=== PATIENT | female | born 1945 | race Hispanic/Latino ===

== ENCOUNTER → 2018-02-18 | Outpatient (CLI) | payer MEDICARE ==
[~2018-02-18] MED LIST: ATORVASTATIN CA10 MG PO; GLIMEPIRIDE4 MG PO; LEVAQUIN250 MG PO; METFORMIN HCL1000 MG PO; PHENAZOPYRIDIN200 MG PO; URELLE TABLET1 EACH PO; ZESTRIL20 MG PO
[2018-02-18 16:55] LABS: INR 1.01; PROTHROMBIN TIME 12.5 seconds (11.9-14.5)
[2018-02-18 16:56] LABS: PARTIAL THROMBOPLASTIN TIME 26.1 seconds (23.8-35.5)
[2018-02-18 16:59] LABS: CREATININE, SERUM 0.95 mg/dL (0.57-1.11)
--- NOTE | 2018-02-18 18:32 | Diagnostic Imaging Report ---
PROCEDURE: CHEST XRAY LINE PLACEMENT COMPARISON: None. INDICATIONS: POST PICC LINE PLACEMENT FINDINGS: LUNGS: No consolidations or edema. No interstitial thickening. PLEURA: No effusions or pneumothorax. HEART \T\ MEDIASTINUM: Right PICC line terminates in the SVC. The heart is within normal size-limits. BONES \T\ SOFT TISSUES: No acute findings. CONCLUSION: Right PICC line terminates in the SVC. No pneumothorax. No active cardiopulmonary process. Dictated by: Ana M Correa M.D. on 02/18/2018 at 18:39 Electronically approved by: Ana M Correa M.D. on 02/18/2018 at 18:39
== END ==
LOC: DX 16:04
PROVIDERS: ATTEND Internal Medicine Infectious Disease
DX: N39.0 Urinary tract infection, site not specified (principal)
CPT/HCPCS: 36415; 36569; 71045; 82565; 84520; 85610; 85730

== ENCOUNTER 2018-02-21 14:42 | Emergency (ER) | payer MEDICARE ==
[~2018-02-21] VITALS: Ht 152.4 cm; Wt 82.1 kg
[2018-02-21] MEDS ORDERED: DOXYCYCLINE HY100 MG PO (15:35)
== END 2018-02-21 16:46 | disposition home or self-care (01) ==
LOC: ER 14:42
DX: M79.631 Pain in right forearm (principal); L03.113 Cellulitis of right upper limb; I10 Essential (primary) hypertension; E11.9 Type 2 diabetes mellitus without complications; E78.5 Hyperlipidemia, unspecified; L40.9 Psoriasis, unspecified
CPT/HCPCS: 99283

== ENCOUNTER 2018-09-11 19:35 | Emergency (ER) | payer MEDICARE ==
[~2018-09-11] VITALS: Ht 152.4 cm; Wt 85.3 kg
[~2018-09-11 19:35] MED LIST changes: +DOXYCYCLINE HY100 MG PO
--- OUTSIDE RECORDS SUMMARY | 2018-09-11 19:40 | XMS REPORT | Continuity of Care Document ---
Author Author [facility] Interface Address Unknown Phone Unavailable Problems Problem Status Onset Date Classification Date Reported Comments Source CHEST PAIN Active 07/03/2018 [facility] UNK Active 06/05/2018 [facility] HYPOTENSION, EPISTAXIS Active 05/26/2018 [facility] NOSE BLEED Active 05/26/2018 [facility] UNSTABLE ANGINA, ATHEROSCLEROTIC HEART D Active 05/13/2018 [facility] RIGHT SIDED CHEST PAIN/JOSE ELEVATION Active 05/13/2018 [facility] ABNORMAL EKG Active 05/13/2018 [facility] BLADDER PAIN Active 02/14/2017 [facility] BLADDER LESION Active 10/11/2016 [facility] URINARY RETENSION Active 02/26/2016 [facility] 2ND STAGE INSTERTIM Active 02/26/2016 [facility] N39.0; URINARY TRACT INFECTION, SITE NOT Active 11/24/2015 [facility] R10.10 - "UPPER ABDOMINAL PAIN, UNSPECIF Active 11/20/2015 [facility] N13.30-UNSPECIFIED HYDRONEPHROSIS Active 09/20/2015 [facility] PYELONEPHRITIS Active 05/16/2015 [facility] LABIA WOUND Active 04/18/2015 [facility] VOMITING Active 04/12/2015 [facility] RECURRENT CYSTITIS, VOMITING, ABSCESS Active 04/12/2015 [facility] N13.30 UNSPECIFIED HYDRONEPHROSIS Active 03/31/2015 [facility] SEPSIS, MULTI DRUG RESISTANT UTI, FAILUR Active 03/17/2015 [facility] ABD PAIN Active 03/17/2015 [facility] 783.21/281.0/285.9/536.3 Active 01/27/2015 [facility] LT PYELONRPHRITIS, SEPSIS, COMPLICATED U Active 01/11/2015 [facility] VOMITING/ FEVER Active 01/11/2015 [facility] PYELONEPHRITIS, HYPOGLYCEMIA Active 12/08/2014 [facility] Discharge Diagnosis: Acute lower UTI 12/07/2014 12/10/2014 [facility] Discharge Diagnosis: Acute urinary retention 12/07/2014 12/10/2014 [facility] Chronic cystitis<sup>1</sup> Active 10/07/2014 Problem 11/29/2017 Data migrated from [employer] on 01/04/15. NEO Amanda,[facility] Encounter for screening mammogram for malignant neoplasm of breast 11/29/2017 [facility] Acute PN - pyelonephritis Resolved Problem 11/29/2017 NEO Amanda,[facility] Diabetes Active Problem 11/29/2017 NEO Amanda,[facility] Frequency Resolved Problem 11/29/2017 NEO Amanda,[facility] HTN (<span [id number]</span>) Active Problem 11/29/2017 [facility] Amanda,[facility] Hypercholesteremia Active Problem 11/29/2017 [facility] Amanda,[facility] Hypertension Active Problem 11/29/2017 NEO Amanda,[facility] Psoriasis<sup>2</sup> Active Problem 11/29/2017 on both legs NEO Amanda,[facility] Retained ureteral stent Active Problem 11/29/2017 NEO Amanda,[facility] Sleep apnea<sup>3</sup> Active Problem 11/29/2017 [facility] Psoriasis<sup>1</sup> Active Problem 12/13/2014 1on both legs [facility] Sleep apnea Active Problem 03/01/2016 [facility], [facility] Urinary tract infection Active Problem 02/21/2018 NEO Amanda,[facility] PYELONEPHRITIS NOS Active [facility] SEPTICEMIA NOS Active [facility] HYDRONEPHROSIS WITH RENAL AND URETERAL C Active [facility] ABNORMAL LOSS OF WEIGHT Active [facility] PERNICIOUS ANEMIA Active [facility] ANEMIA NOS Active [facility] GASTROPARESIS Active [facility] CYSTITIS, UNSPECIFIED WITHOUT HEMATURIA Active [facility] TUBULO-INTERSTITIAL NEPHRITIS, 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 [facility] UNSPECIFIED HYDRONEPHROSIS Active [facility] RETENTION OF URINE, UNSPECIFIED Active [facility] URINARY TRACT INFECTION, SITE NOT SPECIF Active [facility] OTHER SPECIFIED DISORDERS OF BLADDER Active [facility] UNSTABLE ANGINA Active [facility] HYPOTENSION, UNSPECIFIED Active [facility] EPISTAXIS Active [facility] CHEST PAIN, UNSPECIFIED Active [facility] Medications Medication Details Route Status Patient Instructions Ordering Provider Order Date Source Doxycycline Hyclate 100 Mg Capsule Twice A Day Active Aleksandar 02/21/2018 [facility] Insulin regular 5 unit, Route: IV, ONCE, Dosing Weight 74.545, kg, Start date: 10/30/16 13:05:00 CDT, Stop date: 10/30/16 13:05:00 CDT Inactive 10/30/2016 [facility] Insulin regular 2 unit, 0.02 mL, Route: SUB-Q, Drug form: SOLN, Sliding Scale, Dosing Weight 74.545, kg, PRN Blood Glucose Results, Start date: 10/30/16 12:42:00 CDT, Duration: 30 day, Stop date: 11/29/16 12:41:00 CDTN otes: (Same as: Humulin R) Roll in palms of hands gently; Do not shake vigorously. "single patient use only" (Restricted to patients requiring a dose > 60 units) WASTE: F/P - Black; E - Personal Style Finder Trash Bin Stable for 28 days at room temperature Expires in days from Date No Longer Active 10/30/2016 [facility] Flumazenil 0.2 mg, 2 mL, Route: IVP, Drug form: INJ, PRN, Dosing Weight 74.545, kg, PRN Benzodiazepine Reversal, Initial dose, Start date: 10/30/16 12:42:00 CDT, Duration: 30 day, Stop date: 11/29/16 12:41:00 C DTNotes: (Same as: Romazicon) No Longer Active 10/30/2016 [facility] Ondansetron 4 mg, 2 mL, Route: IVP, Drug form: INJ, ONCE, Dosing Weight 74.545, kg, PRN Nausea & Vomiting, Start date: 10/30/16 12:42:00 CDTNotes: (Same as: Zofran) MEDICATION WASTE Product Size: 4 mg Product Wasted: ___ mg No Longer Active 10/30/2016 [facility] Naloxone 0.4 mg, 1 mL, Route: IVP, Drug form: INJ, Q2MIN, Dosing Weight 74.545, kg, PRN Narcotic Reversal, Start date: 10/30/16 12:42:00 CDT, Duration: 8 doses or times, Stop date: Limited # of timesNotes: Same as Narcan No Longer Active 10/30/2016 [facility] Hydromorphone 0.5 mg, 0.25 mL, Route: IVP, Drug form: INJ, Q5Min, Dosing Weight 74.545, kg, PRN Pain Score 7-10, Start date: 10/30/16 12:42:00 CDT, Duration: 4 doses or times, Stop date: Limited # of timesNotes: S johnny as: Dilaudid No Longer Active 10/30/2016 [facility] Fentanyl 25 microgram, 0.5 mL, Route: IVP, Drug form: INJ, Q5Min, Dosing Weight 74.545, kg, PRN Pain Score 4-6, Priority: Routine, Start date: 10/30/16 12:42:00 CDT, Duration: 4 doses or times, Stop date: Limited # of timesNotes: (Same as: Sublimaze) Preservative free. No Longer Active 10/30/2016 [facility] Oxycodone 5 mg, 1 tab, Route: PO, Drug form: TAB, Q4H, Dosing Weight 74.545, kg, PRN Pain Score 4-6, Start date: 10/30/16 12:42:00 CDT, Duration: 1 day, Stop date: 10/31/16 12:41:00 CDTNotes: (Same as: Roxicodone) No Longer Active 10/30/2016 [facility] Insulin regular 5 unit, Route: IV, ONCE, Dosing Weight 74.545, kg, Start date: 10/30/16 12:36:00 CDT, Stop date: 10/30/16 12:36:00 CDT Inactive 10/30/2016 [facility] ondansetron (ANES) Route: IV, Drug form: INJ, ONCE, Stop date: 10/30/16 12:11:00 CDT Inactive 10/30/2016 [facility] Ciprofloxacin 500 MG Oral Tablet [Cipro] 500 mg=1 tab, PO, Q12H, X 7 day, # 14 tab, 0 Refill(s) Active 10/30/2016 [facility] fluconazole 100 mg oral tablet 100 mg=1 tab, PO, Daily, X 7 day, # 7 tab, 0 Refill(s) Active 10/30/2016 [facility] Hyoscyamine Sulfate 0.125 MG Sublingual Tablet [Levsin] 0.125 mg=1 tab, SL, Q4H, PRN Bladder Spasm, # 10 tab, 0 Refill(s) Active 10/30/2016 [facility] phenylephrine (ANES) Route: IV, Drug form: INJ, ONCE, Stop date: 10/30/16 11:56:00 CDT Inactive 10/30/2016 [facility] fentaNYL (ANES) Route: IV, Drug form: INJ, ONCE, Stop date: 10/30/16 11:56:00 CDT Inactive 10/30/2016 [facility] Cipro (ANES) Route: IV, Drug form: INJ, ONCE, Stop date: 10/30/16 11:51:00 CDT Inactive 10/30/2016 [facility] midazolam (ANES) Route: IV, Drug form: SOLN, ONCE, Stop date: 10/30/16 11:41:00 CDT Inactive 10/30/2016 [facility] lidocaine (ANES) Route: IV, Drug form: INJ, ONCE, Stop date: 10/30/16 11:41:00 CDT Inactive 10/30/2016 [facility] acetaminophen (ANES) (ANES) Route: IV, Drug form: INJ, Start date: 10/30/16 11:24:00 CDT, Stop date: 10/30/16 12:24:00 CDT Inactive 10/30/2016 [facility] LR 1000 mL INJ (ANES) Route: IV, Total Volume: 1,000, Start date: 10/30/16 10:47:00 CDT, Stop date: 10/30/16 11:47:00 CDT Inactive 10/30/2016 [facility] Cipro 400 mg, 200 mL, Route: IVPB, Drug form: INJ, PRE OP, Start date: 10/30/16 9:00:00 CDT, Duration: 1 day, Stop date: 10/31/16 8:59:00 CDTNotes: Do not refrigerate No Longer Active 10/30/2016 [facility] Cipro 400 mg, 200 mL, Route: IVPB, Drug form: INJ, PRE OP, Start date: 10/30/16 1:00:00 CDT, Duration: 1 day, Stop date: 10/31/16 0:59:00 CDTNotes: Do not refrigerate Inactive 10/30/2016 [facility] Cephalexin 500 MG Oral Capsule [Keflex] 500 mg=1 cap, PO, BID, X 7 day, # 14 cap, 0 Refill(s) Active 04/09/2016 [facility] Acetaminophen 300 MG / Codeine Phosphate 30 MG Oral Tablet [Tylenol with Codeine #3] 1 - 2 tab, PO, Q4H, PRN Pain, X 2 day, # 20 tab, 0 Refill(s) No Longer Active 04/09/2016 [facility] Flumazenil 0.2 mg, 2 mL, Route: IVP, Drug form: INJ, PRN, Dosing Weight 71.818, kg, PRN Benzodiazepine Reversal, Initial dose, Start date: 04/09/16 7:24:00 CDT, Duration: 30 day, Stop date: 05/09/16 6:23:00 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: (Same as: Romazicon) No Longer Active 04/09/2016 [facility] Oxycodone 5 mg, 1 tab, Route: PO, Drug form: TAB, Q4H, Dosing Weight 71.818, kg, PRN Pain Score 4-6, Start date: 04/09/16 7:24:00 CDT, Duration: 30 day, Stop date: 05/09/16 7:23:00 CSTNotes: (Same as: Roxicodone) No Longer Active 04/09/2016 [facility] Naloxone 0.4 mg, 1 mL, Route: IVP, Drug form: INJ, Q2MIN, Dosing Weight 71.818, kg, PRN Narcotic Reversal, Start date: 04/09/16 7:24:00 CDT, Duration: 8 doses or times, Stop date: Limited # of timesNotes: Same as Narcan No Longer Active 04/09/2016 [facility] Labetalol 10 mg, 2 mL, Route: IVP, Drug form: INJ, Q5Min, Dosing Weight 71.818, kg, PRN Elevated BP, Start date: 04/09/16 7:24:00 CDT, Duration: 5 doses or times, Stop date: Limited # of times No Longer Active 04/09/2016 [facility] Hydralazine 10 mg, 0.5 mL, Route: IVP, Drug form: INJ, Q20Min, Dosing Weight 71.818, kg, PRN Elevated BP, Start date: 04/09/16 7:24:00 CDT, Duration: 2 doses or times, Stop date: Limited # of timesNotes: (Same as: Apresoline) Push over 5 minutes No Longer Active 04/09/2016 [facility] Ondansetron 4 mg, 2 mL, Route: IVP, Drug form: INJ, ONCE, Dosing Weight 71.818, kg, PRN Nausea & Vomiting, Start date: 04/09/16 7:24:00 CDTNotes: (Same as: Dima) MEDICATION WASTE Product Size: 4 mg Product Wasted: _0_ mg No Longer Active 04/09/2016 [facility] Lactated Ringers 1,000 mL 1,000 mL, Rate: 40 ml/hr, Infuse over: 25 hr, Route: IV, Dosing Weight 71.818 kg, Total Volume: 1,000, Start date: 04/09/16 6:00:00 CDT, Duration: 30 day, Stop date: 05/09/16 5:59:00 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 No Longer Active 04/09/2016 [facility] Cipro 400 mg, 200 mL, Route: IVPB, Drug form: INJ, PRE OP, Start date: 04/09/16 1:00:00 CDT, Duration: 1 day, Stop date: 04/10/16 0:59:00 CDTNotes: Do not refrigerate Inactive 04/09/2016 [facility] Cephalexin 500 MG Oral Capsule [Keflex] 500 mg=1 cap, PO, TID, X 7 day, # 21 cap, 0 Refill(s) Active 04/02/2016 [facility] Acetaminophen 300 MG / Codeine Phosphate 30 MG Oral Tablet [Tylenol with Codeine #3] 1 - 2 tab, PO, Q6H, PRN Pain, X 5 day, # 30 tab, 0 Refill(s) Active 04/02/2016 [facility] ceFAZolin 1 gm, Route: IVPB, Drug form: PDR/INJ, PRE OP, Start date: 04/02/16 5:00:00 CDT, Duration: 1 day, Stop date: 04/03/16 4:59:00 CDTNotes: (Same As: Laura Triana) MEDICATION WASTE Product Size: 1000 mg Product Wasted: __0_ mg Inactive 04/02/2016 [facility] Sulfamethoxazole 800 MG / Trimethoprim 160 MG Oral Tablet [Bactrim] 1 tab, PO, BID, 0 Refill(s) No Longer Active 03/29/2016 [facility] amoxicillin 500 mg oral capsule 500 mg=1 cap, PO, TID, 0 Refill(s) No Longer Active 03/29/2016 [facility] ferrous sulfate PO, BID, 0 Refill(s) Active 03/29/2016 [facility] cefdinir 300 MG Oral Capsule 300 mg=1 cap, PO, Q12H, X 7 day, # 14 cap, 0 Refill(s), called to pharmacy Active 05/21/2015 [facility] ampicillin 500 mg oral capsule 2, PO, Q6H, # 28 cap, 0 Refill(s), called to pharmacy Active 05/21/2015 [facility] docusate sodium 100 mg oral capsule 100 mg, 1 cap, Route: PO, Drug form: CAP, QSun, Dosing Weight 76.364, kg, Start date: 05/21/15 12:00:00, Duration: 30 day, Stop date: 06/18/15 12:00:00Notes: (Same as: Colace) (Do Not Crush) Inactive 05/21/2015 [facility] Vitamin D2 50,000 IntlUnit, 1 cap, Route: PO, Drug form: CAP, QSat, Dosing Weight 76.364, kg, Start date: 05/20/15 9:00:00, Duration: 30 day, Stop date: 06/17/15 9:00:00Notes: (Same as: Vitamin D) "Do Not Crush" No Longer Active 05/20/2015 [facility] pt own apremilast (Otezia) pt own apremilast (Otezia), 30 mg, Drug form: MISC, Route: PO, BID, 05/19/15 17:00:00, Duration: 30 day, Stop date: 06/18/15 9:00:00 No Longer Active 05/19/2015 [facility] Otezla Otezla, 30 mg, Route: PO, BID, 05/19/15 17:00:00, Duration: 30 day, Stop date: 06/18/15 9:00:00 Inactive 05/19/2015 [facility] Please bring pt's Own Otezla to pharmacy for label Please bring pt's Own Otezla to pharmacy for label, Reminder, Drug form: MISC, Route: MISC, Daily, 05/19/15 14:00:00, Duration: 30 day, Stop date: 06/18/15 9:00:00 Inactive 05/19/2015 [facility] Vancomycin 250 mg, 5 mL, Route: PO, Drug form: SUSP, [id number], Dosing Weight 75.568, kg, Start date: 05/19/15 12:00:00, Stop date: 06/18/15 6:00:00Notes: TIME CRITICAL MEDICATION "DILUTE EACH DOSE WITH 30ML OF WATER OR APPLE/ORANGE JUICE PRIOR TO ADMINISTRATION" No Longer Active 05/19/2015 [facility] apremilast 30 MG Oral Tablet [Otezla] 30 mg=1 tab, PO, BID, 0 Refill(s) Active 05/19/2015 [facility] pt's own med: Calcipotriene/Betamethasone pt's own med: Calcipotriene/Betamethasone, apply, Drug form: MISC, Route: TOP, BID, 05/18/15 9:00:00, Duration: 30 day, Stop date: 06/16/15 17:00:00 No Longer Active 05/18/2015 [facility] atorvastatin 10 mg, 1 tab, Route: PO, Drug form: TAB, Bedtime, Dosing Weight 76.364, kg, Start date: 05/17/15 21:00:00, Duration: 30 day, Stop date: 06/15/15 21:00:00Notes: (Same As: Lipitor) No Longer Active 05/18/2015 [facility] Metformin hydrochloride 1000 MG Oral Tablet 1,000 mg, 2 tab, Route: PO, Drug form: TAB, Lunch, Dosing Weight 76.364, kg, Start date: 05/17/15 12:00:00, Duration: 30 day, Stop date: 06/15/15 12:00:00Notes: (Same as: Glucophage) Take with meal No Longer Active 05/17/2015 [facility] docusate sodium 100 mg oral capsule 100 mg, 1 cap, Route: PO, Drug form: CAP, QWed, Dosing Weight 76.364, kg, Start date: 05/17/15 12:00:00, Duration: 30 day, Stop date: 06/14/15 12:00:00Notes: (Same as: Colace) (Do Not Crush) No Longer Active 05/17/2015 [facility] Unasyn 3 gm, 1 ea, Route: IVPB, [id number], Dosing Weight 75.568, kg, Start date: 05/17/15 11:00:00, Duration: 30 day, Stop date: 06/16/15 8:00:00Notes: Dosing based on Ampicillin component (Same as: Unasyn) No Longer Active 05/17/2015 [facility] Ceftriaxone 1 gm, Route: IVPB, [id number], Dosing Weight 75.568, kg, Start date: 05/17/15 11:00:00, Duration: 30 day, Stop date: 06/15/15 23:00:00Notes: (Same As: Rocephin). Use with 100 mL NS and infuse over 30 min MEDICATION WASTE Product Size: 1000 mg Product Wasted: ___ mg No Longer Active 05/17/2015 [facility] One-A-Day Women 50 Plus 1 tab, Route: PO, Dosing Weight 76.364, kg, Daily, Start date: 05/17/15 9:00:00, Duration: 30 day, Stop date: 06/15/15 9:00:00 No Longer Active 05/17/2015 [facility] Lisinopril 10 mg, 1 tab, Route: PO, Drug form: TAB, Daily, Dosing Weight 76.364, kg, Start date: 05/17/15 9:00:00, Duration: 30 day, Stop date: 06/15/15 9:00:00Notes: (Same as: Prinivil, Zestril) No Longer Active 05/17/2015 [facility] glimepiride 4 mg, 1 tab, Route: PO, Drug form: TAB, BID, Dosing Weight 76.364, kg, Start date: 05/17/15 9:00:00, Duration: 30 day, Stop date: 06/15/15 17:00:00Notes: (Same as: Amaryl) No Longer Active 05/17/2015 [facility] Betamethasone 0.5 MG/ML / calcipotriene 0.05 MG/ML Topical Lotion 1 appl, Route: TOP, Daily, Drug form: SUSP, Start date: 05/17/15 9:00:00, Duration: 30 day, Stop date: 06/15/15 9:00:00 Inactive 05/17/2015 [facility] multivitamin 1 tab, Route: PO, Drug Form: TAB, Daily, Start date: 05/17/15 9:00:00, Duration: 30 day, Stop date: 06/15/15 9:00:00Notes: (Same as:One Tab Daily, Tab-A-Chelsie + Beta Carotene) Give with food. No Longer Active 05/17/2015 [facility] K-Dur 20 20 mEq, 1 tab, Route: PO, Drug form: ERTAB, Q6H, Start date: 05/17/15 4:00:00, Duration: 4 doses or times, Stop date: 05/17/15 18:00:00Notes: (Same as: K-Dur 20) "Do Not Crush" With food and full glass of water Inactive 05/17/2015 [facility] Please bring Beta-calcipotriene top susp Please bring Beta- calcipotriene top susp, to pharmacy to be verified, Drug form: MISC, Route: MISC, QSHIFT, 05/17/15 0:00:00, Duration: 30 day, Stop date: 06/15/15 16:00:00 Inactive 05/17/2015 [facility] Tylenol 325 mg, 1 tab, Route: PO, Drug form: TAB, Q4H, PRN Pain Score 1-5, Start date: 05/16/15 22:41:00, Duration: 30 day, Stop date: 06/15/15 22:40:00Notes: Do not exceed 4 gm/day. (Same as: Tylenol) No Longer Active 05/17/2015 [facility] tramadol 50 mg oral tablet 50 mg, 1 tab, Route: PO, Drug form: TAB, Q4H, PRN Pain Score 1-5, Start date: 05/16/15 22:41:00, Duration: 30 day, Stop date: 06/15/15 22:40:00Notes: Not to exceed 400mg/day. (Same As: Ultram) No Longer Active 05/17/2015 [facility] Tylenol 650 mg, 2 tab, Route: PO, Drug form: TAB, Q4H, Dosing Weight 76.364, kg, PRN For Temp > 100.4 F, Start date: 05/16/15 21:16:00, Duration: 30 day, Stop date: 06/15/15 21:15:00Notes: Do not exceed 4 gm/day. (Same as: Tylenol) No Longer Active 05/17/2015 [facility] Lactated Ringers IV 1,000 mL 1,000 mL, Rate: 125 ml/hr, Infuse over: 8 hr, Route: IV, Dosing Weight 76.364 kg, Total Volume: 1,000, Start date: 05/16/15 21:15:00, Duration: 30 day, Stop date: 06/15/15 21:14:00 No Longer Active 05/17/2015 [facility] Zofran 4 mg, 2 mL, Route: IV, Drug form: INJ, Q4H, Dosing Weight 76.364, kg, PRN Nausea, Start date: 05/16/15 21:14:00, Duration: 30 day, Stop date: 06/15/15 21:13:00Notes: (Same as: Zofran) MEDICATION WASTE Product Size: 4 mg Product Wasted: ___ mg No Longer Active 05/17/2015 [facility] potassium chloride 20 mEq, 1 tab, Route: PO, Drug form: ERTAB, ONCE, Dosing Weight 76.364, kg, Start date: 05/16/15 21:13:00, Stop date: 05/16/15 21:13:00Notes: (Same as: K-Dur 20) "Do Not Crush" With food and full glass of water Inactive 05/17/2015 [facility] Acetaminophen 325 MG / tramadol hydrochloride 37.5 MG Oral Tablet [Ultracet] 1 tab, Route: PO, Drug Form: TAB, Dosing Weight 76.364, kg, Q4H, PRN Pain Score 1-5, Start date: 05/16/15 21:10:00, Duration: 30 day, Stop date: 06/15/15 21:09:00 Inactive 05/17/2015 [facility] Acetaminophen 300 MG / Codeine Phosphate 30 MG Oral Tablet 1 tab, Route: PO, Drug Form: TAB, Dosing Weight 76.364, kg, Q4H, PRN Pain Score 4-6, Start date: 05/16/15 21:08:00, Duration: 30 day, Stop date: 06/15/15 21:07:00Notes: Do not exceed 4gm/day of acetaminophen. (Same as: Tylenol with Codeine # 3) No Longer Active 05/17/2015 [facility] Lovenox 40 mg, 0.4 mL, Route: SUB-Q, Drug form: INJ, [id number], Dosing Weight 76.364, kg, Start date: 05/16/15 20:00:00, Duration: 30 day, Stop date: 06/14/15 20:00:00Notes: (Same as: Lovenox) No Longer Active 05/17/2015 [facility] Rocephin 1 gm, Route: IVPB, [id number], Dosing Weight 76.364, kg, Start date: 05/16/15 20:00:00, Duration: 30 day, Stop date: 06/14/15 20:00:00Notes: (Same As: Rocephin). Use with 100 mL NS and infuse over 30 min MEDICATION WASTE Product Size: 1000 mg Product Wasted: ___ mg No Longer Active 05/17/2015 [facility] docusate sodium 100 mg oral capsule 100 mg, 1 cap, Route: PO, Drug form: CAP, QWed, Dosing Weight 77.727, kg, Start date: 04/19/15 12:00:00, Duration: 30 day, Stop date: 05/17/15 12:00:00Notes: (Same as: Colace) (Do Not Crush) No Longer Active 04/19/2015 [facility] Ciprofloxacin 250 MG Oral Tablet [Cipro] 250 mg=1 tab, PO, Q12H, X 14 day, # 28 tab, 0 Refill(s) Active 04/17/2015 [facility] Levemir FlexPen 25 unit, 0.25 mL, Route: SUB-Q, Drug form: INJ, Bedtime, Start date: 04/16/15 21:00:00, Duration: 30 day, Stop date: 05/15/15 21:00:00Notes: Same as Levemir Do not hold insulin without contacting prescriber "single patient use only" No Longer Active 04/17/2015 [facility] docusate sodium 100 mg oral capsule 100 mg, 1 cap, Route: PO, Drug form: CAP, QSun, Dosing Weight 77.727, kg, Start date: 04/16/15 9:00:00, Duration: 30 day, Stop date: 05/14/15 9:00:00Notes: (Same as: Colace) (Do Not Crush) No Longer Active 04/16/2015 [facility] Lactulose 20 gm, 30 ml, Route: PO, Drug Form: SYRP, Dosing Weight 77.983, kg, Q8H, PRN Constipation, Start date: 04/15/15 14:54:00, Duration: 30 day, Stop date: 05/15/15 14:53:00Notes: (Same as:Chronulac) No Longer Active 04/15/2015 [facility] ergocalciferol 50,000 IntlUnit, 1 cap, Route: PO, Drug form: CAP, QSat, Dosing Weight 77.727, kg, Start date: 04/15/15 9:00:00, Duration: 30 day, Stop date: 05/13/15 9:00:00Notes: (Same as: Vitamin D) "Do Not Crush" No Longer Active 04/15/2015 [facility] Vancomycin 1 gm, 200 mL, Route: IVPB, Drug form: INJ, [id number], Dosing Weight 77.983, kg, Start date: 04/14/15 17:00:00, Duration: 30 day, Stop date: 05/14/15 5:00:00Notes: TIME CRITICAL MEDICATION No Longer Active 04/14/2015 [facility] Lantus 15 unit, Route: SUB-Q, Bedtime, Dosing Weight 77.727, kg, Start date: 04/13/15 21:00:00, Duration: 30 day, Stop date: 05/12/15 21:00:00 Inactive 04/14/2015 [facility] atorvastatin 10 mg, 1 tab, Route: PO, Drug form: TAB, Bedtime, Dosing Weight 77.727, kg, Start date: 04/13/15 21:00:00, Duration: 30 day, Stop date: 05/12/15 21:00:00Notes: (Same As: Lipitor) No Longer Active 04/14/2015 [facility] Levemir FlexPen 15 unit, 0.15 mL, Route: SUB-Q, Drug form: INJ, Bedtime, Start date: 04/13/15 21:00:00, Duration: 30 day, Stop date: 05/12/15 21:00:00Notes: Same as Levemir Do not hold insulin without contacting prescriber "single patient use only" No Longer Active 04/14/2015 [facility] otezla otezla, 30 mg, Route: PO, BID, 04/13/15 17:00:00, Duration: 30 day, Stop date: 05/13/15 9:00:00 No Longer Active 04/13/2015 [facility] Zosyn 3.375 gm, 100 mL, Route: IVPB, Drug form: PDR/INJ, [id number], Dosing Weight 77.727, kg, CrCl >=20 ml/min infuse over 4 hours, Start date: 04/13/15 12:00:00, Duration: 30 day, Stop date: 05/13/15 1:30:00Notes: (Same as: Zosyn) Infuse over 4 hours. Activate and reconstitute before use. Dosing based on Piperacillin component No Longer Active 04/13/2015 [facility] oxybutynin 5 mg, 1 tab, Route: PO, Drug form: TAB, TID, Dosing Weight 77.727, kg, Start date: 04/13/15 9:00:00, Duration: 30 day, Stop date: 05/12/15 17:00:00Notes: Same as: Ditropan) Inactive 04/13/2015 [facility] Multiple Vitamins with Minerals oral tablet 1 tab, Route: PO, Drug Form: TAB, Dosing Weight 77.727, kg, Daily, Start date: 04/13/15 9:00:00, Duration: 30 day, Stop date: 05/12/15 9:00:00Notes: (Same as:Thera-M, Theragran-M) Give with food. No Longer Active 04/13/2015 [facility] Lisinopril 10 mg, 1 tab, Route: PO, Drug form: TAB, Daily, Dosing Weight 77.727, kg, Start date: 04/13/15 9:00:00, Duration: 30 day, Stop date: 05/12/15 9:00:00Notes: (Same as: Prinivil, Zestril) No Longer Active 04/13/2015 [facility] Vancomycin 1 gm, Route: IVPB, Drug form: INJ, [id number], Dosing Weight 77.727, kg, Start date: 04/13/15 8:00:00, Duration: 30 day, Stop date: 05/12/15 20:00:00 Inactive 04/13/2015 [facility] Glucagon 1 mg, Route: IM, Drug form: PDR/INJ, PRN, Dosing Weight 77.727, kg, PRN Blood Glucose Results, Start date: 04/13/15 7:20:00, Duration: 30 day, Stop date: 05/13/15 6:19:00 No Longer Active 04/13/2015 [facility] Dextrose 50% Syringe 12.5 gm, 25 mL, Route: IVP, Drug Form: INJ, Dosing Weight 77.727, kg, PRN, PRN Blood Glucose Results, Start date: 04/13/15 7:20:00, Duration: 30 day, Stop date: 05/13/15 6:19:00 No Longer Active 04/13/2015 [facility] Insulin, Aspart, Human 5 unit, 0.05 mL, Route: SUB-Q, Drug form: SOLN, TID-Before Meals, Dosing Weight 77.727, kg, PRN Blood Glucose Results, Start date: 04/13/15 7:20:00, Duration: 30 day, Stop date: 05/13/15 7:19:00Notes: Roll in palms of hands gently; Do not shake vigorously. (Same as: NovoLOG) "single patient use only" Stable for 28 days at room temperature. Expires in days from Date No Longer Active 04/13/2015 [facility] Sodium Chloride 0.154 MEQ/ML Injectable Solution 1,000 mL, Rate: 125 ml/hr, Infuse over: 8 hr, Route: IV, Dosing Weight 77.727 kg, Total Volume: 1,000, Start date: 04/13/15 7:20:00, Duration: 30 day, Stop date: 05/13/15 7:19:00 No Longer Active 04/13/2015 [facility] Saline Flush 0.9% 10 ml, Route: IVP, Drug Form: INJ, Dosing Weight 77.727, kg, PRN, PRN Line Flush, Start date: 04/13/15 7:20:00, Duration: 30 day, Stop date: 05/13/15 6:19:00Notes: (Same as: BD Posiflush) No Longer Active 04/13/2015 [facility] Ondansetron 4 mg, 2 mL, Route: IVP, Drug form: INJ, Q6H, Dosing Weight 77.727, kg, PRN Nausea & Vomiting, Start date: 04/13/15 7:20:00, Duration: 30 day, Stop date: 05/13/15 7:19:00Notes: (Same as: Zoyolette) MEDICATION WASTE Product Size: 4 mg Product Wasted: ___ mg No Longer Active 04/13/2015 [facility] Morphine 2 mg, 1 mL, Route: IVP, Drug form: INJ, Q4H, Dosing Weight 77.727, kg, PRN Pain Score 7-10, Start date: 04/13/15 7:20:00, Duration: 30 day, Stop date: 05/13/15 7:19:00Notes: (Same as:MORPhine Sulfate) No Longer Active 04/13/2015 [facility] Acetaminophen 325 MG / Hydrocodone Bitartrate 5 MG Oral Tablet 1 tab, Route: PO, Drug Form: TAB, Dosing Weight 77.727, kg, Q4H, PRN Pain Score 4-6, Start date: 04/13/15 7:20:00, Duration: 30 day, Stop date: 05/13/15 7:19:00Notes: (Same as: Baldwin 325/5) Do not exceed 4gm/day of acetaminophen. No Longer Active 04/13/2015 [facility] Acetaminophen 650 mg, 2 tab, Route: PO, Drug form: TAB, Q4H, Dosing Weight 77.727, kg, PRN Pain 1-3/Temp > 100.4 F, Start date: 04/13/15 7:20:00, Duration: 30 day, Stop date: 05/13/15 7:19:00Notes: Do not exceed 4 gm/day. (Same as: Tylenol) No Longer Active 04/13/2015 [facility] Morphine 2 mg, 1 mL, Route: IVP, Drug form: INJ, ONCE, Dosing Weight 77.727, kg, Priority: STAT, Start date: 04/13/15 2:23:00, Stop date: 04/13/15 2:23:00Notes: (Same as:MORPhine Sulfate) Inactive 04/13/2015 [facility] NS 1,000 mL 1,000 mL, Rate: 125 ml/hr, Infuse over: 8 hr, Route: IV, Dosing Weight 77.727 kg, Total Volume: 1,000, Start date: 04/13/15 2:22:00, Duration: 30 day, Stop date: 05/13/15 2:21:00 Inactive 04/13/2015 [facility] Zosyn 3.375 gm, 100 mL, Route: IVPB, Drug form: PDR/INJ, ONCE, Dosing Weight 77.727, kg, Priority: STAT, Start date: 04/13/15 2:22:00, Stop date: 04/13/15 2:22:00Notes: (Same as: Zosyn) Infuse over 4 hours. Activate and reconstitute before use. Dosing based on Piperacillin component Inactive 04/13/2015 [facility] Vancomycin 1 gm, 200 mL, Route: IVPB, Drug form: INJ, ONCE, Dosing Weight 77.727, kg, Priority: STAT, Start date: 04/13/15 2:22:00, Stop date: 04/13/15 2:22:00Notes: TIME CRITICAL MEDICATION Inactive 04/13/2015 [facility] Zofran 4 mg, 2 mL, Route: IVP, Drug form: INJ, ONCE, Dosing Weight 77.727, kg, Priority: STAT, Start date: 04/13/15 2:21:00, Stop date: 04/13/15 2:21:00Notes: (Same as: Dima) MEDICATION WASTE Product Size: 4 mg Product Wasted: ___ mg Inactive 04/13/2015 [facility] Sodium Chloride 0.154 MEQ/ML Injectable Solution 1,000 mL, 1,000 ml/hr, Infuse Over: 1 hr, Route: IV, 1,000, Drug form: INJ, ONCE, Priority: STAT, Dosing Weight 77.727 kg, Start date: 04/13/15 2:21:00, Duration: 1 doses or times, Stop date: 04/13/15 2:21:00 Inactive 04/13/2015 [facility] Acetaminophen 325 MG / tramadol hydrochloride 37.5 MG Oral Tablet [Ultracet] 1 tab, PO, Q4H, PRN for pain, # 60 tab, 0 Refill(s) Active 04/13/2015 [facility] Sulfamethoxazole 800 MG / Trimethoprim 160 MG Oral Tablet [Bactrim] 1 tab, PO, BID, # 14 tab, 0 Refill(s) No Longer Active 04/13/2015 [facility] docusate sodium 100 mg oral capsule 100 mg, 1 cap, Route: PO, Drug form: CAP, QWed, Dosing Weight 80.938, kg, Start date: 03/22/15 12:00:00, Duration: 30 day, Stop date: 04/19/15 12:00:00Notes: (Same as: Colace) (Do Not Crush) No Longer Active 03/22/2015 [facility] Cephalexin 500 MG Oral Capsule [Keflex] 500 mg=1 cap, PO, QID, X 14 day, # 56 cap, 0 Refill(s) Active 03/21/2015 [facility] oxybutynin 5 mg oral tablet 5 mg=1 tab, PO, TID, # 30 tab, 0 Refill(s) Active 03/21/2015 [facility] pt own Betamethasone-Calcipotrience 0.064%-0.005% oint pt own Betamethasone-Calcipotrience 0.064%-0.005% oint, 1 appl, Drug form: MISC, Route: TOP, ONCE, 03/19/15 18:35:00, Stop date: 03/19/15 18:35:00 Inactive 03/19/2015 [facility] Ditropan 5 mg, 1 tab, Route: PO, Drug form: TAB, TID, Dosing Weight 80.938, kg, Start date: 03/19/15 17:00:00, Duration: 30 day, Stop date: 04/18/15 13:00:00Notes: Same as: Ditropan) No Longer Active 03/19/2015 [facility] docusate sodium 100 mg oral capsule 100 mg, 1 cap, Route: PO, Drug form: CAP, QSun, Dosing Weight 80.938, kg, Start date: 03/19/15 12:00:00, Duration: 30 day, Stop date: 04/16/15 12:00:00Notes: (Same as: Colace) (Do Not Crush) No Longer Active 03/19/2015 [facility] Betamethasone-Calcipotrience topical 0.064%-0.005% suspensio Betamethasone-Calcipotrience topical 0.064%-0.005% suspensio, 1app, Drug form: MISC, Route: TOP, Daily, 03/19/15 9:00:00, Stop date: 04/17/15 9:00:00 No Longer Active 03/19/2015 [facility] multivitamin 1 tab, Route: PO, Drug Form: TAB, Daily, Start date: 03/19/15 9:00:00, Duration: 30 day, Stop date: 04/17/15 9:00:00Notes: (Same as:One Tab Daily, Tab-A-Chelsie + Beta Carotene) Give with food. No Longer Active 03/19/2015 [facility] One-A-Day Women 50 Plus 1 tab, Route: PO, Dosing Weight 80.938, kg, Daily, Start date: 03/19/15 9:00:00, Duration: 30 day, Stop date: 04/17/15 9:00:00 No Longer Active 03/19/2015 [facility] Lisinopril 10 mg, 1 tab, Route: PO, Drug form: TAB, Daily, Dosing Weight 80.938, kg, Start date: 03/19/15 9:00:00, Duration: 30 day, Stop date: 04/17/15 9:00:00Notes: (Same as: Prinivil, Zestril) No Longer Active 03/19/2015 [facility] Betamethasone 0.5 MG/ML / calcipotriene 0.05 MG/ML Topical Lotion 1 appl, Route: TOP, Daily, Drug form: SUSP, Start date: 03/19/15 9:00:00, Duration: 30 day, Stop date: 04/17/15 9:00:00 Inactive 03/19/2015 [facility] Flonase 0.05 mg/inh nasal spray 1 spray, Route: Each Affected Nostril, Drug Form: SPRY, Dosing Weight 80.938, kg, Daily, NOW, Start date: 03/18/15 22:43:00, Duration: 30 day, Stop date: 04/17/15 9:00:00Notes: (Same as: Flonase) No Longer Active 03/19/2015 [facility] Lantus 15 unit, Route: SUB-Q, Bedtime, Dosing Weight 80.938, kg, Start date: 03/18/15 21:00:00, Duration: 30 day, Stop date: 04/16/15 21:00:00 Inactive 03/19/2015 [facility] atorvastatin 10 mg, 1 tab, Route: PO, Drug form: TAB, Bedtime, Dosing Weight 80.938, kg, Start date: 03/18/15 21:00:00, Duration: 30 day, Stop date: 04/16/15 21:00:00Notes: (Same As: Lipitor) No Longer Active 03/19/2015 [facility] Levemir FlexPen 15 unit, 0.15 mL, Route: SUB-Q, Drug form: INJ, Bedtime, Start date: 03/18/15 21:00:00, Duration: 30 day, Stop date: 04/16/15 21:00:00Notes: Same as Levemir Do not hold insulin without contacting prescriber "single patient use only" No Longer Active 03/19/2015 [facility] glimepiride 4 mg, 1 tab, Route: PO, Drug form: TAB, BID, Dosing Weight 80.938, kg, Start date: 03/18/15 17:00:00, Duration: 30 day, Stop date: 04/17/15 9:00:00Notes: (Same as: Amaryl) No Longer Active 03/18/2015 [facility] Glucagon 1 mg, Route: IM, Drug form: PDR/INJ, PRN, Dosing Weight 80.938, kg, PRN Blood Glucose Results, Start date: 03/18/15 16:38:00, Duration: 30 day, Stop date: 04/17/15 16:37:00 No Longer Active 03/18/2015 [facility] Dextrose 50% Syringe 12.5 gm, 25 mL, Route: IVP, Drug Form: INJ, Dosing Weight 80.938, kg, PRN, PRN Blood Glucose Results, Start date: 03/18/15 16:38:00, Duration: 30 day, Stop date: 04/17/15 16:37:00 No Longer Active 03/18/2015 [facility] Insulin, Aspart, Human 6 unit, 0.06 mL, Route: SUB-Q, Drug form: SOLN, TID-Before Meals, Dosing Weight 80.938, kg, PRN Blood Glucose Results, Start date: 03/18/15 16:38:00, Duration: 30 day, Stop date: 04/17/15 16:37:00Notes: Roll in palms of hands gently; Do not shake vigorously. (Same as: NovoLOG) "single patient use only" Stable for 28 days at room temperature. Expires in days from Date No Longer Active 03/18/2015 [facility] Enoxaparin 40 mg, 0.4 mL, Route: SUB-Q, Drug form: INJ, [id number], Dosing Weight 80.938, kg, Start date: 03/18/15 12:00:00, Duration: 30 day, Stop date: 04/16/15 12:00:00Notes: (Same as: Lovenox) No Longer Active 03/18/2015 [facility] Metformin hydrochloride 1000 MG Oral Tablet 1,000 mg, 2 tab, Route: PO, Drug form: TAB, Lunch, Dosing Weight 80.938, kg, Start date: 03/18/15 12:00:00, Duration: 30 day, Stop date: 04/16/15 12:00:00Notes: (Same as: Glucophage) Take with meal No Longer Active 03/18/2015 [facility] Hyoscyamine 0.125 mg, 1 tab, Route: PO, Drug form: TAB, Q4H, Dosing Weight 80.938, kg, PRN as needed for spasm, Start date: 03/18/15 11:21:00, Duration: 30 day, Stop date: 04/17/15 11:20:00 No Longer Active 03/18/2015 [facility] Acetaminophen 300 MG / Codeine Phosphate 30 MG Oral Tablet 1 tab, Route: PO, Drug Form: TAB, Dosing Weight 80.938, kg, Q4H, PRN Pain Score 4-6, Start date: 03/18/15 11:20:00, Duration: 30 day, Stop date: 04/17/15 11:19:00Notes: Do not exceed 4gm/day of acetaminophen. (Same as: Tylenol with Codeine # 3) No Longer Active 03/18/2015 [facility] cefepime 1 gm, Route: IVPB, [id number], Dosing Weight 80.938, kg, (CrCl 30 - 49 ml/min), Start date: 03/18/15 11:00:00, Duration: 30 day, Stop date: 04/16/15 23:00:00Notes: (Same As: Maxipime) MEDICATION WASTE Product Size: 1000 mg Product Wasted: 0___ mg No Longer Active 03/18/2015 [facility] Nitroglycerin 0.4 MG Sublingual Tablet 0.4 mg, 1 tab, Route: SL, Drug form: TAB, Q5Min, Dosing Weight 80.938, kg, PRN Chest Pain, Start date: 03/18/15 0:34:00, Duration: 30 day, Stop date: 04/17/15 0:33:00Notes: (Same as:Nitroquick, Nitrostat) "Do Not Crush" Sublingual tablet No Longer Active 03/18/2015 [facility] Atropine 0.5 mg, 5 mL, Route: IVP, Drug form: INJ, ONCE, Dosing Weight 80.938, kg, PRN Bradycardia, Start date: 03/18/15 0:34:00, symptomatic bradycardia HR No Longer Active 03/18/2015 [facility] Ondansetron 4 mg, 2 mL, Route: IVP, Drug form: INJ, Q6H, Dosing Weight 80.909, kg, PRN Nausea & Vomiting, Start date: 03/17/15 23:57:00, Duration: 30 day, Stop date: 04/16/15 23:56:00Notes: (Same as: Zoyolette) MEDICATION WASTE Product Size: 4 mg Product Wasted: ___ mg No Longer Active 03/18/2015 [facility] Morphine 4 mg, 2 mL, Route: IVP, Drug form: INJ, Q4H, Dosing Weight 80.909, kg, PRN Pain Score 7-10, Start date: 03/17/15 23:57:00, Duration: 30 day, Stop date: 04/16/15 23:56:00Notes: (Same as:MORPhine Sulfate) No Longer Active 03/18/2015 [facility] Acetaminophen 650 mg, 2 tab, Route: PO, Drug form: TAB, Q4H, Dosing Weight 80.909, kg, PRN Pain 1-3/Temp > 100.4 F, Start date: 03/17/15 23:57:00, Duration: 30 day, Stop date: 04/16/15 23:56:00Notes: Do not exceed 4 gm/day. (Same as: Tylenol) No Longer Active 03/18/2015 [facility] Sodium Chloride 0.154 MEQ/ML Injectable Solution 1,000 mL, 1,000 ml/hr, Infuse Over: 1 Hour, Route: IV, ONCE, Priority: STAT, Dosing Weight 80.909 kg, Start date: 03/17/15 21:47:00, Duration: 1 doses or times, Stop date: 03/17/15 21:47:00 Inactive 03/18/2015 [facility] lisinopril 20 mg oral tablet 10 mg=0.5 tab, PO, Daily Active 03/18/2015 [facility] atorvastatin 10 mg oral tablet 10 mg=1 tab, PO, Bedtime Active 03/18/2015 [facility] Vitamin D2 50,000 intl units oral capsule 50,000 IntlUnit=1 cap, PO, QSat Active 03/18/2015 [facility] nitrofurantoin macrocrystals-monohydrate 100 mg oral capsule (Macrobid) 100 mg=1 cap, PO, Daily No Longer Active 03/18/2015 [facility] Acetaminophen 300 MG / Codeine Phosphate 30 MG Oral Tablet 1 tab, PO, Q4H, PRN Pain Score 4-6 Active 03/18/2015 [facility] docusate sodium 100 mg oral capsule 100 mg=1 cap, PO, QSun, in the afternoonSpecial Instructions: in the afternoon Active 03/18/2015 [facility] hyoscyamine 0.125 mg oral tablet 0.125 mg=1 tab, PO, Q4H, PRN Bladder Spasm Active 03/18/2015 [facility] Insulin regular 5 unit, Route: IVP, ONCE, Dosing Weight 80.909, kg, Priority: STAT, Start date: 03/17/15 19:54:00, Stop date: 03/17/15 19:54:00 Inactive 03/18/2015 [facility] Sodium Chloride 0.154 MEQ/ML Injectable Solution 1,000 mL, 1000 ml/hr, Infuse Over: 1 hr, Route: IV, 1,000, Drug form: INJ, ONCE, Priority: STAT, Dosing Weight 80.909 kg, Start date: 03/17/15 19:16:00, Duration: 1 doses or times, Stop date: 03/17/15 19:16:00 Inactive 03/18/2015 [facility] Zofran 4 mg, 2 mL, Route: IVP, Drug form: INJ, ONCE, Dosing Weight 80.909, kg, Priority: STAT, Start date: 03/17/15 19:15:00, Stop date: 03/17/15 19:15:00Notes: (Same as: Zofran) MEDICATION WASTE Product Size: 4 mg Product Wasted: ___ mg Inactive 03/18/2015 [facility] Morphine 4 mg, 2 mL, Route: IVP, Drug form: INJ, ONCE, Dosing Weight 80.909, kg, Priority: STAT, Start date: 03/17/15 19:15:00, Stop date: 03/17/15 19:15:00Notes: (Same as:MORPhine Sulfate) Inactive 03/18/2015 [facility] meropenem 1,000 mg, Route: IV, ONCE, Dosing Weight 80.909, kg, Start date: 03/17/15 19:10:00, Stop date: 03/17/15 19:10:00Notes: (Same as: Merrem) . MEDICATION WASTE Product Size: 1000 mg Product Wasted: ___ mg Inactive 03/18/2015 [facility] Sodium Chloride 0.154 MEQ/ML Injectable Solution 500 mL, 500 ml/hr, Infuse Over: 1 hr, Route: IV, 500, Drug form: INJ, ONCE, Priority: STAT, Dosing Weight 80.909 kg, Start date: 03/17/15 18:39:00, Duration: 1 doses or times, Stop date: 03/17/15 18:39:00 Inactive 03/17/2015 [facility] Sodium Chloride 0.154 MEQ/ML Injectable Solution 1,000 mL, Rate: 25 ml/hr, Infuse over: 40 hr, Route: IV, Dosing Weight 85 kg, Total Volume: 1,000, Start date: 02/08/15 12:37:00, Duration: 30 day, Stop date: 03/10/15 12:36:00 Inactive 02/08/2015 [facility] Macrobid 100 mg, PO, BID, # 14 cap, 0 Refill(s) Active 02/06/2015 [facility] Fluconazole 200 MG Oral Tablet [Diflucan] 200 mg=1 tab, PO, Daily, X 3 week, # 21 tab, 0 Refill(s), given to patient Active 01/17/2015 [facility] isoniazid 900 mg, 3 tab, Route: PO, Drug form: TAB, QSun, Dosing Weight 88.182, kg, Start date: 01/15/15 17:00:00, Duration: 30 day, Stop date: 02/12/15 17:00:00Notes: (Same as:INH 1 hr prior to meal. No Longer Active 01/15/2015 [facility] pyridoxine 50 mg, 1 tab, Route: PO, Drug form: TAB, QSun, Dosing Weight 88.182, kg, Start date: 01/15/15 17:00:00, Duration: 30 day, Stop date: 02/12/15 17:00:00Notes: (Same as: Vitamin B6) No Longer Active 01/15/2015 [facility] Vancomycin 1 gm, 200 mL, Route: IVPB, Drug form: INJ, [id number], Dosing Weight 87.273, kg, Start date: 01/15/15 10:00:00, Duration: 30 day, Stop date: 02/13/15 22:00:00Notes: TIME CRITICAL MEDICATION No Longer Active 01/15/2015 [facility] Miralax 17 gm, 1 pkt, Route: PO, Drug form: PWDR, Daily, Dosing Weight 87.273, kg, PRN Constipation, Start date: 01/14/15 14:54:00, Duration: 30 day, Stop date: 02/13/15 14:53:00Notes: Dissolve in 8 oz of water or juice. (Same as: Miralax) No Longer Active 01/14/2015 [facility] Bisacodyl 10 mg, 1 supp, Route: OK, Drug form: SUPP, Daily, Dosing Weight 87.273, kg, PRN Constipation, Start date: 01/13/15 18:25:00, Duration: 30 day, Stop date: 02/12/15 18:24:00Notes: (Same As: Dulcolax, Bisco- Lax) No Longer Active 01/13/2015 [facility] NS 1,000 mL 1,000 mL, Rate: 100 ml/hr, Infuse over: 10 hr, Route: IV, Dosing Weight 87.273 kg, Total Volume: 1,000, Start date: 01/13/15 14:24:00, Duration: 10 hr, Stop date: 01/14/15 0:23:00 No Longer Active 01/13/2015 [facility] Lipitor 10 mg, 1 tab, Route: PO, Drug form: TAB, Bedtime, Dosing Weight 88.182, kg, Start date: 01/12/15 21:00:00, Duration: 30 day, Stop date: 02/10/15 21:00:00Notes: (Same As: Lipitor) No Longer Active 01/13/2015 [facility] Lantus Route: SUB-Q, Bedtime, Dosing Weight 88.182, kg, Start date: 01/12/15 21:00:00, Duration: 30 day, Stop date: 02/10/15 21:00:00 Inactive 01/13/2015 [facility] Levemir FlexPen 15 unit, 0.15 mL, Route: SUB-Q, Drug form: INJ, Bedtime, Start date: 01/12/15 21:00:00, Duration: 30 day, Stop date: 02/10/15 21:00:00Notes: Same as Levemir Do not hold insulin without contacting prescriber "single patient use only" No Longer Active 01/13/2015 [facility] Diflucan 400 mg, 200 mL, Route: IVPB, Drug form: INJ, [id number], Dosing Weight 87.273, kg, Start date: 01/12/15 14:00:00, Duration: 30 day, Stop date: 02/10/15 14:00:00Notes: (Same as: Diflucan) No Longer Active 01/12/2015 [facility] Lisinopril 10 mg, 1 tab, Route: PO, Drug form: TAB, Daily, Dosing Weight 88.182, kg, Start date: 01/12/15 9:00:00, Duration: 30 day, Stop date: 02/10/15 9:00:00Notes: (Same as: Prinivil, Zestril) No Longer Active 01/12/2015 [facility] meropenem 500 mg, Route: IVPB, [id number], Dosing Weight 88.182, kg, CrCL >=50ml/min, Extended infusion, infuse over 3 hours, Start date: 01/12/15 5:00:00, Duration: 30 day, Stop date: 02/11/15 1:00:00Notes: Same as Merrem MEDICATION WASTE Product Size: 500 mg Product Wasted: ___ mg No Longer Active 01/12/2015 [facility] Insulin, Aspart, Human 3 unit, 0.03 mL, Route: SUB-Q, Drug form: SOLN, TID-Before Meals, Dosing Weight 88.182, kg, PRN Blood Glucose Results, Start date: 01/12/15 0:27:00, Duration: 30 day, Stop date: 02/11/15 0:26:00Notes: Roll in palms of hands gently; Do not shake vigorously. (Same as: NovoLOG) "single patient use only" Stable for 28 days at room temperature. Expires in days from Date No Longer Active 01/12/2015 [facility] Dextrose 50% Syringe 12.5 gm, 25 mL, Route: IVP, Drug Form: INJ, Dosing Weight 88.182, kg, PRN, PRN Blood Glucose Results, Start date: 01/12/15 0:27:00, Duration: 30 day, Stop date: 02/11/15 0:26:00 No Longer Active 01/12/2015 [facility] Glucagon 1 mg, Route: IM, Drug form: PDR/INJ, PRN, Dosing Weight 88.182, kg, PRN Blood Glucose Results, Start date: 01/12/15 0:27:00, Duration: 30 day, Stop date: 02/11/15 0:26:00 No Longer Active 01/12/2015 [facility] Ondansetron 4 mg, 2 mL, Route: IVP, Drug form: INJ, Q8H, Dosing Weight 88.182, kg, PRN Nausea & Vomiting, Start date: 01/12/15 0:27:00, Duration: 30 day, Stop date: 02/11/15 0:26:00Notes: (Same as: Dima) MEDICATION WASTE Product Size: 4 mg Product Wasted: ___ mg No Longer Active 01/12/2015 [facility] Acetaminophen 325 MG / Hydrocodone Bitartrate 10 MG Oral Tablet 1 tab, Route: PO, Drug Form: TAB, Dosing Weight 88.182, kg, Q4H, PRN Pain Score 4-6, Start date: 01/12/15 0:27:00, Duration: 30 day, Stop date: 02/11/15 0:26:00Notes: Do not exceed 4gm/day of acetaminophen. (Same as: Baldwin 325/10) No Longer Active 01/12/2015 [facility] Sodium Chloride 0.154 MEQ/ML Injectable Solution 1,000 mL, Rate: 100 ml/hr, Infuse over: 10 hr, Route: IV, Dosing Weight 88.182 kg, Total Volume: 1,000, Start date: 01/12/15 0:27:00, Duration: 30 day, Stop date: 02/11/15 0:26:00 Inactive 01/12/2015 [facility] Saline Flush 0.9% 10 ml, Route: IVP, Drug Form: INJ, Dosing Weight 88.182, kg, PRN, PRN Line Flush, Start date: 01/12/15 0:27:00, Duration: 30 day, Stop date: 02/11/15 0:26:00Notes: (Same as: BD Posiflush) No Longer Active 01/12/2015 [facility] meropenem 1,000 mg, Route: IV, Q8H, Dosing Weight 88.182, kg, Start date: 01/12/15 0:00:00, Duration: 30 day, Stop date: 02/10/15 16:00:00 No Longer Active 01/12/2015 [facility] potassium chloride 20 mEq, 1 tab, Route: PO, Drug form: ERTAB, ONCE, Dosing Weight 88.182, kg, Start date: 01/11/15 22:52:00, Stop date: 01/11/15 22:52:00Notes: (Same as: K-Dur 20) "Do Not Crush" With food and full glass of water Inactive 01/12/2015 [facility] Morphine 2 mg, Route: IVP, Drug form: INJ, ONCE, Dosing Weight 88.182, kg, Priority: STAT, Start date: 01/11/15 22:18:00, Stop date: 01/11/15 22:18:00 Inactive 01/12/2015 [facility] Zofran 4 mg, Route: IVP, Drug form: INJ, ONCE, Dosing Weight 88.182, kg, Priority: STAT, Start date: 01/11/15 22:17:00, Stop date: 01/11/15 22:17:00 Inactive 01/12/2015 [facility] NS 1,000 mL 1,000 mL, Rate: 100 ml/hr, Infuse over: 10 hr, Route: IV, Dosing Weight 88.182 kg, Total Volume: 1,000, Start date: 01/11/15 22:16:00, Stop date: 02/10/15 22:15:00 No Longer Active 01/12/2015 [facility] meropenem 1,000 mg, Route: IV, ONCE, Dosing Weight 88.182, kg, Start date: 01/11/15 20:47:00, Stop date: 01/11/15 20:47:00Notes: (Same as: Merrem) . MEDICATION WASTE Product Size: 1000 mg Product Wasted: ___ mg Inactive 01/12/2015 [facility] Tylenol 975 mg, Route: PO, Drug form: TAB, ONCE, Dosing Weight 88.182, kg, Priority: STAT, Start date: 01/11/15 20:41:00, Stop date: 01/11/15 20:41:00 Inactive 01/12/2015 [facility] Zosyn 4.5 gm, Route: IVPB, Drug form: INJ, ONCE, Dosing Weight 88.182, kg, Priority: STAT, Start date: 01/11/15 20:41:00, Stop date: 01/11/15 20:41:00 Inactive 01/12/2015 [facility] Sodium Chloride 0.154 MEQ/ML Injectable Solution 1,000 mL, 1,000 ml/hr, Infuse Over: 1 hr, Route: IV, ONCE, Priority: STAT, Dosing Weight 88.182 kg, Start date: 01/11/15 20:41:00, Duration: 1 doses or times, Stop date: 01/11/15 20:41:00 Inactive 01/12/2015 [facility] Oxycodone Hydrochloride 1 MG/ML Oral Solution 10 mg, Route: NG, Drug form: LIQ, Q4H, Dosing Weight 87.727, kg, PRN Pain Score 7-10, Start date: 01/10/15 14:02:00, Duration: 30 day, Stop date: 02/09/15 14:01:00 Inactive 01/10/2015 [facility] Oxycodone 10 mg, Route: PO, Drug form: TAB, Q4H, Dosing Weight 87.727, kg, PRN Pain Score 7-10, Start date: 01/10/15 14:02:00, Duration: 30 day, Stop date: 02/09/15 14:01:00 Inactive 01/10/2015 [facility] Ondansetron 4 mg, Route: IVP, ONCE, Dosing Weight 87.727, kg, PRN Nausea & Vomiting, Start date: 01/10/15 14:02:00 Inactive 01/10/2015 [facility] Morphine 2 mg, Route: IVP, Q5Min, Dosing Weight 87.727, kg, PRN Pain Score 4-6, Start date: 01/10/15 14:02:00, Duration: 5 doses or times, Stop date: Limited # of times Inactive 01/10/2015 [facility] Ketorolac 30 mg, 1 mL, Route: IVP, Drug form: INJ, ONCE, Dosing Weight 87.727, kg, Start date: 01/10/15 14:02:00, Duration: 1 doses or times, Stop date: 01/10/15 14:02:00Notes: (Same as:Toradol) IV bolus must be given >15 seconds. Give IM administration slowly and deeply into the muscle. Not for use > 4 days MEDICATION WASTE Product Size: 30 mg Product Wasted: ___ mg Inactive 01/10/2015 [facility] Hydromorphone 0.5 mg, Route: IVP, Q5Min, Dosing Weight 87.727, kg, PRN Pain Score 7-10, Start date: 01/10/15 14:02:00, Duration: 4 doses or times, Stop date: Limited # of times Inactive 01/10/2015 [facility] Fentanyl 50 microgram, Route: IVP, Q5Min, Dosing Weight 87.727, kg, PRN Pain Score 7-10, Start date: 01/10/15 14:02:00, Duration: 2 doses or times, Stop date: Limited # of times Inactive 01/10/2015 [facility] Naloxone 0.04 mg, Route: IVP, Q2MIN, Dosing Weight 87.727, kg, PRN Narcotic Reversal, Start date: 01/10/15 14:02:00, Duration: 8 doses or times, Stop date: Limited # of times Inactive 01/10/2015 [facility] Flumazenil 0.2 mg, Route: IVP, PRN, Dosing Weight 87.727, kg, PRN Benzodiazepine Reversal, Initial dose, Start date: 01/10/15 14:02:00, Duration: 30 day, Stop date: 02/09/15 14:01:00 Inactive 01/10/2015 [facility] Meperidine 12.5 mg, Route: IVP, Q30Min, Dosing Weight 87.727, kg, PRN Other -See Comment, For shivering, Start date: 01/10/15 14:02:00, Duration: 2 doses or times, Stop date: Limited # of times Inactive 01/10/2015 [facility] Promethazine 6.25 mg, Route: IVPB, ONCE, Dosing Weight 87.727, kg, PRN Nausea & Vomiting, Start date: 01/10/15 14:02:00 Inactive 01/10/2015 [facility] Diphenhydramine 12.5 mg, Route: IVP, Drug form: INJ, Q6H, Dosing Weight 87.727, kg, PRN Itching, Start date: 01/10/15 14:02:00, Duration: 30 day, Stop date: 02/09/15 14:01:00 Inactive 01/10/2015 [facility] Acetaminophen 1,000 mg, Route: IVPB, Drug form: INJ, ONCE, Dosing Weight 87.727, kg, PRN Pain Score 1-3, Start date: 01/10/15 14:02:00, Duration: 1 doses or times, Stop date: Limited # of times Inactive 01/10/2015 [facility] Calcium Chloride 0.0014 MEQ/ML / Potassium Chloride 0.004 MEQ/ML / Sodium Chloride 0.103 MEQ/ML / Sodium Lactate 0.028 MEQ/ML Injectable Solution 1,000 mL, Rate: 125 ml/hr, Infuse over: 8 hr, Route: IV, Dosing Weight 87.727 kg, Total Volume: 1,000, Start date: 01/10/15 14:02:00, Duration: 30 day, Stop date: 02/09/15 14:01:00 Inactive 01/10/2015 [facility] Acetaminophen 300 MG / Codeine Phosphate 30 MG Oral Tablet [Tylenol with Codeine #3] 1 - 2 tab, PO, Q4H, PRN Pain, X 3 day, # 20 tab, 0 Refill(s) On Hold 01/10/2015 [facility] Ciprofloxacin 2 MG/ML Injectable Solution [Cipro] 400 mg, 200 mL, Route: IVPB, Drug form: INJ, ONCE, Dosing Weight 87.727, kg, Start date: 01/10/15 12:10:00, Stop date: 01/10/15 12:10:00Notes: Do not refrigerate Inactive 01/10/2015 [facility] Calcium Chloride 0.0014 MEQ/ML / Potassium Chloride 0.004 MEQ/ML / Sodium Chloride 0.103 MEQ/ML / Sodium Lactate 0.028 MEQ/ML Injectable Solution 1,000 mL, Rate: 25 ml/hr, Infuse over: 40 hr, Route: IV, Dosing Weight 87.727 kg, Total Volume: 1,000, Start date: 01/10/15 10:59:00, Duration: 30 day, Stop date: 02/09/15 10:58:00 Inactive 01/10/2015 [facility] STOOL SOFTENER STOOL SOFTENER, 2x weekly, PO, Refill(s) 0 On Hold 12/28/2014 [facility] TNF Rifapentine 750mg once week pt's own med TNF Rifapentine 750mg once week pt's own med, 750 mg, Drug form: MISC, Route: PO, QSun, 12/11/14 17:00:00, Duration: 30 day, Stop date: 01/08/15 9:00:00 No Longer Active 12/11/2014 [facility] pyridoxine 50mg pt's own med pyridoxine 50mg pt's own med, 50 mg, Drug form: MISC, Route: PO, QSun, 12/11/14 17:00:00, Duration: 30 day, Stop date: 01/08/15 9:00:00 No Longer Active 12/11/2014 [facility] Isoniazid 300mg pt's own med 900mg(3 tablets) Isoniazid 300mg pt's own med 900mg(3 tablets), 900 mg, Drug form: MISC, Route: PO, QSun, 12/11/14 17:00:00, Duration: 30 day, Stop date: 01/08/15 9:00:00 No Longer Active 12/11/2014 [facility] pyridoxine 50 mg, 1 tab, Route: PO, Drug form: TAB, QSun, Dosing Weight 87.273, kg, Start date: 12/11/14 17:00:00, Duration: 30 day, Stop date: 01/08/15 17:00:00Notes: (Same as: Vitamin B6) No Longer Active 12/11/2014 [facility] isoniazid 900 mg, 3 tab, Route: PO, Drug form: TAB, QSun, Dosing Weight 87.273, kg, Start date: 12/11/14 17:00:00, Duration: 30 day, Stop date: 01/08/15 17:00:00Notes: (Same as:INH 1 hr prior to meal. No Longer Active 12/11/2014 [facility] Pneumovax 23 0.5 mL, Route: IM, Drug Form: INJ, Daily, Start date: 12/11/14 9:00:00, Duration: 1 doses or times, Stop date: 12/11/14 9:00:00Notes: (Same as: Pneumovax 23) Refrigerate No Longer Active 12/11/2014 [facility] Levofloxacin 750 MG Oral Tablet [Levaquin] 750 mg=1 tab, PO, Q24H, X 10 day, # 10 tab, 0 Refill(s) Active 12/10/2014 [facility] pneumococcal capsular polysaccharide type 1 vaccine / pneumococcal capsular polysaccharide type 10A vaccine / pneumococcal capsular polysaccharide type 11A vaccine / pneumococcal capsular polysaccharide type 12F vaccine / pneumococcal capsular polysacchar 0.5 mL, Route: IM, Drug Form: INJ, Daily, Start date: 12/09/14 9:00:00, Duration: 1 doses or times, Stop date: 12/09/14 9:00:00Notes: (Same as: Pneumovax 23) Refrigerate Inactive 12/09/2014 [facility] Ciprofloxacin 2 MG/ML Injectable Solution 400 mg, Route: IVPB, ONCE, Dosing Weight 87.273, kg, Start date: 12/09/14 8:28:00, Stop date: 12/09/14 8:28:00 Inactive 12/09/2014 [facility] Calcium Chloride 0.0014 MEQ/ML / Potassium Chloride 0.004 MEQ/ML / Sodium Chloride 0.103 MEQ/ML / Sodium Lactate 0.028 MEQ/ML Injectable Solution 1,000 mL, Rate: 25 ml/hr, Infuse over: 40 hr, Route: IV, Dosing Weight 87.273 kg, Total Volume: 1,000, Start date: 12/09/14 7:44:00, Duration: 30 day, Stop date: 01/08/15 7:43:00 Inactive 12/09/2014 [facility] Lantus Route: SUB-Q, Bedtime, Dosing Weight 87.273, kg, Start date: 12/08/14 21:00:00, Duration: 30 day, Stop date: 01/06/15 21:00:00 Inactive 12/09/2014 [facility] Lipitor 10 mg, 1 tab, Route: PO, Drug form: TAB, Bedtime, Dosing Weight 87.273, kg, Start date: 12/08/14 21:00:00, Duration: 30 day, Stop date: 01/06/15 21:00:00Notes: (Same As: Lipitor) No Longer Active 12/09/2014 [facility] Levemir FlexPen 15 unit, 0.15 mL, Route: SUB-Q, Drug form: INJ, Bedtime, Start date: 12/08/14 21:00:00, Duration: 30 day, Stop date: 01/06/15 21:00:00Notes: Same as Levemir Do not hold insulin without contacting prescriber "single patient use only" No Longer Active 12/09/2014 [facility] Rifapentine Rifapentine, 750 mg, Route: PO, qWeek, 12/08/14 14:00:00, Duration: 30 day, Stop date: 01/05/15 9:00:00 No Longer Active 12/08/2014 [facility] Ceftriaxone 1 gm, Route: IVPB, [id number], Dosing Weight 87.273, kg, Start date: 12/08/14 9:00:00, Duration: 30 day, Stop date: 01/06/15 9:00:00Notes: Mix in NS 100ml ADV bag and infuse over 30 Minutes (Same As: Gin perez) No Longer Active 12/08/2014 [facility] Saline Flush 0.9% 10 ml, Route: IVP, Drug Form: INJ, Dosing Weight 87.273, kg, PRN, PRN Line Flush, Start date: 12/08/14 8:52:00, Duration: 30 day, Stop date: 01/07/15 8:51:00Notes: (Same as: BD Posiflush) No Longer Active 12/08/2014 [facility] Sodium Chloride 0.154 MEQ/ML Injectable Solution 1,000 mL, Rate: 125 ml/hr, Infuse over: 8 hr, Route: IV, Dosing Weight 87.273 kg, Total Volume: 1,000, Start date: 12/08/14 8:52:00, Duration: 30 day, Stop date: 01/07/15 8:51:00 No Longer Active 12/08/2014 [facility] Insulin, Aspart, Human 2 unit, 0.02 mL, Route: SUB-Q, Drug form: SOLN, TID-Before Meals, Dosing Weight 87.273, kg, PRN Blood Glucose Results, Start date: 12/08/14 8:52:00, Duration: 30 day, Stop date: 01/07/15 8:51:00Notes: Roll in palms of hands gently; Do not shake vigorously. (Same as: NovoLOG) "single patient use only" Stable for 28 days at room temperature. Expires in days from Date No Longer Active 12/08/2014 [facility] Dextrose 50% Syringe 25 gm, 50 mL, Route: IVP, Drug Form: INJ, Dosing Weight 87.273, kg, PRN, PRN Blood Glucose Results, Start date: 12/08/14 8:52:00, Duration: 30 day, Stop date: 01/07/15 8:51:00 No Longer Active 12/08/2014 [facility] Glucagon 1 mg, Route: IM, Drug form: PDR/INJ, PRN, Dosing Weight 87.273, kg, PRN Blood Glucose Results, Start date: 12/08/14 8:52:00, Duration: 30 day, Stop date: 01/07/15 8:51:00 No Longer Active 12/08/2014 [facility] Ciprofloxacin 500 MG Oral Tablet [Cipro] 500 mg=1 tab, PO, Q12H, X 7 day, # 14 tab, 0 Refill(s) Inactive 12/08/2014 [facility] Sodium Chloride 0.154 MEQ/ML Injectable Solution 1,000 mL, 1,000 ml/hr, Infuse Over: 1 Hour, Route: IV, ONCE, Priority: STAT, Dosing Weight 87.273 kg, Start date: 12/08/14 8:10:00, Duration: 1 doses or times, Stop date: 12/08/14 8:10:00 Inactive 12/08/2014 [facility] Dextrose 50% Syringe 12.5 gm, Route: IVP, Dosing Weight 87.273, kg, ONCE, STAT, Start date: 12/08/14 7:54:00, Stop date: 12/08/14 7:54:00 Inactive 12/08/2014 [facility] Ceftriaxone 1 gm, Route: IVPB, Drug form: PDR/INJ, ONCE, Dosing Weight 87.273, kg, Priority: STAT, Start date: 12/08/14 7:52:00, Stop date: 12/08/14 7:52:00 Inactive 12/08/2014 [facility] Zofran 4 mg, Route: IVP, Drug form: INJ, ONCE, Dosing Weight 87.273, kg, Priority: STAT, Start date: 12/08/14 6:31:00, Stop date: 12/08/14 6:31:00 Inactive 12/08/2014 [facility] Sodium Chloride 0.154 MEQ/ML Injectable Solution 1,000 mL, 1,000 ml/hr, Infuse Over: 1 Hour, Route: IV, ONCE, Priority: STAT, Dosing Weight 87.273 kg, Start date: 12/08/14 6:31:00, Duration: 1 doses or times, Stop date: 12/08/14 6:31:00 Inactive 12/08/2014 [facility] Atorvastatin Calcium 10 Mg Tablet Daily Active [facility] Glimepiride 4 Mg Tablet Twice A Day Active [facility] Levofloxacin (Levaquin) 250 Mg Tablet Daily Active [facility] Lisinopril (Zestril*) 20 Mg Tablet Daily Active [facility] Metformin Hcl 1,000 Mg Tablet Twice A Day Active [facility] [place] Alk/Blue/Phen Sa (Urelle Tablet) 1 Each Tab Every 6 Hours [facility] Phenazopyridine Hcl 200 Mg Tablet Three Times A Day as needed for Pain Active [facility] Allergies, Adverse Reactions, Alerts Substance Category Reaction Severity Reaction type Status Date Reported Comments Source Immunizations Immunization Date Given Site Status Last Updated Comments Source pneumococcal 23-valent vaccine 12/10/2014 Left Deltoid completed Negra NEO Amanda,[facility] Results Order Name Results Value Reference Range Date Interpretation Comments Source Chest 1view DX Chest 1view DX Exam: Chest 1view DX Clinical Indication: Arrhythmias - eval for acute intrathoracic process. Comparison: Chest radiograph 07/03/2018 FINDINGS: Single frontal radiograph of the chest is performed. Low lung volumes with vascular crowding and accentuation of cardiomediastinal silhouette. Lungs otherwise appear clear without focal consolidation. No pleural effusion or pneumothorax. No acute osseous abnormality identified. Status post median sternotomy. IMPRESSION: Low lung volumes without other acute radiographic abnormality in the chest. SL: [id number] 07/04/2018 - - Read by: Brendan Stearns MD Dictated Date/time: 07/04/18 07:27 Electronically Signed by: Brendan Stearns MD 07/04/18 07:27 FINAL REPORT [facility] Chest 2 views DX Chest 2 views DX Clinical Indication: Cough and fever. Chest pain. Comparison: Chest x-ray 06/05/2018 Technique: Frontal and lateral views of the chest was obtained. Findings: Lines and Tubes: None. Lungs and Pleura: No airspace opacification or consolidation. No pleural effusion or pneumothorax. Heart and Mediastinum: The cardiomediastinal silhouette is unchanged. Calcified plaque of the aortic arch. There are median sternotomy wires and mediastinal clips, consistent with prior coronary artery bypass graft. Bones: No acute osseous abnormality. Surgical clips in the epigastric area. IMPRESSION: No pneumonia or pulmonary edema. SL: [id number] 07/03/2018 - - Read by: Vickey Hernandez MD Dictated Date/time: 07/03/18 19:08 Electronically Signed by: Vickey Hernandez MD 07/03/18 19:09 FINAL REPORT [facility] Chest 2 views DX Chest 2 views DX PA and lateral chest: Median sternotomy wires are noted. The aortic arch is calcified. The cardiomediastinal silhouette, pulmonary vasculature and yumiko are otherwise within normal limits. There is mild pleural thickening at the left base. The lungs and pleural spaces are otherwise clear. There are no acute osseous abnormalities. Kyphosis and degenerative changes in the thoracic spine are noted. IMPRESSION: No acute radiographic abnormalities in the chest. [id number] 06/05/2018 - - Read by: Lj Vanegas MD Dictated Date/time: 06/05/18 11:13 Electronically Signed by: Lj Vanegas MD 06/05/18 11:14 FINAL REPORT [facility] Chest 1view DX Chest 1view DX Chest 1view DX 72 years old Female Clinical Indication: - dizzy; Comparison: 05/23/2018 at 08:04 FINDINGS: Tubes, lines, hardware: None. LUNGS: The volume of the lungs is diminished by shallow inspiration. There is no evidence of consolidation. No pleural effusion is noted. The patient has some minor atelectasis in the left base similar to previous exam. MEDIASTINUM: The cardiac silhouette is stable. The patient has had previous coronary bypass surgery. CHEST WALL: Unremarkable. SKELETON: The visualized osseous structures are unremarkable. IMPRESSION: 1. Previous coronary artery bypass graft. 2. Persistent minor atelectasis in the left base. 3. Shallow inspiration. 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 COMPARISON: April 2018 x-rays back to May 19. FINDINGS: Views: 1 LUNGS: There is normal lung volume. Left lower lobe atelectasis. There are no pleural effusions. There is no pneumothorax. The pulmonary vasculature is normal. MEDIASTINUM: Poststernotomy. The cardiac silhouette is enlarged. The trachea is midline. BONES: There are no clinically significant osseous abnormalities noted. IMPRESSION: 1. No radiographic evidence of acute pulmonary disease. Enlarged cardiac silhouette, left lower lobe atelectasis. SL: [id number] 05/23/2018 - - Read by: Ryan Alves MD Dictated Date/time: 05/23/18 15:01 Electronically Signed by: Ryan Alves MD 05/23/18 15:03 FINAL REPORT [facility] DX Chest 1view DX Clinical Indication: - post CABG; Comparison: Portable chest radiograph from 05/21/2018. FINDINGS: A portable AP single view radiograph provided for review. The exam demonstrates limited decreased lung volumes which mildly artificially accentuate the pulmonary vasculature. There has been mild interval improvement in the degree of aeration in the left lung base, with a few reticular opacities still noted in the left retrocardiac region. Mild blunting of the left costophrenic angle is again, also appearing somewhat improved in the interval. There is no radiographic evidence of pneumothorax. The heart size is unchanged. Median sternotomy wires are visualized. Surgical clips are appreciated projecting over the left hilar region. Atherosclerotic calcification of the aortic arch is appreciated. The trachea is midline. Additional surgical clips are visualized projecting over the right upper quadrant of the abdomen. There are no acute osseous abnormalities noted. Mild degenerative changes are noted in portions of the visualized spine. IMPRESSION: 1. Mild interval improvement in degree of aeration in the left lung base. 2. A few reticular opacities still noted in the left retrocardiac region, suggestive of atelectatic stranding. 3. Mild interval improvement in the size of left-sided pleural effusion. 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 Decreased linear airspace opacities at the left lung base compatible atelectasis. Blunting of the left costophrenic angle. No pneumothorax. Similar enlargement of cardiac silhouette. Atherosclerotic calcifications of the aortic arch. Midline trachea. Unchanged mediastinal clips and sternotomy wires. Degenerative changes of the spine. Right upper quadrant surgical clips. IMPRESSION: Interval removal of right IJ sheath and mediastinal drains. Improved left basilar atelectasis and a small left pleural effusion. SL: [id number] 05/21/2018 - - Read by: Jarett Pérez Dictated Date/time: 05/21/18 09:55 Electronically Signed by: Jarett Pérez 05/21/18 09:58 FINAL REPORT [facility] 1view DX Chest 1view DX Clinical Indication: - s/p cabg; Comparison: Portable chest radiograph from 05/19/2018. FINDINGS: A portable AP single view radiograph provided for review. The exam demonstrates limited decreased lung volumes which artificially accentuate the cardiac silhouette and prominence of the pulmonary vasculature. There has been interval improvement in aeration of the lateral lung bases with some patchy bilateral infrahilar airspace opacities still present. Blunting of the left costophrenic angle is noted once again. There is redemonstration of mild subsegmental atelectasis in the left upper lobe. There is no radiographic evidence of pneumothorax. The mediastinal and pleural drains, as well as the right internal jugular vein sheath remain stable in their respective positions. The heart size and pulmonary vasculature are unchanged. Median sternotomy wires are again visualized. The trachea is midline. Multiple unspecific surgical clips are seen projecting over the abdomen. There are no acute osseous abnormalities noted. IMPRESSION: 1. Low lung volumes, likely due to suboptimal inspiratory effort, artificially accentuate the cardiac silhouette and prominence of the pulmonary vasculature. 2. Mild interval improvement in aeration of the bilateral lung bases, with some patchy bilateral infrahilar airspace opacities still present, suggestive of foci of subsegmental atelectasis. Persistence of subsegmental atelectatic stranding in the left upper lobe. 3. Persistence of a small left-sided pleural effusion 4. Stable cardiomegaly. 5. Supporting lines and tubes stable in their respective positions. : [id number] 05/20/2018 - - Read by: Froilan Neal DO Dictated Date/time: 05/20/18 07:09 Electronically Signed by: Froilan Neal DO 05/20/18 07:15 FINAL REPORT [facility] 1view DX Chest 1view DX Portable chest: The endotracheal tube, nasogastric tube and Man-Jose Manuel catheter have been removed since the previous day. The mediastinal and pleural drains and right jugular sheath remain in place. There is no visible pneumothorax or significant effusion. Mild subsegmental atelectasis in the left upper lobe and left lung base is stable exam. There is mild right basilar subsegmental atelectasis. The lungs are otherwise clear. [id number] 05/19/2018 - - Read by: Lj Vanegas MD Dictated Date/time: 05/19/18 07:02 Electronically Signed by: Lj Vanegas MD 05/19/18 07:03 FINAL REPORT [facility] 1view DX Chest 1view DX Study: Chest 1view DX 05/18/2018 12:19 PM 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 Patient Name: DESHAUN SCOTT MR: [id number] : 1945; Age: 72 years y/o Female Ordering Physician: Ean Slater MD Clinical Indication: Respiratory distress - s/p cabg, will call once pt in room Comparison: May 15, 2018 x-ray chest FINDINGS LUNGS: Left retrocardiac opacity, representing any combination of pleural effusion, atelectasis, or pneumonia. HEART AND MEDIASTINUM: Normal size heart. Postoperative changes from interval CABG. LINES: The endotracheal tube extends to the marlon, and should be pulled back 4 cm. Man-Jose Manuel catheter tip overlies the main pulmonary artery. Nasogastric tube courses into the stomach. OSSEOUS STRUCTURES: No fracture, dislocation, or suspicious focal osseous lesion. OTHER: None. IMPRESSION: 1. Endotracheal tube extends the marlon, should be pulled back 4 cm. 2. Left retrocardiac opacity, representing any combination of pleural effusion, atelectasis, or pneumonia. Findings discussed with nurse Leo at 2:57 PM 05/18/2018 by telephone. SL: [id number] 05/18/2018 - - Read by: Mohan Cerda MD Dictated Date/time: 05/18/18 14:48 Electronically Signed by: Mohan Cerda MD 05/18/18 14:57 FINAL REPORT [facility] Chest 2 views DX Chest 2 views DX Clinical Indication: Respiratory distress - pre op CABG Comparison: May 13, 2018 FINDINGS: The PA and lateral chest radiographs shows normal lung volumes without interstitial or airspace opacities, pleural effusions or pneumothorax. The heart size and pulmonary vasculature are normal. The trachea is midline. There are no clinically significant osseous abnormalities noted. IMPRESSION: No chest radiographic evidence of acute cardiopulmonary disease. SL: [id number] 05/15/2018 - - Read by: Kyle Willis MD Dictated Date/time: 05/15/18 15:30 Electronically Signed by: Kyle Willis MD 05/15/18 15:31 FINAL REPORT [facility] Carotid artery Doppler bilat US Carotid artery Doppler bilat US Carotid artery Doppler bilat US CLINICAL HISTORY: - pre op CABG COMPARISON: none TECHNIQUE: Muro scale, color Doppler and spectral Doppler of the cervical carotid arteries was performed. Static images are submitted. Any reported ICA stenoses indirectly reference the distal internal carotid diameter as the denominator for stenosis measurement utilizing Consensus Panel Criteria. Atherosclerotic calcification of the carotid bifurcations. RIGHT: ICA PSV 170 cm/sec. CCA PSV 95.1 cm/sec. ICA/CCA Ratio 1.79. LEFT: ICA PSV 120 cm/sec. CCA PSV 125 cm/sec. ICA/CCA Ratio 0.96. Antegrade flow is visualized in both vertebral arteries. IMPRESSION: 1. About 50-69% stenosis of the proximal right internal carotid artery. 2. No sonographic evidence for a hemodynamically significant stenosis of the proximal left internal carotid artery. Consensus panel Doppler US criteria for diagnosis of ICA stenosis: Stenosis (%) ICA PSV (cm/sec) ICA EDV(cm/sec) ICA/CCA ratio <50 % <125 <40 <2.0 50-69 % 125-230 40-100 2.0-4.0 >70% but less than >230 >100 >4.0 near occlusion SL: [id number] 05/13/2018 - - Read by: Von Omer MD Dictated Date/time: 05/13/18 16:50 Electronically Signed by: Von Omer MD 05/13/18 16:51 FINAL REPORT [facility] Chest 1view DX Chest 1view DX Clinical Indication: Chest pain - STEMI Comparison: 05/16/2015 FINDINGS: The frontal chest radiograph shows normal lung volumes. Scarring is again noted within the left lower lobe. There are no opacities, pleural effusions or pneumothorax. The cardiomediastinal contours are normal for the age of the patient with aortic tortuosity. There are degenerative changes in the spine and shoulders. IMPRESSION: No chest radiographic evidence of acute cardiopulmonary abnormality. SL: [id number] 05/13/2018 - - Read by: Yana Keenan MD Dictated Date/time: 05/13/18 13:24 Electronically Signed by: Yana Keenan MD 05/13/18 13:25 FINAL REPORT [facility] Activated partial thromboplastin time (aPTT) in platelet poor plasma bycoagulation assay Activated partial thromboplastin time (aPTT) in platelet poor plasma bycoagulation assay 26.1 23.8 - 35.5 02/18/2018 [facility] Estimated glomerular filtration rate (GFR) determination Estimated glomerular filtration rate (GFR) determination 58 60 02/18/2018 [facility] INR in Platelet poor plasma by Coagulation assay INR in Platelet poor plasma by Coagulation assay 1.01 02/18/2018 [facility] Prothrombin time (PT) in platelet poor plasma by coagulation assay Prothrombin time (PT) in platelet poor plasma by coagulation assay 12.5 11.9 - 14.5 02/18/2018 [facility] Serum or plasma creatinine measurement (mass/volume) Serum or plasma creatinine measurement (mass/volume) 0.95 0.57 - 1.11 02/18/2018 [facility] Serum or plasma urea nitrogen measurement (mass/volume) Serum or plasma urea nitrogen measurement (mass/volume) 26 7 - 26 02/18/2018 [facility] Serum or plasma urea nitrogen/creatinine mass ratio Serum or plasma urea nitrogen/creatinine mass ratio 27 6 - 25 02/18/2018 [facility] Breast Mammo Scrn CHELE incl CAD MA Breast Mammo Scrn CHELE incl CAD MA BILATERAL DIGITAL SCREENING MAMMOGRAM WITH CAD: 11/26/2017 CLINICAL: Routine/Screening. Current study was evaluated with a Computer Aided Detection (CAD) system. COMPARISON:Comparison is made to exams dated: 11/15/2016 mammogram, 10/09/2015 mammogram, 07/20/2014 mammogram, 11/25/2013 mammogram, 10/28/2013 mammogram - [facility], and 10/28/2012 mammogram - [facility]. TECHNIQUE: Mammographic views were obtained using digital acquisition. Current study was also evaluated with a Computer Aided Detection (CAD) system. FINDINGS: There are scattered fibroglandular densities in both breasts. Stable benign appearing asymmetries are seen in both breasts. There are benign appearing vascular calcifications in both breasts. There also are benign appearing scattered calcifications in both breasts. Additionally, there is a biopsy clip in the right breast. Additionally, there also are post operative findings in the left breast. No significant masses, calcifications, or other findings are seen in either breast. There has been no significant interval change. IMPRESSION: BENIGN RECOMMENDATION:There is no mammographic evidence of malignancy. A 1 year screening mammogram is recommended.(11/27/2018) This exam was interpreted at [id number] for GLORIA Amanda, SL 15. SUMMARY: Clinical follow-up of the patient's breast pain is recommended. Professional services are provided by the [facility]. Guille Neri M.D. rsl/penrad:11/27/2017 11:05:54 Sheet Hanger(s): RT Jacinta(R)(M), [facility] letter sent: BI-RADS 1/2 Mammogram BI-RADS: 2 Benign 11/26/2017 - - Read by: Guille Neri MD Dictated Date/time: 11/27/17 11:05 Electronically Signed by: Guille Neri MD 11/27/17 11:05 FINAL REPORT GLORIA Amanda Breast Mammo Scrn CHELE incl CAD MA Breast Mammo Scrn CHE[place] incl CAD MA - BREAST MAMMO SCRN [place] INCL CAD MA BILATERAL DIGITAL SCREENING MAMMOGRAM WITH CAD: 11/15/2016 CLINICAL: Routine/Routine. Current study was evaluated with a Computer Aided Detection (CAD) system. Comparison is made to exams dated: 10/09/2015 mammogram, 07/20/2014 mammogram, 11/25/2013 mammogram, 10/28/2013 mammogram - [facility], 10/28/2012 mammogram - [facility] and 09/30/2011 mammogram - [facility]. There are scattered fibroglandular densities in both breasts. There are benign vascular calcifications in both breasts. There also are benign scattered calcifications in both breasts. Additionally there is a biopsy clip in the right breast. There also are post operative findings in the left breast. No significant masses, calcifications, or other findings are seen in either breast. There has been no significant interval change. IMPRESSION: BENIGN There is no mammographic evidence of malignancy. A 1 year screening mammogram is recommended. SUMMARY: The patient reported a history of breast pain on her intake questionnaire. There is no mammographic correlate to the reported symptom of pain in right breast. Therefore, management of this symptom should be based on findings at clinical examination. Targeted sonography should be considered if the pain is clinically suspicious. Professional services are provided by the [facility] [place] [facility]. Dr. La Calhoun D.O. ht/penrad:11/15/2016 16:33:44 Sheet Hanger: Cecilia GARDNER(Gin)(Amrit), [facility] [place] This exam was dictated and interpreted by [id number] at [facility]. letter sent: Normal exam Mammogram BI-RADS: 2 Benign 11/15/2016 - - Read by: La aClhoun DO Dictated Date/time: 11/15/16 16:33 Electronically Signed by: La Calhoun DO 11/15/16 16:33 FINAL REPORT [facility] [place] ELECTROLYTES AGAP 15.2 meq/L 10.0 - 20.0 10/30/2016 [facility] ELECTROLYTES eGFR 57 mL/min/1.73m2 10/30/2016 Result Comment: The eGFR is calculated using the CKD-EPI formula. In most young, healthy individuals the eGFR will be >90 mL/min/1.73m2. The eGFR declines with age. An eGFR of 60-89 may be normal in some populations, particularly the elderly, for whom the CKD-EPI formula has not been extensively validated. Use of the eGFR is not recommended in the following populations: Individuals with unstable creatinine concentrations, including patients and those with serious co-morbid conditions. Patients with extremes in muscle mass or diet. The data above are obtained from the National Kidney Disease Education Program (NKDEP) which additionally recommends that when the eGFR is used in patients with extremes of body mass index for purposes of drug dosing, the eGFR should be multiplied by the estimated BMI. [facility] ELECTROLYTES Creatinine Lvl 1.01 mg/dL 0.50 - 1.40 10/30/2016 [facility] ELECTROLYTES Chloride Lvl 98 meq/L 95 - 109 10/30/2016 [facility] ELECTROLYTES CO2 23 meq/L 24 - 32 10/30/2016 [facility] ELECTROLYTES BUN 19 mg/dL 7 - 22 10/30/2016 [facility] ELECTROLYTES Glucose Lvl 227 mg/dL 70 - 99 10/30/2016 [facility] ELECTROLYTES Calcium Lvl 10.2 mg/dL 8.5 - 10.5 10/30/2016 [facility] ELECTROLYTES Sodium Lvl 132 meq/L 135 - 145 10/30/2016 [facility] ELECTROLYTES Potassium Lvl 4.2 meq/L 3.5 - 5.1 10/30/2016 [facility] HEMATOLOGY Basophils # 0.1 K/CMM 0.0 - 0.2 10/30/2016 [facility] HEMATOLOGY Lymphocytes # 2.2 K/CMM 1.0 - 5.5 10/30/2016 [facility] HEMATOLOGY Monocytes # 0.8 K/CMM 0.0 - 0.8 10/30/2016 [facility] HEMATOLOGY Eosinophils # 0.2 K/CMM 0.0 - 0.5 10/30/2016 [facility] HEMATOLOGY Segs-Bands # 5.4 K/CMM 1.5 - 8.1 10/30/2016 [facility] HEMATOLOGY Basophils 0.8 % 0.0 - 1.0 10/30/2016 [facility] HEMATOLOGY Segs 62.0 % 45.0 - 75.0 10/30/2016 [facility] HEMATOLOGY Monocytes 8.9 % 2.0 - 12.0 10/30/2016 [facility] HEMATOLOGY Eosinophils 2.8 % 0.0 - 4.0 10/30/2016 [facility] HEMATOLOGY Lymphocytes 25.5 % 20.0 - 40.0 10/30/2016 [facility] HEMATOLOGY WBC 8.6 K/CMM 3.7 - 10.4 10/30/2016 [facility] HEMATOLOGY RBC 4.14 M/CMM 4.20 - 5.40 10/30/2016 [facility] HEMATOLOGY MCHC 33.1 g/dL 32.0 - 36.0 10/30/2016 [facility] HEMATOLOGY Platelet 260 K/CMM 133 - 450 10/30/2016 [facility] HEMATOLOGY RDW 14.7 % 11.5 - 14.5 10/30/2016 [facility] HEMATOLOGY MPV 9.5 fL 7.4 - 10.4 10/30/2016 [facility] HEMATOLOGY Hgb 11.3 g/dL 12.0 - 16.0 10/30/2016 [facility] HEMATOLOGY Hct 34.3 % 36.0 - 48.0 10/30/2016 [facility] HEMATOLOGY MCH 27.4 pg 27.0 - 31.0 10/30/2016 [facility] HEMATOLOGY MCV 82.8 fL 80.0 - 98.0 10/30/2016 [facility] CHEM PANEL eGFR 66 mL/min/1.73m2 04/09/2016 Result Comment: The eGFR is calculated using the CKD-EPI formula. In most young, healthy individuals the eGFR will be >90 mL/min/1.73m2. The eGFR declines with age. An eGFR of 60-89 may be normal in some populations, particularly the elderly, for whom the CKD-EPI formula has not been extensively validated. Use of the eGFR is not recommended in the following populations: Individuals with unstable creatinine concentrations, including patients and those with serious co-morbid conditions. Patients with extremes in muscle mass or diet. The data above are obtained from the National Kidney Disease Education Program (NKDEP) which additionally recommends that when the eGFR is used in patients with extremes of body mass index for purposes of drug dosing, the eGFR should be multiplied by the estimated BMI. [facility] CHEM PANEL Chloride Lvl 101 meq/L 95 - 109 04/09/2016 [facility] CHEM PANEL CO2 20 meq/L 24 - 32 04/09/2016 [facility] CHEM PANEL Calcium Lvl 10.0 mg/dL 8.5 - 10.5 04/09/2016 [facility] CHEM PANEL Potassium Lvl 4.0 meq/L 3.5 - 5.1 04/09/2016 [facility] CHEM PANEL BUN 24 mg/dL 7 - 22 04/09/2016 [facility] CHEM PANEL Creatinine Lvl 0.90 mg/dL 0.50 - 1.40 04/09/2016 [facility] CHEM PANEL Sodium Lvl 131 meq/L 135 - 145 04/09/2016 [facility] CHEM PANEL Glucose Lvl 149 mg/dL 70 - 99 04/09/2016 [facility] CHEM PANEL AGAP 14.0 meq/L 10.0 - 20.0 04/09/2016 [facility] HEMATOLOGY Platelet 287 K/CMM 133 - 450 04/09/2016 [facility] HEMATOLOGY RDW 13.6 % 11.5 - 14.5 04/09/2016 [facility] HEMATOLOGY MPV 8.7 fL 7.4 - 10.4 04/09/2016 [facility] HEMATOLOGY MCHC 33.4 g/dL 32.0 - 36.0 04/09/2016 [facility] HEMATOLOGY MCH 28.2 pg 27.0 - 31.0 04/09/2016 [facility] HEMATOLOGY MCV 84.4 fL 80.0 - 98.0 04/09/2016 [facility] HEMATOLOGY Hct 31.1 % 36.0 - 48.0 04/09/2016 [facility] HEMATOLOGY WBC 11.2 K/CMM 3.7 - 10.4 04/09/2016 [facility] HEMATOLOGY RBC 3.68 M/CMM 4.20 - 5.40 04/09/2016 [facility] HEMATOLOGY Hgb 10.4 g/dL 12.0 - 16.0 04/09/2016 [facility] HEMATOLOGY Basophils # 0.2 K/CMM 0.0 - 0.2 04/09/2016 [facility] HEMATOLOGY Eosinophils # 0.4 K/CMM 0.0 - 0.5 04/09/2016 [facility] HEMATOLOGY Monocytes 9.2 % 2.0 - 12.0 04/09/2016 [facility] HEMATOLOGY Eosinophils 3.6 % 0.0 - 4.0 04/09/2016 [facility] HEMATOLOGY Basophils 1.6 % 0.0 - 1.0 04/09/2016 [facility] HEMATOLOGY Segs-Bands # 7.8 K/CMM 1.5 - 8.1 04/09/2016 [facility] HEMATOLOGY Lymphocytes # 1.8 K/CMM 1.0 - 5.5 04/09/2016 [facility] HEMATOLOGY Monocytes # 1.0 K/CMM 0.0 - 0.8 04/09/2016 [facility] HEMATOLOGY Segs 69.1 % 45.0 - 75.0 04/09/2016 [facility] HEMATOLOGY Lymphocytes 16.5 % 20.0 - 40.0 04/09/2016 [facility] Retroperitoneal Complete US Retroperitoneal Complete US Clinical Indication: uti; Comparison: 09/26/2015. Right kidney 12 x 5 x 5.6 cm. Left kidney 11.5 x 5.5 x 4.8 cm. Moderate right and severe left hydronephrosis. The specific etiology for this is not apparent. No perinephric fluid. Urinary bladder empty about a [place] catheter. IMPRESSION: Bilateral hydronephrosis. The appearance is similar to 09/26/2015 study. SL: [id number] 12/19/2015 - - Read by: Tenzin Layne MD Dictated Date/time: 12/19/15 15:12 Electronically Signed by: Tenzin Layne MD 12/19/15 15:14 FINAL REPORT [facility] Digital Mammo Screening [place] Digital Mammo Screening [place] - DIGITAL MAMMO SCREENING [place] BILATERAL DIGITAL SCREENING MAMMOGRAM WITH CAD: 10/09/2015 CLINICAL: Routine. Current study was evaluated with a Computer Aided Detection (CAD) system. Comparison is made to exams dated: 07/20/2014 mammogram, 11/25/2013 mammogram, 10/28/2013 mammogram - [facility], 10/28/2012 mammogram - [facility], 09/30/2011 mammogram and 09/26/2010 mammogram - [facility]. There are scattered fibroglandular densities in both breasts. There are benign vascular calcifications in both breasts. There also are benign scattered calcifications in both breasts. Additionally there is a biopsy clip in the right breast. No significant masses, calcifications, or other findings are seen in either breast. There has been no significant interval change. IMPRESSION: BENIGN There is no mammographic evidence of malignancy. A 1 year screening mammogram is recommended. Sandro Jorgensen M.D., cm/penrad:10/09/2015 11:54:45 Sheet Hanger: Joan GARDNER(Gin)(Amrit), [facility] This exam was dictated and interpreted by [id number] for GLORIA Amanda. letter sent: Normal exam Mammogram BI-RADS: 2 Benign 10/09/2015 - - Read by: Woo Greenberg MD Dictated Date/time: 10/09/15 11:54 Electronically Signed by: Woo Greenberg MD 10/09/15 11:54 FINAL REPORT [facility] Amanda Retroperitoneal Complete US Retroperitoneal Complete US Clinical Indication: hydronephrosis; Comparison 05/16/2015 Right kidney 11.6 x 5.4 x 5.1 cm with mild hydronephrosis. Left kidney 11.9 x 6.3 x 5.6 with moderate hydronephrosis. The urinary bladder is distended. Large post void residual bladder urine volume. IMPRESSION: Persistent bilateral hydronephrosis, most prominent within the left kidney. Distended urinary bladder with large post void residual. SL: [id number] 09/26/2015 - - Read by: Tenzin Layne MD Dictated Date/time: 09/26/15 16:41 Electronically Signed by: Tenzin Layne MD 09/26/15 16:45 FINAL REPORT [facility] MOLECULAR DIAGNOSTIC C difficile DNA Negative (05/19/15 9:18 PM) Negative 05/20/2015 [facility] URINE AND STOOL Fecal Leukocyte None Seen (05/19/15 9:18 PM) 05/20/2015 [facility] Abdomen wo IV contrast CT Abdomen wo IV contrast CT CT SCAN OF THE ABDOMEN WITHOUT CONTRAST. HX: Diarrhea COMPARISON: 04/13/2015 TECHNIQUE: Helical CT images were obtained from the domes the diaphragms to the lumbosacral junction following the administration of oral contrast. Dose: [id number]=371 mGy ABDOMEN: The lung bases are clear. The liver, spleen, pancreas and adrenal glands are unremarkable. The patient has had previous cholecystectomy. Views the kidney show bilateral moderately severe hydronephrosis which is similar in appearance to the previous examination. The proximal right abdominal ureter is tortuous. Both abdominal ureters show distention to the level of the pelvis. The patient has had previous lower midline abdominal surgery. The bowel is normal in course and caliber. The pancreas is mildly atrophic. Scattered air-fluid levels in the colon are consistent with history of diarrhea. ABDOMEN CONCLUSION: 1. Stable bilateral hydronephrosis. 2. Previous cholecystectomy. 3. Atherosclerotic vascular disease. 4. Diarrhea. SL: 13 05/19/2015 - - Read by: Ye Baum MD Dictated Date/time: 05/20/15 08:23 Electronically Signed by: Ye Baum MD 05/20/15 08:29 FINAL REPORT [facility] CHEM PANEL eGFR 82 mL/min/1.73m2 05/17/2015 Result Comment: The eGFR is calculated using the CKD-EPI formula. In most young, healthy individuals the eGFR will be >90 mL/min/1.73m2. The eGFR declines with age. An eGFR of 60-89 may be normal in some populations, particularly the elderly, for whom the CKD-EPI formula has not been extensively validated. Use of the eGFR is not recommended in the following populations: Individuals with unstable creatinine concentrations, including patients and those with serious co-morbid conditions. Patients with extremes in muscle mass or diet. The data above are obtained from the National Kidney Disease Education Program (NKDEP) which additionally recommends that when the eGFR is used in patients with extremes of body mass index for purposes of drug dosing, the eGFR should be multiplied by the estimated BMI. [facility] CHEM PANEL Creatinine Lvl 0.76 mg/dL 0.50 - 1.40 05/17/2015 [facility] CHEM PANEL Chloride Lvl 105 meq/L 95 - 109 05/17/2015 [facility] CHEM PANEL Calcium Lvl 8.9 mg/dL 8.5 - 10.5 05/17/2015 [facility] CHEM PANEL Potassium Lvl 3.1 meq/L 3.5 - 5.1 05/17/2015 [facility] CHEM PANEL CO2 24 meq/L 24 - 32 05/17/2015 [facility] CHEM PANEL Sodium Lvl 140 meq/L 135 - 145 05/17/2015 [facility] CHEM PANEL Albumin Lvl 2.7 g/dL 3.5 - 5.0 05/17/2015 [facility] CHEM PANEL ALT 16 unit/L 0 - 65 05/17/2015 [facility] CHEM PANEL AST 13 unit/L 0 - 37 05/17/2015 [facility] CHEM PANEL Alk Phos 81 unit/L 39 - 136 05/17/2015 [facility] CHEM PANEL Total Protein 6.8 g/dL 6.4 - 8.4 05/17/2015 [facility] CHEM PANEL Globulin 4.1 g/dL 2.0 - 4.0 05/17/2015 [facility] CHEM PANEL B/C Ratio 18 6 - 25 05/17/2015 [facility] CHEM PANEL Bili Total 0.6 mg/dL 0.2 - 1.3 05/17/2015 [facility] CHEM PANEL AGAP 14.1 meq/L 10.0 - 20.0 05/17/2015 [facility] CHEM PANEL A/G Ratio 0.7 0.7 - 1.6 05/17/2015 [facility] CHEM PANEL Glucose Lvl 180 mg/dL 70 - 99 05/17/2015 [facility] CHEM PANEL BUN 14 mg/dL 7 - 22 05/17/2015 [facility] SPECIAL CHEMISTRY Hgb A1C 8.8 % <=5.6 % 05/17/2015 [facility] CHEM PANEL AST 14 unit/L 0 - 37 05/17/2015 [facility] CHEM PANEL Alk Phos 86 unit/L 39 - 136 05/17/2015 [facility] CHEM PANEL Bili Total 0.5 mg/dL 0.2 - 1.3 05/17/2015 [facility] CHEM PANEL eGFR 74 mL/min/1.73m2 05/17/2015 Result Comment: The eGFR is calculated using the CKD-EPI formula. In most young, healthy individuals the eGFR will be >90 mL/min/1.73m2. The eGFR declines with age. An eGFR of 60-89 may be normal in some populations, particularly the elderly, for whom the CKD-EPI formula has not been extensively validated. Use of the eGFR is not recommended in the following populations: Individuals with unstable creatinine concentrations, including patients and those with serious co-morbid conditions. Patients with extremes in muscle mass or diet. The data above are obtained from the National Kidney Disease Education Program (NKDEP) which additionally recommends that when the eGFR is used in patients with extremes of body mass index for purposes of drug dosing, the eGFR should be multiplied by the estimated BMI. [facility] CHEM PANEL Albumin Lvl 3.2 g/dL 3.5 - 5.0 05/17/2015 [facility] CHEM PANEL B/C Ratio 16 6 - 25 05/17/2015 [facility] CHEM PANEL Total Protein 8.4 g/dL 6.4 - 8.4 05/17/2015 [facility] CHEM PANEL Globulin 5.2 g/dL 2.0 - 4.0 05/17/2015 [facility] CHEM PANEL ALT 20 unit/L 0 - 65 05/17/2015 [facility] CHEM PANEL A/G Ratio 0.6 0.7 - 1.6 05/17/2015 [facility] CHEM PANEL Creatinine Lvl 0.82 mg/dL 0.50 - 1.40 05/17/2015 [facility] CHEM PANEL Sodium Lvl 138 meq/L 135 - 145 05/17/2015 [facility] CHEM PANEL Glucose Lvl 211 mg/dL 70 - 99 05/17/2015 [facility] CHEM PANEL Calcium Lvl 9.6 mg/dL 8.5 - 10.5 05/17/2015 [facility] CHEM PANEL BUN 13 mg/dL 7 - 22 05/17/2015 [facility] CHEM PANEL Potassium Lvl 2.9 meq/L 3.5 - 5.1 05/17/2015 Result Comment: Critical Result(s) called to Shauna Berkowitz at 05/16/2015 20:47_ by_AN. Read back OK. [facility] CHEM PANEL Chloride Lvl 103 meq/L 95 - 109 05/17/2015 [facility] CHEM PANEL CO2 26 meq/L 24 - 32 05/17/2015 [facility] CHEM PANEL AGAP 11.9 meq/L 10.0 - 20.0 05/17/2015 [facility] HEMATOLOGY MPV 9.6 fL 7.4 - 10.4 05/17/2015 [facility] HEMATOLOGY Platelet 321 K/CMM 133 - 450 05/17/2015 [facility] HEMATOLOGY RDW 17.2 % 11.5 - 14.5 05/17/2015 [facility] MCHC 31.4 g/dL 32.0 - 36.0 05/17/2015 [facility] MCH 26.1 pg 27.0 - 31.0 05/17/2015 [facility] MCV 83.3 fL 80.0 - 98.0 05/17/2015 [facility] [facility] Hct 31.7 % 36.0 - 48.0 05/17/2015 [facility] Hgb 9.9 g/dL 12.0 - 16.0 05/17/2015 [facility] RBC 3.81 M/CMM 4.20 - 5.40 05/17/2015 [facility] HEMATOLOGY WBC 32.4 K/CMM 3.7 - 10.4 05/17/2015 [facility] Monocytes # 0.3 K/CMM 0.0 - 0.8 05/17/2015 [facility] HEMATOLOGY Segs 82.0 % 45.0 - 75.0 05/17/2015 [facility] HEMATOLOGY Segs-Bands # 29.2 K/CMM 1.5 - 8.1 05/17/2015 [facility] HEMATOLOGY Lymphocytes # 2.9 K/CMM 1.0 - 5.5 05/17/2015 [facility] Atypical Lymphs 0.0 % <=0.0 % 05/17/2015 [facility] HEMATOLOGY RBC Morph Normal (05/16/15 7:57 PM) 05/17/2015 [facility] Plt Morph Clumped (05/16/15 7:57 PM) 05/17/2015 [facility] HEMATOLOGY Bands 8.0 % 0.0 - 11.0 05/17/2015 [facility] Lymphocytes 9.0 % 20.0 - 40.0 05/17/2015 [facility] Monocytes 1.0 % 2.0 - 12.0 05/17/2015 [facility] Abdomen complete US Abdomen complete US NAME: DESHAUN SCOTT : 1945 SEX: F Ordering Physician: Osbaldo Hatch Abdomen complete US : May 16, 2015 09:57:00 PM. CLINICAL INDICATION: Fever. Nausea. Vomiting. Comparison Examination: CT abdomen and pelvis dated 04/13/2015. FINDINGS: TECHNIQUE: Grayscale and limited color sonographic evaluation of the abdomen was performed with standard technique. FINDINGS: LIVER: The visualized liver shows normal contour, size, and morphology with normal parenchymal echo texture. BILE DUCTS: No intrahepatic biliary ductal dilatation. There is mild dilatation of common bile duct measuring 8.2 mm in greatest width. The distal common bile duct is not well seen. GALLBLADDER: No gallbladder is identified consistent with the patient's history of prior cholecystectomy. PANCREAS: The pancreas is not well visualized due to overlying bowel gas. SPLEEN: The spleen is unremarkable and measures 10.7 x 3.7 x 3.3 cm. KIDNEY: The right kidney measures 11.7 x 6.4 x 5.4 cm. The left kidney measures 13.4 x 6.6 x 5.1 cm. Moderate left pelvocaliectasis. Mild to moderate right pelvocaliectasis. No nephrolithiasis or renal mass lesion identifed bilaterally. AORTA AND INFERIOR VENA CAVA: The distal abdominal aorta is not well visualized due to overlying bowel gas. Visualized portions appear unremarkable. ASCITES: There is no abdominal ascites. IMPRESSION: 1. Pancreas and distal abdominal aorta not well visualized due to overlying bowel gas. 2. Status post cholecystectomy. 3. Mild dilatation of common bile duct. 4. Moderate left pelvocaliectasis. 5. Mild to moderate right pelvocaliectasis. SL: 14 05/16/2015 - - Read by: Howard Kaplan MD Dictated Date/time: 05/16/15 22:37 Electronically Signed by: Howard Kaplan MD 05/16/15 22:41 FINAL REPORT [facility] Chest 2 views DX Chest 2 views DX CHEST, PA AND LATERAL. INDICATION: Fever, chills, urinary tract infection COMPARISON: None. Cardiac size is normal. Aortic atherosclerosis is noted. The lungs are moderately inflated and appear clear. No vascular congestion or pleural effusion is seen. Moderate thoracic spondylosis is noted. IMPRESSION: No acute abnormality. SL: 12 05/16/2015 - - Read by: Paul Curiel MD Dictated Date/time: 05/16/15 20:44 Electronically Signed by: Paul Curiel MD 05/16/15 20:50 FINAL REPORT [facility] Renal Lasix Scan NM Renal Lasix Scan NM Renal scan with Lasix: COMPARISON: CT abdomen pelvis 04/13/2015 Technique: 10 mCi of technetium 99m Mag 3 were administered intravenously and images performed pre- and post IV Lasix injection. FINDINGS: The initial flow images demonstrate symmetric tracer activity. The perfusion and excretion images are also unremarkable. Time to peak activity left kidney 17.25 minutes (normal range 2 to 5 minutes) Time to peak activity right kidney 5.75 minutes. (normal range 2 to 5 minutes) Percent activity left kidney 46%. Percent activity right kidney 54%. T half life pre Lasix left kidney 13.2 minutes. T half life pre Lasix right kidney 12 minutes. T half life post Lasix left kidney 14.8 minutes. T half life post Lasix right kidney 13.8 minutes. ERPF left kidney 76 ml/min ERPF right kidney 89 ml/min IMPRESSION: Mild to moderate obstruction is present in both kidneys. No improvement in excretion is noted post Lasix obstruction. Diminished renal function in the left kidney, more so than right kidney. SL:13 04/17/2015 - - Read by: Cristian Zayas MD Dictated Date/time: 04/17/15 16:24 Electronically Signed by: Cristian Zayas MD 04/17/15 16:32 FINAL REPORT [facility] URINE AND STOOL UA Turbidity Marked *ABN* (04/16/15 8:59 AM) Clear 04/16/2015 [facility] URINE AND STOOL UA Spec Grav 1.009 <=1.030 04/16/2015 [facility] URINE AND STOOL UA Glucose 50 mg/dL Negative mg/dL 04/16/2015 [facility] URINE AND STOOL UA Mucus Few /LPF None Seen /LPF 04/16/2015 [facility] URINE AND STOOL UA Bacteria Occasional /HPF None Seen /HPF 04/16/2015 [facility] URINE AND STOOL UA RBC null 0 - 2 04/16/2015 [facility] URINE AND STOOL UA Urobilinogen <=1.0 mg/dL 0.1 - 1.0 04/16/2015 [facility] URINE AND STOOL UA Color Ltyellow 04/16/2015 [facility] URINE AND STOOL UA Ketones Negative mg/dL Negative mg/dL 04/16/2015 [facility] URINE AND STOOL UA Bili Negative *NA* (04/16/15 8:59 AM) Negative 04/16/2015 [facility] URINE AND STOOL UA Protein Negative mg/dL Negative mg/dL 04/16/2015 [facility] URINE AND STOOL UA pH 6.0 5.0 - 8.0 04/16/2015 [facility] URINE AND STOOL UA WBC null 0 - 5 04/16/2015 [facility] URINE AND STOOL UA Leuk Est Large *ABN* (04/16/15 8:59 AM) Negative 04/16/2015 [facility] URINE AND STOOL UA Sq Epi Occasional /LPF Few /LPF 04/16/2015 [facility] URINE AND STOOL UA Nitrite Negative (04/16/15 8:59 AM) Negative 04/16/2015 [facility] URINE AND STOOL UA Blood Large *ABN* (04/16/15 8:59 AM) Negative 04/16/2015 [facility] TOXICOLOGY Vanco Tr TND 0 04/16/2015 [facility] TOXICOLOGY Vanco Tr 15.7 ug/ml 04/16/2015 [facility] ELECTROLYTES AGAP 10.1 meq/L 10.0 - 20.0 04/14/2015 [facility] ELECTROLYTES eGFR 58 mL/min/1.73m2 04/14/2015 Result Comment: The eGFR is calculated using the CKD-EPI formula. In most young, healthy individuals the eGFR will be >90 mL/min/1.73m2. The eGFR declines with age. An eGFR of 60-89 may be normal in some populations, particularly the elderly, for whom the CKD-EPI formula has not been extensively validated. Use of the eGFR is not recommended in the following populations: Individuals with unstable creatinine concentrations, including patients and those with serious co-morbid conditions. Patients with extremes in muscle mass or diet. The data above are obtained from the National Kidney Disease Education Program (NKDEP) which additionally recommends that when the eGFR is used in patients with extremes of body mass index for purposes of drug dosing, the eGFR should be multiplied by the estimated BMI. [facility] ELECTROLYTES Calcium Lvl 9.3 mg/dL 8.5 - 10.5 04/14/2015 [facility] ELECTROLYTES CO2 26 meq/L 24 - 32 04/14/2015 [facility] ELECTROLYTES Creatinine Lvl 1.0 mg/dL 0.5 - 1.4 04/14/2015 [facility] ELECTROLYTES Sodium Lvl 138 meq/L 135 - 145 04/14/2015 [facility] ELECTROLYTES Glucose Lvl 150 mg/dL 70 - 99 04/14/2015 [facility] ELECTROLYTES BUN 11 mg/dL 7 - 22 04/14/2015 [facility] ELECTROLYTES Potassium Lvl 4.1 meq/L 3.5 - 5.1 04/14/2015 [facility] ELECTROLYTES Chloride Lvl 106 meq/L 95 - 109 04/14/2015 [facility] HEMATOLOGY Hgb 8.8 g/dL 12.0 - 16.0 04/14/2015 [facility] HEMATOLOGY MPV 8.7 fL 7.4 - 10.4 04/14/2015 [facility] HEMATOLOGY Platelet 334 K/CMM 133 - 450 04/14/2015 [facility] HEMATOLOGY RDW 15.9 % 11.5 - 14.5 04/14/2015 [facility] HEMATOLOGY MCV 81.5 fL 80.0 - 98.0 04/14/2015 [facility] HEMATOLOGY Hct 28.0 % 36.0 - 48.0 04/14/2015 [facility] HEMATOLOGY MCHC 31.6 g/dL 32.0 - 36.0 04/14/2015 [facility] HEMATOLOGY MCH 25.7 pg 27.0 - 31.0 04/14/2015 [facility] HEMATOLOGY RBC 3.44 M/CMM 4.20 - 5.40 04/14/2015 [facility] HEMATOLOGY WBC 8.7 K/CMM 3.7 - 10.4 04/14/2015 [facility] HEMATOLOGY Segs-Bands # 5.5 K/CMM 1.5 - 8.1 04/14/2015 [facility] HEMATOLOGY Lymphocytes # 1.9 K/CMM 1.0 - 5.5 04/14/2015 [facility] HEMATOLOGY Monocytes 9.2 % 2.0 - 12.0 04/14/2015 [facility] HEMATOLOGY Eosinophils 4.5 % 0.0 - 4.0 04/14/2015 [facility] HEMATOLOGY Lymphocytes 21.4 % 20.0 - 40.0 04/14/2015 [facility] HEMATOLOGY Monocytes # 0.8 K/CMM 0.0 - 0.8 04/14/2015 [facility] HEMATOLOGY Basophils 1.2 % 0.0 - 1.0 04/14/2015 [facility] HEMATOLOGY Eosinophils # 0.4 K/CMM 0.0 - 0.5 04/14/2015 [facility] HEMATOLOGY Basophils # 0.1 K/CMM 0.0 - 0.2 04/14/2015 [facility] HEMATOLOGY Segs 63.7 % 45.0 - 75.0 04/14/2015 [facility] URINE AND STOOL UA Urobilinogen <=1.0 mg/dL 0.1 - 1.0 04/13/2015 [facility] URINE AND STOOL UA Nitrite Negative (04/13/15 5:33 AM) Negative 04/13/2015 [facility] URINE AND STOOL UA WBC null 0 - 5 04/13/2015 [facility] URINE AND STOOL UA Leuk Est Large *ABN* (04/13/15 5:33 AM) Negative 04/13/2015 [facility] URINE AND STOOL UA Sq Epi Few /LPF Few /LPF 04/13/2015 [facility] URINE AND STOOL UA Bacteria Occasional /HPF None Seen /HPF 04/13/2015 [facility] URINE AND STOOL UA RBC 51 /HPF 0 - 2 04/13/2015 [facility] URINE AND STOOL UA [place] Yeast Few /HPF None Seen /HPF 04/13/2015 [facility] URINE AND STOOL UA Amorph Renee Occasional /HPF None Seen /HPF 04/13/2015 [facility] URINE AND STOOL UA Ketones Negative mg/dL Negative mg/dL 04/13/2015 [facility] URINE AND STOOL UA Protein 100 mg/dL Negative mg/dL 04/13/2015 [facility] URINE AND STOOL UA Glucose 150 mg/dL Negative mg/dL 04/13/2015 [facility] URINE AND STOOL UA Bili Negative *NA* (04/13/15 5:33 AM) Negative 04/13/2015 [facility] URINE AND STOOL UA Blood Moderate *ABN* (04/13/15 5:33 AM) Negative 04/13/2015 [facility] URINE AND STOOL UA Turbidity Marked *ABN* (04/13/15 5:33 AM) Clear 04/13/2015 [facility] URINE AND STOOL UA Color Yellow *NA* (04/13/15 5:33 AM) Yellow 04/13/2015 [facility] URINE AND STOOL UA Spec Grav 1.012 <=1.030 04/13/2015 [facility] URINE AND STOOL UA pH 6.0 5.0 - 8.0 04/13/2015 [facility] CHEM PANEL Lactic Acid Lvl 1.5 mMol/L 0.5 - 2.2 04/13/2015 [facility] CHEM PANEL eGFR 39 mL/min/1.73m2 04/13/2015 Result Comment: The eGFR is calculated using the CKD-EPI formula. In most young, healthy individuals the eGFR will be >90 mL/min/1.73m2. The eGFR declines with age. An eGFR of 60-89 may be normal in some populations, particularly the elderly, for whom the CKD-EPI formula has not been extensively validated. Use of the eGFR is not recommended in the following populations: Individuals with unstable creatinine concentrations, including patients and those with serious co-morbid conditions. Patients with extremes in muscle mass or diet. The data above are obtained from the National Kidney Disease Education Program (NKDEP) which additionally recommends that when the eGFR is used in patients with extremes of body mass index for purposes of drug dosing, the eGFR should be multiplied by the estimated BMI. [facility] CHEM PANEL Glucose Lvl 261 mg/dL 70 - 99 04/13/2015 [facility] CHEM PANEL ALT 17 unit/L 0 - 65 04/13/2015 [facility] CHEM PANEL AST 8 unit/L 0 - 37 04/13/2015 [facility] CHEM PANEL Bili Total 0.3 mg/dL 0.2 - 1.3 04/13/2015 [facility] CHEM PANEL BUN 24 mg/dL 7 - 22 04/13/2015 [facility] CHEM PANEL Alk Phos 98 unit/L 39 - 136 04/13/2015 [facility] CHEM PANEL Albumin Lvl 3.0 g/dL 3.5 - 5.0 04/13/2015 [facility] CHEM PANEL Total Protein 9.1 g/dL 6.4 - 8.4 04/13/2015 [facility] CHEM PANEL CO2 19 meq/L 24 - 32 04/13/2015 [facility] CHEM PANEL Creatinine Lvl 1.4 mg/dL 0.5 - 1.4 04/13/2015 [facility] CHEM PANEL Chloride Lvl 96 meq/L 95 - 109 04/13/2015 [facility] CHEM PANEL Calcium Lvl 9.8 mg/dL 8.5 - 10.5 04/13/2015 [facility] CHEM PANEL Sodium Lvl 127 meq/L 135 - 145 04/13/2015 [facility] CHEM PANEL Potassium Lvl 4.3 meq/L 3.5 - 5.1 04/13/2015 [facility] CHEM PANEL A/G Ratio 0.5 0.7 - 1.6 04/13/2015 [facility] CHEM PANEL AGAP 16.3 meq/L 10.0 - 20.0 04/13/2015 [facility] CHEM PANEL B/C Ratio 17 6 - 25 04/13/2015 [facility] CHEM PANEL Globulin 6.1 g/dL 2.0 - 4.0 04/13/2015 [facility] HEMATOLOGY Hgb 10.4 g/dL 12.0 - 16.0 04/13/2015 [facility] HEMATOLOGY RBC 3.90 M/CMM 4.20 - 5.40 04/13/2015 [facility] HEMATOLOGY WBC 18.4 K/CMM 3.7 - 10.4 04/13/2015 [facility] HEMATOLOGY MCV 81.5 fL 80.0 - 98.0 04/13/2015 [facility] HEMATOLOGY MCH 26.6 pg 27.0 - 31.0 04/13/2015 [facility] HEMATOLOGY Hct 31.8 % 36.0 - 48.0 04/13/2015 [facility] MCHC 32.7 g/dL 32.0 - 36.0 04/13/2015 [facility] HEMATOLOGY Platelet 367 K/CMM 133 - 450 04/13/2015 [facility] HEMATOLOGY RDW 16.1 % 11.5 - 14.5 04/13/2015 [facility] HEMATOLOGY MPV 9.0 fL 7.4 - 10.4 04/13/2015 [facility] HEMATOLOGY Basophils # 0.1 K/CMM 0.0 - 0.2 04/13/2015 [facility] HEMATOLOGY Eosinophils # 0.1 K/CMM 0.0 - 0.5 04/13/2015 [facility] HEMATOLOGY Monocytes # 1.1 K/CMM 0.0 - 0.8 04/13/2015 [facility] HEMATOLOGY Segs-Bands # 16.3 K/CMM 1.5 - 8.1 04/13/2015 [facility] HEMATOLOGY Lymphocytes # 0.9 K/CMM 1.0 - 5.5 04/13/2015 [facility] HEMATOLOGY Segs 88.7 % 45.0 - 75.0 04/13/2015 [facility] HEMATOLOGY Lymphocytes 4.7 % 20.0 - 40.0 04/13/2015 [facility] HEMATOLOGY Eosinophils 0.3 % 0.0 - 4.0 04/13/2015 [facility] HEMATOLOGY Basophils 0.5 % 0.0 - 1.0 04/13/2015 [facility] HEMATOLOGY Monocytes 5.8 % 2.0 - 12.0 04/13/2015 [facility] Abdomen/Pelvis wo IV contrast CT Abdomen/Pelvis wo IV contrast CT HISTORY: Fever. Diffuse abdominal pain. Recent left inguinal abscess drainage. CT abdomen and pelvis without contrast. Comparison 03/17/2015. Visualized lung bases are clear. No pleural effusion. Liver, spleen, pancreas, adrenal glands normal. Previous left ureteral stent has been removed. Bilateral hydronephrosis and hydroureter appearing somewhat worse since previous. There is periureteral stranding throughout the course of the left ureter. The urinary bladder is moderately distended with perivesicular inflammation as was noted previously. There is no bowel obstruction or pathologic distention otherwise. Appendix not specifically visualized. No evidence for diverticulitis. No ascites or pathologic pelvic fluid otherwise. IMPRESSION: Interval removal of left ureteral stent since 03/17/2015. Bilateral severe hydronephrosis which appears worse since previous. Urinary bladder distention in perivesicular inflammation suggesting cystitis, as noted previously. No obstructing calculus or specific urinary lesion is otherwise identified by this study. SL:12 04/13/2015 - - Read by: Tenzin Layne MD Dictated Date/time: 04/13/15 04:02 Electronically Signed by: Tenzin Layne MD 04/13/15 04:08 FINAL REPORT [facility] CHEM PANEL Glucose Lvl 160 mg/dL 70 - 99 03/19/2015 [facility] CHEM PANEL CO2 22 meq/L 24 - 32 03/19/2015 [facility] CHEM PANEL eGFR 58 mL/min/1.73m2 03/19/2015 Result Comment: The eGFR is calculated using the CKD-EPI formula. In most young, healthy individuals the eGFR will be >90 mL/min/1.73m2. The eGFR declines with age. An eGFR of 60-89 may be normal in some populations, particularly the elderly, for whom the CKD-EPI formula has not been extensively validated. Use of the eGFR is not recommended in the following populations: Individuals with unstable creatinine concentrations, including patients and those with serious co-morbid conditions. Patients with extremes in muscle mass or diet. The data above are obtained from the National Kidney Disease Education Program (NKDEP) which additionally recommends that when the eGFR is used in patients with extremes of body mass index for purposes of drug dosing, the eGFR should be multiplied by the estimated BMI. [facility] CHEM PANEL Creatinine Lvl 1.0 mg/dL 0.5 - 1.4 03/19/2015 [facility] CHEM PANEL Calcium Lvl 9.1 mg/dL 8.5 - 10.5 03/19/2015 [facility] CHEM PANEL Sodium Lvl 140 meq/L 135 - 145 03/19/2015 [facility] CHEM PANEL Potassium Lvl 3.4 meq/L 3.5 - 5.1 03/19/2015 [facility] CHEM PANEL Chloride Lvl 109 meq/L 95 - 109 03/19/2015 [facility] CHEM PANEL BUN 9 mg/dL 7 - 22 03/19/2015 [facility] CHEM PANEL AGAP 12.4 meq/L 10.0 - 20.0 03/19/2015 [facility] HEMATOLOGY Platelet 302 K/CMM 133 - 450 03/19/2015 [facility] HEMATOLOGY MPV 9.8 fL 7.4 - 10.4 03/19/2015 [facility] HEMATOLOGY MCHC 31.8 g/dL 32.0 - 36.0 03/19/2015 [facility] HEMATOLOGY MCH 26.0 pg 27.0 - 31.0 03/19/2015 [facility] HEMATOLOGY RDW 14.7 % 11.5 - 14.5 03/19/2015 [facility] HEMATOLOGY WBC 10.7 K/CMM 3.7 - 10.4 03/19/2015 [facility] HEMATOLOGY Hgb 9.9 g/dL 12.0 - 16.0 03/19/2015 [facility] HEMATOLOGY RBC 3.82 M/CMM 4.20 - 5.40 03/19/2015 [facility] HEMATOLOGY MCV 81.7 fL 80.0 - 98.0 03/19/2015 [facility] HEMATOLOGY Hct 31.2 % 36.0 - 48.0 03/19/2015 [facility] HEMATOLOGY Basophils 0.8 % 0.0 - 1.0 03/19/2015 [facility] HEMATOLOGY Eosinophils 3.3 % 0.0 - 4.0 03/19/2015 [facility] HEMATOLOGY Segs-Bands # 8.3 K/CMM 1.5 - 8.1 03/19/2015 [facility] HEMATOLOGY Lymphocytes # 1.2 K/CMM 1.0 - 5.5 03/19/2015 [facility] HEMATOLOGY Monocytes # 0.7 K/CMM 0.0 - 0.8 03/19/2015 [facility] HEMATOLOGY Eosinophils # 0.4 K/CMM 0.0 - 0.5 03/19/2015 [facility] HEMATOLOGY Basophils # 0.1 K/CMM 0.0 - 0.2 03/19/2015 [facility] HEMATOLOGY RBC Morph Normal (03/19/15 10:00 AM) 03/19/2015 [facility] HEMATOLOGY Plt Morph Normal (03/19/15 10:00 AM) 03/19/2015 [facility] HEMATOLOGY Segs 77.9 % 45.0 - 75.0 03/19/2015 [facility] Lymphocytes 11.5 % 20.0 - 40.0 03/19/2015 [facility] HEMATOLOGY Monocytes 6.5 % 2.0 - 12.0 03/19/2015 [facility] CHEM PANEL eGFR 52 mL/min/1.73m2 03/18/2015 Result Comment: The eGFR is calculated using the CKD-EPI formula. In most young, healthy individuals the eGFR will be >90 mL/min/1.73m2. The eGFR declines with age. An eGFR of 60-89 may be normal in some populations, particularly the elderly, for whom the CKD-EPI formula has not been extensively validated. Use of the eGFR is not recommended in the following populations: Individuals with unstable creatinine concentrations, including patients and those with serious co-morbid conditions. Patients with extremes in muscle mass or diet. The data above are obtained from the National Kidney Disease Education Program (NKDEP) which additionally recommends that when the eGFR is used in patients with extremes of body mass index for purposes of drug dosing, the eGFR should be multiplied by the estimated BMI. [facility] CHEM PANEL Creatinine Lvl 1.1 mg/dL 0.5 - 1.4 03/18/2015 [facility] Platelet 380 K/CMM 133 - 450 03/18/2015 [facility] PTT 31.6 s 22.9 - 35.8 03/18/2015 [facility] CHEM PANEL Lactic Acid Lvl 3.4 mMol/L 0.5 - 2.2 03/18/2015 [facility] CHEM PANEL eGFR 43 mL/min/1.73m2 03/18/2015 Result Comment: The eGFR is calculated using the CKD-EPI formula. In most young, healthy individuals the eGFR will be >90 mL/min/1.73m2. The eGFR declines with age. An eGFR of 60-89 may be normal in some populations, particularly the elderly, for whom the CKD-EPI formula has not been extensively validated. Use of the eGFR is not recommended in the following populations: Individuals with unstable creatinine concentrations, including patients and those with serious co-morbid conditions. Patients with extremes in muscle mass or diet. The data above are obtained from the National Kidney Disease Education Program (NKDEP) which additionally recommends that when the eGFR is used in patients with extremes of body mass index for purposes of drug dosing, the eGFR should be multiplied by the estimated BMI. [facility] CHEM PANEL Sodium Lvl 131 meq/L 135 - 145 03/18/2015 [facility] CHEM PANEL Creatinine Lvl 1.3 mg/dL 0.5 - 1.4 03/18/2015 [facility] CHEM PANEL BUN 15 mg/dL 7 - 22 03/18/2015 [facility] CHEM PANEL Potassium Lvl 3.5 meq/L 3.5 - 5.1 03/18/2015 [facility] CHEM PANEL Chloride Lvl 100 meq/L 95 - 109 03/18/2015 [facility] CHEM PANEL CO2 21 meq/L 24 - 32 03/18/2015 [facility] CHEM PANEL Calcium Lvl 10.1 mg/dL 8.5 - 10.5 03/18/2015 [facility] CHEM PANEL Glucose Lvl 340 mg/dL 70 - 99 03/18/2015 [facility] CHEM PANEL AGAP 13.5 meq/L 10.0 - 20.0 03/18/2015 [facility] HEMATOLOGY Lymphocytes # 1.8 K/CMM 1.0 - 5.5 03/18/2015 [facility] HEMATOLOGY Segs-Bands # 8.0 K/CMM 1.5 - 8.1 03/18/2015 [facility] HEMATOLOGY Basophils # 0.1 K/CMM 0.0 - 0.2 03/18/2015 [facility] HEMATOLOGY Monocytes # 1.2 K/CMM 0.0 - 0.8 03/18/2015 [facility] HEMATOLOGY Eosinophils # 0.3 K/CMM 0.0 - 0.5 03/18/2015 [facility] HEMATOLOGY Lymphocytes 15.6 % 20.0 - 40.0 03/18/2015 [facility] HEMATOLOGY Segs 70.0 % 45.0 - 75.0 03/18/2015 [facility] HEMATOLOGY Basophils 1.0 % 0.0 - 1.0 03/18/2015 [facility] HEMATOLOGY Eosinophils 2.8 % 0.0 - 4.0 03/18/2015 [facility] HEMATOLOGY Monocytes 10.6 % 2.0 - 12.0 03/18/2015 [facility] HEMATOLOGY WBC 11.4 K/CMM 3.7 - 10.4 03/18/2015 [facility] HEMATOLOGY RBC 4.19 M/CMM 4.20 - 5.40 03/18/2015 [facility] HEMATOLOGY Hgb 11.0 g/dL 12.0 - 16.0 03/18/2015 [facility] HEMATOLOGY Hct 34.0 % 36.0 - 48.0 03/18/2015 [facility] HEMATOLOGY MPV 9.1 fL 7.4 - 10.4 03/18/2015 [facility] HEMATOLOGY MCH 26.4 pg 27.0 - 31.0 03/18/2015 [facility] HEMATOLOGY MCV 81.2 fL 80.0 - 98.0 03/18/2015 [facility] HEMATOLOGY RDW 14.8 % 11.5 - 14.5 03/18/2015 [facility] HEMATOLOGY Platelet 386 K/CMM 133 - 450 03/18/2015 [facility] MCHC 32.4 g/dL 32.0 - 36.0 03/18/2015 [facility] URINE AND STOOL UA Color Debbi 03/18/2015 [facility] URINE AND STOOL UA Urobilinogen <=1.0 mg/dL 0.1 - 1.0 03/18/2015 [facility] URINE AND STOOL UA Bacteria Many /HPF None Seen /HPF 03/18/2015 [facility] URINE AND STOOL UA RBC 113 /HPF 0 - 2 03/18/2015 [facility] URINE AND STOOL UA Sq Epi Few /LPF Few /LPF 03/18/2015 [facility] URINE AND STOOL UA WBC null 0 - 5 03/18/2015 [facility] URINE AND STOOL UA Leuk Est Large *ABN* (03/17/15 7:01 PM) Negative 03/18/2015 [facility] URINE AND STOOL UA Blood Moderate *ABN* (03/17/15 7:01 PM) Negative 03/18/2015 [facility] URINE AND STOOL UA Nitrite Negative (03/17/15 7:01 PM) Negative 03/18/2015 [facility] URINE AND STOOL UA Ketones Negative mg/dL Negative mg/dL 03/18/2015 [facility] URINE AND STOOL UA Bili Negative *NA* (03/17/15 7:01 PM) Negative 03/18/2015 [facility] URINE AND STOOL UA Protein 100 mg/dL Negative mg/dL 03/18/2015 [facility] URINE AND STOOL UA Glucose 500 mg/dL Negative mg/dL 03/18/2015 [facility] URINE AND STOOL UA Spec Grav 1.006 <=1.030 03/18/2015 [facility] URINE AND STOOL UA pH 6.0 5.0 - 8.0 03/18/2015 [facility] URINE AND STOOL UA Turbidity Marked *ABN* (03/17/15 7:01 PM) Clear 03/18/2015 [facility] Abdomen/Pelvis wo IV contrast CT Abdomen/Pelvis wo IV contrast CT EXAMINATION: CT of the abdomen and pelvis without contrast HISTORY: uti and sepsis---po contrast only COMPARISON: CT abdomen and pelvis from 12/02/2014 DLP: 733.41 TECHNIQUE: Multiple transaxial images through the abdomen and pelvis were acquired without administration of intravenous contrast. Oral contrast was administered. Multiplanar reformatted images were performed. FINDINGS: The lung bases are clear bilaterally. The patient is status post cholecystectomy. Liver, pancreas, spleen, and adrenal glands are within normal limits imposed by the lack of intravenous contrast. Mild right hydronephrosis and right hydroureter is seen. No obstructing ureteral stone is identified. Moderate left hydronephrosis and left hydroureter is present and unchanged. New left-sided ureteral stent is seen. The bladder is distended and overlying inflammatory fat stranding about the bladder is seen. The patient is status post hysterectomy. The visualized hollow viscera are unremarkable. Appendix is not visualized. No intraperitoneal free air, free fluid, or pathologic adenopathy is seen. Arterial calcifications are present. Degenerative changes of the lumbar spine are present. IMPRESSION: 1. Mild right hydronephrosis and right hydroureter without obstructing ureteral stone. This could represent sequela of recently passed right renal stone. Please correlate clinically. 2. Stable appearance of moderate left hydronephrosis and left hydroureter with new left-sided ureteral stent. 3. Perivesicular inflammatory fat stranding. Please correlate for cystitis. SL: 16 03/17/2015 - - Read by: Ajith Knapp MD Dictated Date/time: 03/17/15 21:59 Electronically Signed by: Ajith Knapp MD 03/17/15 22:02 FINAL REPORT [facility] ELECTROLYTES Chloride Lvl 99 meq/L 95 - 109 01/16/2015 [facility] ELECTROLYTES Sodium Lvl 135 meq/L 135 - 145 01/16/2015 [facility] ELECTROLYTES Potassium Lvl 3.9 meq/L 3.5 - 5.1 01/16/2015 [facility] ELECTROLYTES eGFR 90 mL/min/1.73m2 01/16/2015 Result Comment: The eGFR is calculated using the CKD-EPI formula. In most young, healthy individuals the eGFR will be >90 mL/min/1.73m2. The eGFR declines with age. An eGFR of 60-89 may be normal in some populations, particularly the elderly, for whom the CKD-EPI formula has not been extensively validated. Use of the eGFR is not recommended in the following populations: Individuals with unstable creatinine concentrations, including patients and those with serious co-morbid conditions. Patients with extremes in muscle mass or diet. The data above are obtained from the National Kidney Disease Education Program (NKDEP) which additionally recommends that when the eGFR is used in patients with extremes of body mass index for purposes of drug dosing, the eGFR should be multiplied by the estimated BMI. [facility] ELECTROLYTES Calcium Lvl 8.5 mg/dL 8.5 - 10.5 01/16/2015 [facility] ELECTROLYTES CO2 25 meq/L 24 - 32 01/16/2015 [facility] ELECTROLYTES Glucose Lvl 209 mg/dL 70 - 99 01/16/2015 [facility] ELECTROLYTES BUN 10 mg/dL 7 - 22 01/16/2015 [facility] ELECTROLYTES Creatinine Lvl 0.7 mg/dL 0.5 - 1.4 01/16/2015 [facility] ELECTROLYTES AGAP 14.9 meq/L 10.0 - 20.0 01/16/2015 [facility] HEMATOLOGY Basophils # 0.1 K/CMM 0.0 - 0.2 01/16/2015 [facility] HEMATOLOGY Eosinophils # 0.4 K/CMM 0.0 - 0.5 01/16/2015 [facility] HEMATOLOGY Eosinophils 4.2 % 0.0 - 4.0 01/16/2015 [facility] HEMATOLOGY Basophils 1.1 % 0.0 - 1.0 01/16/2015 [facility] HEMATOLOGY Lymphocytes # 1.5 K/CMM 1.0 - 5.5 01/16/2015 [facility] HEMATOLOGY Segs-Bands # 5.7 K/CMM 1.5 - 8.1 01/16/2015 [facility] HEMATOLOGY Lymphocytes 17.3 % 20.0 - 40.0 01/16/2015 [facility] HEMATOLOGY Monocytes 12.3 % 2.0 - 12.0 01/16/2015 [facility] HEMATOLOGY Monocytes # 1.1 K/CMM 0.0 - 0.8 01/16/2015 [facility] HEMATOLOGY Segs 65.1 % 45.0 - 75.0 01/16/2015 [facility] MPV 8.7 fL 7.4 - 10.4 01/16/2015 [facility] Platelet 286 K/CMM 133 - 450 01/16/2015 [facility] RBC 3.53 M/CMM 4.20 - 5.40 01/16/2015 [facility] WBC 8.8 K/CMM 3.7 - 10.4 01/16/2015 [facility] MCHC 33.6 g/dL 32.0 - 36.0 01/16/2015 [facility] RDW 14.0 % 11.5 - 14.5 01/16/2015 [facility] Hgb 9.9 g/dL 12.0 - 16.0 01/16/2015 [facility] Hct 29.5 % 36.0 - 48.0 01/16/2015 [facility] MCH 28.1 pg 27.0 - 31.0 01/16/2015 [facility] MCV 83.7 fL 80.0 - 98.0 01/16/2015 [facility] ELECTROLYTES Sodium Lvl 138 meq/L 135 - 145 01/14/2015 [facility] ELECTROLYTES Potassium Lvl 3.5 meq/L 3.5 - 5.1 01/14/2015 [facility] ELECTROLYTES Chloride Lvl 104 meq/L 95 - 109 01/14/2015 [facility] ELECTROLYTES eGFR 95 mL/min/1.73m2 01/14/2015 Result Comment: The eGFR is calculated using the CKD-EPI formula. In most young, healthy individuals the eGFR will be >90 mL/min/1.73m2. The eGFR declines with age. An eGFR of 60-89 may be normal in some populations, particularly the elderly, for whom the CKD-EPI formula has not been extensively validated. Use of the eGFR is not recommended in the following populations: Individuals with unstable creatinine concentrations, including patients and those with serious co-morbid conditions. Patients with extremes in muscle mass or diet. The data above are obtained from the National Kidney Disease Education Program (NKDEP) which additionally recommends that when the eGFR is used in patients with extremes of body mass index for purposes of drug dosing, the eGFR should be multiplied by the estimated BMI. [facility] ELECTROLYTES Glucose Lvl 68 mg/dL 70 - 99 01/14/2015 [facility] ELECTROLYTES Calcium Lvl 8.0 mg/dL 8.5 - 10.5 01/14/2015 [facility] ELECTROLYTES BUN 7 mg/dL 7 - 22 01/14/2015 [facility] ELECTROLYTES Creatinine Lvl 0.6 mg/dL 0.5 - 1.4 01/14/2015 [facility] ELECTROLYTES CO2 24 meq/L 24 - 32 01/14/2015 [facility] ELECTROLYTES AGAP 13.5 meq/L 10.0 - 20.0 01/14/2015 [facility] HEMATOLOGY Eosinophils 4.8 % 0.0 - 4.0 01/14/2015 [facility] HEMATOLOGY Monocytes 15.7 % 2.0 - 12.0 01/14/2015 [facility] HEMATOLOGY Lymphocytes 23.3 % 20.0 - 40.0 01/14/2015 [facility] HEMATOLOGY Plt Morph Normal (01/14/15 4:51 AM) 01/14/2015 [facility] HEMATOLOGY RBC Morph Normal (01/14/15 4:51 AM) 01/14/2015 [facility] HEMATOLOGY Segs-Bands # 4.4 K/CMM 1.5 - 8.1 01/14/2015 [facility] HEMATOLOGY Basophils 0.9 % 0.0 - 1.0 01/14/2015 [facility] HEMATOLOGY Basophils # 0.1 K/CMM 0.0 - 0.2 01/14/2015 [facility] HEMATOLOGY Eosinophils # 0.4 K/CMM 0.0 - 0.5 01/14/2015 [facility] HEMATOLOGY Lymphocytes # 1.8 K/CMM 1.0 - 5.5 01/14/2015 [facility] HEMATOLOGY Monocytes # 1.2 K/CMM 0.0 - 0.8 01/14/2015 [facility] HEMATOLOGY Segs 55.3 % 45.0 - 75.0 01/14/2015 [facility] HEMATOLOGY Platelet 246 K/CMM 133 - 450 01/14/2015 [facility] HEMATOLOGY MPV 8.5 fL 7.4 - 10.4 01/14/2015 [facility] MCV 84.5 fL 80.0 - 98.0 01/14/2015 [facility] MCH 27.9 pg 27.0 - 31.0 01/14/2015 [facility] MCHC 33.0 g/dL 32.0 - 36.0 01/14/2015 [facility] RDW 14.0 % 11.5 - 14.5 01/14/2015 [facility] HEMATOLOGY Hct 28.9 % 36.0 - 48.0 01/14/2015 [facility] Hgb 9.5 g/dL 12.0 - 16.0 01/14/2015 [facility] HEMATOLOGY WBC 7.9 K/CMM 3.7 - 10.4 01/14/2015 [facility] HEMATOLOGY RBC 3.42 M/CMM 4.20 - 5.40 01/14/2015 [facility] ELECTROLYTES Chloride Lvl 104 meq/L 95 - 109 01/12/2015 [facility] ELECTROLYTES Potassium Lvl 3.4 meq/L 3.5 - 5.1 01/12/2015 [facility] ELECTROLYTES Sodium Lvl 137 meq/L 135 - 145 01/12/2015 [facility] ELECTROLYTES eGFR 90 mL/min/1.73m2 01/12/2015 Result Comment: The eGFR is calculated using the CKD-EPI formula. In most young, healthy individuals the eGFR will be >90 mL/min/1.73m2. The eGFR declines with age. An eGFR of 60-89 may be normal in some populations, particularly the elderly, for whom the CKD-EPI formula has not been extensively validated. Use of the eGFR is not recommended in the following populations: Individuals with unstable creatinine concentrations, including patients and those with serious co-morbid conditions. Patients with extremes in muscle mass or diet. The data above are obtained from the National Kidney Disease Education Program (NKDEP) which additionally recommends that when the eGFR is used in patients with extremes of body mass index for purposes of drug dosing, the eGFR should be multiplied by the estimated BMI. [facility] ELECTROLYTES AGAP 12.4 meq/L 10.0 - 20.0 01/12/2015 [facility] ELECTROLYTES Calcium Lvl 8.7 mg/dL 8.5 - 10.5 01/12/2015 [facility] ELECTROLYTES BUN 10 mg/dL 7 - 22 01/12/2015 [facility] ELECTROLYTES CO2 24 meq/L 24 - 32 01/12/2015 [facility] ELECTROLYTES Glucose Lvl 45 mg/dL 70 - 99 01/12/2015 Result Comment: Critical Result(s) called to radha gomez at 01/12/2015 07:30 byew. Read back OK. [facility] ELECTROLYTES Creatinine Lvl 0.7 mg/dL 0.5 - 1.4 01/12/2015 [facility] MCHC 32.7 g/dL 32.0 - 36.0 01/12/2015 [facility] RDW 14.6 % 11.5 - 14.5 01/12/2015 [facility] MPV 9.1 fL 7.4 - 10.4 01/12/2015 [facility] HEMATOLOGY Platelet 261 K/CMM 133 - 450 01/12/2015 [facility] HEMATOLOGY Hct 32.5 % 36.0 - 48.0 01/12/2015 [facility] HEMATOLOGY MCV 85.5 fL 80.0 - 98.0 01/12/2015 [facility] MCH 28.0 pg 27.0 - 31.0 01/12/2015 [facility] HEMATOLOGY RBC 3.81 M/CMM 4.20 - 5.40 01/12/2015 [facility] HEMATOLOGY Hgb 10.7 g/dL 12.0 - 16.0 01/12/2015 [facility] HEMATOLOGY WBC 8.5 K/CMM 3.7 - 10.4 01/12/2015 [facility] HEMATOLOGY Lymphocytes 19.3 % 20.0 - 40.0 01/12/2015 [facility] HEMATOLOGY Segs 66.0 % 45.0 - 75.0 01/12/2015 [facility] HEMATOLOGY Monocytes 11.3 % 2.0 - 12.0 01/12/2015 [facility] HEMATOLOGY Eosinophils 2.8 % 0.0 - 4.0 01/12/2015 [facility] HEMATOLOGY Lymphocytes # 1.6 K/CMM 1.0 - 5.5 01/12/2015 [facility] HEMATOLOGY Monocytes # 1.0 K/CMM 0.0 - 0.8 01/12/2015 [facility] HEMATOLOGY Segs-Bands # 5.6 K/CMM 1.5 - 8.1 01/12/2015 [facility] HEMATOLOGY Eosinophils # 0.2 K/CMM 0.0 - 0.5 01/12/2015 [facility] HEMATOLOGY Basophils # 0.1 K/CMM 0.0 - 0.2 01/12/2015 [facility] HEMATOLOGY Basophils 0.6 % 0.0 - 1.0 01/12/2015 [facility] URINE AND STOOL UA Urobilinogen <=1.0 mg/dL 0.1 - 1.0 01/12/2015 [facility] URINE AND STOOL UA Color Debbi 01/12/2015 [facility] URINE AND STOOL UA Turbidity Marked *ABN* (01/11/15 10:43 PM) Clear 01/12/2015 [facility] URINE AND STOOL UA pH 6.0 5.0 - 8.0 01/12/2015 [facility] URINE AND STOOL UA Spec Grav 1.014 <=1.030 01/12/2015 [facility] URINE AND STOOL UA Amorph Renee Occasional /HPF None Seen /HPF 01/12/2015 [facility] URINE AND STOOL UA Mucus Many /LPF None Seen /LPF 01/12/2015 [facility] URINE AND STOOL UA Bacteria Many /HPF None Seen /HPF 01/12/2015 [facility] URINE AND STOOL UA Hyal Cast 15 /LPF 0 - 2 01/12/2015 [facility] URINE AND STOOL UA RBC null 0 - 2 01/12/2015 [facility] URINE AND STOOL UA [place] Yeast Moderate /HPF None Seen /HPF 01/12/2015 [facility] URINE AND STOOL UA Protein 100 mg/dL Negative mg/dL 01/12/2015 [facility] URINE AND STOOL UA Bili Negative *NA* (01/11/15 10:43 PM) Negative 01/12/2015 [facility] URINE AND STOOL UA Ketones 20 mg/dL Negative mg/dL 01/12/2015 [facility] URINE AND STOOL UA Glucose Negative mg/dL Negative mg/dL 01/12/2015 [facility] URINE AND STOOL UA WBC null 0 - 5 01/12/2015 [facility] URINE AND STOOL UA Nitrite Negative (01/11/15 10:43 PM) Negative 01/12/2015 [facility] URINE AND STOOL UA Blood Moderate *ABN* (01/11/15 10:43 PM) Negative 01/12/2015 [facility] URINE AND STOOL UA Sq Epi Many /LPF Few /LPF 01/12/2015 [facility] URINE AND STOOL UA Leuk Est Large *ABN* (01/11/15 10:43 PM) Negative 01/12/2015 [facility] CHEM PANEL Lactic Acid Lvl 1.0 mMol/L 0.5 - 2.2 01/12/2015 [facility] CHEM PANEL Alk Phos 97 unit/L 39 - 136 01/12/2015 [facility] CHEM PANEL Bili Total 0.5 mg/dL 0.2 - 1.3 01/12/2015 [facility] CHEM PANEL Albumin Lvl 3.2 g/dL 3.5 - 5.0 01/12/2015 [facility] CHEM PANEL ALT 20 unit/L 0 - 65 01/12/2015 [facility] CHEM PANEL AST 24 unit/L 0 - 37 01/12/2015 [facility] CHEM PANEL Total Protein 9.0 g/dL 6.4 - 8.4 01/12/2015 [facility] CHEM PANEL A/G Ratio 0.6 0.7 - 1.6 01/12/2015 [facility] CHEM PANEL Globulin 5.8 g/dL 2.0 - 4.0 01/12/2015 [facility] CHEM PANEL B/C Ratio 12 6 - 25 01/12/2015 [facility] HEMATOLOGY Plt Morph Clumped (01/11/15 9:22 PM) 01/12/2015 [facility] IMMUNOLOGY [place]-Hep C Ab Negative *NA* (01/11/15 9:22 PM) Negative 01/12/2015 [facility] Renal pyelogram retrograde DX Renal pyelogram retrograde DX NAME: DESHAUN SCOTT : 1945 SEX: F Ordering Physician: Enio Neal Multiple spot images from a left retrograde pyelogram : Jan 10, 2015 03:33:00 PM. CLINICAL INDICATION: stent placement. Comparison Examination: 12/09/2014. FINDINGS: Mild to moderate left pelvocaliectasis is similar to prior study. Mild prominence of the left distal ureter without other dilatation of the left ureter. No filling defect within the visualized left collecting system. Small amount of contrast is seen within the bladder. Left double-J ureteral stent is seen on the last image with proximal end in the left renal pelvis and distal end in the bladder. SL: 13 01/10/2015 - - Read by: Howard Kaplan MD Dictated Date/time: 01/10/15 15:44 Electronically Signed by: Howard Kaplan MD 01/10/15 15:47 FINAL REPORT [facility] ELECTROLYTES AGAP 13.2 meq/L 10.0 - 20.0 12/28/2014 [facility] ELECTROLYTES eGFR 66 mL/min/1.73m2 12/28/2014 Result Comment: The eGFR is calculated using the CKD-EPI formula. In most young, healthy individuals the eGFR will be >90 mL/min/1.73m2. The eGFR declines with age. An eGFR of 60-89 may be normal in some populations, particularly the elderly, for whom the CKD-EPI formula has not been extensively validated. Use of the eGFR is not recommended in the following populations: Individuals with unstable creatinine concentrations, including patients and those with serious co-morbid conditions. Patients with extremes in muscle mass or diet. The data above are obtained from the National Kidney Disease Education Program (NKDEP) which additionally recommends that when the eGFR is used in patients with extremes of body mass index for purposes of drug dosing, the eGFR should be multiplied by the estimated BMI. [facility] ELECTROLYTES Glucose Lvl 257 mg/dL 70 - 99 12/28/2014 [facility] ELECTROLYTES Potassium Lvl 4.2 meq/L 3.5 - 5.1 12/28/2014 [facility] ELECTROLYTES Sodium Lvl 131 meq/L 135 - 145 12/28/2014 [facility] ELECTROLYTES BUN 17 mg/dL 7 - 22 12/28/2014 [facility] ELECTROLYTES Creatinine Lvl 0.9 mg/dL 0.5 - 1.4 12/28/2014 [facility] ELECTROLYTES Chloride Lvl 99 meq/L 95 - 109 12/28/2014 [facility] ELECTROLYTES CO2 23 meq/L 24 - 32 12/28/2014 [facility] ELECTROLYTES Calcium Lvl 9.6 mg/dL 8.5 - 10.5 12/28/2014 [facility] HEMATOLOGY Platelet 296 K/CMM 133 - 450 12/28/2014 [facility] MCHC 32.9 g/dL 32.0 - 36.0 12/28/2014 [facility] RDW 14.6 % 11.5 - 14.5 12/28/2014 [facility] MPV 9.8 fL 7.4 - 10.4 12/28/2014 [facility] RBC 3.98 M/CMM 4.20 - 5.40 12/28/2014 [facility] WBC 9.7 K/CMM 3.7 - 10.4 12/28/2014 [facility] Hgb 11.2 g/dL 12.0 - 16.0 12/28/2014 [facility] Hct 34.2 % 36.0 - 48.0 12/28/2014 [facility] MCV 85.7 fL 80.0 - 98.0 12/28/2014 [facility] MCH 28.2 pg 27.0 - 31.0 12/28/2014 [facility] Segs 68.8 % 45.0 - 75.0 12/28/2014 [facility] Monocytes 5.7 % 2.0 - 12.0 12/28/2014 [facility] HEMATOLOGY Eosinophils 3.4 % 0.0 - 4.0 12/28/2014 [facility] Lymphocytes 20.7 % 20.0 - 40.0 12/28/2014 [facility] Lymphocytes # 2.0 K/CMM 1.0 - 5.5 12/28/2014 [facility] Segs-Bands # 6.7 K/CMM 1.5 - 8.1 12/28/2014 [facility] HEMATOLOGY Basophils 1.4 % 0.0 - 1.0 12/28/2014 [facility] HEMATOLOGY Eosinophils # 0.3 K/CMM 0.0 - 0.5 12/28/2014 [facility] HEMATOLOGY Monocytes # 0.6 K/CMM 0.0 - 0.8 12/28/2014 [facility] HEMATOLOGY RBC Morph Normal (12/28/14 2:27 PM) 12/28/2014 [facility] HEMATOLOGY Plt Morph Normal (12/28/14 2:27 PM) 12/28/2014 [facility] HEMATOLOGY Basophils # 0.1 K/CMM 0.0 - 0.2 12/28/2014 [facility] URINE AND STOOL UA Urobilinogen <=1.0 mg/dL 0.1 - 1.0 12/28/2014 [facility] URINE AND STOOL UA Nitrite Negative (12/28/14 2:27 PM) Negative 12/28/2014 [facility] URINE AND STOOL UA Bacteria Occasional /HPF None Seen /HPF 12/28/2014 [facility] URINE AND STOOL UA Mucus Few /LPF None Seen /LPF 12/28/2014 [facility] URINE AND STOOL UA Leuk Est Large *ABN* (12/28/14 2:27 PM) Negative 12/28/2014 [facility] URINE AND STOOL UA Sq Epi Few /LPF Few /LPF 12/28/2014 [facility] URINE AND STOOL UA RBC 98 /HPF 0 - 2 12/28/2014 [facility] URINE AND STOOL UA WBC null 0 - 5 12/28/2014 [facility] URINE AND STOOL UA Blood Moderate *ABN* (12/28/14 2:27 PM) Negative 12/28/2014 [facility] URINE AND STOOL UA Bili Negative *NA* (12/28/14 2:27 PM) Negative 12/28/2014 [facility] URINE AND STOOL UA Glucose 50 mg/dL Negative mg/dL 12/28/2014 [facility] URINE AND STOOL UA Ketones Negative mg/dL Negative mg/dL 12/28/2014 [facility] URINE AND STOOL UA pH 6.0 5.0 - 8.0 12/28/2014 [facility] URINE AND STOOL UA Color Yellow *NA* (12/28/14 2:27 PM) Yellow 12/28/2014 [facility] URINE AND STOOL UA Spec Grav 1.011 <=1.030 12/28/2014 [facility] URINE AND STOOL UA Protein 100 mg/dL Negative mg/dL 12/28/2014 [facility] URINE AND STOOL UA Turbidity Marked *ABN* (12/28/14 2:27 PM) Clear 12/28/2014 [facility] Renal pyelogram retrograde DX Renal pyelogram retrograde DX Left retrograde pyelogram: Spot images from Cystoscopy are submitted. Contrast has been injected into the left renal pelvis via a ureteral catheter showing mild dilatation of the left collecting system. The final spot image shows a left ureteral stent in good position. SL:13 12/09/2014 - - Read by: Lj Vanegas MD Dictated Date/time: 12/09/14 12:24 Electronically Signed by: Lj Vanegas MD 12/09/14 12:25 FINAL REPORT [facility] URINE AND STOOL UA Urobilinogen <=1.0 mg/dL 0.1 - 1.0 12/08/2014 [facility] URINE AND STOOL UA Ketones Negative mg/dL Negative mg/dL 12/08/2014 [facility] URINE AND STOOL UA Nitrite Negative (12/08/14 6:43 AM) Negative 12/08/2014 [facility] URINE AND STOOL UA Bili Negative *NA* (12/08/14 6:43 AM) Negative 12/08/2014 [facility] URINE AND STOOL UA Blood Moderate *ABN* (12/08/14 6:43 AM) Negative 12/08/2014 [facility] URINE AND STOOL UA WBC null 0 - 5 12/08/2014 [facility] [facility] AND STOOL UA Leuk Est Large *ABN* (12/08/14 6:43 AM) Negative 12/08/2014 [facility] URINE AND STOOL UA RBC null 0 - 2 12/08/2014 [facility] URINE AND STOOL UA Bacteria Moderate /HPF None Seen /HPF 12/08/2014 [facility] URINE AND STOOL UA Glucose Negative mg/dL Negative mg/dL 12/08/2014 [facility] URINE AND STOOL UA Sq Epi Occasional /LPF Few /LPF 12/08/2014 [facility] URINE AND STOOL UA Mucus Few /LPF None Seen /LPF 12/08/2014 [facility] URINE AND STOOL UA Amorph Renee Occasional /HPF None Seen /HPF 12/08/2014 [facility] URINE AND STOOL UA Turbidity Marked *ABN* (12/08/14 6:43 AM) Clear 12/08/2014 [facility] URINE AND STOOL UA Color Yellow *NA* (12/08/14 6:43 AM) Yellow 12/08/2014 [facility] URINE AND STOOL UA Spec Grav 1.014 <=1.030 12/08/2014 [facility] URINE AND STOOL UA pH 5.0 5.0 - 8.0 12/08/2014 [facility] URINE AND STOOL UA Protein 100 mg/dL Negative mg/dL 12/08/2014 [facility] CHEM PANEL Lipase Lvl 121 unit/L 73 - 393 12/08/2014 [facility] CHEM PANEL Amylase Lvl 29 unit/L 25 - 115 12/08/2014 [facility] CHEM PANEL A/G Ratio 0.4 0.7 - 1.6 12/08/2014 [facility] CHEM PANEL Globulin 6.7 g/dL 2.0 - 4.0 12/08/2014 [facility] CHEM PANEL B/C Ratio 21 6 - 25 12/08/2014 [facility] CHEM PANEL AGAP 12.0 meq/L 10.0 - 20.0 12/08/2014 [facility] CHEM PANEL Sodium Lvl 133 meq/L 135 - 145 12/08/2014 [facility] CHEM PANEL Potassium Lvl 4.0 meq/L 3.5 - 5.1 12/08/2014 [facility] CHEM PANEL Chloride Lvl 100 meq/L 95 - 109 12/08/2014 [facility] CHEM PANEL ALT 14 unit/L 0 - 65 12/08/2014 [facility] CHEM PANEL Albumin Lvl 2.9 g/dL 3.5 - 5.0 12/08/2014 [facility] CHEM PANEL Total Protein 9.6 g/dL 6.4 - 8.4 12/08/2014 [facility] CHEM PANEL AST 14 unit/L 0 - 37 12/08/2014 [facility] CHEM PANEL Alk Phos 109 unit/L 39 - 136 12/08/2014 [facility] CHEM PANEL Bili Total 0.3 mg/dL 0.2 - 1.3 12/08/2014 [facility] CHEM PANEL eGFR 43 mL/min/1.73m2 12/08/2014 1Result Comment: The eGFR is calculated using the CKD-EPI formula. In most young, healthy individuals the eGFR will be >90 mL/min/1.73m2. The eGFR declines with age. An eGFR of 60-89 may be normal in some populations, particularly the elderly, for whom the CKD-EPI formula has not been extensively validated. Use of the eGFR is not recommended in the following populations: Individuals with unstable creatinine concentrations, including patients and those with serious co-morbid conditions. Patients with extremes in muscle mass or diet. The data above are obtained from the National Kidney Disease Education Program (NKDEP) which additionally recommends that when the eGFR is used in patients with extremes of body mass index for purposes of drug dosing, the eGFR should be multiplied by the estimated BMI. [facility] CHEM PANEL Glucose Lvl 56 mg/dL 70 - 99 12/08/2014 2Interpretive Data: Adult reference range values reflect the clinical guidelines of the [place] [employer]. [facility] CHEM PANEL Calcium Lvl 9.3 mg/dL 8.5 - 10.5 12/08/2014 [facility] CHEM PANEL CO2 25 meq/L 24 - 32 12/08/2014 [facility] CHEM PANEL Creatinine Lvl 1.3 mg/dL 0.5 - 1.4 12/08/2014 [facility] CHEM PANEL BUN 27 mg/dL 7 - 22 12/08/2014 [facility] HEMATOLOGY Basophils # 0.1 K/CMM 0.0 - 0.2 12/08/2014 [facility] HEMATOLOGY Eosinophils # 0.3 K/CMM 0.0 - 0.5 12/08/2014 [facility] HEMATOLOGY Monocytes # 1.3 K/CMM 0.0 - 0.8 12/08/2014 [facility] Lymphocytes # 2.2 K/CMM 1.0 - 5.5 12/08/2014 [facility] Segs-Bands # 11.0 K/CMM 1.5 - 8.1 12/08/2014 [facility] Basophils 0.9 % 0.0 - 1.0 12/08/2014 [facility] HEMATOLOGY Eosinophils 2.2 % 0.0 - 4.0 12/08/2014 [facility] Monocytes 8.9 % 2.0 - 12.0 12/08/2014 [facility] Lymphocytes 14.6 % 20.0 - 40.0 12/08/2014 [facility] Segs 73.4 % 45.0 - 75.0 12/08/2014 [facility] MPV 8.4 fL 7.4 - 10.4 12/08/2014 [facility] Platelet 369 K/CMM 133 - 450 12/08/2014 [facility] RDW 14.9 % 11.5 - 14.5 12/08/2014 [facility] MCHC 33.2 g/dL 32.0 - 36.0 12/08/2014 [facility] HEMATOLOGY MCH 28.4 pg 27.0 - 31.0 12/08/2014 [facility] HEMATOLOGY MCV 85.6 fL 80.0 - 98.0 12/08/2014 [facility] HEMATOLOGY Hgb 10.4 g/dL 12.0 - 16.0 12/08/2014 [facility] HEMATOLOGY Hct 31.3 % 36.0 - 48.0 12/08/2014 [facility] HEMATOLOGY RBC 3.66 M/CMM 4.20 - 5.40 12/08/2014 [facility] HEMATOLOGY WBC 15.0 K/CMM 3.7 - 10.4 12/08/2014 [facility] URINE AND STOOL UA Urobilinogen <=1.0 mg/dL 0.1 - 1.0 12/07/2014 [facility] URINE AND STOOL UA Sq Epi None Seen 12/07/2014 [facility] URINE AND STOOL UA Bacteria Occasional /HPF None Seen /HPF 12/07/2014 [facility] URINE AND STOOL UA RBC 86 /HPF 0 - 2 12/07/2014 [facility] URINE AND STOOL UA WBC null 0 - 5 12/07/2014 [facility] URINE AND STOOL UA Leuk Est Large *ABN* (12/07/14 3:22 PM) Negative 12/07/2014 [facility] URINE AND STOOL UA Color Yellow *NA* (12/07/14 3:22 PM) Yellow 12/07/2014 [facility] URINE AND STOOL UA Protein 100 mg/dL Negative mg/dL 12/07/2014 [facility] URINE AND STOOL UA Turbidity Marked *ABN* (12/07/14 3:22 PM) Clear 12/07/2014 [facility] URINE AND STOOL UA pH 5.0 5.0 - 8.0 12/07/2014 [facility] URINE AND STOOL UA Spec Grav 1.013 <=1.030 12/07/2014 [facility] URINE AND STOOL UA Nitrite Negative (12/07/14 3:22 PM) Negative 12/07/2014 [facility] URINE AND STOOL UA Blood Small *ABN* (12/07/14 3:22 PM) Negative 12/07/2014 [facility] URINE AND STOOL UA Ketones Negative mg/dL Negative mg/dL 12/07/2014 [facility] URINE AND STOOL UA Glucose Negative mg/dL Negative mg/dL 12/07/2014 [facility] URINE AND STOOL UA Bili Negative *NA* (12/07/14 3:22 PM) Negative 12/07/2014 [facility] Vital Signs Vital Sign Value Date Comments Source Respitory Rate 16 10/30/2016 [facility] Systolic (mm Hg) 149 10/30/2016 [facility] Diastolic (mm Hg) 76 10/30/2016 [facility] Systolic (mm Hg) 124 10/30/2016 [facility] Diastolic (mm Hg) 65 10/30/2016 [facility] Respitory Rate 21 10/30/2016 [facility] Systolic (mm Hg) 146 10/30/2016 [facility] Diastolic (mm Hg) 86 10/30/2016 [facility] Respitory Rate 15 10/30/2016 [facility] Heart Rate 84 10/30/2016 [facility] Height 152.4 cm 10/25/2016 [facility] BMI Calculated 32.1 10/25/2016 [facility] Weight 74.545 10/25/2016 [facility] Systolic (mm Hg) 101 04/09/2016 [facility] Diastolic (mm Hg) 56 04/09/2016 [facility] Respitory Rate 16 04/09/2016 [facility] Heart Rate 79 04/09/2016 [facility] Height 152.4 cm 04/09/2016 [facility] Weight 71.818 04/09/2016 [facility] BMI Calculated 30.92 04/09/2016 [facility] Systolic (mm Hg) 148 04/09/2016 [facility] Diastolic (mm Hg) 85 04/09/2016 [facility] Heart Rate 100 04/09/2016 [facility] Respitory Rate 16 04/09/2016 [facility] Weight 71.818 04/04/2016 [facility] BMI Calculated 30.92 04/04/2016 [facility] Height 152.4 cm 04/04/2016 [facility] Respitory Rate 18 04/02/2016 [facility] Systolic (mm Hg) 176 04/02/2016 [facility] Diastolic (mm Hg) 72 04/02/2016 [facility] Systolic (mm Hg) 153 04/02/2016 [facility] Diastolic (mm Hg) 67 04/02/2016 [facility] Respitory Rate 14 04/02/2016 [facility] Respitory Rate 25 04/02/2016 [facility] Systolic (mm Hg) 159 04/02/2016 [facility] Diastolic (mm Hg) 85 04/02/2016 [facility] Heart Rate 89 04/02/2016 [facility] Height 152.4 cm 03/29/2016 [facility] BMI Calculated 30.92 03/29/2016 [facility] Weight 71.818 03/29/2016 [facility] Respitory Rate 18 05/21/2015 [facility] Heart Rate 74 05/21/2015 [facility] Temperature Oral (F) 99.0 F 05/21/2015 [facility] Systolic (mm Hg) 148 05/21/2015 [facility] Diastolic (mm Hg) 83 05/21/2015 [facility] Systolic (mm Hg) 149 05/21/2015 [facility] Diastolic (mm Hg) 80 05/21/2015 [facility] Heart Rate 83 05/21/2015 [facility] Respitory Rate 18 05/21/2015 [facility] Temperature Oral (F) 98.6 F 05/21/2015 [facility] Temperature Oral (F) 98.0 F 05/21/2015 [facility] Systolic (mm Hg) 133 05/21/2015 [facility] Diastolic (mm Hg) 77 05/21/2015 [facility] Respitory Rate 18 05/21/2015 [facility] Heart Rate 75 05/21/2015 [facility] Weight 75.568 05/17/2015 [facility] Height 152.4 cm 05/17/2015 [facility] BMI Calculated 32.54 05/17/2015 [facility] BMI Calculated 32.88 05/17/2015 [facility] Weight 76.364 05/17/2015 [facility] Height 152.4 cm 05/17/2015 [facility] Systolic (mm Hg) 160 04/18/2015 [facility] Diastolic (mm Hg) 92 04/18/2015 [facility] Temperature Oral (F) 98.1 F 04/18/2015 [facility] Heart Rate 90 04/18/2015 [facility] Respitory Rate 17 04/18/2015 [facility] Temperature Oral (F) 98.1 F 04/17/2015 [facility] Respitory Rate 16 04/17/2015 [facility] Heart Rate 87 04/17/2015 [facility] Systolic (mm Hg) 138 04/17/2015 [facility] Diastolic (mm Hg) 79 04/17/2015 [facility] Heart Rate 83 04/17/2015 [facility] Temperature Oral (F) 98 F 04/17/2015 [facility] Systolic (mm Hg) 132 04/17/2015 [facility] Diastolic (mm Hg) 80 04/17/2015 [facility] Respitory Rate 16 04/17/2015 [facility] Weight 77.273 04/15/2015 [facility] Weight 77.983 04/14/2015 [facility] BMI Calculated 33.47 04/13/2015 [facility] Weight 77.727 04/13/2015 [facility] Height 152.4 cm 04/13/2015 [facility] BMI Calculated 33.47 04/13/2015 [facility] Height 152.4 cm 04/13/2015 [facility] Systolic (mm Hg) 149 03/21/2015 [facility] Diastolic (mm Hg) 83 03/21/2015 [facility] Temperature Oral (F) 98.9 F 03/21/2015 [facility] Heart Rate 87 03/21/2015 [facility] Respitory Rate 20 03/21/2015 [facility] Systolic (mm Hg) 144 03/21/2015 [facility] Diastolic (mm Hg) 71 03/21/2015 [facility] Respitory Rate 18 03/21/2015 [facility] Heart Rate 78 03/21/2015 [facility] Temperature Oral (F) 98 F 03/21/2015 [facility] Systolic (mm Hg) 122 03/21/2015 [facility] Diastolic (mm Hg) 74 03/21/2015 [facility] Temperature Oral (F) 98.1 F 03/21/2015 [facility] Heart Rate 77 03/21/2015 [facility] Respitory Rate 18 03/21/2015 [facility] BMI Calculated 34.85 03/18/2015 [facility] Height 152.4 cm 03/18/2015 [facility] Weight 80.938 03/18/2015 [facility] Weight 80.909 03/17/2015 [facility] BMI Calculated 34.84 03/17/2015 [facility] Height 152.4 cm 03/17/2015 [facility] Respitory Rate 19 02/08/2015 [facility] Systolic (mm Hg) 151 02/08/2015 [facility] Diastolic (mm Hg) 83 02/08/2015 [facility] Respitory Rate 18 02/08/2015 [facility] Systolic (mm Hg) 151 02/08/2015 [facility] Diastolic (mm Hg) 83 02/08/2015 [facility] Systolic (mm Hg) 140 02/08/2015 [facility] Diastolic (mm Hg) 70 02/08/2015 [facility] Respitory Rate 21 02/08/2015 [facility] Heart Rate 86 02/08/2015 [facility] Heart Rate 93 02/06/2015 [facility] Temperature Oral (F) 98 F 02/06/2015 [facility] Height 152.4 cm 02/06/2015 [facility] Weight 85 02/06/2015 [facility] BMI Calculated 36.6 02/06/2015 [facility] Systolic (mm Hg) 129 01/17/2015 [facility] Diastolic (mm Hg) 84 01/17/2015 [facility] Heart Rate 92 01/17/2015 [facility] Respitory Rate 18 01/17/2015 [facility] Temperature Oral (F) 98.1 F 01/17/2015 [facility] Systolic (mm Hg) 109 01/17/2015 [facility] Diastolic (mm Hg) 71 01/17/2015 [facility] Respitory Rate 18 01/17/2015 [facility] Temperature Oral (F) 98.3 F 01/17/2015 [facility] Heart Rate 77 01/17/2015 [facility] Respitory Rate 19 01/17/2015 [facility] Heart Rate 81 01/17/2015 [facility] Systolic (mm Hg) 132 01/17/2015 [facility] Diastolic (mm Hg) 77 01/17/2015 [facility] Temperature Oral (F) 98.2 F 01/17/2015 [facility] Weight 87.273 01/12/2015 [facility] BMI Calculated 37.97 01/11/2015 [facility] Height 152.4 cm 01/11/2015 [facility] Weight 88.182 01/11/2015 [facility] Systolic (mm Hg) 136 01/10/2015 [facility] Diastolic (mm Hg) 67 01/10/2015 [facility] Systolic (mm Hg) 135 01/10/2015 [facility] Diastolic (mm Hg) 69 01/10/2015 [facility] Respitory Rate 13 01/10/2015 [facility] Systolic (mm Hg) 123 01/10/2015 [facility] Diastolic (mm Hg) 61 01/10/2015 [facility] Respitory Rate 14 01/10/2015 [facility] Respitory Rate 16 01/10/2015 [facility] Heart Rate 89 12/28/2014 [facility] Temperature Oral (F) 97.7 F 12/28/2014 [facility] Height 152.4 cm 12/28/2014 [facility] Weight 87.727 12/28/2014 [facility] BMI Calculated 37.77 12/28/2014 [facility] Systolic (mm Hg) 154 12/10/2014 [facility] Diastolic (mm Hg) 74 12/10/2014 [facility] Temperature Oral (F) 98.2 F 12/10/2014 [facility] Heart Rate 93 12/10/2014 [facility] Respitory Rate 17 12/10/2014 [facility] Temperature Oral (F) 98.4 F 12/10/2014 [facility] Systolic (mm Hg) 120 12/10/2014 [facility] Diastolic (mm Hg) 72 12/10/2014 [facility] Respitory Rate 18 12/10/2014 [facility] Heart Rate 86 12/10/2014 [facility] Heart Rate 90 12/10/2014 [facility] Respitory Rate 18 12/10/2014 [facility] Systolic (mm Hg) 151 12/10/2014 [facility] Diastolic (mm Hg) 80 12/10/2014 [facility] Temperature Oral (F) 98.2 F 12/10/2014 [facility] Height 152.4 cm 12/08/2014 [facility] Weight 87.273 12/08/2014 [facility] BMI Calculated 37.58 12/08/2014 [facility] BMI Calculated 32.02 12/08/2014 [facility] Weight 87.273 12/08/2014 [facility] Height 165.1 cm 12/08/2014 [facility] Temperature Oral (F) 98.1 F 12/07/2014 [facility] Systolic (mm Hg) 144 12/07/2014 [facility] Diastolic (mm Hg) 72 12/07/2014 [facility] Heart Rate 96 12/07/2014 [facility] Respitory Rate 16 12/07/2014 [facility] Systolic (mm Hg) 145 12/07/2014 [facility] Diastolic (mm Hg) 75 12/07/2014 [facility] BMI Calculated 37.58 12/07/2014 [facility] Weight 87.273 12/07/2014 [facility] Height 152.4 cm 12/07/2014 [facility] Respitory Rate 18 12/07/2014 [facility] Systolic (mm Hg) 155 12/07/2014 [facility] Diastolic (mm Hg) 88 12/07/2014 [facility] Heart Rate 110 12/07/2014 [facility] Temperature Oral (F) 98.1 F 12/07/2014 [facility] Encounters Location Location Details Encounter Type Encounter Number Reason For Visit Attending Provider ADM Date DC Date Status Source [facility] [id number] Raphael Ball 12/07/2014 12/07/2014 [facility] Inpatient [id number] Ramone Jefferson 12/08/2014 12/10/2014 [facility] OBS Day Surgery [id number] Enio Neal 01/10/2015 01/10/2015 [facility] Inpatient [id number] Sebastien Shaffer 01/11/2015 01/17/2015 [facility] Bedded Outpatient [id number] Kavin Edwards 02/08/2015 02/08/2015 [facility] Inpatient [id number] Ramone Jefferson 03/17/2015 03/21/2015 [facility] Inpatient [id number] Ani Killianspeedy 04/13/2015 04/18/2015 [facility] Wound Care [id number] Antonio Teqwimuah 04/21/2015 05/21/2015 [facility] Inpatient [id number] Osbaldo Hatch 05/17/2015 05/21/2015 [facility] Outpatient [id number] En[facility] 09/26/2015 09/27/2015 [facility] [place] [facility] [id number] More Good 10/09/2015 10/10/2015 [facility] [place] [facility] Outpatient [id number] Enio [facility] 12/19/2015 12/20/2015 [facility] [place] [facility] [id number] Non Physician 02/27/2016 02/28/2016 [facility] [place] [facility] Day Surgery [id number] Jesse Padgett 04/02/2016 04/03/2016 [facility] Day Surgery [id number] Jesse Padgett 04/09/2016 04/10/2016 [facility] Day Surgery [id number] Andrewr Dayron 10/30/2016 10/31/2016 [facility] [place] [facility] [id number] More Good 11/15/2016 11/16/2016 [facility] [place] [facility] Outpatient Imaging - [place] Out[facility] Di[facility] Services [id number] More Good 11/26/2017 11/27/2017 [facility] [place] [facility] [id number] YAMEL BOOGIE MD 02/18/2018 [facility] Departed Emergency Room [id number] TAVO HOLLOWAY MD 02/21/2018 02/21/2018 [facility] Procedures Procedure Code Date Perfomer Comments Source Insertion of ureteral stent with ureterotomy<sup>1</sup> [id number] 12/08/2014 left,with bladder biopsy [facility] [place] Insertion of ureteral stent with ureterotomy<sup>1</sup> [id number] 12/08/2014 left,with bladder biopsy [facility] Insertion of ureteral stent with ureterotomy<sup>1</sup> [id number] 12/08/2014 left,with bladder biopsy [facility] Appendix operation [id number] [facility] [place] Bilateral tubal ligation [id number] [facility] [place] Breast operation<sup>2</sup> [id number] JUN 1979 INFECTED MAMMAROY GLAND SURGERY [facility] [place] section [id number] [facility] [place] Hysterectomy<sup>3</sup> [id number] with bladder suspension [facility] [place] Procedure<sup>4</sup> [id number] 1ST STAGE INTERSTIM PLACEMENT AND 2ND STAGE TO BE COMPLETED [facility] [place] Suspension of bladder<sup>5</sup> [id number] multiple [facility] [place] Appendix operation [id number] [facility] Bilateral tubal ligation [id number] [facility] section [id number] [facility] Hysterectomy<sup>1</sup> [id number] 1with bladder suspension [facility] Suspension of bladder<sup>2</sup> [id number] 2multiple [facility] Hysterectomy<sup>2</sup> [id number] with bladder suspension [facility] Suspension of bladder<sup>3</sup> [id number] multiple [facility] Hysterectomy<sup>2</sup> [id number] with bladder suspension [facility] [place] Suspension of bladder<sup>3</sup> [id number] multiple [facility] [place] Appendix operation [id number] [facility] Bilateral tubal ligation [id number] [facility] Breast operation<sup>2</sup> [id number] JUN 1979 INFECTED MAMMAROY GLAND SURGERY [facility] section [id number] [facility] Hysterectomy<sup>3</sup> [id number] with bladder suspension [facility] Procedure<sup>4</sup> [id number] 1ST STAGE INTERSTIM PLACEMENT AND 2ND STAGE TO BE COMPLETED [facility] Suspension of bladder<sup>5</sup> [id number] [facility]
--- OUTSIDE RECORDS SUMMARY | 2018-09-11 19:41 | XMS REPORT | Summary of Care ---
Author Author [facility] Organization [facility] Address Unknown Phone Unavailable Encounter SID Mckinney(MICHAEL) [id number] Date(s): 02/08/15 - 02/08/15 [facility] [address] [place] [address]- [phone] Discharge Disposition: Home Attending Physician: Kavin Edwards MD Referring Physician: Kavin Edwards MD Vital Signs 1 2 3 Most recent to oldest [Reference Range]: 152.4 cm (02/06/15 4:33 PM) Height 1 2 3 Most recent to oldest [Reference Range]: 98 DegF (02/06/15 4:41 PM) Temperature Oral [96.4-99.1 DegF] 1 2 3 Most recent to oldest [Reference Range]: 151/83 mmHg *HI* (02/08/15 3:20 PM) 151/83 mmHg *HI* (02/08/15 3:05 PM) 140/70 mmHg (02/08/15 3:00 PM) Blood Pressure [90-140/60-90 mmHg] 1 2 3 Most recent to oldest [Reference Range]: 19 BRMIN (02/08/15 3:20 PM) 18 BRMIN (02/08/15 3:05 PM) 21 BRMIN *HI* (02/08/15 3:00 PM) Respiratory Rate [14-20 BRMIN] 1 2 3 Most recent to oldest [Reference Range]: 86 bpm (02/08/15 12:15 PM) 93 bpm (02/06/15 4:41 PM) Peripheral Pulse Rate [60-100 bpm] 1 2 3 Most recent to oldest [Reference Range]: 85 kg (02/06/15 4:33 PM) Weight 1 2 3 Most recent to oldest [Reference Range]: 36.6 m2 (02/06/15 4:33 PM) Body Mass Index Problem List Condition Effective Dates Status Health Status Informant Acute PN - Resolved pyelonephritis(Confi rmed) Chronic cystitis1 10/07/14 Active Diabetes(Confirmed) Active Diabetes(Confirmed) Active HTN Active (hypertension)(Confi rmed) Hypercholesteremia(C Active onfirmed) Hypertension(Confirm Active ed) Psoriasis(Confirmed) Active 2 Retained ureteral Active stent(Confirmed) Sleep Active apnea(Confirmed) 1Data migrated from [employer] on 01/04/15. 2on both legs Allergies, Adverse Reactions, Alerts Substance Reaction Severity Status NKDA Active Medications Macrobid 100 mg, PO, BID, # 14 cap, 0 Refill(s) Start Date: 02/06/15 Stop Date: 02/13/15 Status: Ordered Sodium Chloride 0.9% IV 1000 mL 1,000 mL, Rate: 25 ml/hr, Infuse over: 40 hr, Route: IV, Dosing Weight 85 kg, To [place] Volume: 1,000, Start date: 02/08/15 12:37:00, Duration: 30 day, Stop date: 0 03/10/15 12:36:00 Start Date: 02/08/15 Stop Date: 02/08/15 Status: Discontinued Results No data available for this section Immunizations Vaccine Date Refusal Reason pneumococcal 23-valent vaccine 12/10/14 Procedures Procedure Date Related Diagnosis Body Site Insertion of ureteral stent with ureterotomy1 12/08/14 Appendix operation Bilateral tubal ligation section Hysterectomy2 Suspension of bladder3 1left,with bladder biopsy 2with bladder suspension 3multiple Social History Social History Type Response Alcohol Past Smoking Status Never smoker; Exposure to Tobacco Smoke None; Cigarette Smoking Last 365 Days No; Reg Smoking Cessation Counseling No Assessment and Plan No data available for this section
--- OUTSIDE RECORDS SUMMARY | 2018-09-11 19:41 | XMS REPORT | Summary of Care ---
Author Organization Unknown Address Unknown Phone Unavailable Encounter HQ Hank(MICHAEL) [id number] Date(s): 12/07/14 - 12/07/14 [facility] [address] [place] [address]- Discharge Diagnosis: Acute lower UTI Discharge Diagnosis: Acute urinary retention Discharge Disposition: Home Physician Attending: Raphael Ball MD Vital Signs 1 2 3 Most recent to oldest [Reference Range]: 152.4 cm (12/07/14 12:40 PM) Height 98.1 DegF (12/07/14 4:43 PM) 98.1 DegF (12/07/14 12:40 PM) Temperature Oral [96.4-99.1 DegF] 144/72 mmHg *HI* (12/07/14 4:43 PM) 145/75 mmHg *HI* (12/07/14 2:48 PM) 155/88 mmHg *HI* (12/07/14 12:40 PM) Blood Pressure [90-140/60-90 mmHg] 16 BRMIN (12/07/14 4:43 PM) 18 BRMIN (12/07/14 12:40 PM) Respiratory Rate [14-20 BRMIN] 96 bpm (12/07/14 4:43 PM) 110 bpm *HI* (12/07/14 12:40 PM) Peripheral Pulse Rate [60-100 bpm] 87.273 kg (12/07/14 12:40 PM) Weight 37.58 m2 (12/07/14 12:40 PM) Body Mass Index Problem List Condition Effective Dates Status Health Status Informant Diabetes(Confirmed) Resolved Diabetes(Confirmed) Active HTN Active (hypertension)(Confi rmed) Hypercholesteremia(C Resolved onfirmed) Hypertension(Confirm Resolved ed) Psoriasis(Confirmed) Active 1 Sleep Active apnea(Confirmed) 1on both legs Allergies, Adverse Reactions, Alerts Substance Reaction Severity Status NKDA Active Medications No data available for this section Results URINE AND STOOL Most recent to 1 oldest [Reference Range]: UA Turbidity [Clear] Marked *ABN* (12/07/14 3:22 PM) UA Color [Yellow] Yellow *NA* (12/07/14 3:22 PM) UA pH [5.0-8.0] 5.0 (12/07/14 3:22 PM) UA Spec Grav 1.013 [<=1.030] (12/07/14 3:22 PM) UA Glucose [Negative Negative mg/dL mg/dL] *NA* (12/07/14 3:22 PM) UA Blood [Negative] Small *ABN* (12/07/14 3:22 PM) UA Ketones [Negative Negative mg/dL mg/dL] *NA* (12/07/14 3:22 PM) UA Protein [Negative 100 mg/dL mg/dL] *ABN* (12/07/14 3:22 PM) UA Urobilinogen <=1.0 mg/dL [0.1-1.0 mg/dL] *NA* (12/07/14 3:22 PM) UA Bili [Negative] Negative *NA* (12/07/14 3:22 PM) UA Leuk Est Large [Negative] *ABN* (12/07/14 3:22 PM) UA Nitrite Negative [Negative] (12/07/14 3:22 PM) UA WBC [0-5 /HPF] >182 /HPF *HI* (12/07/14 3:22 PM) UA RBC [0-2 /HPF] 86 /HPF *HI* (12/07/14 3:22 PM) UA Bacteria [None Occasional /HPF Seen /HPF] *NA* (12/07/14 3:22 PM) UA Sq Epi None Seen *NA* (12/07/14 3:22 PM) Immunizations No data available for this section Procedures Procedure Date Related Diagnosis Body Site Appendix operation Bilateral tubal ligation section Hysterectomy1 Suspension of bladder2 1with bladder suspension 2multiple Social History Social History Type Response Alcohol Past Smoking Status Never smoker; Exposure to Tobacco Smoke None; Cigarette Smoking Last 365 Days No; Reg Smoking Cessation Counseling No Assessment and Plan No data available for this section
--- OUTSIDE RECORDS SUMMARY | 2018-09-11 19:41 | XMS REPORT | Summary of Care ---
Author Author [facility] Organization [facility] Address Unknown Phone Unavailable Encounter HQ Hank(FIN) [id number] Date(s): 11/15/16 - 11/15/16 [facility] [address] [place] [phone] Discharge Disposition: Home or Self Care Attending Physician: More Good MD Vital Signs No data available for this section Problem List Condition Effective Dates Status Health Status Informant Acute PN - Resolved pyelonephritis(Confi rmed) Chronic cystitis1 10/07/14 Active Diabetes(Confirmed) Active Diabetes(Confirmed) Active Frequency(Confirmed) Resolved HTN Active (hypertension)(Confi rmed) Hypercholesteremia(C Active onfirmed) Hypertension(Confirm Active ed) Psoriasis(Confirmed) Active 2 Retained ureteral Active stent(Confirmed) Sleep Active apnea(Confirmed)3 Urinary tract Active infection(Confirmed) 1[facility] on 01/04/15. 2on both legs 3PT DOES NOT USE CPAP Allergies, Adverse Reactions, Alerts Substance Reaction Severity Status NKDA Active Medications No data available for this section Results No data available for this section Immunizations Given and Recorded Vaccine Date Status Refusal Reason pneumococcal 23-valent vaccine 12/10/14 Given Procedures Procedure Date Related Diagnosis Body Site Insertion of ureteral stent with ureterotomy1 12/08/14 Appendix operation Bilateral tubal ligation Breast operation2 section Hysterectomy3 Procedure4 Suspension of bladder5 1left,with bladder biopsy AN 1979 INFECTED MAMMAROY GLAND SURGERY 3with bladder suspension 41ST STAGE INTERSTIM PLACEMENT AND 2ND STAGE TO BE COMPLETED 5multiple Social History Social History Type Response Substance Abuse Use: None. Alcohol Current, Type Liquor. Frequency: 1-2 times per year.1 Smoking Status Never smoker; Exposure to Tobacco Smoke None; Cigarette Smoking Last 365 Days No; Reg Smoking Cessation Counseling No 1ONLY WHEN GAMBLING Assessment and Plan No data available for this section
--- OUTSIDE RECORDS SUMMARY | 2018-09-11 19:41 | XMS REPORT | Summary of Care ---
Author Organization Unknown Address Unknown Phone Unavailable Encounter HQ Hank(MICHAEL) [id number] Date(s): 12/08/14 - 12/10/14 [facility] [address] [place] [address]- Discharge Disposition: Home Physician Attending: Ramone Jefferson MD Physician Admitting: Ramone Jefferson MD Vital Signs 1 2 3 Most recent to oldest [Reference Range]: 152.4 cm (12/08/14 6:34 PM) 165.1 cm (12/08/14 2:28 AM) Height 98.2 DegF (12/10/14 12:03 PM) 98.4 DegF (12/10/14 7:58 AM) 98.2 DegF (12/10/14 4:40 AM) Temperature Oral [96.4-99.1 DegF] 154/74 mmHg *HI* (12/10/14 12:03 PM) 120/72 mmHg (12/10/14 7:58 AM) 151/80 mmHg *HI* (12/10/14 4:40 AM) Blood Pressure [90-140/60-90 mmHg] 17 BRMIN (12/10/14 12:03 PM) 18 BRMIN (12/10/14 7:58 AM) 18 BRMIN (12/10/14 4:40 AM) Respiratory Rate [14-20 BRMIN] 93 bpm (12/10/14 12:03 PM) 86 bpm (12/10/14 7:58 AM) 90 bpm (12/10/14 4:40 AM) Peripheral Pulse Rate [60-100 bpm] 87.273 kg (12/08/14 6:34 PM) 87.273 kg (12/08/14 2:28 AM) Weight 37.58 m2 (12/08/14 6:34 PM) 32.02 m2 (12/08/14 2:28 AM) Body Mass Index Problem List Condition Effective Dates Status Health Status Informant Diabetes(Confirmed) Resolved Diabetes(Confirmed) Active HTN Active (hypertension)(Confi rmed) Hypercholesteremia(C Resolved onfirmed) Hypertension(Confirm Resolved ed) Psoriasis(Confirmed) Active 1 Sleep Active apnea(Confirmed) 1on both legs Allergies, Adverse Reactions, Alerts Substance Reaction Severity Status NKDA Active Medications cefTRIAXone 1 gm, Route: IVPB, Drug form: PDR/INJ, ONCE, Dosing Weight 87.273, kg, Priority: STAT, Start date: 12/08/14 7:52:00, Stop date: 12/08/14 7:52:00 Start Date: 12/08/14 Stop Date: 12/08/14 Status: Completed cefTRIAXone + Sodium Chloride 0.9% IV 100 mL 1 gm, Route: IVPB, [id number], Dosing Weight 87.273, kg, Start date: 12/08/14 9:00: 00, Duration: 30 day, Stop date: 01/06/15 9:00:00 Notes: Mix in NS 100ml ADV bag and infuse over 30 Minutes (Same As: Rocephin) Start Date: 12/08/14 Stop Date: 12/10/14 Status: Discontinued Cipro 500 mg oral tablet 500 mg=1 tab, PO, Q12H, X 7 day, # 14 tab, 0 Refill(s) Start Date: 12/08/14 Stop Date: 12/08/14 Status: Discontinued ciprofloxacin 400 mg/200 mL intravenous solution 400 mg, Route: IVPB, ONCE, Dosing Weight 87.273, kg, Start date: 12/09/14 8:28:0 0, Stop date: 12/09/14 8:28:00 Start Date: 12/09/14 Stop Date: 12/09/14 Status: Completed Dextrose 50% Syringe 12.5 gm, Route: IVP, Dosing Weight 87.273, kg, ONCE, STAT, Start date: 12/08/14 7:54:00, Stop date: 12/08/14 7:54:00 Start Date: 12/08/14 Stop Date: 12/08/14 Status: Completed Dextrose 50% Syringe 25 gm, 50 mL, Route: IVP, Drug Form: INJ, Dosing Weight 87.273, kg, PRN, PRN Blo od Glucose Results, Start date: 12/08/14 8:52:00, Duration: 30 day, Stop date: 0 01/07/15 8:51:00 Start Date: 12/08/14 Stop Date: 12/10/14 Status: Discontinued Dextrose 50% Syringe 12.5 gm, 25 mL, Route: IVP, Drug Form: INJ, Dosing Weight 87.273, kg, PRN, PRN B lood Glucose Results, Start date: 12/08/14 8:52:00, Duration: 30 day, Stop date: 01/07/15 8:51:00 Start Date: 12/08/14 Stop Date: 12/10/14 Status: Discontinued glucagon 1 mg, Route: IM, Drug form: PDR/INJ, PRN, Dosing Weight 87.273, kg, PRN Blood Gl ucose Results, Start date: 12/08/14 8:52:00, Duration: 30 day, Stop date: 8:51:00 Start Date: 12/08/14 Stop Date: 12/10/14 Status: Discontinued insulin aspart 2 unit, 0.02 mL, Route: SUB-Q, Drug form: SOLN, TID-Before Meals, Dosing Weight 87.273, kg, PRN Blood Glucose Results, Start date: 12/08/14 8:52:00, Duration: 3 0 day, Stop date: 01/07/15 8:51:00 Notes: Roll in palms of hands gently; Do not shake vigorously. (Same as: NovoLO G)"single patient use only" Stable for 28 days at room temperature.Expires in _ ____ days from Date Start Date: 12/08/14 Stop Date: 12/10/14 Status: Discontinued insulin aspart 4 unit, 0.04 mL, Route: SUB-Q, Drug form: SOLN, TID-Before Meals, Dosing Weight 87.273, kg, PRN Blood Glucose Results, Start date: 12/08/14 8:52:00, Duration: 3 0 day, Stop date: 01/07/15 8:51:00 Notes: Roll in palms of hands gently; Do not shake vigorously. (Same as: NovoLO G)"single patient use only" Stable for 28 days at room temperature.Expires in _ ____ days from Date Start Date: 12/08/14 Stop Date: 12/10/14 Status: Discontinued insulin aspart 6 unit, 0.06 mL, Route: SUB-Q, Drug form: SOLN, TID-Before Meals, Dosing Weight 87.273, kg, PRN Blood Glucose Results, Start date: 12/08/14 8:52:00, Duration: 3 0 day, Stop date: 01/07/15 8:51:00 Notes: Roll in palms of hands gently; Do not shake vigorously. (Same as: NovoLO G)"single patient use only" Stable for 28 days at room temperature.Expires in _ ____ days from Date Start Date: 12/08/14 Stop Date: 12/10/14 Status: Discontinued insulin aspart 8 unit, 0.08 mL, Route: SUB-Q, Drug form: SOLN, TID-Before Meals, Dosing Weight 87.273, kg, PRN Blood Glucose Results, Start date: 12/08/14 8:52:00, Duration: 3 0 day, Stop date: 01/07/15 8:51:00 Notes: Roll in palms of hands gently; Do not shake vigorously. (Same as: NovoLO G)"single patient use only" Stable for 28 days at room temperature.Expires in _ ____ days from Date Start Date: 12/08/14 Stop Date: 12/10/14 Status: Discontinued insulin aspart 10 unit, 0.1 mL, Route: SUB-Q, Drug form: SOLN, TID-Before Meals, Dosing Weight 87.273, kg, PRN Blood Glucose Results, Start date: 12/08/14 8:52:00, Duration: 3 0 day, Stop date: 01/07/15 8:51:00 Notes: Roll in palms of hands gently; Do not shake vigorously. (Same as: NovoLO G)"single patient use only" Stable for 28 days at room temperature.Expires in _ ____ days from Date Start Date: 12/08/14 Stop Date: 12/10/14 Status: Discontinued isoniazid 900 mg, 3 tab, Route: PO, Drug form: TAB, QSun, Dosing Weight 87.273, kg, Start date: 12/11/14 17:00:00, Duration: 30 day, Stop date: 01/08/15 17:00:00 Notes: (Same as:INH 1 hr prior to meal. Start Date: 12/11/14 Stop Date: 12/09/14 Status: Deleted Isoniazid 300mg pt's own med 900mg(3 tablets) Isoniazid 300mg pt's own med 900mg(3 tablets), 900 mg, Drug form: MISC, Route: P O, QSun, 12/11/14 17:00:00, Duration: 30 day, Stop date: 01/08/15 9:00:00 Start Date: 12/11/14 Stop Date: 12/10/14 Status: Canceled Lactated Ringers Injection IV 1000 mL 1,000 mL, Rate: 25 ml/hr, Infuse over: 40 hr, Route: IV, Dosing Weight 87.273 kg , Total Volume: 1,000, Start date: 12/09/14 7:44:00, Duration: 30 day, Stop date : 01/08/15 7:43:00 Start Date: 12/09/14 Stop Date: 12/09/14 Status: Discontinued Lantus Route: SUB-Q, Bedtime, Dosing Weight 87.273, kg, Start date: 12/08/14 21:00:00, Duration: 30 day, Stop date: 01/06/15 21:00:00 Start Date: 12/08/14 Stop Date: 12/08/14 Status: Deleted Levaquin 750 mg oral tablet 750 mg=1 tab, PO, Q24H, X 10 day, # 10 tab, 0 Refill(s) Start Date: 12/10/14 Stop Date: 12/20/14 Status: Ordered Levemir FlexPen 15 unit, 0.15 mL, Route: SUB-Q, Drug form: INJ, Bedtime, Start date: 12/08/14 21 :00:00, Duration: 30 day, Stop date: 01/06/15 21:00:00 Notes: Same as LevemirDo not hold insulin without contacting prescriber "single patient use only" Start Date: 12/08/14 Stop Date: 12/10/14 Status: Discontinued Lipitor 10 mg, 1 tab, Route: PO, Drug form: TAB, Bedtime, Dosing Weight 87.273, kg, Star t date: 12/08/14 21:00:00, Duration: 30 day, Stop date: 01/06/15 21:00:00 Notes: (Same As: Lipitor) Start Date: 12/08/14 Stop Date: 12/10/14 Status: Discontinued pneumococcal 23-valent vaccine 0.5 mL, Route: IM, Drug Form: INJ, Daily, Start date: 12/09/14 9:00:00, Duration : 1 doses or times, Stop date: 12/09/14 9:00:00 Notes: (Same as: Pneumovax 23) Refrigerate Start Date: 12/09/14 Stop Date: 12/09/14 Status: Completed Pneumovax 23 0.5 mL, Route: IM, Drug Form: INJ, Daily, Start date: 12/11/14 9:00:00, Duration : 1 doses or times, Stop date: 12/11/14 9:00:00 Notes: (Same as: Pneumovax 23) Refrigerate Start Date: 12/11/14 Stop Date: 12/10/14 Status: Canceled pyridoxine 50 mg, 1 tab, Route: PO, Drug form: TAB, QSun, Dosing Weight 87.273, kg, Start d ate: 12/11/14 17:00:00, Duration: 30 day, Stop date: 01/08/15 17:00:00 Notes: (Same as: Vitamin B6) Start Date: 12/11/14 Stop Date: 12/09/14 Status: Deleted pyridoxine 50mg pt's own med pyridoxine 50mg pt's own med, 50 mg, Drug form: MISC, Route: PO, QSun, 12/11/14 17:00:00, Duration: 30 day, Stop date: 01/08/15 9:00:00 Start Date: 12/11/14 Stop Date: 12/10/14 Status: Canceled Rifapentine Rifapentine, 750 mg, Route: PO, qWeek, 12/08/14 14:00:00, Duration: 30 day, Stop date: 01/05/15 9:00:00 Start Date: 12/08/14 Stop Date: 12/09/14 Status: Deleted Saline Flush 0.9% 10 ml, Route: IVP, Drug Form: INJ, Dosing Weight 87.273, kg, PRN, PRN Line Flush , Start date: 12/08/14 8:52:00, Duration: 30 day, Stop date: 01/07/15 8:51:00 Notes: (Same as: BD Posiflush) Start Date: 12/08/14 Stop Date: 12/10/14 Status: Discontinued Sodium Chloride 0.9% (Bolus) IV 1,000 mL, 1,000 ml/hr, Infuse Over: 1 Hour, Route: IV, ONCE, Priority: STAT, Dos ing Weight 87.273 kg, Start date: 12/08/14 8:10:00, Duration: 1 doses or times, Stop date: 12/08/14 8:10:00 Start Date: 12/08/14 Stop Date: 12/08/14 Status: Completed Sodium Chloride 0.9% (Bolus) IV 1,000 mL, 1,000 ml/hr, Infuse Over: 1 Hour, Route: IV, ONCE, Priority: STAT, Dos ing Weight 87.273 kg, Start date: 12/08/14 6:31:00, Duration: 1 doses or times, Stop date: 12/08/14 6:31:00 Start Date: 12/08/14 Stop Date: 12/08/14 Status: Completed Sodium Chloride 0.9% IV 1,000 mL 1,000 mL, Rate: 125 ml/hr, Infuse over: 8 hr, Route: IV, Dosing Weight 87.273 kg , Total Volume: 1,000, Start date: 12/08/14 8:52:00, Duration: 30 day, Stop date : 01/07/15 8:51:00 Start Date: 12/08/14 Stop Date: 12/10/14 Status: Discontinued TNF Rifapentine 750mg once week pt's own med TNF Rifapentine 750mg once week pt's own med, 750 mg, Drug form: MISC, Route: PO , QSun, 12/11/14 17:00:00, Duration: 30 day, Stop date: 01/08/15 9:00:00 Start Date: 12/11/14 Stop Date: 12/10/14 Status: Canceled Zofran 4 mg, Route: IVP, Drug form: INJ, ONCE, Dosing Weight 87.273, kg, Priority: STAT , Start date: 12/08/14 6:31:00, Stop date: 12/08/14 6:31:00 Start Date: 12/08/14 Stop Date: 12/08/14 Status: Completed Results ELECTROLYTES Most recent to 1 oldest [Reference Range]: Sodium Lvl [135-145 133 mEq/L mEq/L] *LOW* (12/08/14 3:50 AM) Potassium Lvl 4.0 mEq/L [3.5-5.1 mEq/L] (12/08/14 3:50 AM) Chloride Lvl [95-109 100 mEq/L mEq/L] (12/08/14 3:50 AM) CO2 [24-32 mEq/L] 25 mEq/L (12/08/14 3:50 AM) AGAP [10.0-20.0 12.0 mEq/L mEq/L] (12/08/14 3:50 AM) CHEM PANEL Most recent to 1 oldest [Reference Range]: Creatinine Lvl 1.3 mg/dL [0.5-1.4 mg/dL] (12/08/14 3:50 AM) eGFR 43 mL/min/1.73m2 1 *NA* (12/08/14 3:50 AM) BUN [7-22 mg/dL] 27 mg/dL *HI* (12/08/14 3:50 AM) B/C Ratio [6-25] 21 (12/08/14 3:50 AM) Glucose Lvl [70-99 56 mg/dL 2 mg/dL] *LOW* (12/08/14 3:50 AM) Total Protein 9.6 g/dL [6.4-8.4 g/dL] *HI* (12/08/14 3:50 AM) Albumin Lvl [3.5-5.0 2.9 g/dL g/dL] *LOW* (12/08/14 3:50 AM) Globulin [2.0-4.0 6.7 g/dL g/dL] *HI* (12/08/14 3:50 AM) A/G Ratio [0.7-1.6] 0.4 *LOW* (12/08/14 3:50 AM) Calcium Lvl 9.3 mg/dL [8.5-10.5 mg/dL] (12/08/14 3:50 AM) ALT [0-65 unit/L] 14 unit/L (12/08/14 3:50 AM) AST [0-37 unit/L] 14 unit/L (12/08/14 3:50 AM) Alk Phos [39-136 109 unit/L unit/L] (12/08/14 3:50 AM) Bili Total [0.2-1.3 0.3 mg/dL mg/dL] (12/08/14 3:50 AM) Amylase Lvl [25-115 29 unit/L unit/L] (12/08/14 3:50 AM) Lipase Lvl [73-393 121 unit/L unit/L] (12/08/14 3:50 AM) 1Result Comment: The eGFR is calculated using [...] from the National Kidney Disease Education Program ( NKDEP) which additionally recommends that when the eGFR is used in patients with extremes of body mass index for purposes of drug dosing, the eGFR should be mul tiplied by the estimated BMI. 2Interpretive Data: Adult reference range values reflect the clinical guidelines of the [place] [employer]. URINE AND STOOL Most recent to 1 oldest [Reference Range]: UA Turbidity [Clear] Marked *ABN* (12/08/14 6:43 AM) UA Color [Yellow] Yellow *NA* (12/08/14 6:43 AM) UA pH [5.0-8.0] 5.0 (12/08/14 6:43 AM) UA Spec Grav 1.014 [<=1.030] (12/08/14 6:43 AM) UA Glucose [Negative Negative mg/dL mg/dL] *NA* (12/08/14 6:43 AM) UA Blood [Negative] Moderate *ABN* (12/08/14 6:43 AM) UA Ketones [Negative Negative mg/dL mg/dL] *NA* (12/08/14 6:43 AM) UA Protein [Negative 100 mg/dL mg/dL] *ABN* (12/08/14 6:43 AM) UA Urobilinogen <=1.0 mg/dL [0.1-1.0 mg/dL] *NA* (12/08/14 6:43 AM) UA Bili [Negative] Negative *NA* (12/08/14 6:43 AM) UA Leuk Est Large [Negative] *ABN* (12/08/14 6:43 AM) UA Nitrite Negative [Negative] (12/08/14 6:43 AM) UA WBC [0-5 /HPF] >182 /HPF *HI* (12/08/14 6:43 AM) UA RBC [0-2 /HPF] >182 /HPF *HI* (12/08/14 6:43 AM) UA Bacteria [None Moderate /HPF Seen /HPF] *ABN* (12/08/14 6:43 AM) UA Sq Epi [Few /LPF] Occasional /LPF *NA* (12/08/14 6:43 AM) UA Amorph Renee [None Occasional /HPF Seen /HPF] *NA* (12/08/14 6:43 AM) UA Mucus [None Seen Few /LPF /LPF] *NA* (12/08/14 6:43 AM) HEMATOLOGY Most recent to 1 oldest [Reference Range]: WBC [3.7-10.4 K/CMM] 15.0 K/CMM *HI* (12/08/14 3:50 AM) RBC [4.20-5.40 3.66 M/CMM M/CMM] *LOW* (12/08/14 3:50 AM) Hgb [12.0-16.0 g/dL] 10.4 g/dL *LOW* (12/08/14 3:50 AM) Hct [36.0-48.0 %] 31.3 % *LOW* (12/08/14 3:50 AM) MCV [80.0-98.0 fL] 85.6 fL (12/08/14 3:50 AM) MCH [27.0-31.0 pg] 28.4 pg (12/08/14 3:50 AM) MCHC [32.0-36.0 33.2 g/dL g/dL] (12/08/14 3:50 AM) RDW [11.5-14.5 %] 14.9 % *HI* (12/08/14 3:50 AM) Platelet [133-450 369 K/CMM K/CMM] (12/08/14 3:50 AM) MPV [7.4-10.4 fL] 8.4 fL (12/08/14 3:50 AM) Segs [45.0-75.0 %] 73.4 % (12/08/14 3:50 AM) Lymphocytes 14.6 % [20.0-40.0 %] *LOW* (12/08/14 3:50 AM) Monocytes [2.0-12.0 8.9 % %] (12/08/14 3:50 AM) Eosinophils [0.0-4.0 2.2 % %] (12/08/14 3:50 AM) Basophils [0.0-1.0 0.9 % %] (12/08/14 3:50 AM) Segs-Bands # 11.0 K/CMM [1.5-8.1 K/CMM] *HI* (12/08/14 3:50 AM) Lymphocytes # 2.2 K/CMM [1.0-5.5 K/CMM] (12/08/14 3:50 AM) Monocytes # [0.0-0.8 1.3 K/CMM K/CMM] *HI* (12/08/14 3:50 AM) Eosinophils # 0.3 K/CMM [0.0-0.5 K/CMM] (12/08/14 3:50 AM) Basophils # [0.0-0.2 0.1 K/CMM K/CMM] (12/08/14 3:50 AM) Immunizations Vaccine Date Refusal Reason pneumococcal 23-valent vaccine 12/10/14 Procedures Procedure Date Related Diagnosis Body Site Appendix operation Bilateral tubal ligation section Hysterectomy1 Suspension of bladder2 1with bladder suspension 2multiple Social History Social History Type Response Alcohol Past Smoking Status Never smoker; Exposure to Tobacco Smoke None; Cigarette Smoking Last 365 Days No; Reg Smoking Cessation Counseling No Assessment and Plan Extracted from: Title: Clinical Document Author: Ramone Jefferson MD Date: 12/08/14 [id number]
--- OUTSIDE RECORDS SUMMARY | 2018-09-11 19:41 | XMS REPORT | Summary of Care ---
Author Author [facility] [place] Organization [facility] [place] Address Unknown Phone Unavailable Encounter HQ Hank(FIN) [phone] Date(s): 11/26/17 - 11/26/17 [facility] [place] [address] [place] [phone] Encounter Diagnosis Encounter for screening mammogram for malignant neoplasm of breast (Final) - Discharge Disposition: Home or Self Care Attending [...] Urinary tract Active infection(Confirmed) 1Data migrated from [facility] on 01/04/15. 2on both legs 3PT DOES NOT USE CPAP Allergies, Adverse Reactions, Alerts Substance Reaction Severity Status NKDA Active Medications No data available for this section Results No data available for this section Immunizations Given and Recorded Vaccine Date Status Refusal Reason pneumococcal 23-valent vaccine 12/10/14 Given Procedures Procedure Date Related Diagnosis Body Site Status Insertion of ureteral stent with ureterotomy1 12/08/14 Completed Appendix operation Completed Bilateral tubal ligation Completed Breast operation2 Completed section Completed Hysterectomy3 Completed Procedure4 Completed Suspension of bladder5 Completed 1left,with bladder biopsy 1979 INFECTED MAMMAROY GLAND SURGERY 3with bladder suspension 41ST STAGE INTERSTIM PLACEMENT AND 2ND STAGE TO BE COMPLETED 5multiple Social History Social History Type Response Substance Abuse Use: None. Alcohol Current, Type Liquor. Frequency: 1-2 times per year.1 Smoking Status Never smoker; Type: Cigarettes; Exposure to Tobacco Smoke None; Cigarette Smoking Last 365 Days No; Reg Smoking Cessation Counseling No entered on: 03/11/17 1ONLY WHEN GAMBLING Assessment and Plan No data available for this section
--- OUTSIDE RECORDS SUMMARY | 2018-09-11 19:41 | XMS REPORT | Summary of Care ---
Author Author [facility] Organization [facility] Address Unknown Phone Unavailable Encounter SID Mckinney(MICHAEL) [id number] Date(s): 01/11/15 - 01/17/15 [facility] [address] [place] [address]- Discharge Disposition: Home Attending Physician: Sebastien Shaffer MD Admitting Physician: Sebastien Shaffer MD Vital Signs 1 2 3 Most recent to oldest [Reference Range]: 152.4 cm (01/11/15 3:28 PM) Height 1 2 3 Most recent to oldest [Reference Range]: 98.1 DegF (01/17/15 12:00 PM) 98.3 DegF (01/17/15 8:00 AM) 98.2 DegF (01/17/15 4:00 AM) Temperature Oral [96.4-99.1 DegF] 1 2 3 Most recent to oldest [Reference Range]: 129/84 mmHg (01/17/15 12:00 PM) 109/71 mmHg (01/17/15 8:00 AM) 132/77 mmHg (01/17/15 4:00 AM) Blood Pressure [90-140/60-90 mmHg] 1 2 3 Most recent to oldest [Reference Range]: 18 BRMIN (01/17/15 12:00 PM) 18 BRMIN (01/17/15 8:00 AM) 19 BRMIN (01/17/15 4:00 AM) Respiratory Rate [14-20 BRMIN] 1 2 3 Most recent to oldest [Reference Range]: 92 bpm (01/17/15 12:00 PM) 77 bpm (01/17/15 8:00 AM) 81 bpm (01/17/15 4:00 AM) Peripheral Pulse Rate [60-100 bpm] 1 2 3 Most recent to oldest [Reference Range]: 87.273 kg (01/12/15 7:53 AM) 88.182 kg (01/11/15 3:28 PM) Weight 1 2 3 Most recent to oldest [Reference Range]: 37.97 m2 (01/11/15 3:28 PM) Body Mass Index Problem List Condition Effective Dates Status Health Status Informant Acute PN - Resolved pyelonephritis(Confi rmed) Chronic cystitis1 10/07/14 Active Diabetes(Confirmed) Resolved Diabetes(Confirmed) Active HTN Active (hypertension)(Confi rmed) Hypercholesteremia(C Active onfirmed) Hypertension(Confirm Resolved ed) Psoriasis(Confirmed) Active 2 Retained ureteral Active stent(Confirmed) Sleep Active apnea(Confirmed) 1Data migrated from [employer] on 01/04/15. 2on both legs Allergies, Adverse Reactions, Alerts Substance Reaction Severity Status NKDA Active Medications acetaminophen-hydrocodone 325 mg-10 mg oral tablet 1 tab, Route: PO, Drug Form: TAB, Dosing Weight 88.182, kg, Q4H, PRN Pain Score 4-6, Start date: 01/12/15 0:27:00, Duration: 30 day, Stop date: 02/11/15 0:26:00 Notes: Do not exceed 4gm/day of acetaminophen. (Same as: [place] 325/10) Start Date: 01/12/15 Stop Date: 01/17/15 Status: Discontinued bisacodyl 10 mg, 1 supp, Route: NE, Drug form: SUPP, Daily, Dosing Weight 87.273, kg, PRN Constipation, Start date: 01/13/15 18:25:00, Duration: 30 day, Stop date: 18:24:00 Notes: (Same As: Dulcolax, [place]-Lax) Start Date: 01/13/15 Stop Date: 01/17/15 Status: Discontinued Dextrose 50% Syringe 12.5 gm, 25 mL, Route: IVP, Drug Form: INJ, Dosing Weight 88.182, kg, PRN, PRN B lood Glucose Results, Start date: 01/12/15 0:27:00, Duration: 30 day, Stop date: 02/11/15 0:26:00 Start Date: 01/12/15 Stop Date: 01/17/15 Status: Discontinued Dextrose 50% Syringe 25 gm, 50 mL, Route: IVP, Drug Form: INJ, Dosing Weight 88.182, kg, PRN, PRN Blo od Glucose Results, Start date: 01/12/15 0:27:00, Duration: 30 day, Stop date: 0 02/11/15 0:26:00 Start Date: 01/12/15 Stop Date: 01/17/15 Status: Discontinued Diflucan 400 mg, 200 mL, Route: IVPB, Drug form: INJ, [id number], Dosing Weight 87.273, kg, Start date: 01/12/15 14:00:00, Duration: 30 day, Stop date: 02/10/15 14:00:00 Notes: (Same as: Diflucan) Start Date: 01/12/15 Stop Date: 01/17/15 Status: Discontinued Diflucan 200 mg oral tablet 200 mg=1 tab, PO, Daily, X 3 week, # 21 tab, 0 Refill(s), given to patient Start Date: 01/17/15 Stop Date: 02/07/15 Status: Ordered glucagon 1 mg, Route: IM, Drug form: PDR/INJ, PRN, Dosing Weight 88.182, kg, PRN Blood Gl ucose Results, Start date: 01/12/15 0:27:00, Duration: 30 day, Stop date: 0:26:00 Start Date: 01/12/15 Stop Date: 01/17/15 Status: Discontinued insulin aspart 3 unit, 0.03 mL, Route: SUB-Q, Drug form: SOLN, TID-Before Meals, Dosing Weight 88.182, kg, PRN Blood Glucose Results, Start date: 01/12/15 0:27:00, Duration: 3 0 day, Stop date: 02/11/15 0:26:00 Notes: Roll in palms of hands gently; Do not shake vigorously. (Same as: NovoLO G)"single patient use only" Stable for 28 days at room temperature.Expires in _ ____ days from Date Start Date: 01/12/15 Stop Date: 01/17/15 Status: Discontinued insulin aspart 2 unit, 0.02 mL, Route: SUB-Q, Drug form: SOLN, TID-Before Meals, Dosing Weight 88.182, kg, PRN Blood Glucose Results, Start date: 01/12/15 0:27:00, Duration: 3 0 day, Stop date: 02/11/15 0:26:00 Notes: Roll in palms of hands gently; Do not shake vigorously. (Same as: NovoLO G)"single patient use only" Stable for 28 days at room temperature.Expires in _ ____ days from Date Start Date: 01/12/15 Stop Date: 01/17/15 Status: Discontinued insulin aspart 5 unit, 0.05 mL, Route: SUB-Q, Drug form: SOLN, TID-Before Meals, Dosing Weight 88.182, kg, PRN Blood Glucose Results, Start date: 01/12/15 0:27:00, Duration: 3 0 day, Stop date: 02/11/15 0:26:00 Notes: Roll in palms of hands gently; Do not shake vigorously. (Same as: NovoLO G)"single patient use only" Stable for 28 days at room temperature.Expires in _ ____ days from Date Start Date: 01/12/15 Stop Date: 01/17/15 Status: Discontinued insulin aspart 4 unit, 0.04 mL, Route: SUB-Q, Drug form: SOLN, TID-Before Meals, Dosing Weight 88.182, kg, PRN Blood Glucose Results, Start date: 01/12/15 0:27:00, Duration: 3 0 day, Stop date: 02/11/15 0:26:00 Notes: Roll in palms of hands gently; Do not shake vigorously. (Same as: NovoLO G)"single patient use only" Stable for 28 days at room temperature.Expires in _ ____ days from Date Start Date: 01/12/15 Stop Date: 01/17/15 Status: Discontinued insulin aspart 1 unit, 0.01 mL, Route: SUB-Q, Drug form: SOLN, TID-Before Meals, Dosing Weight 88.182, kg, PRN Blood Glucose Results, Start date: 01/12/15 0:27:00, Duration: 3 0 day, Stop date: 02/11/15 0:26:00 Notes: Roll in palms of hands gently; Do not shake vigorously. (Same as: NovoLO G)"single patient use only" Stable for 28 days at room temperature.Expires in _ ____ days from Date Start Date: 01/12/15 Stop Date: 01/17/15 Status: Discontinued isoniazid 900 mg, 3 tab, Route: PO, Drug form: TAB, QSun, Dosing Weight 88.182, kg, Start date: 01/15/15 17:00:00, Duration: 30 day, Stop date: 02/12/15 17:00:00 Notes: (Same as:INH 1 hr prior to meal. Start Date: 01/15/15 Stop Date: 01/17/15 Status: Discontinued Lantus Route: SUB-Q, Bedtime, Dosing Weight 88.182, kg, Start date: 01/12/15 21:00:00, Duration: 30 day, Stop date: 02/10/15 21:00:00 Start Date: 01/12/15 Stop Date: 01/12/15 Status: Deleted Levemir FlexPen 15 unit, 0.15 mL, Route: SUB-Q, Drug form: INJ, Bedtime, Start date: 01/12/15 21 :00:00, Duration: 30 day, Stop date: 02/10/15 21:00:00 Notes: Same as LevemirDo not hold insulin without contacting prescriber "single patient use only" Start Date: 01/12/15 Stop Date: 01/17/15 Status: Discontinued Lipitor 10 mg, 1 tab, Route: PO, Drug form: TAB, Bedtime, Dosing Weight 88.182, kg, Star t date: 01/12/15 21:00:00, Duration: 30 day, Stop date: 02/10/15 21:00:00 Notes: (Same As: Lipitor) Start Date: 01/12/15 Stop Date: 01/17/15 Status: Discontinued lisinopril 10 mg, 1 tab, Route: PO, Drug form: TAB, Daily, Dosing Weight 88.182, kg, Start date: 01/12/15 9:00:00, Duration: 30 day, Stop date: 02/10/15 9:00:00 Notes: (Same as: Gilberto Zestril) Start Date: 01/12/15 Stop Date: 01/17/15 Status: Discontinued meropenem 1,000 mg, Route: IV, Q8H, Dosing Weight 88.182, kg, Start date: 01/12/15 0:00:00 , Duration: 30 day, Stop date: 02/10/15 16:00:00 Start Date: 01/12/15 Stop Date: 01/11/15 Status: Canceled meropenem + Sodium Chloride 0.9% IV 100 mL 500 mg, Route: IVPB, [id number], Dosing Weight 88.182, kg, CrCL >=50ml/min, Extended infusion, infuse over 3 hours, Start date: 01/12/15 5:00:00, Duration: 30 day, Stop date: 02/11/15 1:00:00 Notes: Same as Merrem MEDICATION WASTE Product Size: 500 mgProduct Wast ed: ___ mg Start Date: 01/12/15 Stop Date: 01/17/15 Status: Discontinued meropenem + Sodium Chloride 0.9% IV 100 mL 1,000 mg, Route: IV, ONCE, Dosing Weight 88.182, kg, Start date: 01/11/15 20:47: 00, Stop date: 01/11/15 20:47:00 Notes: (Same as: Merrem) . MEDICATION WASTE Product Size: 1000 mgProduc t Wasted: ___ mg Start Date: 01/11/15 Stop Date: 01/11/15 Status: Completed MiraLax 17 gm, 1 pkt, Route: PO, Drug form: PWDR, Daily, Dosing Weight 87.273, kg, PRN C onstipation, Start date: 01/14/15 14:54:00, Duration: 30 day, Stop date: 5 14:53:00 Notes: Dissolve in 8 oz of water or juice.(Same as: Miralax) Start Date: 01/14/15 Stop Date: 01/17/15 Status: Discontinued morphine Sulfate 2 mg, Route: IVP, Drug form: INJ, ONCE, Dosing Weight 88.182, kg, Priority: STAT , Start date: 01/11/15 22:18:00, Stop date: 01/11/15 22:18:00 Start Date: 01/11/15 Stop Date: 01/11/15 Status: Completed NS (Bolus) IV 1,000 mL, 1,000 ml/hr, Infuse Over: 1 hr, Route: IV, ONCE, Priority: STAT, Dosin g Weight 88.182 kg, Start date: 01/11/15 20:41:00, Duration: 1 doses or times, S top date: 01/11/15 20:41:00 Start Date: 01/11/15 Stop Date: 01/11/15 Status: Completed NS 1,000 mL 1,000 mL, Rate: 100 ml/hr, Infuse over: 10 hr, Route: IV, Dosing Weight 88.182 k g, Total Volume: 1,000, Start date: 01/11/15 22:16:00, Stop date: 02/10/15 22:15 :00 Start Date: 01/11/15 Stop Date: 01/13/15 Status: Discontinued NS 1,000 mL 1,000 mL, Rate: 100 ml/hr, Infuse over: 10 hr, Route: IV, Dosing Weight 87.273 k g, Total Volume: 1,000, Start date: 01/13/15 14:24:00, Duration: 10 hr, Stop dewayne e: 01/14/15 0:23:00 Start Date: 01/13/15 Stop Date: 01/14/15 Status: Completed ondansetron 4 mg, 2 mL, Route: IVP, Drug form: INJ, Q8H, Dosing Weight 88.182, kg, PRN Nause a & Vomiting, Start date: 01/12/15 0:27:00, Duration: 30 day, Stop date: 02/11/15 0:26:00 Notes: (Same as: Zofran) MEDICATION WASTE Product Size: 4 mgProduct Was em: ___ mg Start Date: 01/12/15 Stop Date: 01/17/15 Status: Discontinued potassium chloride 20 mEq, 1 tab, Route: PO, Drug form: ERTAB, ONCE, Dosing Weight 88.182, kg, Star t date: 01/11/15 22:52:00, Stop date: 01/11/15 22:52:00 Notes: (Same as: K-Dur 20)"Do Not Crush" With food and full glass of water Start Date: 01/11/15 Stop Date: 01/11/15 Status: Completed pyridoxine 50 mg, 1 tab, Route: PO, Drug form: TAB, QSun, Dosing Weight 88.182, kg, Start d ate: 01/15/15 17:00:00, Duration: 30 day, Stop date: 02/12/15 17:00:00 Notes: (Same as: Vitamin B6) Start Date: 01/15/15 Stop Date: 01/17/15 Status: Discontinued Saline Flush 0.9% 10 ml, Route: IVP, Drug Form: INJ, Dosing Weight 88.182, kg, PRN, PRN Line Flush , Start date: 01/12/15 0:27:00, Duration: 30 day, Stop date: 02/11/15 0:26:00 Notes: (Same as: BD Posiflush) Start Date: 01/12/15 Stop Date: 01/17/15 Status: Discontinued Sodium Chloride 0.9% IV 1,000 mL 1,000 mL, Rate: 100 ml/hr, Infuse over: 10 hr, Route: IV, Dosing Weight 88.182 k g, Total Volume: 1,000, Start date: 01/12/15 0:27:00, Duration: 30 day, Stop dewayne e: 02/11/15 0:26:00 Start Date: 01/12/15 Stop Date: 01/12/15 Status: Discontinued Tylenol 975 mg, Route: PO, Drug form: TAB, ONCE, Dosing Weight 88.182, kg, Priority: STA T, Start date: 01/11/15 20:41:00, Stop date: 01/11/15 20:41:00 Start Date: 01/11/15 Stop Date: 01/11/15 Status: Completed vancomycin 1 gm, 200 mL, Route: IVPB, Drug form: INJ, [id number], Dosing Weight 87.273, kg, St art date: 01/15/15 10:00:00, Duration: 30 day, Stop date: 02/13/15 22:00:00 Notes: TIME CRITICAL MEDICATION Start Date: 01/15/15 Stop Date: 01/16/15 Status: Discontinued Zofran 4 mg, Route: IVP, Drug form: INJ, ONCE, Dosing Weight 88.182, kg, Priority: STAT , Start date: 01/11/15 22:17:00, Stop date: 01/11/15 22:17:00 Start Date: 01/11/15 Stop Date: 01/11/15 Status: Completed Zosyn 4.5 gm, Route: IVPB, Drug form: INJ, ONCE, Dosing Weight 88.182, kg, Priority: S TAT, Start date: 01/11/15 20:41:00, Stop date: 01/11/15 20:41:00 Start Date: 01/11/15 Stop Date: 01/11/15 Status: Discontinued Results ELECTROLYTES 1 2 3 Most recent to oldest [Reference Range]: 135 mEq/L (01/16/15 5:02 AM) 138 mEq/L (01/14/15 4:51 AM) 137 mEq/L (01/12/15 6:21 AM) Sodium Lvl [135-145 mEq/L] 3.9 mEq/L (01/16/15 5:02 AM) 3.5 mEq/L (01/14/15 4:51 AM) 3.4 mEq/L *LOW* (01/12/15 6:21 AM) Potassium Lvl [3.5-5.1 mEq/L] 99 mEq/L (01/16/15 5:02 AM) 104 mEq/L (01/14/15 4:51 AM) 104 mEq/L (01/12/15 6:21 AM) Chloride Lvl [95-109 mEq/L] 25 mEq/L (01/16/15 5:02 AM) 24 mEq/L (01/14/15 4:51 AM) 24 mEq/L (01/12/15 6:21 AM) CO2 [24-32 mEq/L] 14.9 mEq/L (01/16/15 5:02 AM) 13.5 mEq/L (01/14/15 4:51 AM) 12.4 mEq/L (01/12/15 6:21 AM) AGAP [10.0-20.0 mEq/L] CHEM PANEL 1 2 3 Most recent to oldest [Reference Range]: 0.7 mg/dL (01/16/15 5:02 AM) 0.6 mg/dL (01/14/15 4:51 AM) 0.7 mg/dL (01/12/15 6:21 AM) Creatinine Lvl [0.5-1.4 mg/dL] 90 mL/min/1.73m2 1 *NA* (01/16/15 5:02 AM) 95 mL/min/1.73m2 2 *NA* (01/14/15 4:51 AM) 90 mL/min/1.73m2 3 *NA* (01/12/15 6:21 AM) eGFR 10 mg/dL (01/16/15 5:02 AM) 7 mg/dL (01/14/15 4:51 AM) 10 mg/dL (01/12/15 6:21 AM) BUN [7-22 mg/dL] 12 (01/11/15 9:22 PM) B/C Ratio [6-25] 209 mg/dL *HI* (01/16/15 5:02 AM) 68 mg/dL *LOW* (01/14/15 4:51 AM) 45 mg/dL 4 *CRIT* (01/12/15 6:21 AM) Glucose Lvl [70-99 mg/dL] 9.0 g/dL *HI* (01/11/15 9:22 PM) Total Protein [6.4-8.4 g/dL] 3.2 g/dL *LOW* (01/11/15 9:22 PM) Albumin Lvl [3.5-5.0 g/dL] 5.8 g/dL *HI* (01/11/15 9:22 PM) Globulin [2.0-4.0 g/dL] 0.6 *LOW* (01/11/15 9:22 PM) A/G Ratio [0.7-1.6] 8.5 mg/dL (01/16/15 5:02 AM) 8.0 mg/dL *LOW* (01/14/15 4:51 AM) 8.7 mg/dL (01/12/15 6:21 AM) Calcium Lvl [8.5-10.5 mg/dL] 20 unit/L (01/11/15 9:22 PM) ALT [0-65 unit/L] 24 unit/L (01/11/15 9:22 PM) AST [0-37 unit/L] 97 unit/L (01/11/15 9:22 PM) Alk Phos [39-136 unit/L] 0.5 mg/dL (01/11/15 9:22 PM) Bili Total [0.2-1.3 mg/dL] 1.0 mMol/L (01/11/15 9:22 PM) Lactic Acid Lvl [0.5-2.2 mMol/L] 1Result Comment: The eGFR is calculated using [...] be mul tiplied by the estimated BMI. 2Result Comment: The eGFR is calculated using the [...] be mul tiplied by the estimated BMI. 3Result Comment: The eGFR is calculated using the [...] be mul tiplied by the estimated BMI. 4Result Comment: Critical Result(s) called to radha gomez at 01/12/2015 07:30 byew. Read back OK. URINE AND STOOL 1 2 3 Most recent to oldest [Reference Range]: Marked *ABN* (01/11/15 10:43 PM) UA Turbidity [Clear] Debbi *NA* (01/11/15 10:43 PM) UA Color 6.0 (01/11/15 10:43 PM) UA pH [5.0-8.0] 1.014 (01/11/15 10:43 PM) UA Spec Grav [<=1.030] Negative mg/dL *NA* (01/11/15 10:43 PM) UA Glucose [Negative mg/dL] Moderate *ABN* (01/11/15 10:43 PM) UA Blood [Negative] 20 mg/dL *ABN* (01/11/15 10:43 PM) UA Ketones [Negative mg/dL] 100 mg/dL *ABN* (01/11/15 10:43 PM) UA Protein [Negative mg/dL] <=1.0 mg/dL *NA* (01/11/15 10:43 PM) UA Urobilinogen [0.1-1.0 mg/dL] Negative *NA* (01/11/15 10:43 PM) UA Bili [Negative] Large *ABN* (01/11/15 10:43 PM) UA Leuk Est [Negative] Negative (01/11/15 10:43 PM) UA Nitrite [Negative] >182 /HPF *HI* (01/11/15 10:43 PM) UA WBC [0-5 /HPF] >182 /HPF *HI* (01/11/15 10:43 PM) UA RBC [0-2 /HPF] Many /HPF *ABN* (01/11/15 10:43 PM) UA Bacteria [None Seen /HPF] Many /LPF *ABN* (01/11/15 10:43 PM) UA Sq Epi [Few /LPF] 15 /LPF *HI* (01/11/15 10:43 PM) UA Hyal Cast [0-2 /LPF] Occasional /HPF *NA* (01/11/15 10:43 PM) UA Amorph Renee [None Seen /HPF] Many /LPF *ABN* (01/11/15 10:43 PM) UA Mucus [None Seen /LPF] Moderate /HPF *ABN* (01/11/15 10:43 PM) UA [place] Yeast [None Seen /HPF] IMMUNOLOGY 1 2 3 Most recent to oldest [Reference Range]: Negative *NA* (01/11/15 9:22 PM) [place]-Hep C Ab [Negative] HEMATOLOGY 1 2 3 Most recent to oldest [Reference Range]: 8.8 K/CMM (01/16/15 5:02 AM) 7.9 K/CMM (01/14/15 4:51 AM) 8.5 K/CMM (01/12/15 6:21 AM) WBC [3.7-10.4 K/CMM] 3.53 M/CMM *LOW* (01/16/15 5:02 AM) 3.42 M/CMM *LOW* (01/14/15 4:51 AM) 3.81 M/CMM *LOW* (01/12/15 6:21 AM) RBC [4.20-5.40 M/CMM] 9.9 g/dL *LOW* (01/16/15 5:02 AM) 9.5 g/dL *LOW* (01/14/15 4:51 AM) 10.7 g/dL *LOW* (01/12/15 6:21 AM) Hgb [12.0-16.0 g/dL] 29.5 % *LOW* (01/16/15 5:02 AM) 28.9 % *LOW* (01/14/15 4:51 AM) 32.5 % *LOW* (01/12/15 6:21 AM) Hct [36.0-48.0 %] 83.7 fL (01/16/15 5:02 AM) 84.5 fL (01/14/15 4:51 AM) 85.5 fL (01/12/15 6:21 AM) MCV [80.0-98.0 fL] 28.1 pg (01/16/15 5:02 AM) 27.9 pg (01/14/15 4:51 AM) 28.0 pg (01/12/15 6:21 AM) MCH [27.0-31.0 pg] 33.6 g/dL (01/16/15 5:02 AM) 33.0 g/dL (01/14/15 4:51 AM) 32.7 g/dL (01/12/15 6:21 AM) MCHC [32.0-36.0 g/dL] 14.0 % (01/16/15 5:02 AM) 14.0 % (01/14/15 4:51 AM) 14.6 % *HI* (01/12/15 6:21 AM) RDW [11.5-14.5 %] 286 K/CMM (01/16/15 5:02 AM) 246 K/CMM (01/14/15 4:51 AM) 261 K/CMM (01/12/15 6:21 AM) Platelet [133-450 K/CMM] 8.7 fL (01/16/15 5:02 AM) 8.5 fL (01/14/15 4:51 AM) 9.1 fL (01/12/15 6:21 AM) MPV [7.4-10.4 fL] 65.1 % (01/16/15 5:02 AM) 55.3 % (01/14/15 4:51 AM) 66.0 % (01/12/15 6:21 AM) Segs [45.0-75.0 %] 17.3 % *LOW* (01/16/15 5:02 AM) 23.3 % (01/14/15 4:51 AM) 19.3 % *LOW* (01/12/15 6:21 AM) Lymphocytes [20.0-40.0 %] 12.3 % *HI* (01/16/15 5:02 AM) 15.7 % *HI* (01/14/15 4:51 AM) 11.3 % (01/12/15 6:21 AM) Monocytes [2.0-12.0 %] 4.2 % *HI* (01/16/15 5:02 AM) 4.8 % *HI* (01/14/15 4:51 AM) 2.8 % (01/12/15 6:21 AM) Eosinophils [0.0-4.0 %] 1.1 % *HI* (01/16/15 5:02 AM) 0.9 % (01/14/15 4:51 AM) 0.6 % (01/12/15 6:21 AM) Basophils [0.0-1.0 %] 5.7 K/CMM (01/16/15 5:02 AM) 4.4 K/CMM (01/14/15 4:51 AM) 5.6 K/CMM (01/12/15 6:21 AM) Segs-Bands # [1.5-8.1 K/CMM] 1.5 K/CMM (01/16/15 5:02 AM) 1.8 K/CMM (01/14/15 4:51 AM) 1.6 K/CMM (01/12/15 6:21 AM) Lymphocytes # [1.0-5.5 K/CMM] 1.1 K/CMM *HI* (01/16/15 5:02 AM) 1.2 K/CMM *HI* (01/14/15 4:51 AM) 1.0 K/CMM *HI* (01/12/15 6:21 AM) Monocytes # [0.0-0.8 K/CMM] 0.4 K/CMM (01/16/15 5:02 AM) 0.4 K/CMM (01/14/15 4:51 AM) 0.2 K/CMM (01/12/15 6:21 AM) Eosinophils # [0.0-0.5 K/CMM] 0.1 K/CMM (01/16/15 5:02 AM) 0.1 K/CMM (01/14/15 4:51 AM) 0.1 K/CMM (01/12/15 6:21 AM) Basophils # [0.0-0.2 K/CMM] Normal (01/14/15 4:51 AM) RBC Morph Normal (01/14/15 4:51 AM) Clumped (01/11/15 9:22 PM) Plt Morph Immunizations Vaccine Date Refusal Reason pneumococcal 23-valent [...] Plan Extracted from: Title: Clinical Document Author: Khai Bustillo MD Date: 01/12/15 Ifectious Disease consult Note [facility] Dr. Khai Bustillo SUBJECTIVE Events reviewed. Met with the patient CHIEF COMPLAINT HPI: HOME MEDS: ROS: General: no fever, no chills, no night sweats, no fatigue HENT: no visual changes, no hearing changes, no headache Pulmonary:no shortness of breath, no cough Cardiac:no arithmea, no chest pain GI: no nausea, no vomitting, no diarrhea : no urgency, no frequency Skin: no rash Neuro: no seizure activity, no focal weakness Psyc: no depression or anxiety Joints: no redness or swelling , no pain Muscular: no weakness or pain All other Systems: within normal limit Vitals and Temp: VitalsTmp(F)[id number] 01/12 11:[id number]--- 01/12 08:35----74098/7225------ 01/12 07:[id number]--- 01/12 04:[id number]--- 01/12 00:[id number]--- 24 Hr Tmax: 100.5F (38.06c) at 01/11 15:28Vital Signs are the last 5 in the past 48 hours. Input/Output RecordInOutBal 1624hr Tot 1211 1400 -189 1524hr Tot 1927 0 1927 Physical Exam Labs (Last four charted values) WBC 8.5(JAN 12)H 10.6(JAN 11) Hgb L 10.7(JAN 12)12.1(JAN 11) Hct L 32.5(JAN 12)36.2(JAN 11) Plt 261(JAN 12)285(JAN 11) Na 137(JAN 12)L 134(JAN 11) K L 3.4(JAN 12)L 3.3(JAN 11) CO2 24(JAN 12)27(JAN 11) Cl 104(JAN 12)96(JAN 11) Cr 0.7(JAN 12)0.8(JAN 11) BUN 10(JAN 12)10(JAN 11) Glucose Random C 45(JAN 12)H 101(JAN 11) Ca 8.7(JAN 12)9.3(JAN 11) Medications Scheduled Meds (6):atorvastatin (Lipitor), insulin detemir (Levemir FlexPen), isoniazid, lisinopril, meropenem + Sodium Chloride 0.9% IV 100 mL, pyridoxine Unscheduled Meds: None PRN Meds (11):Dextrose 50% in Water IV (Dextrose 50% Syringe), Dextrose 50% in Water IV (Dextrose 50% Syringe), acetaminophen-hydrocodone (acetaminophen- hydrocodone 325 mg-10 mg oral tablet), glucagon, insulin aspart, insulin aspart, insulin aspart, insulin aspart, insulin aspart, ondansetron, sodium chloride (Saline Flush 0.9%) One Time Meds (7):(Completed) Sodium Chloride 0.9% IV (NS (Bolus) IV), (Completed) acetaminophen (Tylenol), (Completed) meropenem + Sodium Chloride 0.9% IV 100 mL, (Completed) morphine Sulfate, (Completed) ondansetron (Zofran), (Discontinued) piperacillin-tazobactam (Zosyn), (Completed) potassium chloride Continuous Infusions (1):Sodium Chloride 0.9% IV 1,000 mL (NS 1,000 mL) ALL LABS REVIEW AND ALL RADIOLOGY REPORTS REVIEWED IMPRESSION [id number] PLAN Extracted from: Title: Clinical Document Author: Julian Scales MD Date: 01/11/15 History and Physical Attending: Gage Chu MDPhone: Service: Emergency Medicine Service Code status: None Specified=FULL CODE Reason for Admission: VOMITING/ FEVER Working DRG: None Documented Isolation: None Documented Consulting Physicians: Enio Neal MDOffice: MSO: [id number]: Urology CC: not feeling well HPI: This is a 69 yo w/ below PMHx who p/w 1 day h/o abdominal discomfort. Had ureteral stent placed 1 day prior to this admission and has been having suprapubic discomfort described as spasms, no other radiation, continous, nothing improves or alleviates the pain. Decreased energy and some back and neck pain. Temp as high as 101.4 at home. Has had Gonzales since her procedure. Notice cloudy urine. N/V 4-5 times, NB/NB. Has been on macrobid for the past 10 days. Took levaquin before this. Had recent urine cx which grew VRE sensitive to only macrobid and meropenem symptoms not improving w/ marobid. Has b/l flank soreness. Denies lightheadedness/dizziness, SOB, CP, bowel changes, cough, numbness/tingling, focal weakness. PMHx: T2DM Hypertension recurrent UTIs HLD psoriasis PSHx: ureteral stent x 2 bladder suspension appendectomy Bilateral tubal ligation Hysterectomy section cholecystectomy FHx: reviewed and noncontributory SHx: Denies tobacco, EtOH, illicit drugs Meds: Medication List Active Medications Ordered acetaminophen: 975 mg, PO, ONCE. acetaminophen-codeine: 1 - 2 tab, PO, Q4H, for 3 day, PRN: Pain, 20 tab, 0 Refill(s). atorvastatin: 10 mg, 1 tab, PO, Bedtime, 30 tab, 0 Refill(s). betamethasone-calcipotriene topical: 1 appl, TOP, BID, for 14 day, 60 gm, 0 Refill(s). ciprofloxacin: 400 mg, 200 mL, 200 ml/hr, IVPB, ONCE. glimepiride: 4 mg, 1 tab, BID, 0 Refill(s). insulin glargine: 15 units, SUB-Q, Bedtime, 0 Refill(s). isoniazid: 900 mg, 3 tab, PO, qWeek, for 10 day, 10 tab, 0 Refill(s). ketOROLAC: 30 mg, 1 mL, IVP, ONCE. lisinopril: 10 mg, 1 tab, PO, Daily, 30 tab, 0 Refill(s). meropenem: 1,000 mg, IV, ONCE. metFORMIN: 1,000 mg, 1 tab, PO, Daily, takes at noon, 30 tab, 0 Refill(s). non-formulary: 2x weekly, PO, 0 Refill(s). pyridoxine: 50 mg, 1 tab, PO, qWeek, for 7 day, 7 tab, 0 Refill(s). rifapentine: 750 mg, 5 tab, PO, qWeek, for 7 day, 8 tab, 0 Refill(s). Sodium Chloride 0.9% IV: 1,000 mL, 1,000 ml/hr, IV, ONCE. Medications Inactivated in the Last 72 Hours acetaminophen: 1,000 mg, IVPB, ONCE, PRN: Pain Score 1-3. acetaminophen: 500 mg, 1 tab, PYXIS, ONCE. atropine: 1 mg, 10 mL, PYXIS, ONCE. ciprofloxacin: 400 mg, 200 mL, PYXIS, ONCE. diphenhydrAMINE: 12.5 mg, IVP, Q6H, PRN: Itching. emollients, topical: 1 appl, PYXIS, ONCE. emollients, topical: 1 appl, PYXIS, ONCE. ePHEDrine: 50 mg, 1 mL, PYXIS, ONCE. fentaNYL: 100 microgram, 2 mL, PYXIS, ONCE. fentaNYL: 50 microgram, IVP, Q5Min, PRN: Pain Score 7-10. fentaNYL: 25 microgram, IVP, Q5Min, PRN: Pain Score 4-6. flumazenil: 0.2 mg, IVP, PRN, PRN: Benzodiazepine Reversal. hydromorphone: 0.5 mg, IVP, Q5Min, PRN: Pain Score 7-10. iohexol: 50 mL, PYXIS, ONCE. Lactated Ringers Injection IV: 1,000 mL, PYXIS, ONCE. Lactated Ringers Injection IV 1000 mL: 25 ml/hr, IV, Stop: 02/09/15 10:58:00. Lactated Ringers Injection IV 1000 mL: 125 ml/hr, IV, Stop: 02/09/15 14:01:00. lidocaine topical: 1 appl, PYXIS, ONCE. meperidine: 12.5 mg, IVP, Q30Min, PRN: Other -See Comment. meropenem: 1,000 mg, IV, Q8H. midazolam: 2 mg, 2 mL, PYXIS, ONCE. morphine Sulfate: 2 mg, IVP, Q5Min, PRN: Pain Score 4-6. morphine Sulfate: 4 mg, IVP, Q5Min, PRN: Pain Score 7-10. naloxone: 0.04 mg, IVP, Q2MIN, PRN: Narcotic Reversal. ondansetron: 4 mg, 2 mL, PYXIS, ONCE. ondansetron: 4 mg, IVP, ONCE, PRN: Nausea & Vomiting. oxyCODONE: 5 mg, PO, Q4H, PRN: Pain Score 4-6. oxyCODONE: 10 mg, PO, Q4H, PRN: Pain Score 7-10. oxyCODONE: 5 mg, NG, Q4H, PRN: Pain Score 4-6. oxyCODONE: 10 mg, NG, Q4H, PRN: Pain Score 7-10. oxyCODONE: 10 mg, 2 tab, PYXIS, ONCE. piperacillin-tazobactam: 4.5 gm, IVPB, ONCE. promethazine: 6.25 mg, IVPB, ONCE, PRN: Nausea & Vomiting. propofol: 200 mg, 20 mL, PYXIS, ONCE. succinylcholine: 200 mg, 10 mL, PYXIS, ONCE. Allergies: NKDA ROS: See HPI. All other systems reviewed by myself are negative unless noted above. Physical Exam: VitalsTmp(F)[id number] 01/11 15:[id number]--- 24 Hr Tmax: 100.5F (38.06c) at 01/11 15:28Vital Signs are the last 5 in the past 48 hours. General: NAD, nontoxic appearing HEENT: NCAT, PERRL, MMM, no JVD Cardiovascular: RRR, S1S2 Respiratory: CTAB Abdomen: +BS, NT/ND Extremities: no b/l LE edema Skin: no rashes Neurologic: AAOx4, comprehension and speech intact, CN III-XII grossly intact Musculoskeletal: symmetric strength in all extremities Rectal/: no CVA tenderness on either side Labs: 24hr Labs 01/11 2122 Sodium Tse704 L Potassium Lvl3.3 L Chloride Lvl96 CO227 AGAP14.3 Glucose Dqn496 H Creatinine Lvl0.8 BUN10 B/C Ratio12 Total Protein9.0 H Albumin Lvl3.2 L Globulin5.8 H A/G Ratio0.6 L Calcium Lvl9.3 ALT20 AST24 Alk Phos97 Bili Total0.5 eGFR77 Lactic Acid Lvl1.0 WBC10.6 H RBC4.26 Hgb12.1 Hct36.2 MCV85.0 MCH28.4 MCHC33.4 RDW14.5 Xqgebwut030 MPV9.2 Segs78.0 H Monocytes8.3 Lkufpxptjfy60.7 L Eosinophils0.2 Basophils0.8 Segs-Bands #8.3 H Lymphocytes #1.3 Monocytes #0.9 H Basophils #0.1 Plt MorphClumped Micro: blood and urine cxs sent Imagin01/10/15 L pyelogram: Mild to moderate left pelvocaliectasis is similar [...] pelvis and distal end in the bladder. Assessment and Plan: 69 yo p/w suprapubic discomfort, fevers, tachycardia and admitted for complicated UTI. Recent urine cx grew VRE, sensitive to macrobid and meropenem only. Was on macrobid but symptoms not improving. Had ureteral stent placed 1 day prior to this admission. Past urine cxs have grown group B strep and gram negative rods. Current UA and urine cx pending. Leukocytosis likely from procedure though. No CVA tenderness but has h/o pyelo and macrobid would not be sufficient for this complicated UTI. # urosepsis (leukocytosis, tachycardia, infection): meropenem, iv fluids, ID consult, urology consult, contact precautions # DM: SSI # HTN/HLD: c/w home regimen Prophylaxis: ambulation Diet: diabetic [employer]
--- OUTSIDE RECORDS SUMMARY | 2018-09-11 19:41 | XMS REPORT | Summary of Care ---
Author Author [facility] Organization [facility] Address Unknown Phone Unavailable Encounter SID Mckinney(MICHAEL) [id number] Date(s): 01/10/15 - 01/10/15 [facility] [address] [place] [address]- Discharge Disposition: Home Attending Physician: Enio Neal MD Referring Physician: Enio Neal MD Vital Signs 1 2 3 Most recent to oldest [Reference Range]: 152.4 cm (12/28/14 1:42 PM) Height 1 2 3 Most recent to oldest [Reference Range]: 97.7 DegF (12/28/14 2:45 PM) Temperature Oral [96.4-99.1 DegF] 1 2 3 Most recent to oldest [Reference Range]: 136/67 mmHg (01/10/15 2:45 PM) 135/69 mmHg (01/10/15 2:00 PM) 123/61 mmHg (01/10/15 1:45 PM) Blood Pressure [90-140/60-90 mmHg] 1 2 3 Most recent to oldest [Reference Range]: 13 BRMIN *LOW* (01/10/15 2:00 PM) 14 BRMIN (01/10/15 1:45 PM) 16 BRMIN (01/10/15 1:30 PM) Respiratory Rate [14-20 BRMIN] 1 2 3 Most recent to oldest [Reference Range]: 89 bpm (12/28/14 2:45 PM) Peripheral Pulse Rate [60-100 bpm] 1 2 3 Most recent to oldest [Reference Range]: 87.727 kg (12/28/14 1:42 PM) Weight 1 2 3 Most recent to oldest [Reference Range]: 37.77 m2 (12/28/14 1:42 PM) Body Mass Index Problem List Condition Effective Dates Status Health Status Informant Acute PN - Resolved pyelonephritis(Confi rmed) Chronic cystitis1 10/07/14 Active Diabetes(Confirmed) Resolved Diabetes(Confirmed) Active HTN Active (hypertension)(Confi rmed) Hypercholesteremia(C Active onfirmed) Hypertension(Confirm Resolved ed) Psoriasis(Confirmed) Active 2 Retained ureteral Active stent(Confirmed) Sleep Active apnea(Confirmed) 1[facility]. 2on both legs Allergies, Adverse Reactions, Alerts Substance Reaction Severity Status NKDA Active Medications acetaminophen 1,000 mg, Route: IVPB, Drug form: INJ, ONCE, Dosing Weight 87.727, kg, PRN Pain Score 1-3, Start date: 01/10/15 14:02:00, Duration: 1 doses or times, Stop date: Limited # of times Start Date: 01/10/15 Stop Date: 01/10/15 Status: Discontinued Cipro I.V. 400 mg/200 mL intravenous solution 400 mg, 200 mL, Route: IVPB, Drug form: INJ, ONCE, Dosing Weight 87.727, kg, Sta rt date: 01/10/15 12:10:00, Stop date: 01/10/15 12:10:00 Notes: Do not refrigerate Start Date: 01/10/15 Stop Date: 01/10/15 Status: Ordered diphenhydrAMINE 12.5 mg, Route: IVP, Drug form: INJ, Q6H, Dosing Weight 87.727, kg, PRN Itching, Start date: 01/10/15 14:02:00, Duration: 30 day, Stop date: 02/09/15 14:01:00 Start Date: 01/10/15 Stop Date: 01/10/15 Status: Discontinued fentaNYL 50 microgram, Route: IVP, Q5Min, Dosing Weight 87.727, kg, PRN Pain Score 7-10, Start date: 01/10/15 14:02:00, Duration: 2 doses or times, Stop date: Limited # of times Start Date: 01/10/15 Stop Date: 01/10/15 Status: Discontinued fentaNYL 25 microgram, Route: IVP, Q5Min, Dosing Weight 87.727, kg, PRN Pain Score 4-6, S tart date: 01/10/15 14:02:00, Duration: 4 doses or times, Stop date: Limited # o f times Start Date: 01/10/15 Stop Date: 01/10/15 Status: Discontinued flumazenil 0.2 mg, Route: IVP, PRN, Dosing Weight 87.727, kg, PRN Benzodiazepine Reversal, Initial dose, Start date: 01/10/15 14:02:00, Duration: 30 day, Stop date: 14:01:00 Start Date: 01/10/15 Stop Date: 01/10/15 Status: Discontinued hydromorphone 0.5 mg, Route: IVP, Q5Min, Dosing Weight 87.727, kg, PRN Pain Score 7-10, Start date: 01/10/15 14:02:00, Duration: 4 doses or times, Stop date: Limited # of kathia es Start Date: 01/10/15 Stop Date: 01/10/15 Status: Discontinued ketOROLAC 30 mg, 1 mL, Route: IVP, Drug form: INJ, ONCE, Dosing Weight 87.727, kg, Start d ate: 01/10/15 14:02:00, Duration: 1 doses or times, Stop date: 01/10/15 14:02:00 Notes: (Same as:Toradol) IV bolus must be given >15 seconds. Give IM administration slowly and deeply into the muscle.Not for use > 4 days MEDICATION WASTE Product Size: 30 mgProduct Wasted: ___ mg Start Date: 01/10/15 Stop Date: 01/10/15 Status: Ordered Lactated Ringers Injection IV 1000 mL 1,000 mL, Rate: 125 ml/hr, Infuse over: 8 hr, Route: IV, Dosing Weight 87.727 kg , Total Volume: 1,000, Start date: 01/10/15 14:02:00, Duration: 30 day, Stop dewayne e: 02/09/15 14:01:00 Start Date: 01/10/15 Stop Date: 01/10/15 Status: Discontinued Lactated Ringers Injection IV 1000 mL 1,000 mL, Rate: 25 ml/hr, Infuse over: 40 hr, Route: IV, Dosing Weight 87.727 kg , Total Volume: 1,000, Start date: 01/10/15 10:59:00, Duration: 30 day, Stop dewayne e: 02/09/15 10:58:00 Start Date: 01/10/15 Stop Date: 01/10/15 Status: Discontinued meperidine 12.5 mg, Route: IVP, Q30Min, Dosing Weight 87.727, kg, PRN Other -See Comment, F or shivering, Start date: 01/10/15 14:02:00, Duration: 2 doses or times, Stop da te: Limited # of times Start Date: 01/10/15 Stop Date: 01/10/15 Status: Discontinued morphine Sulfate 2 mg, Route: IVP, Q5Min, Dosing Weight 87.727, kg, PRN Pain Score 4-6, Start dewayne e: 01/10/15 14:02:00, Duration: 5 doses or times, Stop date: Limited # of times Start Date: 01/10/15 Stop Date: 01/10/15 Status: Discontinued morphine Sulfate 4 mg, Route: IVP, Q5Min, Dosing Weight 87.727, kg, PRN Pain Score 7-10, Start da te: 01/10/15 14:02:00, Duration: 3 doses or times, Stop date: Limited # of times Start Date: 01/10/15 Stop Date: 01/10/15 Status: Discontinued naloxone 0.04 mg, Route: IVP, Q2MIN, Dosing Weight 87.727, kg, PRN Narcotic Reversal, Sta rt date: 01/10/15 14:02:00, Duration: 8 doses or times, Stop date: Limited # of times Start Date: 01/10/15 Stop Date: 01/10/15 Status: Discontinued ondansetron 4 mg, Route: IVP, ONCE, Dosing Weight 87.727, kg, PRN Nausea & Vomiting, Start date: 01/10/15 14:02:00 Start Date: 01/10/15 Stop Date: 01/10/15 Status: Discontinued oxyCODONE 10 mg, Route: PO, Drug form: TAB, Q4H, Dosing Weight 87.727, kg, PRN Pain Score 7-10, Start date: 01/10/15 14:02:00, Duration: 30 day, Stop date: 02/09/15 14:01 :00 Start Date: 01/10/15 Stop Date: 01/10/15 Status: Discontinued oxyCODONE 5 mg, Route: PO, Drug form: TAB, Q4H, Dosing Weight 87.727, kg, PRN Pain Score 4 -6, Start date: 01/10/15 14:02:00, Duration: 30 day, Stop date: 02/09/15 14:01:0 0 Start Date: 01/10/15 Stop Date: 01/10/15 Status: Discontinued oxyCODONE 5 mg/5 mL oral solution 10 mg, Route: NG, Drug form: LIQ, Q4H, Dosing Weight 87.727, kg, PRN Pain Score 7-10, Start date: 01/10/15 14:02:00, Duration: 30 day, Stop date: 02/09/15 14:01 :00 Start Date: 01/10/15 Stop Date: 01/10/15 Status: Discontinued oxyCODONE 5 mg/5 mL oral solution 5 mg, Route: NG, Drug form: LIQ, Q4H, Dosing Weight 87.727, kg, PRN Pain Score 4 -6, Start date: 01/10/15 14:02:00, Duration: 30 day, Stop date: 02/09/15 14:01:0 0 Start Date: 01/10/15 Stop Date: 01/10/15 Status: Discontinued promethazine 6.25 mg, Route: IVPB, ONCE, Dosing Weight 87.727, kg, PRN Nausea & Vomiting, Start date: 01/10/15 14:02:00 Start Date: 01/10/15 Stop Date: 01/10/15 Status: Discontinued STOOL SOFTENER STOOL SOFTENER, 2x weekly, PO, Refill(s) 0 Start Date: 12/28/14 Status: Suspended Tylenol with Codeine #3 oral tablet 1 - 2 tab, PO, Q4H, PRN Pain, X 3 day, # 20 tab, 0 Refill(s) Start Date: 01/10/15 Stop Date: 01/13/15 Status: Suspended Results ELECTROLYTES Most recent to 1 oldest [Reference Range]: Sodium Lvl [135-145 131 mEq/L mEq/L] *LOW* (12/28/14 2:27 PM) Potassium Lvl 4.2 mEq/L [3.5-5.1 mEq/L] (12/28/14 2:27 PM) Chloride Lvl [95-109 99 mEq/L mEq/L] (12/28/14 2:27 PM) CO2 [24-32 mEq/L] 23 mEq/L *LOW* (12/28/14 2:27 PM) AGAP [10.0-20.0 13.2 mEq/L mEq/L] (12/28/14 2:27 PM) CHEM PANEL Most recent to 1 oldest [Reference Range]: Creatinine Lvl 0.9 mg/dL [0.5-1.4 mg/dL] (12/28/14 2:27 PM) eGFR 66 mL/min/1.73m2 1 *NA* (12/28/14 2:27 PM) BUN [7-22 mg/dL] 17 mg/dL (12/28/14 2:27 PM) Glucose Lvl [70-99 257 mg/dL mg/dL] *HI* (12/28/14 2:27 PM) Calcium Lvl 9.6 mg/dL [8.5-10.5 mg/dL] (12/28/14 2:27 PM) 1Result Comment: The eGFR is calculated using [...] be mul tiplied by the estimated BMI. URINE AND STOOL Most recent to 1 oldest [Reference Range]: UA Turbidity [Clear] Marked *ABN* (12/28/14 2:27 PM) UA Color [Yellow] Yellow *NA* (12/28/14 2:27 PM) UA pH [5.0-8.0] 6.0 (12/28/14 2:27 PM) UA Spec Grav 1.011 [<=1.030] (12/28/14 2:27 PM) UA Glucose [Negative 50 mg/dL mg/dL] *ABN* (12/28/14 2:27 PM) UA Blood [Negative] Moderate *ABN* (12/28/14 2:27 PM) UA Ketones [Negative Negative mg/dL mg/dL] *NA* (12/28/14 2:27 PM) UA Protein [Negative 100 mg/dL mg/dL] *ABN* (12/28/14 2:27 PM) UA Urobilinogen <=1.0 mg/dL [0.1-1.0 mg/dL] *NA* (12/28/14 2:27 PM) UA Bili [Negative] Negative *NA* (12/28/14 2:27 PM) UA Leuk Est Large [Negative] *ABN* (12/28/14 2:27 PM) UA Nitrite Negative [Negative] (12/28/14 2:27 PM) UA WBC [0-5 /HPF] >182 /HPF *HI* (12/28/14 2:27 PM) UA RBC [0-2 /HPF] 98 /HPF *HI* (12/28/14 2:27 PM) UA Bacteria [None Occasional /HPF Seen /HPF] *NA* (12/28/14 2:27 PM) UA Sq Epi [Few /LPF] Few /LPF *NA* (12/28/14 2:27 PM) UA Mucus [None Seen Few /LPF /LPF] *NA* (12/28/14 2:27 PM) HEMATOLOGY Most recent to 1 oldest [Reference Range]: WBC [3.7-10.4 K/CMM] 9.7 K/CMM (12/28/14 2:27 PM) RBC [4.20-5.40 3.98 M/CMM M/CMM] *LOW* (12/28/14 2:27 PM) Hgb [12.0-16.0 g/dL] 11.2 g/dL *LOW* (12/28/14 2:27 PM) Hct [36.0-48.0 %] 34.2 % *LOW* (12/28/14 2:27 PM) MCV [80.0-98.0 fL] 85.7 fL (12/28/14 2:27 PM) MCH [27.0-31.0 pg] 28.2 pg (12/28/14 2:27 PM) MCHC [32.0-36.0 32.9 g/dL g/dL] (12/28/14 2:27 PM) RDW [11.5-14.5 %] 14.6 % *HI* (12/28/14 2:27 PM) Platelet [133-450 296 K/CMM K/CMM] (12/28/14 2:27 PM) MPV [7.4-10.4 fL] 9.8 fL (12/28/14 2:27 PM) Segs [45.0-75.0 %] 68.8 % (12/28/14 2:27 PM) Lymphocytes 20.7 % [20.0-40.0 %] (12/28/14 2:27 PM) Monocytes [2.0-12.0 5.7 % %] (12/28/14 2:27 PM) Eosinophils [0.0-4.0 3.4 % %] (12/28/14 2:27 PM) Basophils [0.0-1.0 1.4 % %] *HI* (12/28/14 2:27 PM) Segs-Bands # 6.7 K/CMM [1.5-8.1 K/CMM] (12/28/14 2:27 PM) Lymphocytes # 2.0 K/CMM [1.0-5.5 K/CMM] (12/28/14 2:27 PM) Monocytes # [0.0-0.8 0.6 K/CMM K/CMM] (12/28/14 2:27 PM) Eosinophils # 0.3 K/CMM [0.0-0.5 K/CMM] (12/28/14 2:27 PM) Basophils # [0.0-0.2 0.1 K/CMM K/CMM] (12/28/14 2:27 PM) RBC Morph Normal (12/28/14 2:27 PM) Plt Morph Normal (12/28/14 2:27 PM) Immunizations Vaccine Date Refusal Reason pneumococcal 23-valent [...] Plan Extracted from: Title: Clinical Document Author: Enio Neal MD Date: 01/10/15 CC: Left hydronephrosis, urinary retention HISTORY OF PRESENT ILLNESS: Ms. Kim is a 69-year-old female who was referred to me secondary to recurrent cystitis. The patient was found to have very foul-appearing urine and chronic/recurrent UTIs. 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 She had previously been told about this and was recommended intermittent catheterization. She is unable to catheterize herself. I performed an evaluation including a cystoscopy and cystogram. On cystogram there is no evidence of any fistula. On cystoscopy there was finding of inflammation in the bladder. Additionally on subsequent followup imaging she was found to have progression of left hydronephrosis. Last month, she underwent cystoscopy, left retrograde pyelogram with stent placement and bladder biopsies. There was finding of pyuria and stent was placed. She now presents for ureteroscopy in evaluation of left hydronephrosis. REVIEW OF SYSTEMS: No fevers. No chills. Negative for nausea, negative for vomiting. No chest pain, no shortness of breath. Positive for dysuria and foul-smelling urine. Otherwise negative 10-point review of symptoms. PAST MEDICAL HISTORY: 1. Psoriasis. 2. Diabetes. 3. Hypertension. 4. Dyslipidemia. 5. Recurrent UTIs. PAST SURGICAL HISTORY: Bilateral hysterectomy. Bladder suspension. SOCIAL HISTORY: Negative x3. FAMILY HISTORY: Biliary CA and CAD. PHYSICAL EXAMINATION: VITAL SIGNS: T-max 98.1, pulse is 95, blood pressure 114/73. GENERAL: Patient not in acute distress. Alert and oriented. HEENT: Atraumatic, normocephalic, EOMI. NECK: Supple, trachea in the midline. LUNGS: Normal respiratory effort. CARDIAC: Regular rate and rhythm. ABDOMEN: Soft, nontender, nondistended. Labs (Last four charted values) WBC 9.7(DEC 28) Hgb L 11.2(DEC 28) Hct L 34.2(DEC 28) Plt 296(DEC 28) Na L 131(DEC 28) K 4.2(DEC 28) CO2 L 23(DEC 28) Cl 99(DEC 28) Cr 0.9(DEC 28) BUN 17(DEC 28) Glucose Random H 257(DEC 28) Ca 9.6(DEC 28) PERTINENT IMAGING: CT scan performed on 12/03/14 shows a progressive left hydroureter and hydronephrosis. No calculus or obstructive process seen. This is compared to a CT performed about three months ago. At that time there was fullness of the pelvis but not alejandra hydronephrosis. ASSESSMENT: This is a 69-year-old female with a complicated history of recurrent urinary tract infections, urinary retention and now left hydronephrosis. She underwent stent placement and biopsy about a month ago, she now presents for ureteroscopy to evaluate the obstruction.
--- OUTSIDE RECORDS SUMMARY | 2018-09-11 19:41 | XMS REPORT | Summary of Care ---
Author Author [facility] Organization [facility] Address Unknown Phone Unavailable Encounter SID Mckinney(MICHAEL) [id number] Date(s): 03/17/15 - 03/21/15 [facility] [address] [place] [address]- Discharge Disposition: Home Attending Physician: Ramone Jefferson MD Admitting Physician: Ramone Jefferson MD Vital Signs 1 2 3 Most recent to oldest [Reference Range]: 152.4 cm (03/18/15 12:00 AM) 152.4 cm (03/17/15 6:31 PM) Height 1 2 3 Most recent to oldest [Reference Range]: 98.9 DegF (03/21/15 12:00 PM) 98 DegF (03/21/15 8:00 AM) 98.1 DegF (03/21/15 4:26 AM) Temperature Oral [96.4-99.1 DegF] 1 2 3 Most recent to oldest [Reference Range]: 149/83 mmHg *HI* (03/21/15 12:00 PM) 144/71 mmHg *HI* (03/21/15 8:00 AM) 122/74 mmHg (03/21/15 4:26 AM) Blood Pressure [90-140/60-90 mmHg] 1 2 3 Most recent to oldest [Reference Range]: 20 BRMIN (03/21/15 12:00 PM) 18 BRMIN (03/21/15 8:00 AM) 18 BRMIN (03/21/15 4:26 AM) Respiratory Rate [14-20 BRMIN] 1 2 3 Most recent to oldest [Reference Range]: 87 bpm (03/21/15 12:00 PM) 78 bpm (03/21/15 8:00 AM) 77 bpm (03/21/15 4:26 AM) Peripheral Pulse Rate [60-100 bpm] 1 2 3 Most recent to oldest [Reference Range]: 80.938 kg (03/18/15 12:00 AM) 80.909 kg (03/17/15 6:31 PM) Weight 1 2 3 Most recent to oldest [Reference Range]: 34.85 m2 (03/18/15 12:00 AM) 34.84 m2 (03/17/15 6:31 PM) Body Mass Index Problem List Condition Effective Dates Status Health Status Informant Acute PN - Resolved pyelonephritis(Confi rmed) Chronic cystitis1 10/07/14 Active Diabetes(Confirmed) Active Diabetes(Confirmed) Active HTN Active (hypertension)(Confi rmed) Hypercholesteremia(C Active onfirmed) Hypertension(Confirm Active ed) Psoriasis(Confirmed) Active 2 Retained ureteral Active stent(Confirmed) Sleep Active apnea(Confirmed) Urinary tract Active infection(Confirmed) 1Data migrated from [employer] on 01/04/15. 2on both legs Allergies, Adverse Reactions, Alerts Substance Reaction Severity Status NKDA Active Medications acetaminophen 650 mg, 2 tab, Route: PO, Drug form: TAB, Q4H, Dosing Weight 80.909, kg, PRN Sandrine n 1-3/Temp > 100.4 F, Start date: 03/17/15 23:57:00, Duration: 30 day, Stop date: 04/16/15 23:56:00 Notes: Do not exceed 4 gm/day. (Same as: Tylenol) Start Date: 03/17/15 Stop Date: 03/21/15 Status: Discontinued acetaminophen-codeine 300 mg-30 mg oral tablet 1 tab, PO, Q4H, PRN Pain Score 4-6 Start Date: 03/17/15 Status: Ordered acetaminophen-codeine 300 mg-30 mg oral tablet 1 tab, Route: PO, Drug Form: TAB, Dosing Weight 80.938, kg, Q4H, PRN Pain Score 4-6, Start date: 03/18/15 11:20:00, Duration: 30 day, Stop date: 04/17/15 11:19: 00 Notes: Do not exceed 4gm/day of acetaminophen. (Same as: Tylenol with Codeine # 3) Start Date: 03/18/15 Stop Date: 03/21/15 Status: Discontinued atorvastatin 10 mg, 1 tab, Route: PO, Drug form: TAB, Bedtime, Dosing Weight 80.938, kg, Star t date: 03/18/15 21:00:00, Duration: 30 day, Stop date: 04/16/15 21:00:00 Notes: (Same As: Lipitor) Start Date: 03/18/15 Stop Date: 03/21/15 Status: Discontinued atorvastatin 10 mg oral tablet 10 mg=1 tab, PO, Bedtime Start Date: 03/17/15 Status: Ordered atropine 0.5 mg, 5 mL, Route: IVP, Drug form: INJ, ONCE, Dosing Weight 80.938, kg, PRN Br adycardia, Start date: 03/18/15 0:34:00, symptomatic bradycardia HR <40 Start Date: 03/18/15 Stop Date: 03/21/15 Status: Discontinued Betamethasone-Calcipotrience topical 0.064%-0.005% suspensio Betamethasone-Calcipotrience topical 0.064%-0.005% suspensio, 1app, Drug form: M ISC, Route: TOP, Daily, 03/19/15 9:00:00, Stop date: 04/17/15 9:00:00 Start Date: 03/19/15 Stop Date: 03/21/15 Status: Discontinued betamethasone-calcipotriene topical 0.064%-0.005% suspension 1 appl, Route: TOP, Daily, Drug form: SUSP, Start date: 03/19/15 9:00:00, Durati on: 30 day, Stop date: 04/17/15 9:00:00 Start Date: 03/19/15 Stop Date: 03/19/15 Status: Deleted cefepime + Sodium Chloride 0.9% IV 100 mL 1 gm, Route: IVPB, [id number], Dosing Weight 80.938, kg, (CrCl 30 - 49 ml/min), Sta rt date: 03/18/15 11:00:00, Duration: 30 day, Stop date: 04/16/15 23:00:00 Notes: (Same As: Maxipime) MEDICATION WASTE Product Size: 1000 mgProduc t Wasted: 0___ mg Start Date: 03/18/15 Stop Date: 03/21/15 Status: Discontinued Dextrose 50% Syringe 12.5 gm, 25 mL, Route: IVP, Drug Form: INJ, Dosing Weight 80.938, kg, PRN, PRN B lood Glucose Results, Start date: 03/18/15 16:38:00, Duration: 30 day, Stop date : 04/17/15 16:37:00 Start Date: 03/18/15 Stop Date: 03/21/15 Status: Discontinued Dextrose 50% Syringe 25 gm, 50 mL, Route: IVP, Drug Form: INJ, Dosing Weight 80.938, kg, PRN, PRN Blo od Glucose Results, Start date: 03/18/15 16:38:00, Duration: 30 day, Stop date: 04/17/15 16:37:00 Start Date: 03/18/15 Stop Date: 03/21/15 Status: Discontinued Ditropan 5 mg, 1 tab, Route: PO, Drug form: TAB, TID, Dosing Weight 80.938, kg, Start dewayne e: 03/19/15 17:00:00, Duration: 30 day, Stop date: 04/18/15 13:00:00 Notes: Same as: Ditropan) Start Date: 03/19/15 Stop Date: 03/21/15 Status: Discontinued docusate sodium 100 mg oral capsule 100 mg=1 cap, PO, QSun, in the afternoon Special Instructions: in the afternoon Start Date: 03/17/15 Status: Ordered docusate sodium 100 mg oral capsule 100 mg=1 cap, PO, QWed, in the afternoon Special Instructions: in the afternoon Start Date: 03/17/15 Status: Ordered docusate sodium 100 mg oral capsule 100 mg, 1 cap, Route: PO, Drug form: CAP, QWed, Dosing Weight 80.938, kg, Start date: 03/22/15 12:00:00, Duration: 30 day, Stop date: 04/19/15 12:00:00 Notes: (Same as: Colace) (Do Not Crush) Start Date: 03/22/15 Stop Date: 03/21/15 Status: Canceled docusate sodium 100 mg oral capsule 100 mg, 1 cap, Route: PO, Drug form: CAP, QSun, Dosing Weight 80.938, kg, Start date: 03/19/15 12:00:00, Duration: 30 day, Stop date: 04/16/15 12:00:00 Notes: (Same as: Colace) (Do Not Crush) Start Date: 03/19/15 Stop Date: 03/21/15 Status: Discontinued enoxaparin 40 mg, 0.4 mL, Route: SUB-Q, Drug form: INJ, [id number], Dosing Weight 80.938, kg, Start date: 03/18/15 12:00:00, Duration: 30 day, Stop date: 04/16/15 12:00:00 Notes: (Same as: Lovenox) Start Date: 03/18/15 Stop Date: 03/21/15 Status: Discontinued Flonase 0.05 mg/inh nasal spray 1 spray, Route: Each Affected Nostril, Drug Form: SPRY, Dosing Weight 80.938, kg , Daily, NOW, Start date: 03/18/15 22:43:00, Duration: 30 day, Stop date: 9:00:00 Notes: (Same as: Flonase) Start Date: 03/18/15 Stop Date: 03/21/15 Status: Discontinued glimepiride 4 mg, 1 tab, Route: PO, Drug form: TAB, BID, Dosing Weight 80.938, kg, Start dewayne e: 03/18/15 17:00:00, Duration: 30 day, Stop date: 04/17/15 9:00:00 Notes: (Same as: Amaryl) Start Date: 03/18/15 Stop Date: 03/21/15 Status: Discontinued glucagon 1 mg, Route: IM, Drug form: PDR/INJ, PRN, Dosing Weight 80.938, kg, PRN Blood Gl ucose Results, Start date: 03/18/15 16:38:00, Duration: 30 day, Stop date: 04/17 16:37:00 Start Date: 03/18/15 Stop Date: 03/21/15 Status: Discontinued hyoscyamine 0.125 mg, 1 tab, Route: PO, Drug form: TAB, Q4H, Dosing Weight 80.938, kg, PRN a s needed for spasm, Start date: 03/18/15 11:21:00, Duration: 30 day, Stop date: 04/17/15 11:20:00 Start Date: 03/18/15 Stop Date: 03/21/15 Status: Discontinued hyoscyamine 0.125 mg oral tablet 0.125 mg=1 tab, PO, Q4H, PRN Bladder Spasm Start Date: 03/17/15 Status: Ordered insulin aspart 6 unit, 0.06 mL, Route: SUB-Q, Drug form: SOLN, TID-Before Meals, Dosing Weight 80.938, kg, PRN Blood Glucose Results, Start date: 03/18/15 16:38:00, Duration: 30 day, Stop date: 04/17/15 16:37:00 Notes: Roll in palms of hands gently; Do not shake vigorously. (Same as: NovoLO G)"single patient use only" Stable for 28 days at room temperature.Expires in _ ____ days from Date Start Date: 03/18/15 Stop Date: 03/21/15 Status: Discontinued insulin aspart 4 unit, 0.04 mL, Route: SUB-Q, Drug form: SOLN, TID-Before Meals, Dosing Weight 80.938, kg, PRN Blood Glucose Results, Start date: 03/18/15 16:38:00, Duration: 30 day, Stop date: 04/17/15 16:37:00 Notes: Roll in palms of hands gently; Do not shake vigorously. (Same as: NovoLO G)"single patient use only" Stable for 28 days at room temperature.Expires in _ ____ days from Date Start Date: 03/18/15 Stop Date: 03/21/15 Status: Discontinued insulin aspart 2 unit, 0.02 mL, Route: SUB-Q, Drug form: SOLN, TID-Before Meals, Dosing Weight 80.938, kg, PRN Blood Glucose Results, Start date: 03/18/15 16:38:00, Duration: 30 day, Stop date: 04/17/15 16:37:00 Notes: Roll in palms of hands gently; Do not shake vigorously. (Same as: NovoLO G)"single patient use only" Stable for 28 days at room temperature.Expires in _ ____ days from Date Start Date: 03/18/15 Stop Date: 03/21/15 Status: Discontinued insulin aspart 10 unit, 0.1 mL, Route: SUB-Q, Drug form: SOLN, TID-Before Meals, Dosing Weight 80.938, kg, PRN Blood Glucose Results, Start date: 03/18/15 16:38:00, Duration: 30 day, Stop date: 04/17/15 16:37:00 Notes: Roll in palms of hands gently; Do not shake vigorously. (Same as: NovoLO G)"single patient use only" Stable for 28 days at room temperature.Expires in _ ____ days from Date Start Date: 03/18/15 Stop Date: 03/21/15 Status: Discontinued insulin aspart 8 unit, 0.08 mL, Route: SUB-Q, Drug form: SOLN, TID-Before Meals, Dosing Weight 80.938, kg, PRN Blood Glucose Results, Start date: 03/18/15 16:38:00, Duration: 30 day, Stop date: 04/17/15 16:37:00 Notes: Roll in palms of hands gently; Do not shake vigorously. (Same as: NovoLO G)"single patient use only" Stable for 28 days at room temperature.Expires in _ ____ days from Date Start Date: 03/18/15 Stop Date: 03/21/15 Status: Discontinued Insulin regular 5 unit, Route: IVP, ONCE, Dosing Weight 80.909, kg, Priority: STAT, Start date: 03/17/15 19:54:00, Stop date: 03/17/15 19:54:00 Start Date: 03/17/15 Stop Date: 03/17/15 Status: Completed Keflex 500 mg oral capsule 500 mg=1 cap, PO, QID, X 14 day, # 56 cap, 0 Refill(s) Start Date: 03/21/15 Stop Date: 04/04/15 Status: Ordered Lantus 15 unit, Route: SUB-Q, Bedtime, Dosing Weight 80.938, kg, Start date: 03/18/15 2 1:00:00, Duration: 30 day, Stop date: 04/16/15 21:00:00 Start Date: 03/18/15 Stop Date: 03/18/15 Status: Deleted Levemir FlexPen 15 unit, 0.15 mL, Route: SUB-Q, Drug form: INJ, Bedtime, Start date: 03/18/15 21 :00:00, Duration: 30 day, Stop date: 04/16/15 21:00:00 Notes: Same as LevemirDo not hold insulin without contacting prescriber "single patient use only" Start Date: 03/18/15 Stop Date: 03/21/15 Status: Discontinued lisinopril 10 mg, 1 tab, Route: PO, Drug form: TAB, Daily, Dosing Weight 80.938, kg, Start date: 03/19/15 9:00:00, Duration: 30 day, Stop date: 04/17/15 9:00:00 Notes: (Same as: Prinivil, Zestril) Start Date: 03/19/15 Stop Date: 03/21/15 Status: Discontinued lisinopril 20 mg oral tablet 10 mg=0.5 tab, PO, Daily Start Date: 03/17/15 Status: Ordered meropenem + Sodium Chloride 0.9% IV 100 mL 1,000 mg, Route: IV, ONCE, Dosing Weight 80.909, kg, Start date: 03/17/15 19:10: 00, Stop date: 03/17/15 19:10:00 Notes: (Same as: Merrem) . MEDICATION WASTE Product Size: 1000 mgProduc t Wasted: ___ mg Start Date: 03/17/15 Stop Date: 03/17/15 Status: Completed metFORMIN 1000 mg oral tablet 1,000 mg, 2 tab, Route: PO, Drug form: TAB, Lunch, Dosing Weight 80.938, kg, Sta rt date: 03/18/15 12:00:00, Duration: 30 day, Stop date: 04/16/15 12:00:00 Notes: (Same as: Glucophage) Take with meal Start Date: 03/18/15 Stop Date: 03/21/15 Status: Discontinued morphine Sulfate 4 mg, 2 mL, Route: IVP, Drug form: INJ, ONCE, Dosing Weight 80.909, kg, Priority : STAT, Start date: 03/17/15 19:15:00, Stop date: 03/17/15 19:15:00 Notes: (Same as:MORPhine Sulfate) Start Date: 03/17/15 Stop Date: 03/17/15 Status: Completed morphine Sulfate 4 mg, 2 mL, Route: IVP, Drug form: INJ, Q4H, Dosing Weight 80.909, kg, PRN Pain Score 7-10, Start date: 03/17/15 23:57:00, Duration: 30 day, Stop date: 04/16/15 23:56:00 Notes: (Same as:MORPhine Sulfate) Start Date: 03/17/15 Stop Date: 03/21/15 Status: Discontinued multivitamin 1 tab, Route: PO, Drug Form: TAB, Daily, Start date: 03/19/15 9:00:00, Duration: 30 day, Stop date: 04/17/15 9:00:00 Notes: (Same as:One Tab Daily, Tab-A-Chelsie + Beta Carotene) Give with food. Start Date: 03/19/15 Stop Date: 03/21/15 Status: Discontinued nitrofurantoin macrocrystals-monohydrate 100 mg oral capsule (Macrobid) 100 mg=1 cap, PO, Daily Start Date: 03/17/15 Stop Date: 03/21/15 Status: Discontinued nitroglycerin 0.4 mg sublingual tablet 0.4 mg, 1 tab, Route: SL, Drug form: TAB, Q5Min, Dosing Weight 80.938, kg, PRN C hest Pain, Start date: 03/18/15 0:34:00, Duration: 30 day, Stop date: 04/17/15 0 :33:00 Notes: (Same as:Nitroquick, Nitrostat)"Do Not Crush" Sublingual tablet Start Date: 03/18/15 Stop Date: 03/21/15 Status: Discontinued ondansetron 4 mg, 2 mL, Route: IVP, Drug form: INJ, Q6H, Dosing Weight 80.909, kg, PRN Nause a & Vomiting, Start date: 03/17/15 23:57:00, Duration: 30 day, Stop date: 04/16/15 23:56:00 Notes: (Same as: Dima) MEDICATION WASTE Product Size: 4 mgProduct Was em: ___ mg Start Date: 03/17/15 Stop Date: 03/21/15 Status: Discontinued One-A-Day Women 50 Plus 1 tab, Route: PO, Dosing Weight 80.938, kg, Daily, Start date: 03/19/15 9:00:00, Duration: 30 day, Stop date: 04/17/15 9:00:00 Start Date: 03/19/15 Stop Date: 03/18/15 Status: Deleted oxybutynin 5 mg oral tablet 5 mg=1 tab, PO, TID, # 30 tab, 0 Refill(s) Start Date: 03/21/15 Status: Ordered pt own Betamethasone-Calcipotrience 0.064%-0.005% oint pt own Betamethasone-Calcipotrience 0.064%-0.005% oint, 1 appl, Drug form: MISC, Route: TOP, ONCE, 03/19/15 18:35:00, Stop date: 03/19/15 18:35:00 Start Date: 03/19/15 Stop Date: 03/19/15 Status: Completed Sodium Chloride 0.9% (Bolus) IV 1,000 mL, 1,000 ml/hr, Infuse Over: 1 Hour, Route: IV, ONCE, Priority: STAT, Dos ing Weight 80.909 kg, Start date: 03/17/15 21:47:00, Duration: 1 doses or times, Stop date: 03/17/15 21:47:00 Start Date: 03/17/15 Stop Date: 03/17/15 Status: Completed Sodium Chloride 0.9% (Bolus) IV 1,000 mL, 1000 ml/hr, Infuse Over: 1 hr, Route: IV, 1,000, Drug form: INJ, ONCE, Priority: STAT, Dosing Weight 80.909 kg, Start date: 03/17/15 19:16:00, Duratio n: 1 doses or times, Stop date: 03/17/15 19:16:00 Start Date: 03/17/15 Stop Date: 03/17/15 Status: Completed Sodium Chloride 0.9% (Bolus) IV 500 mL, 500 ml/hr, Infuse Over: 1 hr, Route: IV, 500, Drug form: INJ, ONCE, Prio rity: STAT, Dosing Weight 80.909 kg, Start date: 03/17/15 18:39:00, Duration: 1 doses or times, Stop date: 03/17/15 18:39:00 Start Date: 03/17/15 Stop Date: 03/17/15 Status: Completed Sodium Chloride 0.9% IV 1,000 mL 1,000 mL, Rate: 125 ml/hr, Infuse over: 8 hr, Route: IV, Dosing Weight 80.909 kg , Total Volume: 1,000, Start date: 03/17/15 19:16:00, Duration: 30 day, Stop dewayne e: 04/16/15 19:15:00 Start Date: 03/17/15 Stop Date: 03/21/15 Status: Discontinued Vitamin D2 50,000 intl units oral capsule 50,000 IntlUnit=1 cap, PO, QSat Start Date: 03/17/15 Status: Ordered Zofran 4 mg, 2 mL, Route: IVP, Drug form: INJ, ONCE, Dosing Weight 80.909, kg, Priority : STAT, Start date: 03/17/15 19:15:00, Stop date: 03/17/15 19:15:00 Notes: (Same as: Zofran) MEDICATION WASTE Product Size: 4 mgProduct Was em: ___ mg Start Date: 03/17/15 Stop Date: 03/17/15 Status: Completed Results ELECTROLYTES 1 2 3 Most recent to oldest [Reference Range]: 140 mEq/L (03/19/15 10:00 AM) 131 mEq/L *LOW* (03/17/15 7:01 PM) Sodium Lvl [135-145 mEq/L] 3.4 mEq/L *LOW* (03/19/15 10:00 AM) 3.5 mEq/L (03/17/15 7:01 PM) Potassium Lvl [3.5-5.1 mEq/L] 109 mEq/L (03/19/15 10:00 AM) 100 mEq/L (03/17/15 7:01 PM) Chloride Lvl [95-109 mEq/L] 22 mEq/L *LOW* (03/19/15 10:00 AM) 21 mEq/L *LOW* (03/17/15 7:01 PM) CO2 [24-32 mEq/L] 12.4 mEq/L (03/19/15 10:00 AM) 13.5 mEq/L (03/17/15 7:01 PM) AGAP [10.0-20.0 mEq/L] CHEM PANEL 1 2 3 Most recent to oldest [Reference Range]: 1.0 mg/dL (03/19/15 10:00 AM) 1.1 mg/dL (03/18/15 12:47 PM) 1.3 mg/dL (03/17/15 7:01 PM) Creatinine Lvl [0.5-1.4 mg/dL] 58 mL/min/1.73m2 1 *NA* (03/19/15 10:00 AM) 52 mL/min/1.73m2 2 *NA* (03/18/15 12:47 PM) 43 mL/min/1.73m2 3 *NA* (03/17/15 7:01 PM) eGFR 9 mg/dL (03/19/15 10:00 AM) 15 mg/dL (03/17/15 7:01 PM) BUN [7-22 mg/dL] 160 mg/dL *HI* (03/19/15 10:00 AM) 340 mg/dL *HI* (03/17/15 7:01 PM) Glucose Lvl [70-99 mg/dL] 9.1 mg/dL (03/19/15 10:00 AM) 10.1 mg/dL (03/17/15 7:01 PM) Calcium Lvl [8.5-10.5 mg/dL] 3.4 mMol/L *HI* (03/17/15 7:30 PM) Lactic Acid Lvl [0.5-2.2 mMol/L] 1Result [...] by the estimated BMI. URINE AND STOOL 1 2 3 Most recent to oldest [Reference Range]: Marked *ABN* (03/17/15 7:01 PM) UA Turbidity [Clear] Debbi *NA* (03/17/15 7:01 PM) UA Color 6.0 (03/17/15 7:01 PM) UA pH [5.0-8.0] 1.006 (03/17/15 7:01 PM) UA Spec Grav [<=1.030] 500 mg/dL *ABN* (03/17/15 7:01 PM) UA Glucose [Negative mg/dL] Moderate *ABN* (03/17/15 7:01 PM) UA Blood [Negative] Negative mg/dL *NA* (03/17/15 7:01 PM) UA Ketones [Negative mg/dL] 100 mg/dL *ABN* (03/17/15 7:01 PM) UA Protein [Negative mg/dL] <=1.0 mg/dL *NA* (03/17/15 7:01 PM) UA Urobilinogen [0.1-1.0 mg/dL] Negative *NA* (03/17/15 7:01 PM) UA Bili [Negative] Large *ABN* (03/17/15 7:01 PM) UA Leuk Est [Negative] Negative (03/17/15 7:01 PM) UA Nitrite [Negative] >182 /HPF *HI* (03/17/15 7:01 PM) UA WBC [0-5 /HPF] 113 /HPF *HI* (03/17/15 7:01 PM) UA RBC [0-2 /HPF] Many /HPF *ABN* (03/17/15 7:01 PM) UA Bacteria [None Seen /HPF] Few /LPF *NA* (03/17/15 7:01 PM) UA Sq Epi [Few /LPF] HEMATOLOGY 1 2 3 Most recent to oldest [Reference Range]: 10.7 K/CMM *HI* (03/19/15 10:00 AM) 11.4 K/CMM *HI* (03/17/15 7:01 PM) WBC [3.7-10.4 K/CMM] 3.82 M/CMM *LOW* (03/19/15 10:00 AM) 4.19 M/CMM *LOW* (03/17/15 7:01 PM) RBC [4.20-5.40 M/CMM] 9.9 g/dL *LOW* (03/19/15 10:00 AM) 11.0 g/dL *LOW* (03/17/15 7:01 PM) Hgb [12.0-16.0 g/dL] 31.2 % *LOW* (03/19/15 10:00 AM) 34.0 % *LOW* (03/17/15 7:01 PM) Hct [36.0-48.0 %] 81.7 fL (03/19/15 10:00 AM) 81.2 fL (03/17/15 7:01 PM) MCV [80.0-98.0 fL] 26.0 pg *LOW* (03/19/15 10:00 AM) 26.4 pg *LOW* (03/17/15 7:01 PM) MCH [27.0-31.0 pg] 31.8 g/dL *LOW* (03/19/15 10:00 AM) 32.4 g/dL (03/17/15 7:01 PM) MCHC [32.0-36.0 g/dL] 14.7 % *HI* (03/19/15 10:00 AM) 14.8 % *HI* (03/17/15 7:01 PM) RDW [11.5-14.5 %] 302 K/CMM (03/19/15 10:00 AM) 380 K/CMM (03/18/15 12:47 PM) 386 K/CMM (03/17/15 7:01 PM) Platelet [133-450 K/CMM] 9.8 fL (03/19/15 10:00 AM) 9.1 fL (03/17/15 7:01 PM) MPV [7.4-10.4 fL] 77.9 % *HI* (03/19/15 10:00 AM) 70.0 % (03/17/15 7:01 PM) Segs [45.0-75.0 %] 11.5 % *LOW* (03/19/15 10:00 AM) 15.6 % *LOW* (03/17/15 7:01 PM) Lymphocytes [20.0-40.0 %] 6.5 % (03/19/15 10:00 AM) 10.6 % (03/17/15 7:01 PM) Monocytes [2.0-12.0 %] 3.3 % (03/19/15 10:00 AM) 2.8 % (03/17/15 7:01 PM) Eosinophils [0.0-4.0 %] 0.8 % (03/19/15 10:00 AM) 1.0 % (03/17/15 7:01 PM) Basophils [0.0-1.0 %] 8.3 K/CMM *HI* (03/19/15 10:00 AM) 8.0 K/CMM (03/17/15 7:01 PM) Segs-Bands # [1.5-8.1 K/CMM] 1.2 K/CMM (03/19/15 10:00 AM) 1.8 K/CMM (03/17/15 7:01 PM) Lymphocytes # [1.0-5.5 K/CMM] 0.7 K/CMM (03/19/15 10:00 AM) 1.2 K/CMM *HI* (03/17/15 7:01 PM) Monocytes # [0.0-0.8 K/CMM] 0.4 K/CMM (03/19/15 10:00 AM) 0.3 K/CMM (03/17/15 7:01 PM) Eosinophils # [0.0-0.5 K/CMM] 0.1 K/CMM (03/19/15 10:00 AM) 0.1 K/CMM (03/17/15 7:01 PM) Basophils # [0.0-0.2 K/CMM] Normal (03/19/15 10:00 AM) RBC Morph Normal (03/19/15 10:00 AM) Plt Morph 31.6 seconds (03/18/15 12:47 PM) PTT [22.9-35.8 seconds] Immunizations Vaccine Date Refusal Reason pneumococcal 23-valent [...] Clinical Document Author: Khai Bustillo MD Date: 03/21/15 Ifectious Disease Progress Note [facility] Dr. Zaher Shebib SUBJECTIVE Events reviewed. Met with the family/ OBJECTIVE Gen: alert, no acute distress, follow command HEENT: not pale, not icteric, normal cephalic, Neck: Supple, no jvd, CV: S1, S2, no murmurs Lung: clear bilateral course BS Abd: soft, bowel sound normal, no tenderness Ext: no edema Skin: no rash Neuro: no seizure, no local finding Vitals and Temp: VitalsTmp(F)[id number] 03/21 [id number]--- 03/21 04:[id number]------ 03/21 00:[id number]------ 03/20 20:[id number]------ 03/20 16:[id number]------ 24 Hr Tmax: 99.1F (37.28c) at 03/20 20:34Vital Signs are the last 5 in the past 48 hours. Input/Output RecordInOutBal 02/2224hr Tot 100 300 -200 02/2124hr Tot 2404 [id number] Physical Exam Labs (Last four charted values) WBC H 10.7(MAR 19)H 11.4(MAR 17) Hgb L 9.9(MAR 19)L 11.0(MAR 17) Hct L 31.2(MAR 19)L 34.0(MAR 17) Plt 302(MAR 19)380(MAR 18)386(MAR 17) Na 140(MAR 19)L 131(MAR 17) K L 3.4(MAR 19)3.5(MAR 17) CO2 L 22(MAR 19)L 21(MAR 17) Cl 109(MAR 19)100(MAR 17) Cr 1.0(MAR 19)1.1(MAR 18)1.3(MAR 17) BUN 9(MAR 19)15(MAR 17) Glucose Random H 160(MAR 19)H 340(MAR 17) Ca 9.1(MAR 19)10.1(MAR 17) PTT 31.6(MAR 18) Medications Scheduled Meds (14):atorvastatin, cefepime + Sodium Chloride 0.9% IV 100 mL, docusate (docusate sodium 100 mg oral capsule), docusate (docusate sodium 100 mg oral capsule), enoxaparin, ergocalciferol, fluticasone nasal (Flonase 0.05 mg/inh nasal spray), glimepiride, insulin detemir (Levemir FlexPen), lisinopril, metFORMIN (metFORMIN 1000 mg oral tablet), multivitamin, non-formulary (Betamethasone-Calcipotrience topical 0.064%-0.005% suspensio), oxybutynin (Ditropan) Unscheduled Meds: None PRN Meds (14):Dextrose 50% in Water IV (Dextrose 50% Syringe), Dextrose 50% in Water IV (Dextrose 50% Syringe), acetaminophen-codeine (acetaminophen-codeine 300 mg-30 mg oral tablet), acetaminophen, glucagon, hyoscyamine, insulin aspart, insulin aspart, insulin aspart, insulin aspart, insulin aspart, morphine Sulfate, nitroglycerin (nitroglycerin 0.4 mg sublingual tablet), ondansetron One Time Meds: None Continuous Infusions (1):Sodium Chloride 0.9% IV 1,000 mL ALL LABS REVIEW AND ALL RADIOLOGY REPORTS REVIEWED IMPRESSION uti resolved can dc home withoral [id number] tid for 2 weeks PLAN Extracted from: Title: Clinical Document Author: Ramone Jefferson MD Date: 03/21/15 [id number] Extracted from: Title: ID Consult Author: Aide Adan MD Date: 03/18/15 Impression and Plan Diagnosis Acute renal failure (ARF) (ICD9 584.9, Working, Medical). Clinical sepsis (ICD9 038.9, Working, Medical). Recurrent urinary tract infection (ICD9 599.0, Working, Medical). Acidosis, lactic (ICD9 276.2, Working, Medical). Course: Unchanged, IVF started by 1st service, I will start empiric Cefepime pending cultures.. Orders Orders Pharmacy: cefepime (Order): 1 gm, IVPB, [id number]. Education and Follow-up: Counseled: Patient.
--- OUTSIDE RECORDS SUMMARY | 2018-09-11 19:42 | XMS REPORT | Summary of Care ---
Author Author [facility] Organization [facility] Address Unknown Phone Unavailable Encounter HQ Hank(FIN) [id number] Date(s): 12/19/15 - 12/19/15 [facility] [address] [place] [address]- Discharge Disposition: Home Attending Physician: Enio Neal MD Referring Physician: Enio Neal MD Vital Signs No data available for this section Problem List Condition Effective Dates Status Health Status Informant Acute PN - Resolved pyelonephritis(Confi rmed) Chronic cystitis1 10/07/14 Active Diabetes(Confirmed) Active Diabetes(Confirmed) Active Frequency(Confirmed) Resolved HTN Active (hypertension)(Confi rmed) Hypercholesteremia(C Active onfirmed) Hypertension(Confirm Active ed) Psoriasis(Confirmed) Active 2 Retained ureteral Active stent(Confirmed) Sleep Active apnea(Confirmed) Urinary tract Active infection(Confirmed) 1Data migrated from [email or web address] [facility] on 01/04/15. 2on both legs Allergies, Adverse [...] Social History Social History Type Response Alcohol Past, Type Beer. Frequency: 1-2 times per month. Smoking Status Never smoker; Exposure to Tobacco Smoke None; Cigarette Smoking Last 365 Days No; Reg Smoking Cessation Counseling No Assessment and Plan No data available for this section
--- OUTSIDE RECORDS SUMMARY | 2018-09-11 19:42 | XMS REPORT | Summary of Care ---
Author Author [facility] Organization [facility] Address Unknown Phone Unavailable Encounter SID Mckinney(MICHAEL) [id number] Date(s): 04/02/16 - 04/02/16 [facility] [address] [phone] Discharge Disposition: Home or Self Care Attending Physician: Jesse Padgett MD Referring Physician: Jesse Padgett MD Vital Signs 1 2 3 Most recent to oldest [Reference Range]: 152.4 cm (03/29/16 12:21 PM) Height 176/72 mmHg *HI* (04/02/16 12:59 PM) 153/67 mmHg *HI* (04/02/16 12:30 PM) 159/85 mmHg *HI* (04/02/16 12:00 PM) Blood Pressure [90-140/60-90 mmHg] 18 BRMIN (04/02/16 12:59 PM) 14 BRMIN (04/02/16 12:30 PM) 25 BRMIN *HI* (04/02/16 12:15 PM) Respiratory Rate [14-20 BRMIN] 89 bpm (04/02/16 6:05 AM) Peripheral Pulse Rate [60-100 bpm] 71.818 kg (03/29/16 12:21 PM) Weight 30.92 m2 (03/29/16 12:21 PM) Body Mass Index Problem List Condition Effective Dates Status Health Status Informant Acute PN - Resolved pyelonephritis(Confi rmed) Chronic cystitis1 10/07/14 Active Diabetes(Confirmed) Active Diabetes(Confirmed) Active Frequency(Confirmed) Resolved HTN Active (hypertension)(Confi rmed) Hypercholesteremia(C Active onfirmed) Hypertension(Confirm Active ed) Psoriasis(Confirmed) Active 2 Retained ureteral Active stent(Confirmed) Sleep Active apnea(Confirmed)3 Urinary tract Active infection(Confirmed) 1Data migrated from [facility] on 01/04/15. 2on both legs 3PT DOES NOT USE CPAP Allergies, Adverse Reactions, Alerts Substance Reaction Severity Status NKDA Active Medications amoxicillin 500 mg oral capsule 500 mg=1 cap, PO, TID, 0 Refill(s) Start Date: 03/29/16 Stop Date: 04/04/16 Status: Deleted Bactrim DS 800 mg- 160 mg oral tablet 1 tab, PO, BID, 0 Refill(s) Start Date: 03/29/16 Stop Date: 04/04/16 Status: Deleted ceFAZolin 1 gm, Route: IVPB, Drug form: PDR/INJ, PRE OP, Start date: 04/02/16 5:00:00 CDT, Duration: 1 day, Stop date: 04/03/16 4:59:00 CDT Notes: (Same As: Ancef, Kefzol) MEDICATION WASTE Product Size: 1000 mgP roduct Wasted: __0_ mg Start Date: 04/02/16 Stop Date: 04/02/16 Status: Completed ferrous sulfate PO, BID, 0 Refill(s) Start Date: 03/29/16 Status: Ordered Keflex 500 mg oral capsule 500 mg=1 cap, PO, TID, X 7 day, # 21 cap, 0 Refill(s) Start Date: 04/02/16 Stop Date: 04/09/16 Status: Ordered Tylenol with Codeine #3 oral tablet 1 - 2 tab, PO, Q6H, PRN Pain, X 5 day, # 30 tab, 0 Refill(s) Start Date: 04/02/16 Stop Date: 04/07/16 Status: Ordered Results No data available for this section Immunizations Given and Recorded Vaccine Date Status Refusal Reason pneumococcal 23-valent vaccine 12/10/14 Given Procedures Procedure Date Related Diagnosis Body Site Insertion of ureteral stent with ureterotomy1 12/08/14 Appendix operation Bilateral tubal ligation Breast operation2 section Hysterectomy3 Procedure4 Suspension of bladder5 1left,with bladder biopsy 2JAN 1979 INFECTED MAMMAROY GLAND SURGERY 3with bladder [...]
--- OUTSIDE RECORDS SUMMARY | 2018-09-11 19:42 | XMS REPORT | Summary of Care ---
Author Author [facility] Organization [facility] Address Unknown Phone Unavailable Encounter HQ Hank(MICHAEL) [id number] Date(s): 05/17/15 - 05/21/15 [facility] [address] [place] [address]- Discharge Disposition: Home Attending Physician: Osbaldo Hatch MD Admitting Physician: Osbaldo Hatch MD Vital Signs 1 2 3 Most recent to oldest [Reference Range]: 152.4 cm (05/17/15 9:00 AM) 152.4 cm (05/16/15 6:23 PM) Height 99.0 DegF (05/21/15 4:00 PM) 98.6 DegF (05/21/15 12:00 PM) 98.0 DegF (05/21/15 8:00 AM) Temperature Oral [96.4-99.1 DegF] 148/83 mmHg *HI* (05/21/15 4:00 PM) 149/80 mmHg *HI* (05/21/15 12:00 PM) 133/77 mmHg (05/21/15 8:00 AM) Blood Pressure [90-140/60-90 mmHg] 18 BRMIN (05/21/15 4:00 PM) 18 BRMIN (05/21/15 12:00 PM) 18 BRMIN (05/21/15 8:00 AM) Respiratory Rate [14-20 BRMIN] 74 bpm (05/21/15 4:00 PM) 83 bpm (05/21/15 12:00 PM) 75 bpm (05/21/15 8:00 AM) Peripheral Pulse Rate [60-100 bpm] 75.568 kg (05/17/15 9:00 AM) 76.364 kg (05/16/15 6:23 PM) Weight 32.54 m2 (05/17/15 9:00 AM) 32.88 m2 (05/16/15 6:23 PM) Body Mass Index Problem List Condition Effective Dates Status Health Status Informant Acute PN - Resolved pyelonephritis(Confi rmed) Chronic cystitis1 10/07/14 Active Diabetes(Confirmed) Active Diabetes(Confirmed) Active Frequency(Confirmed) Resolved HTN Active (hypertension)(Confi rmed) Hypercholesteremia(C Active onfirmed) Hypertension(Confirm Active ed) Psoriasis(Confirmed) Active 2 Retained ureteral Active stent(Confirmed) Sleep Active apnea(Confirmed) Urinary tract Active infection(Confirmed) 1Data migrated from [employer] on 01/04/15. 2on both legs Allergies, Adverse Reactions, Alerts Substance Reaction Severity Status NKDA Active Medications acetaminophen-codeine 300 mg-30 mg oral tablet 1 tab, Route: PO, Drug Form: TAB, Dosing Weight 76.364, kg, Q4H, PRN Pain Score 4-6, Start date: 05/16/15 21:08:00, Duration: 30 day, Stop date: 06/15/15 21:07: 00 Notes: Do not exceed 4gm/day of acetaminophen. (Same as: Tylenol with Codeine # 3) Start Date: 05/16/15 Stop Date: 05/21/15 Status: Discontinued ampicillin 500 mg oral capsule 2, PO, Q6H, # 28 cap, 0 Refill(s), called to pharmacy Start Date: 05/21/15 Stop Date: 05/28/15 Status: Ordered atorvastatin 10 mg, 1 tab, Route: PO, Drug form: TAB, Bedtime, Dosing Weight 76.364, kg, Star t date: 05/17/15 21:00:00, Duration: 30 day, Stop date: 06/15/15 21:00:00 Notes: (Same As: Lipitor) Start Date: 05/17/15 Stop Date: 05/21/15 Status: Discontinued betamethasone-calcipotriene topical 0.064%-0.005% suspension 1 appl, Route: TOP, Daily, Drug form: SUSP, Start date: 05/17/15 9:00:00, Durati on: 30 day, Stop date: 06/15/15 9:00:00 Start Date: 05/17/15 Stop Date: 05/17/15 Status: Deleted cefdinir 300 mg oral capsule 300 mg=1 cap, PO, Q12H, X 7 day, # 14 cap, 0 Refill(s), called to pharmacy Start Date: 05/21/15 Stop Date: 05/28/15 Status: Ordered cefTRIAXone + Sodium Chloride 0.9% IV 100 mL 1 gm, Route: IVPB, [id number], Dosing Weight 75.568, kg, Start date: 05/17/15 11:00 :00, Duration: 30 day, Stop date: 06/15/15 23:00:00 Notes: (Same As: Rocephin).Use with 100 mL NS and infuse over 30 min MEDICA TION WASTE Product Size: 1000 mgProduct Wasted: ___ mg Start Date: 05/17/15 Stop Date: 05/21/15 Status: Discontinued docusate sodium 100 mg oral capsule 100 mg, 1 cap, Route: PO, Drug form: CAP, QWed, Dosing Weight 76.364, kg, Start date: 05/17/15 12:00:00, Duration: 30 day, Stop date: 06/14/15 12:00:00 Notes: (Same as: Colace) (Do Not Crush) Start Date: 05/17/15 Stop Date: 05/21/15 Status: Discontinued docusate sodium 100 mg oral capsule 100 mg, 1 cap, Route: PO, Drug form: CAP, QSun, Dosing Weight 76.364, kg, Start date: 05/21/15 12:00:00, Duration: 30 day, Stop date: 06/18/15 12:00:00 Notes: (Same as: Colace) (Do Not Crush) Start Date: 05/21/15 Stop Date: 05/21/15 Status: Discontinued glimepiride 4 mg, 1 tab, Route: PO, Drug form: TAB, BID, Dosing Weight 76.364, kg, Start dewayne e: 05/17/15 9:00:00, Duration: 30 day, Stop date: 06/15/15 17:00:00 Notes: (Same as: Amaryl) Start Date: 05/17/15 Stop Date: 05/21/15 Status: Discontinued K-Dur 20 20 mEq, 1 tab, Route: PO, Drug form: ERTAB, Q6H, Start date: 05/17/15 4:00:00, D uration: 4 doses or times, Stop date: 05/17/15 18:00:00 Notes: (Same as: K-Dur 20)"Do Not Crush" With food and full glass of water Start Date: 05/17/15 Stop Date: 05/17/15 Status: Completed Lactated Ringers IV 1,000 mL 1,000 mL, Rate: 125 ml/hr, Infuse over: 8 hr, Route: IV, Dosing Weight 76.364 kg , Total Volume: 1,000, Start date: 05/16/15 21:15:00, Duration: 30 day, Stop dewayne e: 06/15/15 21:14:00 Start Date: 05/16/15 Stop Date: 05/21/15 Status: Discontinued lisinopril 10 mg, 1 tab, Route: PO, Drug form: TAB, Daily, Dosing Weight 76.364, kg, Start date: 05/17/15 9:00:00, Duration: 30 day, Stop date: 06/15/15 9:00:00 Notes: (Same as: Prinivil, Zestril) Start Date: 05/17/15 Stop Date: 05/21/15 Status: Discontinued Lovenox 40 mg, 0.4 mL, Route: SUB-Q, Drug form: INJ, [id number], Dosing Weight 76.364, kg, Start date: 05/16/15 20:00:00, Duration: 30 day, Stop date: 06/14/15 20:00:00 Notes: (Same as: Lovenox) Start Date: 05/16/15 Stop Date: 05/21/15 Status: Discontinued metFORMIN 1000 mg oral tablet 1,000 mg, 2 tab, Route: PO, Drug form: TAB, Lunch, Dosing Weight 76.364, kg, Sta rt date: 05/17/15 12:00:00, Duration: 30 day, Stop date: 06/15/15 12:00:00 Notes: (Same as: Glucophage) Take with meal Start Date: 05/17/15 Stop Date: 05/21/15 Status: Discontinued multivitamin 1 tab, Route: PO, Drug Form: TAB, Daily, Start date: 05/17/15 9:00:00, Duration: 30 day, Stop date: 06/15/15 9:00:00 Notes: (Same as:One Tab Daily, Tab-A-Chelsie + Beta Carotene) Give with food. Start Date: 05/17/15 Stop Date: 05/21/15 Status: Discontinued One-A-Day Women 50 Plus 1 tab, Route: PO, Dosing Weight 76.364, kg, Daily, Start date: 05/17/15 9:00:00, Duration: 30 day, Stop date: 06/15/15 9:00:00 Start Date: 05/17/15 Stop Date: 05/16/15 Status: Deleted Otezla Otezla, 30 mg, Route: PO, BID, 05/19/15 17:00:00, Duration: 30 day, Stop date: 08/19/14 9:00:00 Start Date: 05/19/15 Stop Date: 05/19/15 Status: Deleted Otezla 30 mg oral tablet 30 mg=1 tab, PO, BID, 0 Refill(s) Start Date: 05/19/15 Status: Ordered Please bring Beta-calcipotriene top susp Please bring Beta-calcipotriene top susp, to pharmacy to be verified, Drug form: MISC, Route: MISC, NEVILLEFT, 05/17/15 0:00:00, Duration: 30 day, Stop date: 06/15 16:00:00 Start Date: 05/17/15 Stop Date: 05/17/15 Status: Deleted Please bring pt's Own Otezla to pharmacy for label Please bring pt's Own Otezla to pharmacy for label, Reminder, Drug form: MISC, R oute: MISC, Daily, 05/19/15 14:00:00, Duration: 30 day, Stop date: 06/18/15 9:00 :00 Start Date: 05/19/15 Stop Date: 05/19/15 Status: Deleted potassium chloride 20 mEq, 1 tab, Route: PO, Drug form: ERTAB, ONCE, Dosing Weight 76.364, kg, Star t date: 05/16/15 21:13:00, Stop date: 05/16/15 21:13:00 Notes: (Same as: K-Dur 20)"Do Not Crush" With food and full glass of water Start Date: 05/16/15 Stop Date: 05/16/15 Status: Completed pt own apremilast (Otezia) pt own apremilast (Otezia), 30 mg, Drug form: MISC, Route: PO, BID, 05/19/15 17: 00:00, Duration: 30 day, Stop date: 06/18/15 9:00:00 Start Date: 05/19/15 Stop Date: 05/21/15 Status: Discontinued pt's own med: Calcipotriene/Betamethasone pt's own med: Calcipotriene/Betamethasone, apply, Drug form: MISC, Route: TOP, B ID, 05/18/15 9:00:00, Duration: 30 day, Stop date: 06/16/15 17:00:00 Start Date: 05/18/15 Stop Date: 05/21/15 Status: Discontinued Rocephin + Sodium Chloride 0.9% IV 100 mL 1 gm, Route: IVPB, [id number], Dosing Weight 76.364, kg, Start date: 05/16/15 20:00 :00, Duration: 30 day, Stop date: 06/14/15 20:00:00 Notes: (Same As: Rocephin).Use with 100 mL NS and infuse over 30 min MEDICA TION WASTE Product Size: 1000 mgProduct Wasted: ___ mg Start Date: 05/16/15 Stop Date: 05/17/15 Status: Discontinued tramadol 50 mg oral tablet 50 mg, 1 tab, Route: PO, Drug form: TAB, Q4H, PRN Pain Score 1-5, Start date: 22:41:00, Duration: 30 day, Stop date: 06/15/15 22:40:00 Notes: Not to exceed 400mg/day. (Same As: Ultram) Start Date: 05/16/15 Stop Date: 05/21/15 Status: Discontinued Tylenol 325 mg, 1 tab, Route: PO, Drug form: TAB, Q4H, PRN Pain Score 1-5, Start date: 1 07/16/14 22:41:00, Duration: 30 day, Stop date: 06/15/15 22:40:00 Notes: Do not exceed 4 gm/day. (Same as: Tylenol) Start Date: 05/16/15 Stop Date: 05/21/15 Status: Discontinued Tylenol 650 mg, 2 tab, Route: PO, Drug form: TAB, Q4H, Dosing Weight 76.364, kg, PRN For Temp > 100.4 F, Start date: 05/16/15 21:16:00, Duration: 30 day, Stop date: 06/15/15 21:15:00 Notes: Do not exceed 4 gm/day. (Same as: Tylenol) Start Date: 05/16/15 Stop Date: 05/21/15 Status: Discontinued Ultracet oral tablet 1 tab, Route: PO, Drug Form: TAB, Dosing Weight 76.364, kg, Q4H, PRN Pain Score 1-5, Start date: 05/16/15 21:10:00, Duration: 30 day, Stop date: 06/15/15 21:09: 00 Start Date: 05/16/15 Stop Date: 05/16/15 Status: Deleted Unasyn + Sodium Chloride 0.9% IV 100 mL 3 gm, 1 ea, Route: IVPB, ABXQ6H, Dosing Weight 75.568, kg, Start date: 05/17/15 11:00:00, Duration: 30 day, Stop date: 06/16/15 8:00:00 Notes: Dosing based on Ampicillin component (Same as: Unasyn) Start Date: 05/17/15 Stop Date: 05/21/15 Status: Discontinued vancomycin 250 mg, 5 mL, Route: PO, Drug form: SUSP, ABXQ6H, Dosing Weight 75.568, kg, Star t date: 05/19/15 12:00:00, Stop date: 06/18/15 6:00:00 Notes: TIME CRITICAL MEDICATION"DILUTE EACH DOSE WITH 30ML OF WATER OR APPLE/ORA NGE JUICE PRIOR TO ADMINISTRATION" Start Date: 05/19/15 Stop Date: 05/20/15 Status: Discontinued Vitamin D2 50,000 IntlUnit, 1 cap, Route: PO, Drug form: CAP, QSat, Dosing Weight 76.364, k g, Start date: 05/20/15 9:00:00, Duration: 30 day, Stop date: 06/17/15 9:00:00 Notes: (Same as: Vitamin D) "Do Not Crush" Start Date: 05/20/15 Stop Date: 05/21/15 Status: Discontinued Zofran 4 mg, 2 mL, Route: IV, Drug form: INJ, Q4H, Dosing Weight 76.364, kg, PRN Nausea , Start date: 05/16/15 21:14:00, Duration: 30 day, Stop date: 06/15/15 21:13:00 Notes: (Same as: Zofran) MEDICATION WASTE Product Size: 4 mgProduct Was em: ___ mg Start Date: 05/16/15 Stop Date: 05/21/15 Status: Discontinued Results ELECTROLYTES Most recent to 1 2 oldest [Reference Range]: Sodium Lvl [135-145 140 mEq/L 138 mEq/L mEq/L] (05/17/15 6:53 AM) (05/16/15 7:57 PM) Potassium Lvl 3.1 mEq/L 2.9 mEq/L 1 [3.5-5.1 mEq/L] *LOW* *CRIT* (05/17/15 6:53 AM) (05/16/15 7:57 PM) Chloride Lvl [95-109 105 mEq/L 103 mEq/L mEq/L] (05/17/15 6:53 AM) (05/16/15 7:57 PM) CO2 [24-32 mEq/L] 24 mEq/L 26 mEq/L (05/17/15 6:53 AM) (05/16/15 7:57 PM) AGAP [10.0-20.0 14.1 mEq/L 11.9 mEq/L mEq/L] (05/17/15 6:53 AM) (05/16/15 7:57 PM) 1Result Comment: Critical Result(s) called to Shauna Berkowitz at 05/16/2015 20:47_ by_AN. Read back OK. CHEM PANEL Most recent to 1 2 oldest [Reference Range]: Creatinine Lvl 0.76 mg/dL 0.82 mg/dL [0.50-1.40 mg/dL] (05/17/15 6:53 AM) (05/16/15 7:57 PM) eGFR 82 mL/min/1.73m2 1 74 mL/min/1.73m2 2 *NA* *NA* (05/17/15 6:53 AM) (05/16/15 7:57 PM) BUN [7-22 mg/dL] 14 mg/dL 13 mg/dL (05/17/15 6:53 AM) (05/16/15 7:57 PM) B/C Ratio [6-25] 18 16 (05/17/15 6:53 AM) (05/16/15 7:57 PM) Glucose Lvl [70-99 180 mg/dL 211 mg/dL mg/dL] *HI* *HI* (05/17/15 6:53 AM) (05/16/15 7:57 PM) Total Protein 6.8 g/dL 8.4 g/dL [6.4-8.4 g/dL] (05/17/15 6:53 AM) (05/16/15 7:57 PM) Albumin Lvl [3.5-5.0 2.7 g/dL 3.2 g/dL g/dL] *LOW* *LOW* (05/17/15 6:53 AM) (05/16/15 7:57 PM) Globulin [2.0-4.0 4.1 g/dL 5.2 g/dL g/dL] *HI* *HI* (05/17/15 6:53 AM) (05/16/15 7:57 PM) A/G Ratio [0.7-1.6] 0.7 0.6 (05/17/15 6:53 AM) *LOW* (05/16/15 7:57 PM) Calcium Lvl 8.9 mg/dL 9.6 mg/dL [8.5-10.5 mg/dL] (05/17/15 6:53 AM) (05/16/15 7:57 PM) ALT [0-65 unit/L] 16 unit/L 20 unit/L (05/17/15 6:53 AM) (05/16/15 7:57 PM) AST [0-37 unit/L] 13 unit/L 14 unit/L (05/17/15 6:53 AM) (05/16/15 7:57 PM) Alk Phos [39-136 81 unit/L 86 unit/L unit/L] (05/17/15 6:53 AM) (05/16/15 7:57 PM) Bili Total [0.2-1.3 0.6 mg/dL 0.5 mg/dL mg/dL] (05/17/15 6:53 AM) (05/16/15 7:57 PM) 1Result Comment: The eGFR is calculated [...] be mul tiplied by the estimated BMI. SPECIAL CHEMISTRY Most recent to 1 2 oldest [Reference Range]: Hgb A1C [<=5.6 %] 8.8 % *HI* (05/17/15 6:53 AM) URINE AND STOOL Most recent to 1 2 oldest [Reference Range]: Fecal Leukocyte None Seen (05/19/15 9:18 PM) HEMATOLOGY Most recent to 1 2 oldest [Reference Range]: WBC [3.7-10.4 K/CMM] 32.4 K/CMM *HI* (05/16/15 7:57 PM) RBC [4.20-5.40 3.81 M/CMM M/CMM] *LOW* (05/16/15 7:57 PM) Hgb [12.0-16.0 g/dL] 9.9 g/dL *LOW* (05/16/15 7:57 PM) Hct [36.0-48.0 %] 31.7 % *LOW* (05/16/15 7:57 PM) MCV [80.0-98.0 fL] 83.3 fL (05/16/15 7:57 PM) MCH [27.0-31.0 pg] 26.1 pg *LOW* (05/16/15 7:57 PM) MCHC [32.0-36.0 31.4 g/dL g/dL] *LOW* (05/16/15 7:57 PM) RDW [11.5-14.5 %] 17.2 % *HI* (05/16/15 7:57 PM) Platelet [133-450 321 K/CMM K/CMM] (05/16/15 7:57 PM) MPV [7.4-10.4 fL] 9.6 fL (05/16/15 7:57 PM) Segs [45.0-75.0 %] 82.0 % *HI* (05/16/15 7:57 PM) Bands [0.0-11.0 %] 8.0 % (05/16/15 7:57 PM) Lymphocytes 9.0 % [20.0-40.0 %] *LOW* (05/16/15 7:57 PM) Atypical Lymphs 0.0 % [<=0.0 %] (05/16/15 7:57 PM) Monocytes [2.0-12.0 1.0 % %] *LOW* (05/16/15 7:57 PM) Segs-Bands # 29.2 K/CMM [1.5-8.1 K/CMM] *HI* (05/16/15 7:57 PM) Lymphocytes # 2.9 K/CMM [1.0-5.5 K/CMM] (05/16/15 7:57 PM) Monocytes # [0.0-0.8 0.3 K/CMM K/CMM] (05/16/15 7:57 PM) RBC Morph Normal (05/16/15 7:57 PM) Plt Morph Clumped (05/16/15 7:57 PM) MOLECULAR DIAGNOSTIC Most recent to 1 2 oldest [Reference Range]: C difficile DNA Negative [Negative] (05/19/15 9:18 PM) Immunizations Vaccine Date Refusal Reason pneumococcal [...] Plan Extracted from: Title: Clinical Document Author: Tiffani Myers MD Date: 05/21/15 Progress Note Gastroenterology and Hepatology ASSESSMENT /PLAN: 1. Diarrhea, most likely antibiotic associated appropriate - Improved now. -Negative for Clostridium difficile infection. -Probiotics 2. Recurrent urinary tract infection treatment per infectious disease consultation. Stable for discharge planning from GI. Will sign off. SUBJECTIVE: Patient seen and examined at bedside. Events of the day reviewed with nursing staff. No new complaints. No new diarrhea. Review of Systems: (-)=Negative,(+)=Positive 1) Const: (-) fever, (-) weight change 2) Skin: (-) rash, (-) bleeding 3) HEENT: (-) difficulty swallowing, (-) swelling 4) Eyes: (-) vision changes, (-) bleeding 5) Neuro: (-) weakness, (-) headaches 6) Resp: (-) dyspnea on exertion, (-) cough 7) Cardio: (-) chest pain, (-) orthopnea 8) GI: (-) blood in stool, (-) reflux 9) : (-) dysuria, (-) bloody discharge 10) Endo: (-) heat intolerance, (-) cold intolerance OBJECTIVE: Vitals: See below General: Alert , Oriented x 3 CVS: s1s2 RRR Resp: CTA Bilaterally Abd : Soft, NT, ND , BS + Ext : no edema [employer]: No gross motor/sensory defects VitalsTmp(F)Tmp(C)[id number] 05/21 08:0098.036.36kxeu597/77---[id number]------ 05/21 04:073412.04ably292/75---[id number]------ 05/20 23:5297.936.50ifly123/81---[id number]------ 05/20 20:1998.637.88qpgw597/80---[id number]------ 05/20 15:4698.637.12ejnl792/86---7718--------- 24 Hr Tmax: 98.6F (37.00c) at 05/20 20:19Vital Signs are the last 5 in the past 48 hours. 24 Hr Tmin: 97.9F (36.61c) at 05/20 23:52Weights are the last 5 in 60 days, plus initial. DateWt(kg)Wt(lb)Ht(cm)Ht(in)MethodBMI 05/17 75.57 166.71563.40 60.00Measured 32.5 05/16 (initial) 76.36 168.00Estimated 32.9 79398.40 60.00Stated Most Recent Scores: 05/21/15Pain Intensity NRS (0-10)0 05/20/15Braden Score20 05/20/15Glasgow Coma Score15 05/20/15[place] Fall Score10 05/16/15IH Stroke Score0 Lines, Tubes, and Drains: 05/16/2015 21:00 Peripheral Lines: Hand Right 20 gauge Over the needle catheter (no surgical procedures documented) I&ORecordInOutBal 04/2224hr Tot 100 0 100 04/2124hr Tot 3864 0 3864 24hr Labs 05/21 0854 Glucose POC52 L 05/20 2221 Glucose POC92 05/20 1557 Glucose [id number] H 05/20 1228 Glucose FKW360 H Scheduled Meds (13): ampicillin-sulbactam + Sodium Chloride 0.9% IV 100 mL (Unasyn + Sodium Chloride 0.9% IV 100 mL) 3 gm IVPB [id number] 100 ml/hr [Last Rescheduled Dt/Tm: 05/18/15 8:00:00] [eMAR Schedule: (05/21/15) 02:00, 08:00, 14:00, 20:00] atorvastatin 10 mg PO Bedtime [eMAR Schedule: (05/21/15) 21:00] [Future Dose: 05/22/15 21:00] cefTRIAXone + Sodium Chloride 0.9% IV 100 mL 1 gm IVPB [id number] 200 ml/hr [Last Rescheduled Dt/Tm: 05/17/15 11:00:00] [eMAR Schedule: (05/21/15) 11:00, 23:00] docusate (docusate sodium 100 mg oral capsule) 100 mg PO QSun [Last Rescheduled Dt/Tm: 05/21/15 12:00:00] [eMAR Schedule: (05/21/15) 12:00] [Future Dose: 05/28/15 12:00] docusate (docusate sodium 100 mg oral capsule) 100 mg PO QWed [Last Rescheduled Dt/Tm: 05/17/15 12:00:00] [Future Dose: 05/24/15 12:00] enoxaparin (Lovenox) 40 mg SUB-Q [id number] [eMAR Schedule: (05/21/15) 20:00] [Future Dose: 05/22/15 20:00] ergocalciferol (Vitamin D2) 50,000 IntlUnit PO QSat [Future Dose: 05/27/15 09:00] glimepiride 4 mg PO BID [eMAR Schedule: (05/21/15) 09:00, 17:00] lisinopril 10 mg PO Daily [eMAR Schedule: (05/21/15) 09:00] [Future Dose: 05/22/15 09:00] metFORMIN (metFORMIN 1000 mg oral tablet) 1,000 mg PO Lunch [eMAR Schedule: (05/21/15) 12:00] [Future Dose: 05/22/15 12:00] multivitamin 1 tab PO Daily [eMAR Schedule: (05/21/15) 09:00] [Future Dose: 05/22/15 09:00] non-formulary (pt's own med: Calcipotriene/Betamethasone) TOP BID [eMAR Schedule: (05/21/15) 09:00, 17:00] non-formulary (pt own apremilast (Otezia)) 30 mg PO BID [eMAR Schedule: (05/21/15) 09:00, 17:00] Unscheduled Meds: None PRN Meds (5): acetaminophen-codeine (acetaminophen-codeine 300 mg-30 mg oral tablet) 1 tab PO Q4H acetaminophen (Tylenol) 650 mg PO Q4H acetaminophen (Tylenol) 325 mg PO Q4H ondansetron (Zofran) 4 mg IV Q4H tramadol (tramadol 50 mg oral tablet) 50 mg PO Q4H One Time Meds: None Continuous Infusions (1): Lactated Ringers Injection IV 1,000 mL (Lactated Ringers IV 1,000 mL) 1,000 mL 125 ml/hr Type of Bladder Control: Voluntary
--- OUTSIDE RECORDS SUMMARY | 2018-09-11 19:42 | XMS REPORT | Summary of Care ---
Author Author [facility] Organization [facility] Address Unknown Phone Unavailable Encounter SID Mckinney(MICHAEL) [id number] Date(s): 10/30/16 - 10/30/16 [facility] [address] [address]- [phone] Discharge Disposition: Home or Self Care Attending Physician: Jesse Padgett MD Referring Physician: Jesse Padgett MD Vital Signs 1 2 3 Most recent to oldest [Reference Range]: 152.4 cm (10/25/16 9:13 AM) Height 149/76 mmHg *HI* (10/30/16 1:50 PM) 124/65 mmHg (10/30/16 1:30 PM) 146/86 mmHg *HI* (10/30/16 1:15 PM) Blood Pressure [90-140/60-90 mmHg] 16 BRMIN (10/30/16 1:50 PM) 21 BRMIN *HI* (10/30/16 1:30 PM) 15 BRMIN (10/30/16 1:15 PM) Respiratory Rate [14-20 BRMIN] 84 bpm (10/30/16 8:27 AM) Peripheral Pulse Rate [60-100 bpm] 74.545 kg (10/25/16 9:13 AM) Weight 32.1 m2 (10/25/16 9:13 AM) Body Mass Index Problem List Condition Effective Dates Status Health Status Informant Acute PN - Resolved pyelonephritis(Confi rmed) Chronic cystitis1 10/07/14 Active Diabetes(Confirmed) Active Diabetes(Confirmed) Active Frequency(Confirmed) Resolved HTN Active (hypertension)(Confi rmed) Hypercholesteremia(C Active onfirmed) Hypertension(Confirm Active ed) Psoriasis(Confirmed) Active 2 Retained ureteral Active stent(Confirmed) Sleep Active apnea(Confirmed)3 Urinary tract Active infection(Confirmed) 1Data migrated from [facility] on 01/04/15. 2on both legs 3PT DOES NOT USE CPAP Allergies, Adverse Reactions, Alerts Substance Reaction Severity Status NKDA Active Medications acetaminophen (ANES) (ANES) Route: IV, Drug form: INJ, Start date: 10/30/16 11:24:00 CDT, Stop date: 7 12:24:00 CDT Start Date: 10/30/16 Stop Date: 10/30/16 Status: Completed ANES fentaNYL 25 microgram, 0.5 mL, Route: IVP, Drug form: INJ, Q5Min, Dosing Weight 74.545, k g, PRN Pain Score 4-6, Priority: Routine, Start date: 10/30/16 12:42:00 CDT, Dur ation: 4 doses or times, Stop date: Limited # of times Notes: (Same as: Sublimaze) Preservative free. Start Date: 10/30/16 Stop Date: 10/31/16 Status: Discontinued ANES flumazenil 0.2 mg, 2 mL, Route: IVP, Drug form: INJ, PRN, Dosing Weight 74.545, kg, PRN Juno zodiazepine Reversal, Initial dose, Start date: 10/30/16 12:42:00 CDT, Duration: 30 day, Stop date: 11/29/16 12:41:00 CDT Notes: (Same as: Romazicon) Start Date: 10/30/16 Stop Date: 10/31/16 Status: Discontinued ANES HYDROmorphone 0.5 mg, 0.25 mL, Route: IVP, Drug form: INJ, Q5Min, Dosing Weight 74.545, kg, [place] N Pain Score 7-10, Start date: 10/30/16 12:42:00 CDT, Duration: 4 doses or times , Stop date: Limited # of times Notes: Same as: Dilaudid Start Date: 10/30/16 Stop Date: 10/31/16 Status: Discontinued ANES naloxone 0.4 mg, 1 mL, Route: IVP, Drug form: INJ, Q2MIN, Dosing Weight 74.545, kg, PRN N arcotic Reversal, Start date: 10/30/16 12:42:00 CDT, Duration: 8 doses or times, Stop date: Limited # of times Notes: Same as Narcan Start Date: 10/30/16 Stop Date: 10/31/16 Status: Discontinued ANES ondansetron 4 mg, 2 mL, Route: IVP, Drug form: INJ, ONCE, Dosing Weight 74.545, kg, PRN Naus ea & Vomiting, Start date: 10/30/16 12:42:00 CDT Notes: (Same as: Zofran) MEDICATION WASTE Product Size: 4 mgProduct Was em: ___ mg Start Date: 10/30/16 Stop Date: 10/31/16 Status: Discontinued ANES oxyCODONE 5 mg, 1 tab, Route: PO, Drug form: TAB, Q4H, Dosing Weight 74.545, kg, PRN Pain Score 4-6, Start date: 10/30/16 12:42:00 CDT, Duration: 1 day, Stop date: 12:41:00 CDT Notes: (Same as: Roxicodone) Start Date: 10/30/16 Stop Date: 10/31/16 Status: Discontinued Cipro 400 mg, 200 mL, Route: IVPB, Drug form: INJ, PRE OP, Start date: 10/30/16 1:00:0 0 CDT, Duration: 1 day, Stop date: 10/31/16 0:59:00 CDT Notes: Do not refrigerate Start Date: 10/30/16 Stop Date: 10/30/16 Status: Deleted Cipro 400 mg, 200 mL, Route: IVPB, Drug form: INJ, PRE OP, Start date: 10/30/16 9:00:0 0 CDT, Duration: 1 day, Stop date: 10/31/16 8:59:00 CDT Notes: Do not refrigerate Start Date: 10/30/16 Stop Date: 10/31/16 Status: Discontinued Cipro (ANES) Route: IV, Drug form: INJ, ONCE, Stop date: 10/30/16 11:51:00 CDT Start Date: 10/30/16 Stop Date: 10/30/16 Status: Completed Cipro 500 mg oral tablet 500 mg=1 tab, PO, Q12H, X 7 day, # 14 tab, 0 Refill(s) Start Date: 10/30/16 Stop Date: 11/06/16 Status: Ordered fentaNYL (ANES) Route: IV, Drug form: INJ, ONCE, Stop date: 10/30/16 11:56:00 CDT Start Date: 10/30/16 Stop Date: 10/30/16 Status: Completed fluconazole 100 mg oral tablet 100 mg=1 tab, PO, Daily, X 7 day, # 7 tab, 0 Refill(s) Start Date: 10/30/16 Stop Date: 11/06/16 Status: Ordered Insulin regular 5 unit, Route: IV, ONCE, Dosing Weight 74.545, kg, Start date: 10/30/16 13:05:00 CDT, Stop date: 10/30/16 13:05:00 CDT Start Date: 10/30/16 Stop Date: 10/30/16 Status: Completed Insulin regular 2 unit, 0.02 mL, Route: SUB-Q, Drug form: SOLN, Sliding Scale, Dosing Weight 74. 545, kg, PRN Blood Glucose Results, Start date: 10/30/16 12:42:00 CDT, Duration: 30 day, Stop date: 11/29/16 12:41:00 CDT Notes: (Same as: Humulin R) Roll in palms of hands gently; Do not shake vigorou sly. "single patient use only"(Restricted to patients requiring a dose > 60 units)WASTE: F/P - Black; E - Municipal Trash Bin Stable for 28 days at room temperatureExpires in days from Date Start Date: 10/30/16 Stop Date: 10/31/16 Status: Discontinued Insulin regular 5 unit, 0.05 mL, Route: SUB-Q, Drug form: SOLN, Sliding Scale, Dosing Weight 74. 545, kg, PRN Blood Glucose Results, Start date: 10/30/16 12:42:00 CDT, Duration: 30 day, Stop date: 11/29/16 12:41:00 CDT Notes: (Same as: Humulin R) Roll in palms of hands gently; Do not shake vigorou sly. "single patient use only"(Restricted to patients requiring a dose > 60 units)WASTE: F/P - Black; E - Municipal Trash Bin Stable for 28 days at room temperatureExpires in days from Date Start Date: 10/30/16 Stop Date: 10/31/16 Status: Discontinued Insulin regular 3 unit, 0.03 mL, Route: SUB-Q, Drug form: SOLN, Sliding Scale, Dosing Weight 74. 545, kg, PRN Blood Glucose Results, Start date: 10/30/16 12:42:00 CDT, Duration: 30 day, Stop date: 11/29/16 12:41:00 CDT Notes: (Same as: Humulin R) Roll in palms of hands gently; Do not shake vigorou sly. "single patient use only"(Restricted to patients requiring a dose > 60 units)WASTE: F/P - Black; E - Municipal Trash Bin Stable for 28 days at room temperatureExpires in days from Date Start Date: 10/30/16 Stop Date: 10/31/16 Status: Discontinued Insulin regular 4 unit, 0.04 mL, Route: SUB-Q, Drug form: SOLN, Sliding Scale, Dosing Weight 74. 545, kg, PRN Blood Glucose Results, Start date: 10/30/16 12:42:00 CDT, Duration: 30 day, Stop date: 11/29/16 12:41:00 CDT Notes: (Same as: Humulin R) Roll in palms of hands gently; Do not shake vigorou sly. "single patient use only"(Restricted to patients requiring a dose > 60 units)WASTE: F/P - Black; E - Municipal Trash Bin Stable for 28 days at room temperatureExpires in days from Date Start Date: 10/30/16 Stop Date: 10/31/16 Status: Discontinued Insulin regular 1 unit, 0.01 mL, Route: SUB-Q, Drug form: SOLN, Sliding Scale, Dosing Weight 74. 545, kg, PRN Blood Glucose Results, Start date: 10/30/16 12:42:00 CDT, Duration: 30 day, Stop date: 11/29/16 12:41:00 CDT Notes: (Same as: Humulin R) Roll in palms of hands gently; Do not shake vigorou sly. "single patient use only"(Restricted to patients requiring a dose > 60 units)WASTE: F/P - Black; E - Municipal Trash Bin Stable for 28 days at room temperatureExpires in days from Date Start Date: 10/30/16 Stop Date: 10/31/16 Status: Discontinued Insulin regular 5 unit, Route: IV, ONCE, Dosing Weight 74.545, kg, Start date: 10/30/16 12:36:00 CDT, Stop date: 10/30/16 12:36:00 CDT Start Date: 10/30/16 Stop Date: 10/30/16 Status: Completed Levsin SL 0.125 mg sublingual tablet 0.125 mg=1 tab, SL, Q4H, PRN Bladder Spasm, # 10 tab, 0 Refill(s) Start Date: 10/30/16 Status: Ordered lidocaine (ANES) Route: IV, Drug form: INJ, ONCE, Stop date: 10/30/16 11:41:00 CDT Start Date: 10/30/16 Stop Date: 10/30/16 Status: Completed LR 1000 mL INJ (ANES) Route: IV, Total Volume: 1,000, Start date: 10/30/16 10:47:00 CDT, Stop date: 11:47:00 CDT Start Date: 10/30/16 Stop Date: 10/30/16 Status: Completed midazolam (ANES) Route: IV, Drug form: SOLN, ONCE, Stop date: 10/30/16 11:41:00 CDT Start Date: 10/30/16 Stop Date: 10/30/16 Status: Completed ondansetron (ANES) Route: IV, Drug form: INJ, ONCE, Stop date: 10/30/16 12:11:00 CDT Start Date: 10/30/16 Stop Date: 10/30/16 Status: Completed phenylephrine (ANES) Route: IV, Drug form: INJ, ONCE, Stop date: 10/30/16 11:56:00 CDT Start Date: 10/30/16 Stop Date: 10/30/16 Status: Completed Results ELECTROLYTES Most recent to 1 oldest [Reference Range]: Sodium Lvl [135-145 132 mEq/L mEq/L] *LOW* (10/30/16 9:07 AM) Potassium Lvl 4.2 mEq/L [3.5-5.1 mEq/L] (10/30/16 9:07 AM) Chloride Lvl [95-109 98 mEq/L mEq/L] (10/30/16 9:07 AM) CO2 [24-32 mEq/L] 23 mEq/L *LOW* (10/30/16 9:07 AM) AGAP [10.0-20.0 15.2 mEq/L mEq/L] (10/30/16 9:07 AM) CHEM PANEL Most recent to 1 oldest [Reference Range]: Creatinine Lvl 1.01 mg/dL [0.50-1.40 mg/dL] (10/30/16 9:07 AM) eGFR 57 mL/min/1.73m2 1 *NA* (10/30/16 9:07 AM) BUN [7-22 mg/dL] 19 mg/dL (10/30/16 9:07 AM) Glucose Lvl [70-99 227 mg/dL mg/dL] *HI* (10/30/16 9:07 AM) Calcium Lvl 10.2 mg/dL [8.5-10.5 mg/dL] (10/30/16 9:07 AM) 1Result Comment: The eGFR is calculated [...] be mul tiplied by the estimated BMI. HEMATOLOGY Most recent to 1 oldest [Reference Range]: WBC [3.7-10.4 K/CMM] 8.6 K/CMM (10/30/16 9:07 AM) RBC [4.20-5.40 4.14 M/CMM M/CMM] *LOW* (10/30/16 9:07 AM) Hgb [12.0-16.0 g/dL] 11.3 g/dL *LOW* (10/30/16:07 AM) Hct [36.0-48.0 %] 34.3 % *LOW* (10/30/16 9:07 AM) MCV [80.0-98.0 fL] 82.8 fL (10/30/16 9:07 AM) MCH [27.0-31.0 pg] 27.4 pg (10/30/16 9:07 AM) MCHC [32.0-36.0 33.1 g/dL g/dL] (10/30/16 9:07 AM) RDW [11.5-14.5 %] 14.7 % *HI* (10/30/16 9:07 AM) Platelet [133-450 260 K/CMM K/CMM] (10/30/16 9:07 AM) MPV [7.4-10.4 fL] 9.5 fL (10/30/16 9:07 AM) Segs [45.0-75.0 %] 62.0 % (10/30/16 9:07 AM) Lymphocytes 25.5 % [20.0-40.0 %] (10/30/16 9:07 AM) Monocytes [2.0-12.0 8.9 % %] (10/30/16 9:07 AM) Eosinophils [0.0-4.0 2.8 % %] (10/30/16 9:07 AM) Basophils [0.0-1.0 0.8 % %] (10/30/16 9:07 AM) Segs-Bands # 5.4 K/CMM [1.5-8.1 K/CMM] (10/30/16 9:07 AM) Lymphocytes # 2.2 K/CMM [1.0-5.5 K/CMM] (10/30/16 9:07 AM) Monocytes # [0.0-0.8 0.8 K/CMM K/CMM] (10/30/16 9:07 AM) Eosinophils # 0.2 K/CMM [0.0-0.5 K/CMM] (10/30/16 9:07 AM) Basophils # [0.0-0.2 0.1 K/CMM K/CMM] (10/30/16 9:07 AM) Immunizations Given and Recorded Vaccine Date Status [...]
--- OUTSIDE RECORDS SUMMARY | 2018-09-11 19:42 | XMS REPORT | Summary of Care ---
Author Author [facility] [place] Organization [facility] [place] Address Unknown Phone Unavailable Encounter HQ Mele_cheryl(FIN) [id number] Date(s): 10/09/15 - 10/09/15 [facility] [place] [address] [place] [address] [phone] Discharge Disposition: Home Attending Physician: More Good MD Vital Signs [...] Urinary tract Active infection(Confirmed) 1Data migrated from [employer] on 01/04/15. 2on both legs Allergies, Adverse [...]
--- OUTSIDE RECORDS SUMMARY | 2018-09-11 19:42 | XMS REPORT | Summary of Care ---
Author Author [facility] Organization [facility] Address Unknown Phone Unavailable Encounter HQ Hank(FIN) [id number] Date(s): 04/21/15 - 05/20/15 [facility] [address] [place] [address]- Discharge Disposition: Home Attending Physician: Antonio Cortes DO Referring Physician: Antonio Cortes DO Vital Signs No data available for this section Problem List Condition Effective Dates Status Health Status Informant Acute PN - Resolved pyelonephritis(Confi rmed) Chronic cystitis1 10/07/14 Active Diabetes(Confirmed) Active Diabetes(Confirmed) Active Frequency(Confirmed) Resolved HTN Active (hypertension)(Confi rmed) Hypercholesteremia(C Active onfirmed) Hypertension(Confirm Active ed) Psoriasis(Confirmed) Active 2 Retained ureteral Active stent(Confirmed) Sleep Active apnea(Confirmed) Urinary tract Active infection(Confirmed) 1Data migrated from [employer] on 01/04/15. 2on both legs Allergies, Adverse [...]
--- OUTSIDE RECORDS SUMMARY | 2018-09-11 19:42 | XMS REPORT | Summary of Care ---
Author Author [facility] Organization [facility] Address Unknown Phone Unavailable Encounter SID Mckinney(MICHAEL) [id number] Date(s): 09/26/15 - 09/26/15 [facility] [address] [place] [address]- [phone] Discharge Disposition: Home Attending Physician: Enio Neal [...] Urinary tract Active infection(Confirmed) 1Data migrated from [employer] on 01/04/15. 2on both legs Allergies, Adverse Reactions, Alerts Substance Reaction Severity Status NKDA Active NKDA1 Active 1Data migrated from [employer] on 09/01/15. Originally documented as NKA. Medications No data available for this section [...]
--- OUTSIDE RECORDS SUMMARY | 2018-09-11 19:42 | XMS REPORT | Summary of Care ---
Author Author [facility] Organization [facility] Address Unknown Phone Unavailable Encounter HQ Hakn(MICHAEL) [id number] Date(s): 04/09/16 - 04/09/16 [facility] [address] [place] [address] Discharge Disposition: Home or Self Care Attending Physician: Jesse Padgett MD Referring Physician: Jesse Padgett MD Vital Signs Most recent to 1 2 oldest [Reference Range]: Height 152.4 cm 152.4 cm (04/09/16 6:27 AM) (04/04/16 4:17 PM) Blood Pressure 101/56 mmHg 148/85 mmHg [90-140/60-90 mmHg] (04/09/16 9:44 AM) *HI* (04/09/16 6:02 AM) Respiratory Rate 16 BRMIN 16 BRMIN [14-20 BRMIN] (04/09/16 9:44 AM) (04/09/16 6:02 AM) Peripheral Pulse 79 bpm 100 bpm Rate [60-100 bpm] (04/09/16 9:44 AM) (04/09/16 6:02 AM) Weight 71.818 kg 71.818 kg (04/09/16 6:27 AM) (04/04/16 4:17 PM) Body Mass Index 30.92 m2 30.92 m2 (04/09/16 6:27 AM) (04/04/16 4:17 PM) Problem List Condition Effective Dates Status Health Status Informant Acute PN - Resolved pyelonephritis(Confi rmed) Chronic cystitis1 10/07/14 Active Diabetes(Confirmed) Active Diabetes(Confirmed) Active Frequency(Confirmed) Resolved HTN Active (hypertension)(Confi rmed) Hypercholesteremia(C Active onfirmed) Hypertension(Confirm Active ed) Psoriasis(Confirmed) Active 2 Retained ureteral Active stent(Confirmed) Sleep Active apnea(Confirmed)3 Urinary tract Active infection(Confirmed) 1Data migrated from [employer] on 01/04/15. 2on both legs 3PT DOES NOT USE CPAP Allergies, Adverse Reactions, Alerts Substance Reaction Severity Status NKDA Active Medications ANES flumazenil 0.2 mg, 2 mL, Route: IVP, Drug form: INJ, PRN, Dosing Weight 71.818, kg, PRN Juno zodiazepine Reversal, Initial dose, Start date: 04/09/16 7:24:00 CDT, Duration: 30 day, Stop date: 05/09/16 6:23:00 METEOROLOGY TEACHER Notes: (Same as: Romazicon) Start Date: 04/09/16 Stop Date: 04/10/16 Status: Discontinued ANES hydrALAZINE 10 mg, 0.5 mL, Route: IVP, Drug form: INJ, Q20Min, Dosing Weight 71.818, kg, PRN Elevated BP, Start date: 04/09/16 7:24:00 CDT, Duration: 2 doses or times, Stop date: Limited # of times Notes: (Same as: Apresoline)Push over 5 minutes Start Date: 04/09/16 Stop Date: 04/10/16 Status: Discontinued ANES labetalol 10 mg, 2 mL, Route: IVP, Drug form: INJ, Q5Min, Dosing Weight 71.818, kg, PRN El evated BP, Start date: 04/09/16 7:24:00 CDT, Duration: 5 doses or times, Stop da te: Limited # of times Start Date: 04/09/16 Stop Date: 04/10/16 Status: Discontinued ANES naloxone 0.4 mg, 1 mL, Route: IVP, Drug form: INJ, Q2MIN, Dosing Weight 71.818, kg, PRN N arcotic Reversal, Start date: 04/09/16 7:24:00 CDT, Duration: 8 doses or times, Stop date: Limited # of times Notes: Same as Narcan Start Date: 04/09/16 Stop Date: 04/10/16 Status: Discontinued ANES ondansetron 4 mg, 2 mL, Route: IVP, Drug form: INJ, ONCE, Dosing Weight 71.818, kg, PRN Naus ea & Vomiting, Start date: 04/09/16 7:24:00 CDT Notes: (Same as: Zofran) MEDICATION WASTE Product Size: 4 mgProduct Was em: _0_ mg Start Date: 04/09/16 Stop Date: 04/10/16 Status: Discontinued ANES oxyCODONE 5 mg, 1 tab, Route: PO, Drug form: TAB, Q4H, Dosing Weight 71.818, kg, PRN Pain Score 4-6, Start date: 04/09/16 7:24:00 CDT, Duration: 30 day, Stop date: 7:23:00 METEOROLOGY TEACHER Notes: (Same as: Roxicodone) Start Date: 04/09/16 Stop Date: 04/10/16 Status: Discontinued Cipro 400 mg, 200 mL, Route: IVPB, Drug form: INJ, PRE OP, Start date: 04/09/16 1:00:0 0 CDT, Duration: 1 day, Stop date: 04/10/16 0:59:00 CDT Notes: Do not refrigerate Start Date: 04/09/16 Stop Date: 04/09/16 Status: Completed Keflex 500 mg oral capsule 500 mg=1 cap, PO, BID, X 7 day, # 14 cap, 0 Refill(s) Start Date: 04/09/16 Stop Date: 04/16/16 Status: Ordered Lactated Ringers 1,000 mL 1,000 mL, Rate: 40 ml/hr, Infuse over: 25 hr, Route: IV, Dosing Weight 71.818 kg , Total Volume: 1,000, Start date: 04/09/16 6:00:00 CDT, Duration: 30 day, Stop date: 05/09/16 5:59:00 METEOROLOGY TEACHER Start Date: 04/09/16 Stop Date: 04/10/16 Status: Discontinued Tylenol with Codeine #3 oral tablet 1 - 2 tab, PO, Q4H, PRN Pain, X 2 day, # 20 tab, 0 Refill(s) Start Date: 04/09/16 Stop Date: 04/11/16 Status: Completed Results ELECTROLYTES Most recent to 1 oldest [Reference Range]: Sodium Lvl [135-145 131 mEq/L mEq/L] *LOW* (04/09/16 6:01 AM) Potassium Lvl 4.0 mEq/L [3.5-5.1 mEq/L] (04/09/16 6:01 AM) Chloride Lvl [95-109 101 mEq/L mEq/L] (04/09/16 6:01 AM) CO2 [24-32 mEq/L] 20 mEq/L *LOW* (04/09/16: AM) AGAP [10.0-20.0 14.0 mEq/L mEq/L] (04/09/16 6: AM) CHEM PANEL Most recent to 1 oldest [Reference Range]: Creatinine Lvl 0.90 mg/dL [0.50-1.40 mg/dL] (04/09/16: AM) eGFR 66 mL/min/1.73m2 1 *NA* (04/09/16 AM) BUN [7-22 mg/dL] 24 mg/dL *HI* (04/09/16: AM) Glucose Lvl [70-99 149 mg/dL mg/dL] *HI* (04/09/16: AM) Calcium Lvl 10.0 mg/dL [8.5-10.5 mg/dL] (04/09/16:01 AM) 1Result Comment: The eGFR is calculated [...] 1 oldest [Reference Range]: WBC [3.7-10.4 K/CMM] 11.2 K/CMM *HI* (04/09/16:01 AM) RBC [4.20-5.40 3.68 M/CMM M/CMM] *LOW* (04/09/16 6:01 AM) Hgb [12.0-16.0 g/dL] 10.4 g/dL *LOW* (04/09/16 6:01 AM) Hct [36.0-48.0 %] 31.1 % *LOW* (04/09/16 6:01 AM) MCV [80.0-98.0 fL] 84.4 fL (04/09/16 6: AM) MCH [27.0-31.0 pg] 28.2 pg (04/09/16 6: AM) MCHC [32.0-36.0 33.4 g/dL g/dL] (04/09/16 6: AM) RDW [11.5-14.5 %] 13.6 % (04/09/16 6:01 AM) Platelet [133-450 287 K/CMM K/CMM] (04/09/16 6:01 AM) MPV [7.4-10.4 fL] 8.7 fL (04/09/16 6:01 AM) Segs [45.0-75.0 %] 69.1 % (04/09/16 6:01 AM) Lymphocytes 16.5 % [20.0-40.0 %] *LOW* (04/09/16 6:01 AM) Monocytes [2.0-12.0 9.2 % %] (04/09/16 6:01 AM) Eosinophils [0.0-4.0 3.6 % %] (04/09/16 6:01 AM) Basophils [0.0-1.0 1.6 % %] *HI* (04/09/16 6:01 AM) Segs-Bands # 7.8 K/CMM [1.5-8.1 K/CMM] (04/09/16 6:01 AM) Lymphocytes # 1.8 K/CMM [1.0-5.5 K/CMM] (04/09/16 6:01 AM) Monocytes # [0.0-0.8 1.0 K/CMM K/CMM] *HI* (04/09/16 6:01 AM) Eosinophils # 0.4 K/CMM [0.0-0.5 K/CMM] (04/09/16 6:01 AM) Basophils # [0.0-0.2 0.2 K/CMM K/CMM] (04/09/16 6:01 AM) Immunizations Given and Recorded Vaccine Date [...]
--- OUTSIDE RECORDS SUMMARY | 2018-09-11 19:42 | XMS REPORT | Summary of Care ---
Author Author [facility] [place] Organization [facility] [place] Address Unknown Phone Unavailable Encounter SID Mckinney(FIN) [id number] Date(s): 02/27/16 - 02/27/16 [facility] [place] [address] [place] [address] [phone] Discharge Disposition: Home or Self Care Attending Physician: Physician, Non Associated MD Referring Physician: Daniel Thakur MD Vital Signs No data available for this section Problem List Condition Effective Dates Status Health Status Informant Acute PN - Resolved pyelonephritis(Confi rmed) Chronic cystitis1 10/07/14 Active Diabetes(Confirmed) Active Diabetes(Confirmed) Active Frequency(Confirmed) Resolved HTN Active (hypertension)(Confi rmed) Hypercholesteremia(C Active onfirmed) Hypertension(Confirm Active ed) Psoriasis(Confirmed) Active 2 Retained ureteral Active stent(Confirmed) Sleep Active apnea(Confirmed) Urinary tract Active infection(Confirmed) 1Data migrated from [facility] on 01/04/15. 2on both legs [...]
--- OUTSIDE RECORDS SUMMARY | 2018-09-11 19:42 | XMS REPORT | Summary of Care ---
Author Author [facility] Organization [facility] Address Unknown Phone Unavailable Encounter SID Mckinney(MICHAEL) [id number] Date(s): 04/12/15 - 04/17/15 [facility] [address] [place] [address]- [phone] Discharge Disposition: Home Attending Physician: Ani Santiago MD Admitting Physician: Ani Santiago MD Vital Signs 1 2 3 Most recent to oldest [Reference Range]: 152.4 cm (04/13/15 9:27 AM) 152.4 cm (04/12/15 11:25 PM) Height 1 2 3 Most recent to oldest [Reference Range]: 98.1 DegF (04/17/15 8:20 PM) 98.1 DegF (04/17/15 11:25 AM) 98 DegF (04/17/15 8:51 AM) Temperature Oral [96.4-99.1 DegF] 1 2 3 Most recent to oldest [Reference Range]: 160/92 mmHg *HI* (04/17/15 8:20 PM) 138/79 mmHg (04/17/15 11:25 AM) 132/80 mmHg (04/17/15 8:51 AM) Blood Pressure [90-140/60-90 mmHg] 1 2 3 Most recent to oldest [Reference Range]: 17 BRMIN (04/17/15 8:20 PM) 16 BRMIN (04/17/15 11:25 AM) 16 BRMIN (04/17/15 8:51 AM) Respiratory Rate [14-20 BRMIN] 1 2 3 Most recent to oldest [Reference Range]: 90 bpm (04/17/15 8:20 PM) 87 bpm (04/17/15 11:25 AM) 83 bpm (04/17/15 8:51 AM) Peripheral Pulse Rate [60-100 bpm] 1 2 3 Most recent to oldest [Reference Range]: 77.273 kg (04/15/15 9:00 AM) 77.983 kg (04/14/15 11:41 AM) 77.727 kg (04/13/15 9:27 AM) Weight 1 2 3 Most recent to oldest [Reference Range]: 33.47 m2 (04/13/15 9:27 AM) 33.47 m2 (04/12/15 11:25 PM) Body Mass Index Problem List Condition Effective Dates Status Health Status Informant Acute PN - Resolved pyelonephritis(Confi rmed) Chronic cystitis1 10/07/14 Active Diabetes(Confirmed) Active Diabetes(Confirmed) Active Frequency(Confirmed) Resolved HTN Active (hypertension)(Confi rmed) Hypercholesteremia(C Active onfirmed) Hypertension(Confirm Active ed) Psoriasis(Confirmed) Active 2 Retained ureteral Active stent(Confirmed) Sleep Active apnea(Confirmed) Urinary tract Active infection(Confirmed) 1Data migrated from [employer] on 01/04/15. 2on both legs Allergies, Adverse Reactions, Alerts Substance Reaction Severity Status NKDA Active Medications acetaminophen 650 mg, 2 tab, Route: PO, Drug form: TAB, Q4H, Dosing Weight 77.727, kg, PRN Sandrine n 1-3/Temp > 100.4 F, Start date: 04/13/15 7:20:00, Duration: 30 day, Stop date: 05/13/15 7:19:00 Notes: Do not exceed 4 gm/day. (Same as: Tylenol) Start Date: 04/13/15 Stop Date: 04/17/15 Status: Discontinued acetaminophen-hydrocodone 325 mg-5 mg oral tablet 1 tab, Route: PO, Drug Form: TAB, Dosing Weight 77.727, kg, Q4H, PRN Pain Score 4-6, Start date: 04/13/15 7:20:00, Duration: 30 day, Stop date: 05/13/15 7:19:00 Notes: (Same as: [place] 325/5) Do not exceed 4gm/day of acetaminophen. Start Date: 04/13/15 Stop Date: 04/17/15 Status: Discontinued atorvastatin 10 mg, 1 tab, Route: PO, Drug form: TAB, Bedtime, Dosing Weight 77.727, kg, Star t date: 04/13/15 21:00:00, Duration: 30 day, Stop date: 05/12/15 21:00:00 Notes: (Same As: Lipitor) Start Date: 04/13/15 Stop Date: 04/17/15 Status: Discontinued Bactrim DS 800 mg- 160 mg oral tablet 1 tab, PO, BID, # 14 tab, 0 Refill(s) Start Date: 04/13/15 Stop Date: 04/17/15 Status: Discontinued Cipro 250 mg oral tablet 250 mg=1 tab, PO, Q12H, X 14 day, # 28 tab, 0 Refill(s) Start Date: 04/17/15 Stop Date: 05/01/15 Status: Ordered Dextrose 50% Syringe 12.5 gm, 25 mL, Route: IVP, Drug Form: INJ, Dosing Weight 77.727, kg, PRN, PRN B lood Glucose Results, Start date: 04/13/15 7:20:00, Duration: 30 day, Stop date: 05/13/15 6:19:00 Start Date: 04/13/15 Stop Date: 04/17/15 Status: Discontinued Dextrose 50% Syringe 25 gm, 50 mL, Route: IVP, Drug Form: INJ, Dosing Weight 77.727, kg, PRN, PRN Blo od Glucose Results, Start date: 04/13/15 7:20:00, Duration: 30 day, Stop date: 07/13/14 6:19:00 Start Date: 04/13/15 Stop Date: 04/17/15 Status: Discontinued docusate sodium 100 mg oral capsule 100 mg, 1 cap, Route: PO, Drug form: CAP, QWed, Dosing Weight 77.727, kg, Start date: 04/19/15 12:00:00, Duration: 30 day, Stop date: 05/17/15 12:00:00 Notes: (Same as: Colace) (Do Not Crush) Start Date: 04/19/15 Stop Date: 04/17/15 Status: Canceled docusate sodium 100 mg oral capsule 100 mg, 1 cap, Route: PO, Drug form: CAP, QSun, Dosing Weight 77.727, kg, Start date: 04/16/15 9:00:00, Duration: 30 day, Stop date: 05/14/15 9:00:00 Notes: (Same as: Colace) (Do Not Crush) Start Date: 04/16/15 Stop Date: 04/17/15 Status: Discontinued ergocalciferol 50,000 IntlUnit, 1 cap, Route: PO, Drug form: CAP, QSat, Dosing Weight 77.727, k g, Start date: 04/15/15 9:00:00, Duration: 30 day, Stop date: 05/13/15 9:00:00 Notes: (Same as: Vitamin D) "Do Not Crush" Start Date: 04/15/15 Stop Date: 04/17/15 Status: Discontinued glucagon 1 mg, Route: IM, Drug form: PDR/INJ, PRN, Dosing Weight 77.727, kg, PRN Blood Gl ucose Results, Start date: 04/13/15 7:20:00, Duration: 30 day, Stop date: 6:19:00 Start Date: 04/13/15 Stop Date: 04/17/15 Status: Discontinued insulin aspart 5 unit, 0.05 mL, Route: SUB-Q, Drug form: SOLN, TID-Before Meals, Dosing Weight 77.727, kg, PRN Blood Glucose Results, Start date: 04/13/15 7:20:00, Duration: 3 0 day, Stop date: 05/13/15 7:19:00 Notes: Roll in palms of hands gently; Do not shake vigorously. (Same as: NovoLO G)"single patient use only" Stable for 28 days at room temperature.Expires in _ ____ days from Date Start Date: 04/13/15 Stop Date: 04/17/15 Status: Discontinued insulin aspart 4 unit, 0.04 mL, Route: SUB-Q, Drug form: SOLN, TID-Before Meals, Dosing Weight 77.727, kg, PRN Blood Glucose Results, Start date: 04/13/15 7:20:00, Duration: 3 0 day, Stop date: 05/13/15 7:19:00 Notes: Roll in palms of hands gently; Do not shake vigorously. (Same as: NovoLO G)"single patient use only" Stable for 28 days at room temperature.Expires in _ ____ days from Date Start Date: 04/13/15 Stop Date: 04/17/15 Status: Discontinued insulin aspart 1 unit, 0.01 mL, Route: SUB-Q, Drug form: SOLN, TID-Before Meals, Dosing Weight 77.727, kg, PRN Blood Glucose Results, Start date: 04/13/15 7:20:00, Duration: 3 0 day, Stop date: 05/13/15 7:19:00 Notes: Roll in palms of hands gently; Do not shake vigorously. (Same as: NovoLO G)"single patient use only" Stable for 28 days at room temperature.Expires in _ ____ days from Date Start Date: 04/13/15 Stop Date: 04/17/15 Status: Discontinued insulin aspart 3 unit, 0.03 mL, Route: SUB-Q, Drug form: SOLN, TID-Before Meals, Dosing Weight 77.727, kg, PRN Blood Glucose Results, Start date: 04/13/15 7:20:00, Duration: 3 0 day, Stop date: 05/13/15 7:19:00 Notes: Roll in palms of hands gently; Do not shake vigorously. (Same as: NovoLO G)"single patient use only" Stable for 28 days at room temperature.Expires in _ ____ days from Date Start Date: 04/13/15 Stop Date: 04/17/15 Status: Discontinued insulin aspart 2 unit, 0.02 mL, Route: SUB-Q, Drug form: SOLN, TID-Before Meals, Dosing Weight 77.727, kg, PRN Blood Glucose Results, Start date: 04/13/15 7:20:00, Duration: 3 0 day, Stop date: 05/13/15 7:19:00 Notes: Roll in palms of hands gently; Do not shake vigorously. (Same as: NovoLO G)"single patient use only" Stable for 28 days at room temperature.Expires in _ ____ days from Date Start Date: 04/13/15 Stop Date: 04/17/15 Status: Discontinued lactulose 20 gm, 30 ml, Route: PO, Drug Form: SYRP, Dosing Weight 77.983, kg, Q8H, PRN Con stipation, Start date: 04/15/15 14:54:00, Duration: 30 day, Stop date: 05/15/15 14:53:00 Notes: (Same as:Chronulac) Start Date: 04/15/15 Stop Date: 04/17/15 Status: Discontinued Lantus 15 unit, Route: SUB-Q, Bedtime, Dosing Weight 77.727, kg, Start date: 04/13/15 2 1:00:00, Duration: 30 day, Stop date: 05/12/15 21:00:00 Start Date: 04/13/15 Stop Date: 04/13/15 Status: Deleted Levemir FlexPen 25 unit, 0.25 mL, Route: SUB-Q, Drug form: INJ, Bedtime, Start date: 04/16/15 21 :00:00, Duration: 30 day, Stop date: 05/15/15 21:00:00 Notes: Same as LevemirDo not hold insulin without contacting prescriber "single patient use only" Start Date: 04/16/15 Stop Date: 04/17/15 Status: Discontinued Levemir FlexPen 15 unit, 0.15 mL, Route: SUB-Q, Drug form: INJ, Bedtime, Start date: 04/13/15 21 :00:00, Duration: 30 day, Stop date: 05/12/15 21:00:00 Notes: Same as LevemirDo not hold insulin without contacting prescriber "single patient use only" Start Date: 04/13/15 Stop Date: 04/16/15 Status: Discontinued lisinopril 10 mg, 1 tab, Route: PO, Drug form: TAB, Daily, Dosing Weight 77.727, kg, Start date: 04/13/15 9:00:00, Duration: 30 day, Stop date: 05/12/15 9:00:00 Notes: (Same as: Prinivil, Zestril) Start Date: 04/13/15 Stop Date: 04/17/15 Status: Discontinued morphine Sulfate 2 mg, 1 mL, Route: IVP, Drug form: INJ, Q4H, Dosing Weight 77.727, kg, PRN Pain Score 7-10, Start date: 04/13/15 7:20:00, Duration: 30 day, Stop date: 05/13/15 7:19:00 Notes: (Same as:MORPhine Sulfate) Start Date: 04/13/15 Stop Date: 04/17/15 Status: Discontinued morphine Sulfate 2 mg, 1 mL, Route: IVP, Drug form: INJ, ONCE, Dosing Weight 77.727, kg, Priority : STAT, Start date: 04/13/15 2:23:00, Stop date: 04/13/15 2:23:00 Notes: (Same as:MORPhine Sulfate) Start Date: 04/13/15 Stop Date: 04/13/15 Status: Completed Multiple Vitamins with Minerals oral tablet 1 tab, Route: PO, Drug Form: TAB, Dosing Weight 77.727, kg, Daily, Start date: 9:00:00, Duration: 30 day, Stop date: 05/12/15 9:00:00 Notes: (Same as:Thera-M, Theragran-M) Give with food. Start Date: 04/13/15 Stop Date: 04/17/15 Status: Discontinued NS (Bolus) IV 1,000 mL, 1,000 ml/hr, Infuse Over: 1 hr, Route: IV, 1,000, Drug form: INJ, ONCE , Priority: STAT, Dosing Weight 77.727 kg, Start date: 04/13/15 2:21:00, Duratio n: 1 doses or times, Stop date: 04/13/15 2:21:00 Start Date: 04/13/15 Stop Date: 04/13/15 Status: Completed NS 1,000 mL 1,000 mL, Rate: 125 ml/hr, Infuse over: 8 hr, Route: IV, Dosing Weight 77.727 kg , Total Volume: 1,000, Start date: 04/13/15 2:22:00, Duration: 30 day, Stop date : 05/13/15 2:21:00 Start Date: 04/13/15 Stop Date: 04/13/15 Status: Discontinued ondansetron 4 mg, 2 mL, Route: IVP, Drug form: INJ, Q6H, Dosing Weight 77.727, kg, PRN Nause a & Vomiting, Start date: 04/13/15 7:20:00, Duration: 30 day, Stop date: 05/13/15 7:19:00 Notes: (Same as: Dima) MEDICATION WASTE Product Size: 4 mgProduct Was em: ___ mg Start Date: 04/13/15 Stop Date: 04/17/15 Status: Discontinued otezla otezla, 30 mg, Route: PO, BID, 04/13/15 17:00:00, Duration: 30 day, Stop date: 07/13/14 9:00:00 Start Date: 04/13/15 Stop Date: 04/17/15 Status: Discontinued oxybutynin 5 mg, 1 tab, Route: PO, Drug form: TAB, TID, Dosing Weight 77.727, kg, Start dewayne e: 04/13/15 9:00:00, Duration: 30 day, Stop date: 05/12/15 17:00:00 Notes: Same as: Ditropan) Start Date: 04/13/15 Stop Date: 04/13/15 Status: Deleted Saline Flush 0.9% 10 ml, Route: IVP, Drug Form: INJ, Dosing Weight 77.727, kg, PRN, PRN Line Flush , Start date: 04/13/15 7:20:00, Duration: 30 day, Stop date: 05/13/15 6:19:00 Notes: (Same as: BD Posiflush) Start Date: 04/13/15 Stop Date: 04/17/15 Status: Discontinued Sodium Chloride 0.9% IV 1,000 mL 1,000 mL, Rate: 125 ml/hr, Infuse over: 8 hr, Route: IV, Dosing Weight 77.727 kg , Total Volume: 1,000, Start date: 04/13/15 7:20:00, Duration: 30 day, Stop date : 05/13/15 7:19:00 Start Date: 04/13/15 Stop Date: 04/15/15 Status: Discontinued Ultracet oral tablet 1 tab, PO, Q4H, PRN for pain, # 60 tab, 0 Refill(s) Start Date: 04/13/15 Stop Date: 04/23/15 Status: Ordered vancomycin 1 gm, 200 mL, Route: IVPB, Drug form: INJ, [id number], Dosing Weight 77.983, kg, St art date: 04/14/15 17:00:00, Duration: 30 day, Stop date: 05/14/15 5:00:00 Notes: TIME CRITICAL MEDICATION Start Date: 04/14/15 Stop Date: 04/17/15 Status: Discontinued vancomycin 1 gm, Route: IVPB, Drug form: INJ, [id number], Dosing Weight 77.727, kg, Start date : 04/13/15 8:00:00, Duration: 30 day, Stop date: 05/12/15 20:00:00 Start Date: 04/13/15 Stop Date: 04/13/15 Status: Discontinued vancomycin 1 gm, 200 mL, Route: IVPB, Drug form: INJ, ONCE, Dosing Weight 77.727, kg, Prior ity: STAT, Start date: 04/13/15 2:22:00, Stop date: 04/13/15 2:22:00 Notes: TIME CRITICAL MEDICATION Start Date: 04/13/15 Stop Date: 04/13/15 Status: Completed Zofran 4 mg, 2 mL, Route: IVP, Drug form: INJ, ONCE, Dosing Weight 77.727, kg, Priority : STAT, Start date: 04/13/15 2:21:00, Stop date: 04/13/15 2:21:00 Notes: (Same as: Zofran) MEDICATION WASTE Product Size: 4 mgProduct Was em: ___ mg Start Date: 04/13/15 Stop Date: 04/13/15 Status: Completed Zosyn 3.375 gm, 100 mL, Route: IVPB, Drug form: PDR/INJ, [id number], Dosing Weight 77.727, kg, CrCl >=20 ml/min infuse over 4 hours, Start date: 04/13/15 12:00:00, Duration: 30 day, Stop date: 05/13/15 1:30:00 Notes: (Same as: Zosyn)Infuse over 4 hours. Activate and reconstitute before us e. Dosing based on Piperacillin component Start Date: 04/13/15 Stop Date: 04/17/15 Status: Discontinued Zosyn 3.375 gm, 100 mL, Route: IVPB, Drug form: PDR/INJ, ONCE, Dosing Weight 77.727, k g, Priority: STAT, Start date: 04/13/15 2:22:00, Stop date: 04/13/15 2:22:00 Notes: (Same as: Zosyn)Infuse over 4 hours. Activate and reconstitute before us e. Dosing based on Piperacillin component Start Date: 04/13/15 Stop Date: 04/13/15 Status: Completed Results ELECTROLYTES Most recent to 1 2 oldest [Reference Range]: Sodium Lvl [135-145 138 mEq/L 127 mEq/L mEq/L] (04/14/15 7:21 AM) *LOW* (04/13/15 1:18 AM) Potassium Lvl 4.1 mEq/L 4.3 mEq/L [3.5-5.1 mEq/L] (04/14/15 7:21 AM) (04/13/15 1:18 AM) Chloride Lvl [95-109 106 mEq/L 96 mEq/L mEq/L] (04/14/15 7:21 AM) (04/13/15 1:18 AM) CO2 [24-32 mEq/L] 26 mEq/L 19 mEq/L (04/14/15 7:21 AM) *LOW* (04/13/15 1:18 AM) AGAP [10.0-20.0 10.1 mEq/L 16.3 mEq/L mEq/L] (04/14/15 7:21 AM) (04/13/15 1:18 AM) CHEM PANEL Most recent to 1 2 oldest [Reference Range]: Creatinine Lvl 1.0 mg/dL 1.4 mg/dL [0.5-1.4 mg/dL] (04/14/15 7:21 AM) (04/13/15 1:18 AM) eGFR 58 mL/min/1.73m2 1 39 mL/min/1.73m2 2 *NA* *NA* (04/14/15 7:21 AM) (04/13/15 1:18 AM) BUN [7-22 mg/dL] 11 mg/dL 24 mg/dL (04/14/15 7:21 AM) *HI* (04/13/15 1:18 AM) B/C Ratio [6-25] 17 (04/13/15 1:18 AM) Glucose Lvl [70-99 150 mg/dL 261 mg/dL mg/dL] *HI* *HI* (04/14/15 7:21 AM) (04/13/15 1:18 AM) Total Protein 9.1 g/dL [6.4-8.4 g/dL] *HI* (04/13/15 1:18 AM) Albumin Lvl [3.5-5.0 3.0 g/dL g/dL] *LOW* (04/13/15 1:18 AM) Globulin [2.0-4.0 6.1 g/dL g/dL] *HI* (04/13/15 1:18 AM) A/G Ratio [0.7-1.6] 0.5 *LOW* (04/13/15 1:18 AM) Calcium Lvl 9.3 mg/dL 9.8 mg/dL [8.5-10.5 mg/dL] (04/14/15 7:21 AM) (04/13/15 1:18 AM) ALT [0-65 unit/L] 17 unit/L (04/13/15 1:18 AM) AST [0-37 unit/L] 8 unit/L (04/13/15 1:18 AM) Alk Phos [39-136 98 unit/L unit/L] (04/13/15 1:18 AM) Bili Total [0.2-1.3 0.3 mg/dL mg/dL] (04/13/15 1:18 AM) Lactic Acid Lvl 1.5 mMol/L [0.5-2.2 mMol/L] (04/13/15 2:33 AM) 1Result Comment: The eGFR is calculated [...] be mul tiplied by the estimated BMI. TOXICOLOGY Most recent to 1 2 oldest [Reference Range]: Vanco Tr TND 0 *NA* (04/16/15 4:41 AM) Vanco Tr 15.7 ug/ml *NA* (04/16/15 4:41 AM) URINE AND STOOL Most recent to 1 2 oldest [Reference Range]: UA Turbidity [Clear] Marked Marked *ABN* *ABN* (04/16/15 8:59 AM) (04/13/15 5:33 AM) UA Color Ltyellow *NA* (04/16/15 8:59 AM) UA Color [Yellow] Yellow *NA* (04/13/15 5:33 AM) UA pH [5.0-8.0] 6.0 6.0 (04/16/15 8:59 AM) (04/13/15 5:33 AM) UA Spec Grav 1.009 1.012 [<=1.030] (04/16/15 8:59 AM) (04/13/15 5:33 AM) UA Glucose [Negative 50 mg/dL 150 mg/dL mg/dL] *ABN* *ABN* (04/16/15 8:59 AM) (04/13/15 5:33 AM) UA Blood [Negative] Large Moderate *ABN* *ABN* (04/16/15 8:59 AM) (04/13/15 5:33 AM) UA Ketones [Negative Negative mg/dL Negative mg/dL mg/dL] *NA* *NA* (04/16/15 8:59 AM) (04/13/15 5:33 AM) UA Protein [Negative Negative mg/dL 100 mg/dL mg/dL] (04/16/15 8:59 AM) *ABN* (04/13/15 5:33 AM) UA Urobilinogen <=1.0 mg/dL <=1.0 mg/dL [0.1-1.0 mg/dL] *NA* *NA* (04/16/15 8:59 AM) (04/13/15 5:33 AM) UA Bili [Negative] Negative Negative *NA* *NA* (04/16/15 8:59 AM) (04/13/15 5:33 AM) UA Leuk Est Large Large [Negative] *ABN* *ABN* (04/16/15 8:59 AM) (04/13/15 5:33 AM) UA Nitrite Negative Negative [Negative] (04/16/15 8:59 AM) (04/13/15 5:33 AM) UA WBC [0-5 /HPF] >182 /HPF >182 /HPF *HI* *HI* (04/16/15 8:59 AM) (04/13/15 5:33 AM) UA RBC [0-2 /HPF] >182 /HPF 51 /HPF *HI* *HI* (04/16/15 8:59 AM) (04/13/15 5:33 AM) UA Bacteria [None Occasional /HPF Occasional /HPF Seen /HPF] *NA* *NA* (04/16/15 8:59 AM) (04/13/15 5:33 AM) UA Sq Epi [Few /LPF] Occasional /LPF Few /LPF *NA* *NA* (04/16/15 8:59 AM) (04/13/15 5:33 AM) UA Amorph Renee [None Occasional /HPF Seen /HPF] *NA* (04/13/15 5:33 AM) UA Mucus [None Seen Few /LPF /LPF] *NA* (04/16/15 8:59 AM) UA [place] Yeast [None Few /HPF Seen /HPF] *ABN* (04/13/15 5:33 AM) HEMATOLOGY Most recent to 1 2 oldest [Reference Range]: WBC [3.7-10.4 K/CMM] 8.7 K/CMM 18.4 K/CMM (04/14/15 7:21 AM) *HI* (04/13/15 1:18 AM) RBC [4.20-5.40 3.44 M/CMM 3.90 M/CMM M/CMM] *LOW* *LOW* (04/14/15 7:21 AM) (04/13/15 1:18 AM) Hgb [12.0-16.0 g/dL] 8.8 g/dL 10.4 g/dL *LOW* *LOW* (04/14/15 7:21 AM) (04/13/15 1:18 AM) Hct [36.0-48.0 %] 28.0 % 31.8 % *LOW* *LOW* (04/14/15 7:21 AM) (04/13/15 1:18 AM) MCV [80.0-98.0 fL] 81.5 fL 81.5 fL (04/14/15 7:21 AM) (04/13/15 1:18 AM) MCH [27.0-31.0 pg] 25.7 pg 26.6 pg *LOW* *LOW* (04/14/15 7:21 AM) (04/13/15 1:18 AM) MCHC [32.0-36.0 31.6 g/dL 32.7 g/dL g/dL] *LOW* (04/13/15 1:18 AM) (04/14/15 7:21 AM) RDW [11.5-14.5 %] 15.9 % 16.1 % *HI* *HI* (04/14/15 7:21 AM) (04/13/15 1:18 AM) Platelet [133-450 334 K/CMM 367 K/CMM K/CMM] (04/14/15 7:21 AM) (04/13/15 1:18 AM) MPV [7.4-10.4 fL] 8.7 fL 9.0 fL (04/14/15 7:21 AM) (04/13/15 1:18 AM) Segs [45.0-75.0 %] 63.7 % 88.7 % (04/14/15 7:21 AM) *HI* (04/13/15 1:18 AM) Lymphocytes 21.4 % 4.7 % [20.0-40.0 %] (04/14/15 7:21 AM) *LOW* (04/13/15 1:18 AM) Monocytes [2.0-12.0 9.2 % 5.8 % %] (04/14/15 7:21 AM) (04/13/15 1:18 AM) Eosinophils [0.0-4.0 4.5 % 0.3 % %] *HI* (04/13/15 1:18 AM) (04/14/15 7:21 AM) Basophils [0.0-1.0 1.2 % 0.5 % %] *HI* (04/13/15 1:18 AM) (04/14/15 7:21 AM) Segs-Bands # 5.5 K/CMM 16.3 K/CMM [1.5-8.1 K/CMM] (04/14/15 7:21 AM) *HI* (04/13/15 1:18 AM) Lymphocytes # 1.9 K/CMM 0.9 K/CMM [1.0-5.5 K/CMM] (04/14/15 7:21 AM) *LOW* (04/13/15 1:18 AM) Monocytes # [0.0-0.8 0.8 K/CMM 1.1 K/CMM K/CMM] (04/14/15 7:21 AM) *HI* (04/13/15 1:18 AM) Eosinophils # 0.4 K/CMM 0.1 K/CMM [0.0-0.5 K/CMM] (04/14/15 7:21 AM) (04/13/15 1:18 AM) Basophils # [0.0-0.2 0.1 K/CMM 0.1 K/CMM K/CMM] (04/14/15 7:21 AM) (04/13/15 1:18 AM) Immunizations Vaccine Date Refusal Reason pneumococcal [...] Clinical Document Author: Khai Bustillo MD Date: 04/17/15 Ifectious Disease Progress Note [facility] Dr. Khai Bustillo SUBJECTIVE Events reviewed. OBJECTIVE Gen: alert, no acute distress, follow command HEENT: not pale, not icteric, normal cephalic, Neck: Supple, no jvd, CV: S1, S2, no murmurs Lung: clear bilateral course BS Abd: soft, bowel sound normal, no tenderness Ext: no edema Skin: no rash Neuro: no seizure, no local finding Vitals and Temp: VitalsTmp(F)[id number] 04/17 04:[id number]--- 04/17 00:[id number]--- 04/16 18:[id number]--- 04/16 16:[id number]--- 04/16 12:1198.152407/7717------ 24 Hr Tmax: 98.4F (36.89c) at 04/16 12:11Vital Signs are the last 5 in the past 48 hours. Input/Output RecordInOutBal 03/1824hr Tot 679 [id number] 1724hr Tot 1412 [id number] Physical Exam Labs (Last four charted values) WBC 8.7(APR 14)H 18.4(APR 13) Hgb L 8.8(APR 14)L 10.4(APR 13) Hct L 28.0(APR 14)L 31.8(APR 13) Plt 334(APR 14)367(APR 13) Na 138(APR 14)L 127(APR 13) K 4.1(OCT 16)4.3(APR 13) CO2 26(APR 14)L 19(APR 13) Cl 106(APR 14)96(APR 13) Cr 1.0(APR 14)1.4(APR 13) BUN 11(APR 14)H 24(APR 13) Glucose Random H 150(APR 14)H 261(APR 13) Ca 9.3(APR 14)9.8(APR 13) Medications Scheduled Meds (10):atorvastatin, docusate (docusate sodium 100 mg oral capsule), docusate (docusate sodium 100 mg oral capsule), ergocalciferol, insulin detemir (Levemir FlexPen), lisinopril, multivitamin with minerals (Multiple Vitamins with Minerals oral tablet), non-formulary (otezla), piperacillin-tazobactam (Zosyn), vancomycin Unscheduled Meds: None PRN Meds (14):Dextrose 50% in Water IV (Dextrose 50% Syringe), Dextrose 50% in Water IV (Dextrose 50% Syringe), acetaminophen-hydrocodone (acetaminophen- hydrocodone 325 mg-5 mg oral tablet), acetaminophen, glucagon, insulin aspart, insulin aspart, insulin aspart, insulin aspart, insulin aspart, lactulose, morphine Sulfate, ondansetron, sodium chloride (Saline Flush 0.9%) One Time Meds: None Continuous Infusions: None ALL LABS REVIEW AND ALL RADIOLOGY REPORTS REVIEWED IMPRESSION . Gross hematuria . UTI sepsis-improved . 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 bilateral hydronephrosis from chronic bladder outlet obstruction . DMII . Left groin abscess RESOLVED . anemia of chronic disease PLAN & TREATMENT . continue Gonzales catheter . continue IV Zosyn and Vancomycin CAN CHANGE TO ORAL CIPRO . continue home meds including insulin . wound cares . repeat urine cx today 04/16/15 PLAN Extracted from: Title: Clinical Document Author: Julian Scales MD Date: 04/13/15 History and Physical Attending: Vishal Grangerhopadmini: [phone]: Emergency Medicine Service Code status: None Specified=FULL CODE Reason for Admission: VOMITING Working DRG: None Documented Isolation: None Documented Consulting Physicians: (none on file) CC: I've been throwing up HPI: This is a 69 yo w/ below PMHx who p/w 1 week h/o cloudy urine. Also has had decreased urinary frequency, no dysuria, she isn't sure about change in odor. Has h/o recurrent UTIs. States that she had MDRO UTI last month, but her only positive urine cxs were from August and November which grew E coli and group B strep which were not mdro. Also has 1 day h/o N/V x 5 (NB/NB) and generalized weakness. C/o intermittent lightheadedness/dizziness during this time. Denies SOB, CP, abd pain, fevers/chills, cough. Has not had BM in last 3 days but does not feel constipated. Has been admitted earlier this year a few times for UTI w/ sepsis. Had L inginual abscess, I&D 2 days ago at PCP office, given bactrim. Had some bloody drainage since then, small amount pus also. PMHx: recurrent UTIs T2DM HTN HLD psoriasis PSHx: ureteral stent x 2 bladder suspension appendectomy Bilateral tubal ligation Hysterectomy section cholecystectomy FHx: reviewed and noncontributory SHx: Denies tobacco, EtOH, illicit drugs Meds: Medication List Active Medications Ordered acetaminophen-codeine: 1 tab, PO, Q4H, PRN: Pain Score 4-6. acetaminophen-tramadol: 1 tab, PO, Q4H, for 10 day, PRN: for pain, 60 tab, 0 Refill(s). apremilast: 30 mg, 1 tab, PO, BID, 0 Refill(s). atorvastatin: 10 mg, 1 tab, PO, Bedtime. betamethasone-calcipotriene topical: 1 appl, TOP, Daily, 0 Refill(s). docusate: 100 mg, 1 cap, PO, QWed, in the afternoon. docusate: 100 mg, 1 cap, PO, QSun, in the afternoon. ergocalciferol: 50,000 IntlUnit, 1 cap, PO, QSat. glimepiride: 4 mg, 1 tab, BID, 0 Refill(s). hyoscyamine: 0.125 mg, 1 tab, PO, Q4H, PRN: Bladder Spasm. insulin glargine: 15 unit, SUB-Q, Bedtime, hold for BG <150, 0 Refill(s). lisinopril: 10 mg, 0.5 tab, PO, Daily. metFORMIN: 1,000 mg, 1 tab, PO, Lunch, 0 Refill(s). multivitamin with minerals: 1 tab, PO, Daily, 0 Refill(s). oxybutynin: 5 mg, 1 tab, PO, TID, 30 tab, 0 Refill(s). Sodium Chloride 0.9% IV 1,000 mL: 125 ml/hr, IV, Stop: 05/13/15 2:21:00. sulfamethoxazole-trimethoprim: 1 tab, PO, BID, for 7 day, 14 tab, 0 Refill(s). Medications Inactivated in the Last 72 Hours ampicillin-sulbactam: 3 gm, 1 ea, PYXIS, ONCE. morphine Sulfate: 2 mg, 1 mL, IVP, ONCE. morphine Sulfate: 2 mg, 1 mL, PYXIS, ONCE. ondansetron: 4 mg, 2 mL, IVP, ONCE. ondansetron: 4 mg, 2 mL, PYXIS, ONCE. piperacillin-tazobactam: 3.375 gm, 100 mL, 200 ml/hr, IVPB, ONCE. piperacillin-tazobactam: 3.375 gm, PYXIS, ONCE. Sodium Chloride 0.9% IV: 1,000 mL, 1,000 ml/hr, IV, ONCE. Sodium Chloride 0.9% IV: 1,000 mL, PYXIS, ONCE. Sodium Chloride 0.9% IV: 100 mL, PYXIS, ONCE. Sodium Chloride 0.9% IV: 100 mL, PYXIS, ONCE. vancomycin: 1 gm, 200 mL, 200 ml/hr, IVPB, ONCE. vancomycin: 1 gm, 200 mL, PYXIS, ONCE. Allergies: NKDA ROS: See HPI. All other systems reviewed by myself are negative unless noted above. Physical Exam: VitalsTmp(F)[id number] 04/13 04:05----[id number]--- 04/13 02:[id number]------ 04/12 23:[id number]--- 24 Hr Tmax: 98.1F (36.72c) at 10/14 23:25Vital Signs are the last 5 in the past 48 hours. General: NAD, nontoxic appearing HEENT: NCAT, PERRL, MMM, no JVD Cardiovascular: RRR, S1S2 Respiratory: CTAB Abdomen: soft, +BS, ND, mildly TTP over suprapubic area Extremities: no b/l LE edema Skin: s/p L inginual abscess I&D (1+ wk ago), packed but bloody drainage w/ some pus Neurologic: comprehension and speech intact, CN III-XII grossly intact Musculoskeletal: symmetric strength in all extremities Rectal/: no b/l CVA tenderness Labs: 24hr Labs 04/13 0233 Lactic Acid Lvl1.5 04/13 0118 Sodium Bpi939 L Potassium Lvl4.3 Chloride Lvl96 CO219 L AGAP16.3 Glucose Hli242 H Creatinine Lvl1.4 BUN24 H B/C Ratio17 Total Protein9.1 H Albumin Lvl3.0 L Globulin6.1 H A/G Ratio0.5 L Calcium Lvl9.8 ALT17 AST8 Alk Phos98 Bili Total0.3 eGFR39 WBC18.4 H RBC3.90 L Hgb10.4 L Hct31.8 L MCV81.5 MCH26.6 L MCHC32.7 RDW16.1 H Bklfnjkr645 MPV9.0 Segs88.7 H Monocytes5.8 Lymphocytes4.7 L Eosinophils0.3 Basophils0.5 Segs-Bands #16.3 H Lymphocytes #0.9 L Monocytes #1.1 H Eosinophils #0.1 Basophils #0.1 Micro: blood, urine, and wound cxs sent Imaging: CT abd/pelvis: Interval removal of left ureteral stent since 03/17/2015. Bilateral severe hydronephrosis which appears worse since previous. Urinary bladder distention in perivesicular inflammation suggesting cystitis, as noted previously. No obstructing calculus or specific urinary lesion is otherwise identified by this study. Assessment and Plan: 69 yo p/w cloudy urine, generalized weakness, and N/V, admitted for urosepsis. Has h/o UTIs, most recent per pt was mdro. UA still pending but she does have leukocytosis w/ elevated segs, urinary symptoms, and evidence of cystitis on CT. She is currently hemodynamically stable. # urosepsis (tachycardia + leukocytosis): zosyn (given mdro hx), iv fluids, cxs sent, pt will have someone bring in urine cx w/ abx sensitivities from last month # L inguinal cellulitis s/p I&D over a week ago: still draining pus so will cover w/ vancomycin to cover for MRSA, packing will be changed # hypovolemic hyponatremia: iv fluids and recheck # mild YOBANY: iv fluids, abx, recheck # DM: SSI + home lantus # HTN/HLD/psoriasis: c/w home regimen Prophylaxis: ambulation Diet: diabetic Julian El
--- OUTSIDE RECORDS SUMMARY | 2018-09-11 19:42 | XMS REPORT | Summary of Care ---
Author Author KATHARINE Rivera, KRISTA Ureña Unknown Address Unknown Phone Unavailable Care Team Providers Care Flour Distributor Name Role Phone DILAN Rivera, NICO Unavailable Unavailable KATHARINE Rivera, KRISTA Unavailable Unavailable CASSIDY READ, LAVON Unavailable Unavailable BHUPENDRA READ, ALEXANDRIA Unavailable Unavailable HOLLY READ NM, NÉSTOR Dupont Unavailable Unavailable Dilan READ, Nico Unavailable Unavailable KATHARINE READ, KRISTA Unavailable Unavailable Unavailable Unavailable Functional Status Name Dates Details Functional status health issues are not documented Status: Name Dates Details Cognitive status health issues are not documented Status: Problems Name Dates Details UTI (urinary tract infection) (599.0, N39.0) Status: Active Anemia (285.9, D64.9) Status: Active Essential (primary) hypertension (401.9, I10) Status: Active Mixed hyperlipidemia (272.2, E78.2) Status: Active Uncontrolled type 2 diabetes mellitus with hypoglycemia without coma, without long- term current use of insulin (250.82, E11.649) Status: Active Bladder spasm (596.89, N32.89) Status: Active Arteriosclerosis of coronary artery (414.00, I25.10) Status: Active Epistaxis (784.7, R04.0) Status: Active Deviated nasal septum (470, J34.2) Status: Active Controlled type 2 diabetes mellitus (250.00, E11.9) Status: Active Chronic UTI (599.0, N39.0) Status: Active Overactive bladder (596.51, N32.81) Status: Active Urinary retention (788.20, R33.9) Status: Active Vaginal atrophy (627.3, N95.2) Status: Active Medications Name Dates Details Atorvastatin Calcium 10 MG Oral Tablet * Start : 26-Feb-2016 Active Vitamin D2 TABS TAKES 1.25 MG TABLET WEEKLY * Refills: 0 * Start : 26-Feb-2016 Active metFORMIN HCl - 500 MG Oral Tablet TAKE 1 TABLET TWICE DAILY * Quantity: 60 Refills: 3 DILAN SajanD., NICO * Start : 26-Feb-2016 Active Ferrous Sulfate 325 (65 Fe) MG Oral Tablet TAKE 1 TABLET TWICE DAILY * Refills: 0 * Start : 26-Feb-2016 Active Multiple Vitamin TABS * Refills: 0 * Start : 26-Feb-[address] Von Aspirin 81 MG Oral Tablet Delayed Release TAKE 1 TABLET DAILY. * Refills: 0 Active OneTouch Verio In Vitro Strip check BG 4xs daily as directed * Quantity: 200 Refills: 3 NICO KONG M.D. * Start : 01-Nov-2016 Active OneTouch Delrogelio Lancets Fine Check BG 4x a day * Quantity: 200 Refills: 3 NICO KONG M.D. * Start : 01-Nov-2016 Active Fish Oil Concentrate 1000 MG Oral Capsule TAKE 1 CAPSULE TWICE DAILY * Refills: 0 Active Zinc 30 MG Oral Capsule TAKE 1 CAPSULE DAILY * Refills: 0 Active Xyzal 5 MG TABS TAKE 1 TABLET DAILY PRN * Refills: 0 Active Taltz 80 MG/ML Subcutaneous Solution Auto-injector * Refills: 0 Active Methenamine Hippurate 1 GM Oral Tablet TAKE 1 TABLET TWICE DAILY. * Refills: 0 * Start : 20-Apr-2018 Active Keflex 500 MG Oral Capsule * Refills: 0 Active Clopidogrel Bisulfate 75 MG Oral Tablet * Refills: 0 Active Metoprolol Succinate ER TB24 * Refills: 0 Active Lisinopril 2.5 MG Oral Tablet * Refills: 0 Active Allergies and Adverse Reactions Name Dates Details No Known Drug Allergies (Allergy) Status: Active Past Medical History Name Dates Details History of Diabetes mellitus due to underlying condition with chronic kidney disease, without long-term current use of insulin, unspecified CKD stage (249.40, E08.22) Status: Resolved History of Diabetes mellitus due to underlying condition with complication, unspecified halfway insulin use status (249.90, E08.8) Status: Resolved History of hypertension (V12.59, Z86.79) Status: Resolved Procedures Procedure Dates Details [H] C Urine Transplant Date: 11-Aug-2018 History of Appendectomy Completed History of Gallbladder Surgery Completed History of Hysterectomy Completed History of Section Completed History of Dilation Of Bladder Neck Completed History of Cystoscopy With Biopsy Completed History of Urethroplasty Completed History of Coronary artery bypass graft Completed Immunization Name Dates Details Fluzone High-Dose 0.5 ML Intramuscular Suspension Prefilled Syringe Comments: Approx [id number] Family History Name Dates Details Family history of diabetes mellitus (V18.0, Z83.3) Comments: Unknown Status: Active Name Dates Details Family history of hyperlipidemia (V18.19, Z83.438) Status: Active Family history of hypertension (V17.49, Z82.49) Status: Active Name Dates Details Family history of diabetes mellitus (V18.0, Z83.3) Status: Active Family history of hyperlipidemia (V18.19, Z83.438) Status: Active Family history of hypertension (V17.49, Z82.49) Status: Active Social History Name Dates Details - Status: Name Dates Details Never smoker Vital Signs Date Test Result Details [id number] BP Systolic 154 mm[Hg] Status: Comments: Location: LUE; Position: Sitting BP Diastolic 92 mm[Hg] Status: Comments: Location: LUE; Position: Sitting Height 63 in Status: Weight 179 lb Status: Body Mass Index Calculated 31.71 kg/m2 Status: Body Surface Area Calculated 1.84 m2 Status: Temperature 97.7 f Status: Comments: Method: Temporal Heart Rate 82 /min Status: Results Date Description Value Details :27 [[facility]] CULTURE, URINE, ROUTINE Comments: REPORT COMMENT:FASTING:NO CULTURE (Abnormal) Comments: CULTURE, URINE, ROUTINE MICRO NUMBER: [id number] TEST STATUS: FINAL SPECIMEN SOURCE: URINE SPECIMEN QUALITY: ADEQUATE RESULT: Greater than 100,000 CFU/mL of E scherichia coli 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 COMMENT: Test results have been confirmed in duplicate. COMMENT: Additional organism(s) less than 10,000 CFU/mL isolated. These organisms, commonly found on external and internal genitalia, are considered colonizers. No further testing performed. E.coli INT YAZMIN AMIKACIN S <16 AMOX/CLAVULANATE R >16/8 AMPICILLIN R >16 AMP/SULBACTAM R >16/8 CEFAZOLIN R >4 1 CEFEPIME R <=1 CEFTRIAXONE R >32 CIPROFLOXACIN R >2 ERTAPENEM R 2 2 GENTAMICIN S <2 IMIPENEM S <1 LEVOFLOXACIN R >4 MEROPENEM S <1 NITROFURANTOIN I 64 PIP/TAZOBACTAM I 64 TOBRAMYCIN S <4 TRIMETHOPRIM/SULFA R >2/38S=Susceptible I=Intermediate R=Resistant *=Not TestedNR=Not Reported NN=See Therapy CommentsTHERAPY COMMENTS Note 1: ORAL therapy: A cefazolin YAZMIN of <32 predicts susceptibility to the oral agents cefaclor, cefdinir, cefpodoxime, cefprozil, cefuroxime, cephalexin, and loracarbef when used for therapy of uncomplicated UTIs due to E. coli, K. pneumoniae, and P. mirabilis. PARENTERAL therapy: A cefazolin YAZMIN of >8 indicates resistance to parenteral cefazolin. Note 2: This organism demonstrates carbapenem resistance. Treatment with a cephalosporin that reports as susceptible may not be clinically effective. Plan of Care Name Dates Details Planned Observations Planned Goals not documented Planned Encounters Appointment; NICO KONG M.D. On: 15-Oct-2018 11:30 Appointment; KRISTA ALCANTAR M.D. On: 10-Feb-2019 9:45 Interventions Provided Plan* #hypocontractile bladder with incontinence * -Consult overactive bladder and urinary incontinence * -Patient is currently happy with her settings. Continue settings 21 0.85 * #Vaginal atrophy * -Continue Premarin cream * #Urinary retention * -Patient was catheterized in sterile manner with 12 Vietnamese and 14 Vietnamese Gonzales * -200 cc of urine collected with catheterization * -Patient consulted on urinary retention and double voiding * -No cystoscopy needed at this time * -Follow-up in 6 months for symptom check Instructions Name Dates Details Instructions not documented Encounters Appointment; KRISTA ALCANTAR M.D. Encounter Diagnosis: Problem not documented On: 16-Sep-2016 9:45 Appointment; KRISTA ALCANTAR M.D. Encounter Diagnosis: Problem not documented On: 04-Oct-2016 10:00 Appointment; KRISTA ALCANTAR M.D. Encounter Diagnosis: Problem not documented On: 11-Oct-2016 9:30 Appointment; HAI[address] Encounter Diagnosis: Problem not documented On: 15-Oct-2016 10:00 Appointment; NICO KONG M.D. Encounter Diagnosis: Problem not documented On: 15-Oct-2016 10:30 Appointment; KRISTA ALCANTAR M.D. Encounter Diagnosis: Problem not documented On: 15-Nov-2016 10:15 Appointment; NICO KONG M.D. Encounter Diagnosis: Problem not documented On: 10-Dec-2016 11:30 Appointment; KRISTA ALCANTRA M.D. Encounter Diagnosis: Problem not documented On: 14-Feb-2017 10:00 Appointment; KRISTA ALCANTAR M.D. Encounter Diagnosis: Problem not documented On: 14-Mar-2017 9:30 Appointment; NICO KONG M.D. Encounter Diagnosis: Problem not documented On: 16-Apr-2017 11:30 Appointment; NICO KONG M.D. Encounter Diagnosis: Problem not documented On: 17-Jul-2017 9:30 Appointment; KRISTA ALCANTAR M.D. Encounter Diagnosis: Problem not documented On: 23-Jul-2017 10:15 Appointment; KRISTA ALCANTAR M.D. Encounter Diagnosis: Problem not documented On: 13-Aug-2017 14:30 Appointment; NICO KONG M.D. Encounter Diagnosis: Problem not documented On: 15-Oct-2017 9:30 Appointment; NCIO KONG M.D. Encounter Diagnosis: Problem not documented On: 13-Jan-2018 13:30 Appointment; KRISTA ALCANTAR M.D. Encounter Diagnosis: Problem not documented On: 28-Jan-2018 14:45 Appointment; KRISTA ALCANTAR M.D. Encounter Diagnosis: Problem not documented On: 13-Mar-2018 10:30 Appointment; [facility] Encounter Diagnosis: Problem not documented On: 13-Mar-2018 13:00 Appointment; NICO KONG M.D. Encounter Diagnosis: Problem not documented On: 16-Apr-2018 11:30 Appointment; KRISTA ALCANTAR M.D. Encounter Diagnosis: Problem not documented On: 22-Apr-2018 13:45 Appointment; NÉSTOR BARRERA M.D. Encounter Diagnosis: Problem not documented On: 08-Jun-2018 9:30 Appointment; KELSEY SAUCEDA M.D. Encounter Diagnosis: Problem not documented On: 08-Jun-2018 11:15 Appointment; NÉSTOR BARRERA M.D. Encounter Diagnosis: Problem not documented On: 10-Jun-2018 10:30 Appointment; NICO KOGN M.D. Encounter Diagnosis: Problem not documented On: 16-Jul-2018 11:30 Appointment; KRISTA ALCANTAR M.D. Encounter Diagnosis: Problem not documented On: 21-Aug-2018 10:30
--- NOTE | 2018-09-11 20:21 | Diagnostic Imaging Report ---
WRIST 3VW RT - HOPD, HAND 3 VIEW RT - HOPD - 3 views each HISTORY: Pain. Fell. Hurt right wrist. COMPARISON: None available. FINDINGS: Bones: Punctate density along the volar aspect of the right wrist. Osseous alignment is within normal limits. Diffuse osteopenia. Joints: Degenerative changes in the interphalangeal, first carpometacarpal, radiocarpal joints. Soft tissues: The soft tissues appear unremarkable. IMPRESSION: Punctate density along the volar aspect of the right wrist. This may represent avulsion injury of the pisiform. Signed by: Dr. Terence Zamorano M.D. on 09/11/2018 8:18 PM
== END 2018-09-11 21:08 | disposition home or self-care (01) ==
LOC: FSED 19:35
DX: S62.161A Displaced fracture of pisiform, right wrist, initial encounter for closed fracture (principal); W01.0XXA Fall on same level from slipping, tripping and stumbling without subsequent striking against object, initial encounter; Y92.008 Other place in unspecified non-institutional (private) residence as the place of occurrence of the external cause; Z95.1 Presence of aortocoronary bypass graft
CPT/HCPCS: 99283

== ENCOUNTER 2021-07-09 21:25 | Emergency (ER) | payer MEDICARE ==
[~2021-07-09] VITALS: Ht 152.4 cm; Wt 90.7 kg
== END 2021-07-09 22:20 | disposition home or self-care (01) ==
LOC: FSED 21:35
DX: S91.114A Laceration without foreign body of right lesser toe(s) without damage to nail, initial encounter (principal); W20.8XXA Other cause of strike by thrown, projected or falling object, initial encounter; Y93.89 Activity, other specified
CPT/HCPCS: 99283

== ENCOUNTER → 2023-05-09 | Outpatient (REF) | payer MEDICARE ==
[~2023-05-09] MED LIST changes: +ASPIRIN81 MG PO; +B-12 5,000 MCG1 EACH; +B12 ACTIVE1000 MCG PO; +B2 PO; +CEFUROXIME250 MG PO; +CRANBERRY465 MG PO; +FISH OIL 1,001000 M1; +FLOMAX0.4 MG PO; +IOPAMIDOL 370 MG/ML 100 ML INFUS..BTL INJ ONE; +IRON PO; +ISOSORBIDE MONO30 MG PO; +JANUVIA100 MG PO; +METFORMIN HCL500 MG PO; +METHENAMINE1 GM; +METOPROLOL TART50 MG PO; +MULTIVITAMINS1 EAC6 PO; +NITROFURANTOIN100 MG PO; +PLAVIX75 MG PO; +PROBIOTIC & AC1 EACH PO; +REPAGLINIDE0.5 MG PO; +SKYRIZI150 MG/1 M; +SODIUM CHLORIDE 0.9% 250ML 250 ML ONE; +SUMATRIPTAN SUC25 MG PO; +ZESTRIL10 MG PO; +ZINC PO
[2023-05-09 16:46] LABS: CREATININE, SERUM 0.9 mg/dL (0.57-1.11)
== END ==
LOC: CT 15:47
PROVIDERS: ATTEND Urology
DX: R31.21 Asymptomatic microscopic hematuria (principal); N32.1 Vesicointestinal fistula
CPT/HCPCS: 36415; 74178; 82565; 84520; J7050; Q9967

== ENCOUNTER 2023-10-17 09:09 | Inpatient (IN) | payer MEDICARE ==
[2023-10-13 14:36] LABS: BASOPHILS # (AUTO) 0.1 (0.0-0.1); BASOPHILS % 1.1 % (0.0-1.0); EOSINOPHILS # (AUTO) 0.3 (0.0-0.4); EOSINOPHILS % 3.2 % (0.0-6.0); HEMATOCRIT 37.5 % (34.2-44.1); HEMOGLOBIN 12.6 g/dL (12.0-16.0); LYMPHOCYTES # (AUTO) 1.4 (1.0-3.2); LYMPHOCYTES % 16.3 % (18.0-39.1); MEAN CORPUSCULAR HEMOGLOBIN 29.7 pg (28-32); MEAN CORPUSCULAR HGB CONC 33.6 g/dL (31-35); MEAN CORPUSCULAR VOLUME 88.4 fL (81-99); MONOCYTES # (AUTO) 0.7 (0.2-0.8); MONOCYTES % 7.7 % (4.4-11.3); NEUTROPHILS # (AUTO) 6.1 (2.1-6.9); NEUTROPHILS % 71.5 % (38.7-80.0); PLATELET COUNT 256 x10e3/uL (140-360); RED BLOOD COUNT 4.24 x10e6/uL (3.6-5.1); RED CELL DISTRIBUTION WIDTH 13.5 % (11.7-14.4); WHITE BLOOD COUNT 8.52 x10e3/uL (4.8-10.8)
[2023-10-13 15:00] LABS: ALBUMIN 3.7 g/dL (3.5-5.0); ALBUMIN/GLOBULIN RATIO 0.8 (0.8-2.0); ANION GAP 16.8 mmol/L (8-16); BILIRUBIN,TOTAL 0.6 mg/dL (0.2-1.2); CALCIUM 10.7 mg/dL (8.4-10.2); CREATININE, SERUM 1.04 mg/dL (0.57-1.11); POTASSIUM 4.8 mmol/L (3.5-5.1); TOTAL PROTEIN 8.3 g/dL (6.5-8.1)
[2023-10-17] VITALS (17 sets, daily range): BP systolic 87–167; BP diastolic 19–93; PULSE 49–54; RESP 10–18; TEMP 94.2–94.3; O2SAT 100
[~2023-10-17] VITALS: Ht 149.9 cm; Wt 83.5 kg
[~2023-10-17 09:09] MED LIST changes: -IOPAMIDOL 370 MG/ML 100 ML INFUS..BTL INJ ONE; -SODIUM CHLORIDE 0.9% 250ML 250 ML ONE; +VITAMIN D250 MCG PO
[2023-10-17] MEDS ORDERED: SEVOFLURANE INHAL SOLN 250 ML PEN BTL ONE (10:28)
[2023-10-17] MEDS ORDERED: SUCCINYLCHOLINE CHLORIDE 20 MG/ML 10ML VIAL ONE (10:28)
[2023-10-17] MEDS ORDERED: PROPOFOL IV EMULSION 10 MG/ML 20 ML VIAL ONE (10:28)
[2023-10-17] MEDS ORDERED: ACETAMINOPHEN 1000 MG/100 ML IV ONE (10:28)
[2023-10-17] MEDS ORDERED: ROCURONIUM BROMIDE 10 MG/ML 5ML VIAL IV ONE (10:28)
[2023-10-17] MEDS ORDERED: METOCLOPRAMIDE HCL 10 MG/2ML VIAL ONE (10:28)
[2023-10-17] MEDS ORDERED: ONDANSETRON HCL INJ 2MG/ML 2ML 2 MG/ML VIAL ONE (10:28)
[2023-10-17] MEDS ORDERED: LIDOCAINE HCL 2% LOCAL INJ 5 ML SDV VIAL INJ ONE (10:28)
[2023-10-17] MEDS ORDERED: FAMOTIDINE 20 MG/2 ML VIAL IV ONE (10:28)
[2023-10-17] MEDS ORDERED: SODIUM CHLORIDE 0.9% INJ 250 ML BAG ONE (10:28)
[2023-10-17] MEDS ORDERED: PHENYLEPHRINE HCL 1% 10 MG/ML VIAL ONE (10:28)
[2023-10-17] MEDS ORDERED: PIPERACILLIN/TAZOBACTAM 3.375 GM VIAL ONE (10:41)
[2023-10-17] MEDS ORDERED: LACTATED RINGER'S 1,000 ML ONE (10:41)
[2023-10-17] MEDS ORDERED: CLINDAMYCIN 600MG / 50ML 50 ML IV ONE (10:41)
[2023-10-17] MEDS ORDERED: HEPARIN SOD/SOD CHLORIDE 1,000 ML ONE (13:25)
[2023-10-17] MEDS ORDERED: IOPAMIDOL 300MG/ML 100 ML INFUS..BTL IV ONE (14:31)
[2023-10-17] MEDS ORDERED: METHYLENE BLUE 1% INJ 10 ML VIAL INJ ONE (15:01)
[2023-10-17] MEDS ORDERED: FENTANYL CITRATE/PF 100MCG/2 ML INJ ONE (15:51)
[2023-10-17] MEDS ORDERED: SUGAMMADEX SODIUM 200 MG/2 ML VIAL IV ONE ×2 (16:03→18:57)
[2023-10-17] MEDS ORDERED: HYDROMORPHONE 2MG/ML ONE (16:03)
[2023-10-17] MEDS ORDERED: ONDANSETRON HCL INJ 2MG/ML 2ML 2 MG/ML VIAL IV PRN (19:15)
[2023-10-17] MEDS ORDERED: ACETAMINOPHEN 1000 MG/100 ML IV PRN (19:15)
[2023-10-17] MEDS ORDERED: NALOXONE HCL INJ 0.4 MG/ML AMP IV PRN (19:15)
[2023-10-17] MEDS ORDERED: MORPHINE SULFATE 1 MG/ML 30ML PCA IV PRN (19:15)
[2023-10-17] MEDS ORDERED: PROPOFOL IV EMULSION 10 MG/ML 50 ML VIAL IV PRN (20:15)
[2023-10-17] MEDS: Morphine 4mg INJECTION 4 MG/ML INJ IV PRN (20:26)
[2023-10-17] MEDS: SODIUM CHLORIDE 0.9% 1000ML 1,000 ML IV SCH (20:28)
[2023-10-17] MEDS: SODIUM CHLORIDE 0.9% 250ML IRRIG IR SCH (21:40)
[2023-10-18] VITALS (28 sets, daily range): BP systolic 85–181; BP diastolic 19–140; PULSE 54–88; RESP 9–22; TEMP 97.4–98.9; O2SAT 96–100
[2023-10-18] MEDS: PROPOFOL IV EMULSION 10MG/ML 100 ML IV PRN (00:06)
[2023-10-18] MEDS ORDERED: ALBUTEROL SULF 0.083% NEB SOLN 3 ML NEB NEB PRN (02:15)
[2023-10-18 02:25] LABS: ABG HCO3 17 mmol/L (22-26); ABG PCO2 20 mmHg (35-45); ABG PH 7.55 (7.35-7.45); ABG PO2 226 mmHg (80-105); ABG TCO2 18
[2023-10-18 07:17] LABS: BASOPHILS % 0.3 % (0.0-1.0); HEMATOCRIT 31.3 % (34.2-44.1); HEMOGLOBIN 10.7 g/dL (12.0-16.0); LYMPHOCYTES # (AUTO) 0.4 (1.0-3.2); LYMPHOCYTES % 2.8 % (18.0-39.1); MEAN CORPUSCULAR HEMOGLOBIN 29.9 pg (28-32); MEAN CORPUSCULAR HGB CONC 34.2 g/dL (31-35); MEAN CORPUSCULAR VOLUME 87.4 fL (81-99); MONOCYTES # (AUTO) 0.7 (0.2-0.8); MONOCYTES % 4.6 % (4.4-11.3); NEUTROPHILS # (AUTO) 14.4 (2.1-6.9); NEUTROPHILS % 91.9 % (38.7-80.0); PLATELET COUNT 194 x10e3/uL (140-360); RED BLOOD COUNT 3.58 x10e6/uL (3.6-5.1); RED CELL DISTRIBUTION WIDTH 13.2 % (11.7-14.4); WHITE BLOOD COUNT 15.65 x10e3/uL (4.8-10.8)
[2023-10-18 07:49] LABS: ANION GAP 14.4 mmol/L (8-16); CREATININE, SERUM 0.95 mg/dL (0.57-1.11)
[2023-10-18 07:59] LABS: POTASSIUM 3.4 mmol/L (3.5-5.1)
[2023-10-18] MEDS ORDERED: DEXTROSE 50% SYRINGE 50 ML IV PRN (09:45)
[2023-10-18] MEDS ORDERED: ACETAMINOPHEN 1000 MG/100 ML IV PRN (09:45)
[2023-10-18] MEDS: INSULIN LISPRO 100 UNIT/1 ML 3ML VIAL SQ SCH (11:30)
[2023-10-18] MEDS ORDERED: SODIUM CHLORIDE 0.9% 1000ML 1,000 ML ONE (12:14)
[2023-10-19] VITALS (10 sets, daily range): BP systolic 160–178; BP diastolic 58–88; PULSE 71–85; RESP 18–20; TEMP 97.1–98.3; O2SAT 96–100
[2023-10-19] MEDS ORDERED: SODIUM CHLORIDE 0.9% 1000ML 1,000 ML ONE ×2 (00:59→08:41)
[2023-10-19] MEDS ORDERED: Morphine 4mg INJECTION 4 MG/ML INJ ONE (01:50)
[2023-10-19] MEDS ORDERED: ONDANSETRON HCL INJ 2MG/ML 2ML 2 MG/ML VIAL IV PRN (09:15)
[2023-10-19 10:28] LABS: BASOPHILS # (AUTO) 0.1 (0.0-0.1); BASOPHILS % 0.3 % (0.0-1.0); EOSINOPHILS % 0.2 % (0.0-6.0); HEMATOCRIT 30.8 % (34.2-44.1); HEMOGLOBIN 10.3 g/dL (12.0-16.0); LYMPHOCYTES # (AUTO) 0.9 (1.0-3.2); LYMPHOCYTES % 5.4 % (18.0-39.1); MEAN CORPUSCULAR HEMOGLOBIN 29.9 pg (28-32); MEAN CORPUSCULAR HGB CONC 33.4 g/dL (31-35); MEAN CORPUSCULAR VOLUME 89.5 fL (81-99); MONOCYTES # (AUTO) 1.1 (0.2-0.8); MONOCYTES % 6.4 % (4.4-11.3); NEUTROPHILS # (AUTO) 14.7 (2.1-6.9); NEUTROPHILS % 87.3 % (38.7-80.0); PLATELET COUNT 176 x10e3/uL (140-360); RED BLOOD COUNT 3.44 x10e6/uL (3.6-5.1); RED CELL DISTRIBUTION WIDTH 13.7 % (11.7-14.4)
[2023-10-19 10:45] LABS: ANION GAP 14.8 mmol/L (8-16); CREATININE, SERUM 0.81 mg/dL (0.57-1.11); POTASSIUM 3.8 mmol/L (3.5-5.1)
[2023-10-19] MEDS: KCL 40MEQ/0.9% SOD CHL 1,000 ML IV SCH (11:57)
[2023-10-19] MEDS: BISACODYL 10 MG SUPP PR ONE (13:49)
[2023-10-19] MEDS: HYDRALAZINE HCL 20 MG/ML VIAL IV PRN (21:44)
[2023-10-20 00:09] VITALS: BP 142/62; PULSE 78; RESP 18; TEMP 98.2; O2SAT 99
[2023-10-20] MEDS: DIPHENHYDRAMINE HCL INJ 50 MG/ML VIAL IM PRN (03:16)
[2023-10-20 06:29] LABS: BASOPHILS % 0.3 % (0.0-1.0); EOSINOPHILS # (AUTO) 0.2 (0.0-0.4); EOSINOPHILS % 1.5 % (0.0-6.0); HEMATOCRIT 27.6 % (34.2-44.1); HEMOGLOBIN 9.2 g/dL (12.0-16.0); LYMPHOCYTES # (AUTO) 1.3 (1.0-3.2); LYMPHOCYTES % 8.7 % (18.0-39.1); MEAN CORPUSCULAR HGB CONC 33.3 g/dL (31-35); MEAN CORPUSCULAR VOLUME 89.9 fL (81-99); MONOCYTES # (AUTO) 0.9 (0.2-0.8); MONOCYTES % 6.6 % (4.4-11.3); NEUTROPHILS # (AUTO) 11.8 (2.1-6.9); NEUTROPHILS % 82.3 % (38.7-80.0); PLATELET COUNT 166 x10e3/uL (140-360); RED BLOOD COUNT 3.07 x10e6/uL (3.6-5.1); RED CELL DISTRIBUTION WIDTH 13.7 % (11.7-14.4); WHITE BLOOD COUNT 14.35 x10e3/uL (4.8-10.8)
[2023-10-20 06:57] LABS: CALCIUM 8.9 mg/dL (8.4-10.2); CREATININE, SERUM 0.79 mg/dL (0.57-1.11)
[2023-10-20 07:08] VITALS: PULSE 75; RESP 18; O2SAT 96
[2023-10-20 07:18] LABS: MAGNESIUM 1.7 MG/DL (1.3-2.1); PHOSPHORUS 1.5 MG/DL (2.3-4.7)
[2023-10-20 08:00] VITALS: BP_SYST 142; BP_SYST 159; BP_DIAS 62; BP_DIAS 75; PULSE 75; PULSE 80; RESP 18; TEMP 98.2; O2SAT 100; O2SAT 96
[2023-10-20] MEDS ORDERED: MAGNESIUM SULFATE 2GM/50ML IV ONE ×2 (08:30→11:01)
[2023-10-20] MEDS: MAGNESIUM SULFATE 2GM/50ML 50 ML IV ONE (10:15)
[2023-10-20] MEDS: POTASSIUM PHOSPHATE 20 MM in SODIUM CHLORIDE 0.9% 250ML 250 ML IV ONE (10:17)
[2023-10-20] MEDS ORDERED: PIPERACILLIN/TAZOBACTAM 3.375 GM VIAL ONE (11:01)
[2023-10-20] MEDS ORDERED: Morphine 4mg INJECTION 4 MG/ML INJ ONE (11:01)
[2023-10-20] MEDS ORDERED: Sodium Chloride 0.9% 50ML Bag ONE (11:01)
[2023-10-20] MEDS ORDERED: HYDRALAZINE HCL 20 MG/ML VIAL ONE (11:01)
[2023-10-20] MEDS ORDERED: DIPHENHYDRAMINE HCL INJ 50 MG/ML VIAL ONE (11:01)
[2023-10-20 16:00] VITALS: BP 137/72; PULSE 87; RESP 20; TEMP 98.2; O2SAT 100
[2023-10-20 20:10] VITALS: PULSE 78; RESP 18; O2SAT 99
[2023-10-20 20:15] VITALS: BP 169/65; PULSE 92; RESP 18; TEMP 98.5; O2SAT 99
[2023-10-21 00:30] VITALS: BP 157/61; PULSE 75
[2023-10-21 06:17] LABS: BASOPHILS % 0.5 % (0.0-1.0); EOSINOPHILS # (AUTO) 0.4 (0.0-0.4); HEMATOCRIT 27.3 % (34.2-44.1); HEMOGLOBIN 9.2 g/dL (12.0-16.0); LYMPHOCYTES # (AUTO) 1.1 (1.0-3.2); LYMPHOCYTES % 12.8 % (18.0-39.1); MEAN CORPUSCULAR HEMOGLOBIN 29.8 pg (28-32); MEAN CORPUSCULAR HGB CONC 33.7 g/dL (31-35); MEAN CORPUSCULAR VOLUME 88.3 fL (81-99); MONOCYTES # (AUTO) 0.8 (0.2-0.8); MONOCYTES % 8.5 % (4.4-11.3); NEUTROPHILS # (AUTO) 6.4 (2.1-6.9); NEUTROPHILS % 72.9 % (38.7-80.0); PLATELET COUNT 173 x10e3/uL (140-360); RED BLOOD COUNT 3.09 x10e6/uL (3.6-5.1); RED CELL DISTRIBUTION WIDTH 13.3 % (11.7-14.4); WHITE BLOOD COUNT 8.82 x10e3/uL (4.8-10.8)
[2023-10-21 06:40] LABS: ANION GAP 11.6 mmol/L (8-16); CALCIUM 8.9 mg/dL (8.4-10.2); CREATININE, SERUM 0.74 mg/dL (0.57-1.11); POTASSIUM 3.6 mmol/L (3.5-5.1)
[2023-10-21 08:00] VITALS: BP 157/61; PULSE 75; RESP 18; TEMP 98.5; O2SAT 99
[2023-10-21] MEDS ORDERED: Morphine 4mg INJECTION 4 MG/ML INJ IV PRN (08:15)
[2023-10-21 10:20] VITALS: PULSE 97; RESP 18; O2SAT 100
[2023-10-21] MEDS ORDERED: SODIUM CHLORIDE 0.9% INJ 100 ML BAG ONE (11:23)
[2023-10-21] MEDS ORDERED: IRON SUCROSE 100 MG/5 ML VIAL IV ONE (11:23)
[2023-10-21] MEDS ORDERED: PIPERACILLIN/TAZOBACTAM 3.375 GM VIAL ONE ×4 (11:23→21:34)
[2023-10-21] MEDS ORDERED: Sodium Chloride 0.9% 50ML Bag ONE ×2 (11:23→15:00)
[2023-10-21] MEDS ORDERED: PANTOPRAZOLE SOD 40 MG TABEC ONE (11:23)
[2023-10-21] MEDS: PANTOPRAZOLE SOD 40 MG TABEC PO SCH (11:39)
[2023-10-21] MEDS: IRON SUCROSE 100 MG in SODIUM CHLORIDE 0.9% 100 ML IV SCH (11:39)
[2023-10-21] MEDS ORDERED: HYDROCODONE/APAP 10MG-325MG TAB ONE ×2 (15:00→17:27)
[2023-10-21] MEDS ORDERED: PIPER-TAZ 3.375 GM / NS 50ML IV ONE (15:00)
[2023-10-21 16:30] VITALS: BP 150/66; PULSE 98; RESP 18; TEMP 98.4; O2SAT 99
[2023-10-21] MEDS: HYDROCODONE/APAP 10MG-325MG TAB PO PRN (17:38)
[2023-10-21 20:00] VITALS: BP 151/68; PULSE 100; RESP 18; TEMP 98.1; O2SAT 99
[2023-10-21 21:04] VITALS: PULSE 88; RESP 18; O2SAT 96
[2023-10-22] VITALS (7 sets, daily range): BP systolic 151–166; BP diastolic 67–76; PULSE 85–100; RESP 18–20; TEMP 98.1–98.9; O2SAT 96–100
[2023-10-22 07:21] LABS: ANION GAP 12.5 mmol/L (8-16); CREATININE, SERUM 0.72 mg/dL (0.57-1.11); POTASSIUM 3.5 mmol/L (3.5-5.1)
[2023-10-22 07:44] LABS: MAGNESIUM 1.6 MG/DL (1.3-2.1)
[2023-10-22 08:16] LABS: PHOSPHORUS 2.9 MG/DL (2.3-4.7)
[2023-10-22] MEDS ORDERED: PIPERACILLIN/TAZOBACTAM 3.375 GM VIAL ONE ×4 (10:33→23:56)
[2023-10-22] MEDS ORDERED: SODIUM CHLORIDE 0.9% 100 ML ONE ×2 (10:34→17:36)
[2023-10-22] MEDS ORDERED: IRON SUCROSE 5 ML IV ONE (10:34)
[2023-10-22] MEDS ORDERED: PANTOPRAZOLE SOD 40 MG TABEC ONE (11:09)
[2023-10-22] MEDS ORDERED: ONDANSETRON HCL 4 MG ORAL DISINTEGRATING TAB PO PRN (11:15)
[2023-10-22] MEDS ORDERED: SODIUM CHLORIDE 0.9% 1000ML 0 ML ONE (13:51)
[2023-10-22] MEDS ORDERED: SODIUM CHLORIDE 0.9% INJ 100 ML BAG ONE (15:03)
[2023-10-22] MEDS ORDERED: Sodium Chloride 0.9% 50ML Bag ONE (15:03)
[2023-10-22] MEDS ORDERED: IRON SUCROSE 100 MG/5 ML VIAL IV ONE (15:03)
[2023-10-22] MEDS ORDERED: MAGNESIUM/ALUMINUM/SIMETHICONE 30 ML UDC ONE (21:14)
[2023-10-22] MEDS ORDERED: MAGNESIUM/ALUMINUM/SIMETHICONE 30 ML UDC PO PRN (21:15)
[2023-10-23 04:00] VITALS: BP 165/74; PULSE 83; RESP 16; TEMP 98; O2SAT 99
[2023-10-23 06:16] LABS: BASOPHILS # (AUTO) 0.1 (0.0-0.1); BASOPHILS % 0.8 % (0.0-1.0); EOSINOPHILS # (AUTO) 0.4 (0.0-0.4); HEMATOCRIT 27.9 % (34.2-44.1); HEMOGLOBIN 9.7 g/dL (12.0-16.0); LYMPHOCYTES # (AUTO) 1.3 (1.0-3.2); LYMPHOCYTES % 18.5 % (18.0-39.1); MEAN CORPUSCULAR HEMOGLOBIN 29.9 pg (28-32); MEAN CORPUSCULAR HGB CONC 34.8 g/dL (31-35); MEAN CORPUSCULAR VOLUME 86.1 fL (81-99); MONOCYTES # (AUTO) 0.9 (0.2-0.8); MONOCYTES % 12.6 % (4.4-11.3); NEUTROPHILS # (AUTO) 4.4 (2.1-6.9); NEUTROPHILS % 62.1 % (38.7-80.0); PLATELET COUNT 206 x10e3/uL (140-360); RED BLOOD COUNT 3.24 x10e6/uL (3.6-5.1); RED CELL DISTRIBUTION WIDTH 13.1 % (11.7-14.4); WHITE BLOOD COUNT 7.15 x10e3/uL (4.8-10.8)
[2023-10-23 07:00] LABS: ANION GAP 13.5 mmol/L (8-16); CALCIUM 9.3 mg/dL (8.4-10.2); CREATININE, SERUM 0.73 mg/dL (0.57-1.11); POTASSIUM 3.5 mmol/L (3.5-5.1)
[2023-10-23 08:25] VITALS: BP 167/76; PULSE 86; RESP 18; TEMP 97.8; O2SAT 100
[2023-10-23] MEDS ORDERED: PIPERACILLIN/TAZOBACTAM 3.375 GM VIAL ONE (08:27)
[2023-10-23] MEDS ORDERED: PANTOPRAZOLE SOD 40 MG TABEC ONE (08:27)
[2023-10-23 09:39] VITALS: BP 167/76; PULSE 86; RESP 18; TEMP 97.8; O2SAT 100
[2023-10-23 12:00] VITALS: BP 147/77; PULSE 85; RESP 19; TEMP 97.5; O2SAT 99
[2023-10-23] MEDS ORDERED: CELEBREX100 MG PO (13:19)
[2023-10-23] MEDS ORDERED: ONDANSETRON ODT4 MG SL (13:19)
[2023-10-23] MEDS ORDERED: LYRICA25 MG PO (13:20)
[2023-10-23] MEDS ORDERED: TYLENOL PO (13:21)
[2023-10-23] MEDS ORDERED: MACROBID 100 M100 MG PO (14:13)
[2023-10-24 17:13] LABS: CREATINE KINASE TOTAL 22
[2023-10-24 17:14] LABS: CK-BB 0; CK-MB 0
[2023-10-27 11:38] LABS: ABG HCO3 17 mmol/L (22-26); ABG PCO2 20 mmHg (35-45); ABG PH 7.55 (7.35-7.45); ABG PO2 226 mmHg (80-105); ABG TCO2 18
== END 2023-10-23 15:12 | disposition home or self-care (01) | DRG 654 ==
LOC: OR 09:09 → PACU V 15:29 → ICU 19:26 → MED/SURG 10-18 13:50
PROVIDERS: ADMIT Surgery; ATTEND Internal Medicine
PROC: 0TNB0ZZ Release Bladder, Open Approach (ICD-10-PCS; 2023-10-17)
PROC: 0T788DZ Dilation of Bilateral Ureters with Intraluminal Device, Via Natural or Artificial Opening Endoscopic (ICD-10-PCS; 2023-10-17)
PROC: BT141ZZ Fluoroscopy of Kidneys, Ureters and Bladder using Low Osmolar Contrast (ICD-10-PCS; 2023-10-17)
PROC: 0TCB8ZZ Extirpation of Matter from Bladder, Via Natural or Artificial Opening Endoscopic (ICD-10-PCS; principal; 2023-10-17 13:52)
PROC: 0TBB0ZZ Excision of Bladder, Open Approach (ICD-10-PCS; 2023-10-17 13:52)
DX: N13.6 Pyonephrosis (principal); D62 Acute posthemorrhagic anemia; I25.10 Atherosclerotic heart disease of native coronary artery without angina pectoris; I10 Essential (primary) hypertension; E78.5 Hyperlipidemia, unspecified; N81.10 Cystocele, unspecified; E66.9 Obesity, unspecified; Z68.37 Body mass index [BMI] 37.0-37.9, adult; R53.81 Other malaise; B96.20 Unspecified Escherichia coli [E. coli] as the cause of diseases classified elsewhere; E11.9 Type 2 diabetes mellitus without complications; N81.6 Rectocele; N73.6 Female pelvic peritoneal adhesions (postinfective); N95.2 Postmenopausal atrophic vaginitis; Z79.899 Other long term (current) drug therapy; Z79.02 Long term (current) use of antithrombotics/antiplatelets; Z79.84 Long term (current) use of oral hypoglycemic drugs; Z79.82 Long term (current) use of aspirin; Z95.1 Presence of aortocoronary bypass graft; Z90.710 Acquired absence of both cervix and uterus; Z90.79 Acquired absence of other genital organ(s); Z90.722 Acquired absence of ovaries, bilateral
CPT/HCPCS: 36415; 36600; 71045; 71046; 74018; 74420; 80048; 80053; 82552; 82805; 82948; 83735; 84100; 85025; 87086; 87186; 88304; 88305; 88309; 94002; 94799; C1758; C1769; C2617; J0330; J0360; J0690; J1200; J1756; J2001; J2270; J2371; J2405; J2543; J2765; J3475; J7030; J7050; Q9967

== ENCOUNTER 2023-12-26 13:08 | Emergency (ER) | payer MEDICARE ==
[~2023-12-26] VITALS: Ht 149.9 cm; Wt 80.3 kg
[~2023-12-26 13:08] MED LIST changes: +AMOX TR-K CLV1 EAC2 PO; +CELEBREX100 MG PO; +LYRICA25 MG PO; +MACROBID 100 M100 MG PO; +ONDANSETRON ODT4 MG SL; +TYLENOL PO
[2023-12-26 13:29] VITALS: PULSE 82; RESP 18; TEMP 98.8; O2SAT 98
== END 2023-12-26 14:05 | disposition home or self-care (01) ==
LOC: ER 13:22
DX: L23.3 Allergic contact dermatitis due to drugs in contact with skin (principal); I10 Essential (primary) hypertension; E11.9 Type 2 diabetes mellitus without complications; E78.5 Hyperlipidemia, unspecified; E78.00 Pure hypercholesterolemia, unspecified; I25.2 Old myocardial infarction
CPT/HCPCS: 99282

== ENCOUNTER → 2024-01-16 | Outpatient (REF) | payer MEDICARE ==
[~2024-01-16] MED LIST changes: +IOPAMIDOL 370 MG/ML 100 ML INFUS..BTL INJ ONE; +SODIUM CHLORIDE 0.9% 500ML 500 ML ONE
== END ==
LOC: CT 13:40
PROVIDERS: ATTEND Urology
DX: N13.70 Vesicoureteral-reflux, unspecified (principal)
CPT/HCPCS: 72194; J7040; Q9967

== ENCOUNTER → 2024-03-05 | Day surgery (SDC) | payer MEDICARE ==
[2024-03-04 12:50] LABS: BASOPHILS # (AUTO) 0.1 (0.0-0.1); BASOPHILS % 0.8 % (0.0-1.0); EOSINOPHILS # (AUTO) 0.3 (0.0-0.4); HEMATOCRIT 38.3 % (34.2-44.1); LYMPHOCYTES # (AUTO) 1.6 (1.0-3.2); LYMPHOCYTES % 17.1 % (18.0-39.1); MEAN CORPUSCULAR HEMOGLOBIN 28.6 pg (28-32); MEAN CORPUSCULAR HGB CONC 31.3 g/dL (31-35); MEAN CORPUSCULAR VOLUME 91.4 fL (81-99); MONOCYTES # (AUTO) 0.7 (0.2-0.8); MONOCYTES % 7.9 % (4.4-11.3); NEUTROPHILS # (AUTO) 6.7 (2.1-6.9); NEUTROPHILS % 70.9 % (38.7-80.0); PLATELET COUNT 281 x10e3/uL (140-360); RED BLOOD COUNT 4.19 x10e6/uL (3.6-5.1); RED CELL DISTRIBUTION WIDTH 14.3 % (11.7-14.4); WHITE BLOOD COUNT 9.42 x10e3/uL (4.8-10.8)
[2024-03-04 13:11] LABS: ANION GAP 15.6 mmol/L (8-16); CALCIUM 9.6 mg/dL (8.4-10.2); CREATININE, SERUM 0.99 mg/dL (0.57-1.11); POTASSIUM 3.6 mmol/L (3.5-5.1); URIC ACID 3.9 mg/dL (2.6-8.0)
[~2024-03-05] MED LIST changes: +ACETAMINOPHEN 1000 MG/100 ML 100 ML IV ONE; +DEXAMETHASONE SOD PHOS INJ 4 MG/ML SDV ONE; +FENTANYL CITRATE/PF 100MCG/2 ML INJ ONE; -IOPAMIDOL 370 MG/ML 100 ML INFUS..BTL INJ ONE; +IOPAMIDOL 610MG/1ML 300 MG/ML VIAL IV ONE; +LIDOCAINE HCL 2% LOCAL INJ 5 ML SDV VIAL INJ ONE; +ONDANSETRON HCL INJ 2MG/ML 2ML 2 MG/ML VIAL ONE; +PROPOFOL IV EMULSION 10 MG/ML 20 ML VIAL ONE; +SEVOFLURANE INHAL SOLN 250 ML PEN BTL ONE; -SODIUM CHLORIDE 0.9% 500ML 500 ML ONE
[2024-03-05] MEDS: LACTATED RINGER'S 1,000 ML ONE (11:25)
[2024-03-05] MEDS: GENTAMICIN 80MG/NS 100 ML 200 ML IV ONE (11:26)
[2024-03-05] MEDS: CEFTRIAXONE 1 GM VIAL ONE (11:27)
[2024-03-05 14:45] VITALS: TEMP 97.5
[2024-03-05 16:00] VITALS: BP 157/75; PULSE 80; RESP 16; O2SAT 97
== END | disposition home or self-care (01) ==
LOC: OR 10:51
PROVIDERS: ATTEND Urology
DX: N13.5 Crossing vessel and stricture of ureter without hydronephrosis (principal); C67.9 Malignant neoplasm of bladder, unspecified; N13.30 Unspecified hydronephrosis; Z46.6 Encounter for fitting and adjustment of urinary device; N81.10 Cystocele, unspecified; N81.6 Rectocele; N36.41 Hypermobility of urethra; N95.2 Postmenopausal atrophic vaginitis; N36.8 Other specified disorders of urethra; S31.109A Unspecified open wound of abdominal wall, unspecified quadrant without penetration into peritoneal cavity, initial encounter; I10 Essential (primary) hypertension; E11.9 Type 2 diabetes mellitus without complications; I25.10 Atherosclerotic heart disease of native coronary artery without angina pectoris; E78.5 Hyperlipidemia, unspecified; L40.9 Psoriasis, unspecified; E66.01 Morbid (severe) obesity due to excess calories; X58.XXXA Exposure to other specified factors, initial encounter; Z01.810 Encounter for preprocedural cardiovascular examination; Z01.812 Encounter for preprocedural laboratory examination; Z01.818 Encounter for other preprocedural examination; Z79.84 Long term (current) use of oral hypoglycemic drugs; Z79.899 Other long term (current) drug therapy
CPT/HCPCS: 12021; 36415; 52332; 52344; 74018; 74420; 80048; 84550; 85025; 87071; 87075; 87086; 87186; 87205; 88112; 88305; 93005; C1769; C2617; J0131; J0696; J1100; J1580; J2001; J2405; J2704; J3010; J7121; Q9967

== ENCOUNTER 2024-04-29 10:00 | Inpatient (IN) | payer MEDICARE ==
[2024-04-29] VITALS (8 sets, daily range): BP systolic 158–168; BP diastolic 69–85; PULSE 74–91; RESP 16–18; TEMP 97.5–98.3; O2SAT 99–100
[~2024-04-29] VITALS: Ht 149.9 cm; Wt 77.1 kg
[~2024-04-29 10:00] MED LIST changes: -ACETAMINOPHEN 1000 MG/100 ML 100 ML IV ONE; +CEFDINIR300 MG PO; -DEXAMETHASONE SOD PHOS INJ 4 MG/ML SDV ONE; -FENTANYL CITRATE/PF 100MCG/2 ML INJ ONE; -IOPAMIDOL 610MG/1ML 300 MG/ML VIAL IV ONE; -LIDOCAINE HCL 2% LOCAL INJ 5 ML SDV VIAL INJ ONE; -ONDANSETRON HCL INJ 2MG/ML 2ML 2 MG/ML VIAL ONE; -PROPOFOL IV EMULSION 10 MG/ML 20 ML VIAL ONE; -SEVOFLURANE INHAL SOLN 250 ML PEN BTL ONE
[2024-04-29] MEDS: SODIUM CHLORIDE 0.9% 1000ML 1,000 ML IV STA (11:33)
[2024-04-29 11:49] LABS: BASOPHILS % 0.4 % (0.0-1.0); EOSINOPHILS # (AUTO) 0.1 (0.0-0.4); EOSINOPHILS % 1.2 % (0.0-6.0); HEMATOCRIT 37.3 % (34.2-44.1); HEMOGLOBIN 11.4 g/dL (12.0-16.0); LYMPHOCYTES # (AUTO) 0.8 (1.0-3.2); MEAN CORPUSCULAR HEMOGLOBIN 29.8 pg (28-32); MEAN CORPUSCULAR HGB CONC 30.6 g/dL (31-35); MEAN CORPUSCULAR VOLUME 97.4 fL (81-99); MONOCYTES # (AUTO) 0.7 (0.2-0.8); MONOCYTES % 7.5 % (4.4-11.3); NEUTROPHILS # (AUTO) 7.8 (2.1-6.9); NEUTROPHILS % 82.2 % (38.7-80.0); PLATELET COUNT 278 x10e3/uL (140-360); RED BLOOD COUNT 3.83 x10e6/uL (3.6-5.1); RED CELL DISTRIBUTION WIDTH 14.3 % (11.7-14.4); WHITE BLOOD COUNT 9.48 x10e3/uL (4.8-10.8)
[2024-04-29 12:24] LABS: ALANINE AMINOTRANSFERASE 15 IU/L (0-55); ALBUMIN 2.8 g/dL (3.5-5.0); ALBUMIN/GLOBULIN RATIO 0.6 (0.8-2.0); ALKALINE PHOSPHATASE 78 IU/L (40-150); ANION GAP 14.9 mmol/L (8-16); BILIRUBIN,TOTAL 0.3 mg/dL (0.2-1.2); BLOOD UREA NITROGEN 14 mg/dL (7-26); BUN/CREATININE RATIO 17 (6-25); CALCIUM 9.4 mg/dL (8.4-10.2); CARBON DIOXIDE 15 mmol/L (22-29); CHLORIDE 109 mmol/L (98-107); CREATINE KINASE 32 IU/L (29-168); CREATININE, SERUM 0.81 mg/dL (0.57-1.11); EST GLOMERULAR FILTRATION RATE 75 ML/MIN (>=60); GLUCOSE 70 mg/dL (74-118); MAGNESIUM 1.4 MG/DL (1.3-2.1); POTASSIUM 3.9 mmol/L (3.5-5.1); SODIUM 135 mmol/L (136-145); TOTAL PROTEIN 7.8 g/dL (6.5-8.1)
[2024-04-29 12:31] LABS: TROPONIN I < 0.001 ng/mL (0-0.300)
[2024-04-29 13:04] LABS: PROTHROMBIN TIME 13.7 seconds (11.9-14.5)
[2024-04-29 13:19] LABS: CLARITY,URINE CLOUDY (CLEAR); COLOR,URINE YELLOW (YELLOW)
[2024-04-29 13:20] LABS: BILIRUBIN,URINE NEGATIVE (NEGATIVE); GLUCOSE, URINE NEGATIVE (NEGATIVE); KETONES,URINE NEGATIVE (NEGATIVE); LEUKOCYTE ESTERASE ,URINE LARGE (NEGATIVE); NITRITE,URINE NEGATIVE (NEGATIVE); PH,URINE 5.5 (5 - 7); PROTEIN,URINE DIPSTICK 2+ (NEGATIVE); URINE UROBILINOGEN 0.2 mg/dL (0.2 - 1)
[2024-04-29 13:34] LABS: WBC,URINE (MAN) >50 /HPF (0-5)
[2024-04-29 13:35] LABS: BACTERIA,URINE MANY /HPF; EPITHELIAL CELLS,URINE FEW /LPF
[2024-04-29] MEDS: Vancomycin IV 1 GM in SODIUM CHLORIDE 0.9% 250ML 250 ML IV SCH (14:20)
[2024-04-29] MEDS: MEROPENEM 1 GM in SODIUM CHLORIDE 0.9% 100 ML IV SCH (14:20)
[2024-04-29] MEDS ORDERED: Morphine 2mg Syringe 2 MG/ML SYR IV PRN (14:45)
[2024-04-29] MEDS ORDERED: ONDANSETRON HCL INJ 2MG/ML 2ML 2 MG/ML VIAL IV PRN (14:45)
[2024-04-29] MEDS ORDERED: ACETAMINOPHEN 325 MG TAB PO PRN (17:30)
[2024-04-29] MEDS ORDERED: POLYETHYLENE GLYCOL 3350 17 GM PACK PO PRN (17:30)
[2024-04-29] MEDS: SODIUM CHLORIDE 0.9% 1000ML 1,000 ML IV SCH (18:13)
[2024-04-29] MEDS ORDERED: DEXTROSE 50% SYRINGE 50 ML IV PRN (18:15)
[2024-04-29] MEDS: INSULIN LISPRO 100 UNIT/1 ML 3ML VIAL SQ SCH (21:07)
[2024-04-29] MEDS: HYDRALAZINE HCL 20 MG/ML VIAL IV PRN (21:24)
[2024-04-30] VITALS (10 sets, daily range): BP systolic 107–153; BP diastolic 57–85; PULSE 80–102; RESP 16–21; TEMP 97.7–98.4; O2SAT 96–100
[2024-04-30 05:39] LABS: BASOPHILS % 0.4 % (0.0-1.0); EOSINOPHILS # (AUTO) 0.3 (0.0-0.4); EOSINOPHILS % 2.9 % (0.0-6.0); HEMATOCRIT 36.7 % (34.2-44.1); HEMOGLOBIN 11.4 g/dL (12.0-16.0); LYMPHOCYTES # (AUTO) 1.2 (1.0-3.2); LYMPHOCYTES % 12.1 % (18.0-39.1); MEAN CORPUSCULAR HEMOGLOBIN 29.5 pg (28-32); MEAN CORPUSCULAR HGB CONC 31.1 g/dL (31-35); MEAN CORPUSCULAR VOLUME 94.8 fL (81-99); MONOCYTES # (AUTO) 0.8 (0.2-0.8); MONOCYTES % 7.9 % (4.4-11.3); NEUTROPHILS # (AUTO) 7.3 (2.1-6.9); NEUTROPHILS % 76.2 % (38.7-80.0); PLATELET COUNT 318 x10e3/uL (140-360); RED BLOOD COUNT 3.87 x10e6/uL (3.6-5.1); RED CELL DISTRIBUTION WIDTH 14.2 % (11.7-14.4)
[2024-04-30 06:16] LABS: ALBUMIN 2.5 g/dL (3.5-5.0); ALBUMIN/GLOBULIN RATIO 0.6 (0.8-2.0); ANION GAP 14.5 mmol/L (8-16); BILIRUBIN,TOTAL 0.4 mg/dL (0.2-1.2); CALCIUM 8.5 mg/dL (8.4-10.2); CREATININE, SERUM 0.82 mg/dL (0.57-1.11); POTASSIUM 3.5 mmol/L (3.5-5.1); TOTAL PROTEIN 6.7 g/dL (6.5-8.1)
[2024-04-30 06:44] LABS: MAGNESIUM 1.3 MG/DL (1.3-2.1)
[2024-04-30 07:09] LABS: CHOL/HDL RATIO 3.1 (3.0-3.6); PHOSPHORUS 2.7 MG/DL (2.3-4.7)
[2024-04-30 07:40] LABS: FREE T4 (FREE THYROXINE) 1.08 ng/dL (0.8-1.8); THYROID STIMULATING HORMONE 2.235 uIU/mL (0.350-4.940)
[2024-04-30] MEDS: FAMOTIDINE 20 MG TAB PO SCH (09:00)
[2024-04-30] MEDS: DOCUSATE SODIUM 100 MG CAP PO SCH (09:00)
[2024-04-30] MEDS ORDERED: ACETAMINOPHEN/CODEINE 300MG - 30MG TAB PO PRN (09:45)
[2024-04-30] MEDS: ASPIRIN 81 MG CHEW TAB PO SCH (11:00)
[2024-04-30] MEDS: FAMOTIDINE 20 MG/2 ML VIAL IV SCH (11:01)
[2024-04-30] MEDS: ISOSORBIDE MONONITRATE 30 MG TAB CR PO SCH (11:14)
[2024-04-30] MEDS: METOPROLOL TARTRATE 50 MG TAB PO SCH (12:49)
[2024-04-30] MEDS: ATORVASTATIN 40 MG TAB PO SCH (21:06)
[2024-05-01] VITALS (10 sets, daily range): BP systolic 148–166; BP diastolic 65–83; PULSE 74–85; RESP 16–20; TEMP 97.5–98.4; O2SAT 95–100
[2024-05-01 06:46] LABS: BASOPHILS % 0.5 % (0.0-1.0); EOSINOPHILS # (AUTO) 0.5 (0.0-0.4); EOSINOPHILS % 6.1 % (0.0-6.0); HEMATOCRIT 33.2 % (34.2-44.1); HEMOGLOBIN 10.3 g/dL (12.0-16.0); LYMPHOCYTES # (AUTO) 1.2 (1.0-3.2); LYMPHOCYTES % 15.9 % (18.0-39.1); MEAN CORPUSCULAR HEMOGLOBIN 29.1 pg (28-32); MEAN CORPUSCULAR VOLUME 93.8 fL (81-99); MONOCYTES # (AUTO) 0.9 (0.2-0.8); MONOCYTES % 11.4 % (4.4-11.3); NEUTROPHILS % 65.7 % (38.7-80.0); PLATELET COUNT 321 x10e3/uL (140-360); RED BLOOD COUNT 3.54 x10e6/uL (3.6-5.1); RED CELL DISTRIBUTION WIDTH 14.3 % (11.7-14.4); WHITE BLOOD COUNT 7.54 x10e3/uL (4.8-10.8)
[2024-05-01 07:27] LABS: ANION GAP 14.4 mmol/L (8-16); CALCIUM 9.1 mg/dL (8.4-10.2); CREATININE, SERUM 0.82 mg/dL (0.57-1.11)
[2024-05-01 07:30] LABS: POTASSIUM 3.4 mmol/L (3.5-5.1)
[2024-05-01] MEDS: MULTIVITAMINS/MINERALS TAB PO SCH (09:03)
[2024-05-01] MEDS: MAGNESIUM SULFATE 2GM/50ML 50 ML IV ONE ×2 (12:11→15:59)
[2024-05-02] VITALS (9 sets, daily range): BP systolic 123–164; BP diastolic 64–83; PULSE 74–99; RESP 16–21; TEMP 97.8–99; O2SAT 96–100
[2024-05-02] MEDS: LISINOPRIL 2.5 MG TAB PO SCH (08:39)
[2024-05-02] MEDS: ASCORBIC ACID 500 MG TAB PO SCH (08:39)
[2024-05-02] MEDS: ZINC SULFATE 220 MG CAP PO SCH (08:54)
[2024-05-02] MEDS ORDERED: ERGOCALCIFEROL 25 MCG PO SCH (09:00)
[2024-05-02] MEDS ORDERED: MECOBALAMIN PO SCH (09:00)
[2024-05-02] MEDS: FERROUS SULFATE 325 MG TAB PO SCH (12:37)
[2024-05-02] MEDS: POTASSIUM CHLORIDE 20 MEQ TAB CR PO ONE (12:37)
[2024-05-03] VITALS (8 sets, daily range): BP systolic 121–145; BP diastolic 58–75; PULSE 72–97; RESP 16–20; TEMP 97.7–98.7; O2SAT 97–100
[2024-05-03 06:21] LABS: BASOPHILS % 0.2 % (0.0-1.0); EOSINOPHILS # (AUTO) 0.4 (0.0-0.4); EOSINOPHILS % 4.2 % (0.0-6.0); HEMOGLOBIN 10.1 g/dL (12.0-16.0); LYMPHOCYTES # (AUTO) 1.6 (1.0-3.2); LYMPHOCYTES % 17.5 % (18.0-39.1); MEAN CORPUSCULAR HGB CONC 30.6 g/dL (31-35); MEAN CORPUSCULAR VOLUME 94.8 fL (81-99); MONOCYTES # (AUTO) 1.1 (0.2-0.8); MONOCYTES % 11.6 % (4.4-11.3); NEUTROPHILS % 65.8 % (38.7-80.0); PLATELET COUNT 312 x10e3/uL (140-360); RED BLOOD COUNT 3.48 x10e6/uL (3.6-5.1); RED CELL DISTRIBUTION WIDTH 14.6 % (11.7-14.4); WHITE BLOOD COUNT 9.08 x10e3/uL (4.8-10.8)
[2024-05-03 06:41] LABS: MAGNESIUM 1.7 MG/DL (1.3-2.1)
[2024-05-03] MEDS: CYANOCOBALAMIN 1,000 MCG TAB PO SCH (12:26)
[2024-05-03] MEDS: IRON SUCROSE 100 MG in SODIUM CHLORIDE 0.9% 100 ML IV SCH (12:26)
[2024-05-03] MEDS: CHOLECALCIFEROL 1,000 UNIT TAB PO SCH (12:28)
[2024-05-03 13:17] LABS: CREATINE KINASE 15 IU/L (29-168)
[2024-05-03 14:29] LABS: TROPONIN I < 0.05 ng/mL (0.0-0.40)
[2024-05-03] MEDS: ASPIRIN 81 MG CHEW TAB PO ONE (15:57)
[2024-05-04] VITALS (9 sets, daily range): BP systolic 108–166; BP diastolic 58–76; PULSE 78–99; RESP 16–18; TEMP 97.4–98.3; O2SAT 98–100
[2024-05-04 07:46] LABS: ANION GAP 11.7 mmol/L (8-16); CALCIUM 8.9 mg/dL (8.4-10.2); CREATININE, SERUM 0.75 mg/dL (0.57-1.11); MAGNESIUM 1.6 MG/DL (1.3-2.1); PHOSPHORUS 3.6 MG/DL (2.3-4.7); POTASSIUM 3.7 mmol/L (3.5-5.1)
[2024-05-04 08:09] LABS: TROPONIN I 0.004 ng/mL (0-0.300)
[2024-05-04] MEDS: MAGNESIUM SULFATE 2GM/50ML 50 ML IV ONE (09:55)
[2024-05-05] VITALS (7 sets, daily range): BP systolic 122–141; BP diastolic 57–81; PULSE 74–86; RESP 16–18; TEMP 97.6–99.1; O2SAT 99–100
[2024-05-05 12:52] LABS: ANION GAP 13.4 mmol/L (8-16); CALCIUM 9.7 mg/dL (8.4-10.2); CREATININE, SERUM 0.94 mg/dL (0.57-1.11); POTASSIUM 4.4 mmol/L (3.5-5.1)
[2024-05-05] MEDS: FOSFOMYCIN TROMETHAMINE 3 GM PACKET PO ONE (15:19)
[2024-05-05] MEDS ORDERED: ASPIRIN CHEW81 MG PO (15:48)
[2024-05-05] MEDS ORDERED: ASCORBIC ACID500 MG PO (15:48)
[2024-05-05] MEDS ORDERED: B-121000 MC1 PO (15:48)
[2024-05-05] MEDS ORDERED: ACETAMINOPHEN325 M1 PO (15:48)
[2024-05-06] MEDS ORDERED: FERROUS SULFATE 325 MG TAB PO SCH (10:00)
== END 2024-05-05 18:13 | disposition home or self-care (01) | DRG 690 ==
LOC: ER 10:07 → ERHOLD 14:35 → MED/SURG3 16:30
PROVIDERS: ADMIT Internal Medicine; ATTEND Internal Medicine
PROC: 02HV33Z Insertion of Infusion Device into Superior Vena Cava, Percutaneous Approach (ICD-10-PCS; principal; 2024-05-02)
DX: N30.81 Other cystitis with hematuria (principal); N12 Tubulo-interstitial nephritis, not specified as acute or chronic; Z16.24 Resistance to multiple antibiotics; J98.11 Atelectasis; N32.2 Vesical fistula, not elsewhere classified; R13.10 Dysphagia, unspecified; E11.9 Type 2 diabetes mellitus without complications; B96.20 Unspecified Escherichia coli [E. coli] as the cause of diseases classified elsewhere; B96.4 Proteus (mirabilis) (morganii) as the cause of diseases classified elsewhere; E87.6 Hypokalemia; E83.42 Hypomagnesemia; E78.49 Other hyperlipidemia; I10 Essential (primary) hypertension; I25.10 Atherosclerotic heart disease of native coronary artery without angina pectoris; D50.9 Iron deficiency anemia, unspecified; D51.9 Vitamin B12 deficiency anemia, unspecified; I44.0 Atrioventricular block, first degree; R47.81 Slurred speech; R47.02 Dysphasia; E66.9 Obesity, unspecified; Z68.34 Body mass index [BMI] 34.0-34.9, adult; R32 Unspecified urinary incontinence; N32.81 Overactive bladder; R26.2 Difficulty in walking, not elsewhere classified; Z79.84 Long term (current) use of oral hypoglycemic drugs; Z96.0 Presence of urogenital implants; I25.2 Old myocardial infarction; Z87.440 Personal history of urinary (tract) infections; Z85.51 Personal history of malignant neoplasm of bladder; Z90.49 Acquired absence of other specified parts of digestive tract; Z95.1 Presence of aortocoronary bypass graft; Z90.710 Acquired absence of both cervix and uterus; Z80.9 Family history of malignant neoplasm, unspecified
CPT/HCPCS: 36415; 36569; 70450; 71045; 74176; 80048; 80053; 80061; 80202; 81001; 82550; 82607; 82746; 82948; 83036; 83540; 83735; 84100; 84439; 84443; 84466; 84484; 85025; 85610; 85730; 87040; 87086; 87186; 93005; 93306; 93880; 94799; 96372; 99284; J0360; J0692; J0696; J1756; J2185; J3475; J7030; J7050

== ENCOUNTER → 2024-05-19 | Day surgery (SDC) | payer MEDICARE ==
[~2024-05-19] MED LIST changes: +ACETAMINOPHEN 1000 MG/100 ML 100 ML IV ONE; +ACETAMINOPHEN325 M1 PO; +ASCORBIC ACID500 MG PO; +ASPIRIN CHEW81 MG PO; +B-121000 MC1 PO; +CEFPODOXIME PR200 MG PO; +CEPHALEXIN500 MG PO; +CLOPIDOGREL75 MG PO; +DEXAMETHASONE SOD PHOS INJ 4 MG/ML SDV ONE; +DIFLUCAN100 MG PO; +FAMOTIDINE 20 MG/2 ML VIAL IV ONE; +FENTANYL CITRATE/PF 100MCG/2 ML INJ ONE; +LIDOCAINE HCL 2% LOCAL INJ 5 ML SDV VIAL INJ ONE; +ONDANSETRON HCL INJ 2MG/ML 2ML 2 MG/ML VIAL ONE; +PHENYLEPHRINE HCL 1% 10 MG/ML VIAL ONE; +PROPOFOL IV EMULSION 10 MG/ML 20 ML VIAL ONE; +SODIUM BICARBO650 MG PO; +SODIUM CHLORIDE 0.9% 100 ML ONE
[2024-05-19] MEDS: LACTATED RINGER'S 1,000 ML ONE (11:02)
[2024-05-19] MEDS: GENTAMICIN 80MG/NS 100 ML 200 ML IV ONE (11:02)
[2024-05-19] MEDS: CEFTRIAXONE 1 GM VIAL ONE (11:03)
[2024-05-19 11:06] LABS: BASOPHILS # (AUTO) 0.1 (0.0-0.1); BASOPHILS % 0.6 % (0.0-1.0); EOSINOPHILS # (AUTO) 0.2 (0.0-0.4); EOSINOPHILS % 1.8 % (0.0-6.0); HEMATOCRIT 36.1 % (34.2-44.1); HEMOGLOBIN 11.2 g/dL (12.0-16.0); LYMPHOCYTES # (AUTO) 1.1 (1.0-3.2); LYMPHOCYTES % 8.5 % (18.0-39.1); MEAN CORPUSCULAR HEMOGLOBIN 29.3 pg (28-32); MEAN CORPUSCULAR VOLUME 94.5 fL (81-99); MONOCYTES % 7.1 % (4.4-11.3); NEUTROPHILS # (AUTO) 10.9 (2.1-6.9); NEUTROPHILS % 81.4 % (38.7-80.0); PLATELET COUNT 368 x10e3/uL (140-360); RED BLOOD COUNT 3.82 x10e6/uL (3.6-5.1); RED CELL DISTRIBUTION WIDTH 14.1 % (11.7-14.4); WHITE BLOOD COUNT 13.43 x10e3/uL (4.8-10.8)
[2024-05-19 11:27] LABS: ALBUMIN 3.1 g/dL (3.5-5.0); ALBUMIN/GLOBULIN RATIO 0.7 (0.8-2.0); ANION GAP 15.8 mmol/L (8-16); BILIRUBIN,TOTAL 0.4 mg/dL (0.2-1.2); CALCIUM 9.4 mg/dL (8.4-10.2); CREATININE, SERUM 1.25 mg/dL (0.57-1.11); POTASSIUM 3.8 mmol/L (3.5-5.1); TOTAL PROTEIN 7.5 g/dL (6.5-8.1); URIC ACID 5.7 mg/dL (2.6-8.0)
[2024-05-19 15:46] VITALS: TEMP 98.3
[2024-05-19] MEDS: PHENAZOPYRIDINE HCL 100 MG TAB ONE (16:20)
[2024-05-19 16:45] VITALS: BP 134/64; PULSE 73; RESP 16; O2SAT 99
== END | disposition home or self-care (01) ==
LOC: OR 10:05
PROVIDERS: ATTEND Urology
DX: N20.0 Calculus of kidney (principal); N13.30 Unspecified hydronephrosis; Z46.6 Encounter for fitting and adjustment of urinary device; N39.0 Urinary tract infection, site not specified; N32.89 Other specified disorders of bladder; N13.8 Other obstructive and reflux uropathy; N13.39 Other hydronephrosis; C67.9 Malignant neoplasm of bladder, unspecified; N81.10 Cystocele, unspecified; N81.6 Rectocele; N36.41 Hypermobility of urethra; N36.8 Other specified disorders of urethra; N95.2 Postmenopausal atrophic vaginitis; E66.9 Obesity, unspecified; D64.9 Anemia, unspecified; E11.9 Type 2 diabetes mellitus without complications; I10 Essential (primary) hypertension; E78.5 Hyperlipidemia, unspecified; I25.810 Atherosclerosis of coronary artery bypass graft(s) without angina pectoris; Z79.82 Long term (current) use of aspirin; Z79.84 Long term (current) use of oral hypoglycemic drugs; Z79.899 Other long term (current) drug therapy; Z95.1 Presence of aortocoronary bypass graft
CPT/HCPCS: 36415; 52351; 71046; 74018; 74420; 80053; 82948; 84550; 85025; 87086; 87186; 88112; 88305; C1758; C1769; J0131; J0696; J1100; J1580; J2003; J2371; J2405; J2704; J3010; J7050; J7121

== ENCOUNTER 2024-05-29 20:44 | Inpatient (IN) | payer MEDICARE ==
[~2024-05-29] VITALS: Ht 149.9 cm; Wt 75.1 kg
[~2024-05-29 20:44] MED LIST changes: -ACETAMINOPHEN 1000 MG/100 ML 100 ML IV ONE; -CEFPODOXIME PR200 MG PO; -CEPHALEXIN500 MG PO; -CLOPIDOGREL75 MG PO; -DEXAMETHASONE SOD PHOS INJ 4 MG/ML SDV ONE; -DIFLUCAN100 MG PO; -FAMOTIDINE 20 MG/2 ML VIAL IV ONE; -FENTANYL CITRATE/PF 100MCG/2 ML INJ ONE; -LIDOCAINE HCL 2% LOCAL INJ 5 ML SDV VIAL INJ ONE; -ONDANSETRON HCL INJ 2MG/ML 2ML 2 MG/ML VIAL ONE; -PHENYLEPHRINE HCL 1% 10 MG/ML VIAL ONE; -PROPOFOL IV EMULSION 10 MG/ML 20 ML VIAL ONE; -SODIUM BICARBO650 MG PO; -SODIUM CHLORIDE 0.9% 100 ML ONE
[2024-05-29 20:47] VITALS: RESP 15
[2024-05-29] MEDS: SODIUM CHLORIDE 0.9% 1000ML 1,000 ML IV STA (21:21)
[2024-05-29] MEDS: ACETAMINOPHEN 325 MG TAB PO STA (21:22)
[2024-05-29 21:26] LABS: BASOPHILS # (AUTO) 0.1 (0.0-0.1); BASOPHILS % 0.4 % (0.0-1.0); EOSINOPHILS # (AUTO) 0.1 (0.0-0.4); EOSINOPHILS % 0.4 % (0.0-6.0); HEMATOCRIT 34.4 % (34.2-44.1); HEMOGLOBIN 10.7 g/dL (12.0-16.0); LYMPHOCYTES # (AUTO) 0.8 (1.0-3.2); LYMPHOCYTES % 2.9 % (18.0-39.1); MEAN CORPUSCULAR HEMOGLOBIN 29.3 pg (28-32); MEAN CORPUSCULAR HGB CONC 31.1 g/dL (31-35); MEAN CORPUSCULAR VOLUME 94.2 fL (81-99); MONOCYTES # (AUTO) 1.5 (0.2-0.8); MONOCYTES % 5.4 % (4.4-11.3); NEUTROPHILS # (AUTO) 25.3 (2.1-6.9); NEUTROPHILS % 89.8 % (38.7-80.0); PLATELET COUNT 383 x10e3/uL (140-360); RED BLOOD COUNT 3.65 x10e6/uL (3.6-5.1); RED CELL DISTRIBUTION WIDTH 14.2 % (11.7-14.4); WHITE BLOOD COUNT 28.18 x10e3/uL (4.8-10.8)
[2024-05-29 21:43] LABS: ALBUMIN 2.6 g/dL (3.5-5.0); ALBUMIN/GLOBULIN RATIO 0.5 (0.8-2.0); ANION GAP 19.1 mmol/L (8-16); BILIRUBIN,TOTAL 0.5 mg/dL (0.2-1.2); CALCIUM 9.3 mg/dL (8.4-10.2); CREATININE, SERUM 1.32 mg/dL (0.57-1.11); POTASSIUM 4.1 mmol/L (3.5-5.1)
[2024-05-29 21:49] LABS: TROPONIN I 0.009 ng/mL (0-0.300)
[2024-05-29 21:58] LABS: B-TYPE NATRIURETIC PEPTIDE2 157.3 pg/mL (0-100)
[2024-05-29 22:00] VITALS: PULSE 92
[2024-05-29 22:13] LABS: CORONAVIRUS COVID-19 AG NEGATIVE (NEGATIVE); INFLUENZA A AG NEGATIVE (NEGATIVE); INFLUENZA B AG NEGATIVE (NEGATIVE)
[2024-05-29] MEDS ORDERED: ONDANSETRON HCL INJ 2MG/ML 2ML 2 MG/ML VIAL IV PRN (22:15)
[2024-05-29] MEDS ORDERED: Morphine 4mg INJECTION 4 MG/ML INJ IV PRN (22:15)
[2024-05-29 22:52] LABS: BILIRUBIN,URINE NEGATIVE (NEGATIVE); CLARITY,URINE CLOUDY (CLEAR); COLOR,URINE YELLOW (YELLOW); GLUCOSE, URINE NEGATIVE (NEGATIVE); KETONES,URINE NEGATIVE (NEGATIVE); LEUKOCYTE ESTERASE ,URINE 2+ (NEGATIVE); NITRITE,URINE NEGATIVE (NEGATIVE); PH,URINE 6 (5 - 7); PROTEIN,URINE DIPSTICK 2+ (NEGATIVE); URINE UROBILINOGEN 0.2 mg/dL (0.2 - 1)
[2024-05-29 22:56] VITALS: TEMP 98.8
[2024-05-29 22:59] LABS: BACTERIA,URINE MANY /HPF; EPITHELIAL CELLS,URINE FEW /LPF; RBC,URINE 21-50 /HPF (0-5); WBC,URINE (MAN) >50 /HPF (0-5); YEAST,URINE MODERATE
[2024-05-29 23:45] VITALS: BP 97/51; PULSE 88; RESP 20; TEMP 98.2; O2SAT 99
[2024-05-30] VITALS (9 sets, daily range): BP systolic 97–151; BP diastolic 51–87; PULSE 62–88; RESP 16–20; TEMP 97.5–98.2; O2SAT 99–100
[2024-05-30] MEDS: SODIUM CHLORIDE 0.9% 1000ML 1,000 ML IV SCH (04:14)
[2024-05-30 09:28] LABS: BASOPHILS # (AUTO) 0.1 (0.0-0.1); BASOPHILS % 0.3 % (0.0-1.0); EOSINOPHILS # (AUTO) 0.4 (0.0-0.4); EOSINOPHILS % 1.9 % (0.0-6.0); HEMATOCRIT 31.3 % (34.2-44.1); HEMOGLOBIN 9.6 g/dL (12.0-16.0); LYMPHOCYTES # (AUTO) 1.5 (1.0-3.2); LYMPHOCYTES % 7.3 % (18.0-39.1); MEAN CORPUSCULAR HEMOGLOBIN 29.4 pg (28-32); MEAN CORPUSCULAR HGB CONC 30.7 g/dL (31-35); MEAN CORPUSCULAR VOLUME 95.7 fL (81-99); MONOCYTES # (AUTO) 1.4 (0.2-0.8); MONOCYTES % 6.8 % (4.4-11.3); NEUTROPHILS # (AUTO) 16.8 (2.1-6.9); NEUTROPHILS % 82.7 % (38.7-80.0); PLATELET COUNT 320 x10e3/uL (140-360); RED BLOOD COUNT 3.27 x10e6/uL (3.6-5.1); RED CELL DISTRIBUTION WIDTH 14.3 % (11.7-14.4); WHITE BLOOD COUNT 20.31 x10e3/uL (4.8-10.8)
[2024-05-30 09:52] LABS: ALBUMIN 2.3 g/dL (3.5-5.0); ALBUMIN/GLOBULIN RATIO 0.5 (0.8-2.0); ANION GAP 13.5 mmol/L (8-16); BILIRUBIN,TOTAL 0.5 mg/dL (0.2-1.2); CALCIUM 8.7 mg/dL (8.4-10.2); CREATININE, SERUM 1.21 mg/dL (0.57-1.11); POTASSIUM 3.5 mmol/L (3.5-5.1); TOTAL PROTEIN 6.9 g/dL (6.5-8.1)
[2024-05-30 09:58] LABS: TROPONIN I 0.007 ng/mL (0-0.300)
[2024-05-30] MEDS ORDERED: DEXTROSE 50% SYRINGE 50 ML IV PRN (12:15)
[2024-05-30 12:32] LABS: CHOL/HDL RATIO 4.3 (3.0-3.6)
[2024-05-30] MEDS: FLUCONAZOLE 100 MG/NS 50 ML 50 ML IV SCH (14:15)
[2024-05-30] MEDS: INSULIN REGULAR, HUMAN 100 UNIT/1 ML SQ SCH (16:30)
[2024-05-30] MEDS: ENOXAPARIN SOD INJ 40 MG/0.4 ML SYR SC SCH (17:23)
[2024-05-30] MEDS: FAMOTIDINE 20 MG TAB PO SCH (17:23)
[2024-05-30 18:57] LABS: TROPONIN I 0.017 ng/mL (0-0.300)
[2024-05-30] MEDS: ATORVASTATIN 10 MG TAB PO SCH (20:55)
[2024-05-31] VITALS (8 sets, daily range): BP systolic 132–157; BP diastolic 60–78; PULSE 70–98; RESP 16–20; TEMP 97.1–98.3; O2SAT 99–100
[2024-05-31 05:33] LABS: BASOPHILS # (AUTO) 0.1 (0.0-0.1); BASOPHILS % 0.5 % (0.0-1.0); EOSINOPHILS # (AUTO) 0.4 (0.0-0.4); EOSINOPHILS % 3.4 % (0.0-6.0); HEMATOCRIT 28.8 % (34.2-44.1); HEMOGLOBIN 8.8 g/dL (12.0-16.0); LYMPHOCYTES # (AUTO) 0.9 (1.0-3.2); LYMPHOCYTES % 7.5 % (18.0-39.1); MEAN CORPUSCULAR HEMOGLOBIN 29.3 pg (28-32); MEAN CORPUSCULAR HGB CONC 30.6 g/dL (31-35); MONOCYTES % 7.8 % (4.4-11.3); NEUTROPHILS % 79.8 % (38.7-80.0); PLATELET COUNT 293 x10e3/uL (140-360); RED CELL DISTRIBUTION WIDTH 14.3 % (11.7-14.4); WHITE BLOOD COUNT 12.48 x10e3/uL (4.8-10.8)
[2024-05-31 05:57] LABS: ANION GAP 12.6 mmol/L (8-16); CALCIUM 8.4 mg/dL (8.4-10.2); CREATININE, SERUM 0.99 mg/dL (0.57-1.11); POTASSIUM 3.6 mmol/L (3.5-5.1)
[2024-05-31 06:20] LABS: TROPONIN I 0.006 ng/mL (0-0.300)
[2024-05-31] MEDS: ASPIRIN 81 MG CHEW TAB PO SCH (09:26)
[2024-05-31] MEDS: MULTIVITAMINS/MINERALS TAB PO SCH (09:26)
[2024-05-31] MEDS: FLUCONAZOLE 100 MG/NS 50 ML 50 ML IV SCH (17:52)
[2024-06-01 00:41] VITALS: BP 129/66; PULSE 88; RESP 18; TEMP 97.3; O2SAT 100
[2024-06-01 04:44] VITALS: BP 151/80; PULSE 90; RESP 19; TEMP 97; O2SAT 100
[2024-06-01 07:03] LABS: BASOPHILS # (AUTO) 0.1 (0.0-0.1); BASOPHILS % 0.3 % (0.0-1.0); EOSINOPHILS # (AUTO) 0.2 (0.0-0.4); EOSINOPHILS % 1.6 % (0.0-6.0); HEMATOCRIT 32.7 % (34.2-44.1); HEMOGLOBIN 10.2 g/dL (12.0-16.0); LYMPHOCYTES # (AUTO) 1.1 (1.0-3.2); LYMPHOCYTES % 7.3 % (18.0-39.1); MEAN CORPUSCULAR HEMOGLOBIN 29.1 pg (28-32); MEAN CORPUSCULAR HGB CONC 31.2 g/dL (31-35); MEAN CORPUSCULAR VOLUME 93.2 fL (81-99); MONOCYTES % 6.8 % (4.4-11.3); NEUTROPHILS # (AUTO) 12.9 (2.1-6.9); NEUTROPHILS % 83.4 % (38.7-80.0); PLATELET COUNT 339 x10e3/uL (140-360); RED BLOOD COUNT 3.51 x10e6/uL (3.6-5.1); RED CELL DISTRIBUTION WIDTH 14.5 % (11.7-14.4)
[2024-06-01 07:35] LABS: ANION GAP 13.4 mmol/L (8-16); CALCIUM 8.9 mg/dL (8.4-10.2); CREATININE, SERUM 0.89 mg/dL (0.57-1.11)
[2024-06-01 07:43] LABS: POTASSIUM 3.4 mmol/L (3.5-5.1)
[2024-06-01] MEDS ORDERED: CEPHALEXIN500 MG PO (08:00)
[2024-06-01] MEDS ORDERED: DIFLUCAN100 MG PO (08:00)
[2024-06-01 08:19] VITALS: BP 145/74; PULSE 99; RESP 19; TEMP 98.2; O2SAT 100
[2024-06-01 10:05] VITALS: BP 145/74; PULSE 99; RESP 19; TEMP 98.2; O2SAT 100
[2024-06-01 12:10] VITALS: BP 143/67; PULSE 75; RESP 20; TEMP 98.7; O2SAT 100
== END 2024-06-01 13:25 | disposition home or self-care (01) | DRG 872 ==
LOC: ER 20:54 → ERHOLD 22:14 → MED/SURG3 22:50
PROVIDERS: ADMIT Internal Medicine; ATTEND Internal Medicine
DX: A41.9 Sepsis, unspecified organism (principal); N17.9 Acute kidney failure, unspecified; E87.20 Acidosis, unspecified; E87.1 Hypo-osmolality and hyponatremia; B48.8 Other specified mycoses; N39.0 Urinary tract infection, site not specified; R65.20 Severe sepsis without septic shock; R53.81 Other malaise; I25.10 Atherosclerotic heart disease of native coronary artery without angina pectoris; Z95.1 Presence of aortocoronary bypass graft; E66.9 Obesity, unspecified; Z68.33 Body mass index [BMI] 33.0-33.9, adult; I11.9 Hypertensive heart disease without heart failure; E78.5 Hyperlipidemia, unspecified; E11.9 Type 2 diabetes mellitus without complications; Z79.84 Long term (current) use of oral hypoglycemic drugs; L40.9 Psoriasis, unspecified; Z11.52 Encounter for screening for COVID-19; Z86.73 Personal history of transient ischemic attack (TIA), and cerebral infarction without residual deficits; Z79.899 Other long term (current) drug therapy; Z79.82 Long term (current) use of aspirin
CPT/HCPCS: 36415; 71045; 80048; 80053; 80061; 81001; 82550; 82948; 83036; 83605; 83690; 83880; 84484; 85025; 87040; 87086; 93005; 96372; 99284; J1450; J1650; J2543; J7030

== ENCOUNTER 2024-06-06 10:08 | Emergency (ER) | payer MEDICARE ==
[~2024-06-06] VITALS: Ht 149.9 cm; Wt 74.8 kg
[~2024-06-06 10:08] MED LIST changes: +CEPHALEXIN500 MG PO; +DIFLUCAN100 MG PO
[2024-06-06 10:15] VITALS: TEMP 98.3
[2024-06-06 13:30] VITALS: PULSE 88; RESP 16; O2SAT 100
== END 2024-06-06 13:30 | disposition home or self-care (01) ==
LOC: ER 10:14
DX: S00.83XA Contusion of other part of head, initial encounter (principal); W06.XXXA Fall from bed, initial encounter; Y93.84 Activity, sleeping; Y92.89 Other specified places as the place of occurrence of the external cause; I10 Essential (primary) hypertension; E11.9 Type 2 diabetes mellitus without complications; E78.5 Hyperlipidemia, unspecified; I25.10 Atherosclerotic heart disease of native coronary artery without angina pectoris; L40.9 Psoriasis, unspecified; I25.2 Old myocardial infarction; Z95.1 Presence of aortocoronary bypass graft; Z87.442 Personal history of urinary calculi
CPT/HCPCS: 70450; 72125; 99283

== ENCOUNTER 2024-06-10 18:29 | Inpatient (IN) | payer MEDICARE ==
[~2024-06-10] VITALS: Ht 144.8 cm; Wt 73.0 kg
[2024-06-10 18:44] VITALS: TEMP 100.9
[2024-06-10 19:06] LABS: BASOPHILS # (AUTO) 0.1 (0.0-0.1); BASOPHILS % 0.4 % (0.0-1.0); EOSINOPHILS # (AUTO) 0.1 (0.0-0.4); EOSINOPHILS % 0.6 % (0.0-6.0); HEMOGLOBIN 10.9 g/dL (12.0-16.0); LYMPHOCYTES # (AUTO) 0.8 (1.0-3.2); LYMPHOCYTES % 3.6 % (18.0-39.1); MEAN CORPUSCULAR HEMOGLOBIN 29.6 pg (28-32); MEAN CORPUSCULAR HGB CONC 31.1 g/dL (31-35); MEAN CORPUSCULAR VOLUME 95.1 fL (81-99); MONOCYTES # (AUTO) 1.1 (0.2-0.8); MONOCYTES % 4.7 % (4.4-11.3); NEUTROPHILS # (AUTO) 20.6 (2.1-6.9); PLATELET COUNT 430 x10e3/uL (140-360); RED BLOOD COUNT 3.68 x10e6/uL (3.6-5.1); RED CELL DISTRIBUTION WIDTH 14.3 % (11.7-14.4); WHITE BLOOD COUNT 22.82 x10e3/uL (4.8-10.8)
[2024-06-10 19:24] LABS: ALBUMIN 3.1 g/dL (3.5-5.0); ALBUMIN/GLOBULIN RATIO 0.6 (0.8-2.0); ANION GAP 16.4 mmol/L (8-16); BILIRUBIN,TOTAL 0.5 mg/dL (0.2-1.2); CALCIUM 10.6 mg/dL (8.4-10.2); CORONAVIRUS COVID-19 AG NEGATIVE (NEGATIVE); CREATININE, SERUM 1.04 mg/dL (0.57-1.11); INFLUENZA A AG NEGATIVE (NEGATIVE); INFLUENZA B AG NEGATIVE (NEGATIVE); POTASSIUM 4.4 mmol/L (3.5-5.1); TOTAL PROTEIN 8.5 g/dL (6.5-8.1)
[2024-06-10 19:30] LABS: TROPONIN I 0.005 ng/mL (0-0.300)
[2024-06-10 19:38] LABS: BILIRUBIN,URINE NEGATIVE (NEGATIVE); CLARITY,URINE CLOUDY (CLEAR); COLOR,URINE YELLOW (YELLOW); GLUCOSE, URINE NEGATIVE (NEGATIVE); KETONES,URINE NEGATIVE (NEGATIVE); LEUKOCYTE ESTERASE ,URINE MODERATE (NEGATIVE); NITRITE,URINE NEGATIVE (NEGATIVE); PH,URINE 6 (5 - 7); PROTEIN,URINE DIPSTICK 2+ (NEGATIVE); URINE UROBILINOGEN 0.2 mg/dL (0.2 - 1)
[2024-06-10] MEDS: ACETAMINOPHEN 325 MG TAB PO STA (19:43)
[2024-06-10] MEDS: SODIUM CHLORIDE 0.9% 1000ML 1,000 ML IV STA (19:45)
[2024-06-10 19:48] LABS: BACTERIA,URINE FEW /HPF; WBC,URINE (MAN) >50 /HPF (0-5)
[2024-06-10 20:30] VITALS: PULSE 101; RESP 15
[2024-06-10 20:47] VITALS: BP 103/75; PULSE 93; RESP 18; TEMP 98.1; O2SAT 100
[2024-06-10 21:26] VITALS: BP 103/75; PULSE 93; RESP 18; TEMP 98.1; O2SAT 100
[2024-06-11] VITALS: BP 133/75; PULSE 86; RESP 20; TEMP 98.1; O2SAT 99
[2024-06-11] MEDS: SODIUM CHLORIDE 0.9% 1000ML 1,000 ML IV SCH (00:10)
[2024-06-11 06:09] VITALS: BP 131/65; PULSE 78; RESP 16; TEMP 97.7; O2SAT 100
[2024-06-11 06:15] LABS: BASOPHILS # (AUTO) 0.1 (0.0-0.1); BASOPHILS % 0.5 % (0.0-1.0); EOSINOPHILS # (AUTO) 0.2 (0.0-0.4); EOSINOPHILS % 1.6 % (0.0-6.0); HEMATOCRIT 28.1 % (34.2-44.1); LYMPHOCYTES # (AUTO) 1.7 (1.0-3.2); LYMPHOCYTES % 11.6 % (18.0-39.1); MEAN CORPUSCULAR HEMOGLOBIN 29.7 pg (28-32); MEAN CORPUSCULAR VOLUME 92.7 fL (81-99); MONOCYTES # (AUTO) 1.3 (0.2-0.8); MONOCYTES % 8.5 % (4.4-11.3); NEUTROPHILS # (AUTO) 11.5 (2.1-6.9); NEUTROPHILS % 77.1 % (38.7-80.0); PLATELET COUNT 361 x10e3/uL (140-360); RED BLOOD COUNT 3.03 x10e6/uL (3.6-5.1); RED CELL DISTRIBUTION WIDTH 14.2 % (11.7-14.4); WHITE BLOOD COUNT 14.89 x10e3/uL (4.8-10.8)
[2024-06-11 06:42] LABS: ALBUMIN 2.5 g/dL (3.5-5.0); ALBUMIN/GLOBULIN RATIO 0.6 (0.8-2.0); ANION GAP 13.6 mmol/L (8-16); BILIRUBIN,TOTAL 0.5 mg/dL (0.2-1.2); CALCIUM 9.3 mg/dL (8.4-10.2); CREATININE, SERUM 0.9 mg/dL (0.57-1.11); POTASSIUM 3.6 mmol/L (3.5-5.1); TOTAL PROTEIN 6.7 g/dL (6.5-8.1)
[2024-06-11 08:11] VITALS: BP 146/81; PULSE 70; RESP 18; TEMP 97.4; O2SAT 100
[2024-06-11 09:00] VITALS: BP 146/81; PULSE 70; RESP 18; TEMP 97.4; O2SAT 100
[2024-06-11 12:00] VITALS: BP 113/63; PULSE 87; RESP 18; TEMP 97.6; O2SAT 100
[2024-06-11] MEDS ORDERED: ALBUTEROL/IPRATROPIUM 3 ML NEB NEB PRN (12:00)
[2024-06-11] MEDS ORDERED: MELATONIN 3 MG TAB PO PRN (12:00)
[2024-06-11] MEDS ORDERED: ONDANSETRON HCL INJ 2MG/ML 2ML 2 MG/ML VIAL IV PRN (12:00)
[2024-06-11] MEDS ORDERED: ACETAMINOPHEN 325 MG TAB PO PRN (12:00)
[2024-06-11] MEDS ORDERED: SIMETHICONE 80 MG CHEW PO PRN (12:00)
[2024-06-11] MEDS ORDERED: DOCUSATE SODIUM 100 MG CAP PO PRN (12:00)
[2024-06-11 12:30] LABS: CHOL/HDL RATIO 3.1 (3.0-3.6)
[2024-06-11] MEDS: FAMOTIDINE 20 MG TAB PO SCH (17:54)
[2024-06-11] MEDS: ENOXAPARIN SOD INJ 40 MG/0.4 ML SYR SC SCH (17:54)
[2024-06-11] MEDS: METFORMIN HCL 500 MG TAB PO SCH (17:54)
[2024-06-11 20:00] VITALS: BP 122/62; PULSE 90; RESP 18; TEMP 98.3; O2SAT 98
[2024-06-11] MEDS: ATORVASTATIN 40 MG TAB PO SCH (20:09)
[2024-06-12] VITALS (9 sets, daily range): BP systolic 124–142; BP diastolic 58–82; PULSE 71–91; RESP 17–18; TEMP 97–97.9; O2SAT 98–100
[2024-06-12 06:17] LABS: BASOPHILS # (AUTO) 0.1 (0.0-0.1); EOSINOPHILS # (AUTO) 0.5 (0.0-0.4); EOSINOPHILS % 5.1 % (0.0-6.0); HEMOGLOBIN 9.2 g/dL (12.0-16.0); LYMPHOCYTES # (AUTO) 1.2 (1.0-3.2); LYMPHOCYTES % 12.8 % (18.0-39.1); MEAN CORPUSCULAR HEMOGLOBIN 29.6 pg (28-32); MEAN CORPUSCULAR HGB CONC 30.7 g/dL (31-35); MEAN CORPUSCULAR VOLUME 96.5 fL (81-99); MONOCYTES % 10.5 % (4.4-11.3); NEUTROPHILS # (AUTO) 6.3 (2.1-6.9); NEUTROPHILS % 69.7 % (38.7-80.0); PLATELET COUNT 299 x10e3/uL (140-360); RED BLOOD COUNT 3.11 x10e6/uL (3.6-5.1); RED CELL DISTRIBUTION WIDTH 14.4 % (11.7-14.4); WHITE BLOOD COUNT 9.07 x10e3/uL (4.8-10.8)
[2024-06-12] MEDS: ISOSORBIDE MONONITRATE 30 MG TAB CR PO SCH (06:39)
[2024-06-12 06:44] LABS: ANION GAP 12.6 mmol/L (8-16); CALCIUM 9.1 mg/dL (8.4-10.2); CREATININE, SERUM 0.83 mg/dL (0.57-1.11); POTASSIUM 3.6 mmol/L (3.5-5.1)
[2024-06-12] MEDS: CYANOCOBALAMIN 1,000 MCG TAB PO SCH (08:52)
[2024-06-12] MEDS: SENNOSIDES 8.6 MG TAB PO SCH (08:52)
[2024-06-12] MEDS: ASPIRIN 81 MG CHEW TAB PO SCH (08:52)
[2024-06-12] MEDS ORDERED: IOPAMIDOL 370 MG/ML 100 ML INFUS..BTL INJ ONE (10:17)
[2024-06-13] VITALS (7 sets, daily range): BP systolic 136–151; BP diastolic 68–79; PULSE 79–95; RESP 17–18; TEMP 97.6–98; O2SAT 100
[2024-06-13 13:34] LABS: BASOPHILS # (AUTO) 0.1 (0.0-0.1); EOSINOPHILS # (AUTO) 0.3 (0.0-0.4); EOSINOPHILS % 3.1 % (0.0-6.0); HEMATOCRIT 29.8 % (34.2-44.1); HEMOGLOBIN 9.1 g/dL (12.0-16.0); LYMPHOCYTES # (AUTO) 1.6 (1.0-3.2); LYMPHOCYTES % 19.1 % (18.0-39.1); MEAN CORPUSCULAR HEMOGLOBIN 29.4 pg (28-32); MEAN CORPUSCULAR HGB CONC 30.5 g/dL (31-35); MEAN CORPUSCULAR VOLUME 96.1 fL (81-99); MONOCYTES # (AUTO) 0.8 (0.2-0.8); MONOCYTES % 9.7 % (4.4-11.3); NEUTROPHILS # (AUTO) 5.4 (2.1-6.9); NEUTROPHILS % 66.4 % (38.7-80.0); PLATELET COUNT 349 x10e3/uL (140-360); RED CELL DISTRIBUTION WIDTH 14.6 % (11.7-14.4); WHITE BLOOD COUNT 8.17 x10e3/uL (4.8-10.8)
[2024-06-13 13:50] LABS: ANION GAP 16.8 mmol/L (8-16); CALCIUM 9.3 mg/dL (8.4-10.2); CREATININE, SERUM 0.91 mg/dL (0.57-1.11); POTASSIUM 3.8 mmol/L (3.5-5.1)
[2024-06-13] MEDS: SODIUM CHLORIDE 0.9% 1000ML 1,000 ML ONE (20:26)
[2024-06-14] VITALS (7 sets, daily range): BP systolic 103–162; BP diastolic 74–79; PULSE 78–93; RESP 17–18; TEMP 97.7–98.1; O2SAT 99–100
[2024-06-14] MEDS ORDERED: CEFPODOXIME PR200 MG PO (09:04)
[2024-06-14] MEDS ORDERED: SODIUM BICARBO650 MG PO (09:04)
[2024-06-14] MEDS: SODIUM BICARBONATE 650 MG TAB PO SCH (09:35)
[2024-06-14] MEDS ORDERED: FUROSEMIDE INJ 10 MG/ML 4 ML VIAL ONE (11:06)
[2024-06-14] MEDS ORDERED: ONDANSETRON HCL 4 MG ORAL DISINTEGRATING TAB PO PRN (12:45)
== END 2024-06-14 15:36 | disposition home or self-care (01) | DRG 871 ==
LOC: ER 18:37 → ERHOLD 20:11 → MED/SURG3 21:03
PROVIDERS: ADMIT Internal Medicine; ATTEND Internal Medicine
PROC: 3E0333Z Introduction of Anti-inflammatory into Peripheral Vein, Percutaneous Approach (ICD-10-PCS; principal; 2024-06-10)
PROC: 0T9B70Z Drainage of Bladder with Drainage Device, Via Natural or Artificial Opening (ICD-10-PCS; 2024-06-10)
DX: A41.51 Sepsis due to Escherichia coli [E. coli] (principal); J18.9 Pneumonia, unspecified organism; E87.1 Hypo-osmolality and hyponatremia; N39.0 Urinary tract infection, site not specified; N12 Tubulo-interstitial nephritis, not specified as acute or chronic; R65.20 Severe sepsis without septic shock; E11.9 Type 2 diabetes mellitus without complications; D64.9 Anemia, unspecified; E83.52 Hypercalcemia; I10 Essential (primary) hypertension; I25.10 Atherosclerotic heart disease of native coronary artery without angina pectoris; E78.5 Hyperlipidemia, unspecified; R53.81 Other malaise; Z11.52 Encounter for screening for COVID-19; E66.9 Obesity, unspecified; Z68.32 Body mass index [BMI] 32.0-32.9, adult; Z79.84 Long term (current) use of oral hypoglycemic drugs; Z79.82 Long term (current) use of aspirin; Z79.85 Long-term (current) use of injectable non-insulin antidiabetic drugs; Z95.1 Presence of aortocoronary bypass graft; Z90.49 Acquired absence of other specified parts of digestive tract; I25.2 Old myocardial infarction; Z86.73 Personal history of transient ischemic attack (TIA), and cerebral infarction without residual deficits; Z90.710 Acquired absence of both cervix and uterus
CPT/HCPCS: 36415; 51700; 71045; 74178; 78707; 80048; 80053; 80061; 81001; 82550; 82948; 83036; 83605; 83690; 83880; 84484; 85025; 87040; 87086; 87186; 93005; 96361; 99284; A9562; J1650; J1940; J2543; J7030; Q9967

== ENCOUNTER → 2024-08-11 | Day surgery (SDC) | payer MEDICARE ==
[2024-08-10 14:26] LABS: BASOPHILS # (AUTO) 0.1 (0.0-0.1); BASOPHILS % 0.5 % (0.0-1.0); EOSINOPHILS # (AUTO) 0.2 (0.0-0.4); EOSINOPHILS % 1.3 % (0.0-6.0); HEMATOCRIT 34.5 % (34.2-44.1); HEMOGLOBIN 11.1 g/dL (12.0-16.0); LYMPHOCYTES # (AUTO) 1.7 (1.0-3.2); LYMPHOCYTES % 12.5 % (18.0-39.1); MEAN CORPUSCULAR HEMOGLOBIN 29.4 pg (28-32); MEAN CORPUSCULAR HGB CONC 32.2 g/dL (31-35); MEAN CORPUSCULAR VOLUME 91.5 fL (81-99); MONOCYTES # (AUTO) 0.8 (0.2-0.8); MONOCYTES % 6.1 % (4.4-11.3); NEUTROPHILS # (AUTO) 10.5 (2.1-6.9); NEUTROPHILS % 78.6 % (38.7-80.0); PLATELET COUNT 368 x10e3/uL (140-360); RED BLOOD COUNT 3.77 x10e6/uL (3.6-5.1); RED CELL DISTRIBUTION WIDTH 14.2 % (11.7-14.4); WHITE BLOOD COUNT 13.42 x10e3/uL (4.8-10.8)
[2024-08-10 14:54] LABS: ALBUMIN 3.1 g/dL (3.5-5.0); ALBUMIN/GLOBULIN RATIO 0.6 (0.8-2.0); ANION GAP 15.9 mmol/L (8-16); BILIRUBIN,TOTAL 0.3 mg/dL (0.2-1.2); CALCIUM 10.2 mg/dL (8.4-10.2); CREATININE, SERUM 0.92 mg/dL (0.57-1.11); POTASSIUM 3.9 mmol/L (3.5-5.1); TOTAL PROTEIN 8.5 g/dL (6.5-8.1)
[~2024-08-11] MED LIST changes: +ACETAMINOPHEN 1000 MG/100 ML 100 ML IV ONE; +CEFPODOXIME PR200 MG PO; +CLOPIDOGREL75 MG PO; +EPHEDRINE SULFATE INJ 50 MG/ML VIAL ONE; +FENTANYL CITRATE/PF 100MCG/2 ML INJ ONE; +LIDOCAINE HCL 2% LOCAL INJ 5 ML SDV VIAL INJ ONE; +METOCLOPRAMIDE HCL 10 MG/2ML VIAL ONE; +ONDANSETRON HCL INJ 2MG/ML 2ML 2 MG/ML VIAL ONE; +PROPOFOL IV EMULSION 10 MG/ML 20 ML VIAL ONE; +SEVOFLURANE INHAL SOLN 250 ML PEN BTL ONE; +SODIUM BICARBO650 MG PO
[2024-08-11] MEDS: LACTATED RINGER'S 1,000 ML ONE (07:46)
[2024-08-11] MEDS: GENTAMICIN 80MG/NS 100 ML 200 ML IV ONE (07:46)
[2024-08-11] MEDS: CEFTRIAXONE 1 GM VIAL ONE (07:46)
[2024-08-11 10:23] VITALS: TEMP 97.6
[2024-08-11 11:25] VITALS: BP 138/76; PULSE 75; RESP 16; O2SAT 98
[2024-08-11] MEDS: PHENAZOPYRIDINE HCL 100 MG TAB ONE (13:50)
== END | disposition home or self-care (01) ==
LOC: OR 07:00
PROVIDERS: ATTEND Urology
DX: C67.9 Malignant neoplasm of bladder, unspecified (principal); N39.0 Urinary tract infection, site not specified; N13.70 Vesicoureteral-reflux, unspecified; N13.8 Other obstructive and reflux uropathy; N81.10 Cystocele, unspecified; N81.6 Rectocele; N95.2 Postmenopausal atrophic vaginitis; G47.33 Obstructive sleep apnea (adult) (pediatric); D64.9 Anemia, unspecified; E11.9 Type 2 diabetes mellitus without complications; I25.810 Atherosclerosis of coronary artery bypass graft(s) without angina pectoris; I10 Essential (primary) hypertension; E78.5 Hyperlipidemia, unspecified; H91.93 Unspecified hearing loss, bilateral; M06.9 Rheumatoid arthritis, unspecified; M19.90 Unspecified osteoarthritis, unspecified site; Z01.812 Encounter for preprocedural laboratory examination; Z79.02 Long term (current) use of antithrombotics/antiplatelets; Z79.82 Long term (current) use of aspirin; Z79.84 Long term (current) use of oral hypoglycemic drugs; Z95.1 Presence of aortocoronary bypass graft
CPT/HCPCS: 36415; 52224; 74420; 80053; 85025; 87086; 87186; 88112; 88305; J0131; J0696; J1580; J2003; J2405; J2704; J2765; J3010; J7121

== ENCOUNTER 2024-09-16 22:13 | Inpatient (IN) | payer MEDICARE ==
[~2024-09-16] VITALS: Ht 149.9 cm; Wt 71.7 kg
[~2024-09-16 22:13] MED LIST changes: -ACETAMINOPHEN 1000 MG/100 ML 100 ML IV ONE; -EPHEDRINE SULFATE INJ 50 MG/ML VIAL ONE; -FENTANYL CITRATE/PF 100MCG/2 ML INJ ONE; -LIDOCAINE HCL 2% LOCAL INJ 5 ML SDV VIAL INJ ONE; -METOCLOPRAMIDE HCL 10 MG/2ML VIAL ONE; -ONDANSETRON HCL INJ 2MG/ML 2ML 2 MG/ML VIAL ONE; -PROPOFOL IV EMULSION 10 MG/ML 20 ML VIAL ONE; -SEVOFLURANE INHAL SOLN 250 ML PEN BTL ONE
[2024-09-16 22:57] LABS: BASOPHILS # (AUTO) 0.1 (0.0-0.1); BASOPHILS % 0.3 % (0.0-1.0); EOSINOPHILS # (AUTO) 0.2 (0.0-0.4); EOSINOPHILS % 1.3 % (0.0-6.0); HEMATOCRIT 32.1 % (34.2-44.1); HEMOGLOBIN 10.7 g/dL (12.0-16.0); LYMPHOCYTES # (AUTO) 1.2 (1.0-3.2); LYMPHOCYTES % 7.7 % (18.0-39.1); MEAN CORPUSCULAR HEMOGLOBIN 30.1 pg (28-32); MEAN CORPUSCULAR HGB CONC 33.3 g/dL (31-35); MEAN CORPUSCULAR VOLUME 90.2 fL (81-99); MONOCYTES # (AUTO) 1.2 (0.2-0.8); MONOCYTES % 7.9 % (4.4-11.3); NEUTROPHILS # (AUTO) 12.7 (2.1-6.9); NEUTROPHILS % 82.5 % (38.7-80.0); PLATELET COUNT 257 x10e3/uL (140-360); RED BLOOD COUNT 3.56 x10e6/uL (3.6-5.1); RED CELL DISTRIBUTION WIDTH 15.1 % (11.7-14.4); WHITE BLOOD COUNT 15.39 x10e3/uL (4.8-10.8)
[2024-09-16 23:09] LABS: ALBUMIN 3.3 g/dL (3.5-5.0); ALBUMIN/GLOBULIN RATIO 0.7 (0.8-2.0); ANION GAP 15.6 mmol/L (8-16); BILIRUBIN,TOTAL 0.4 mg/dL (0.2-1.2); CALCIUM 9.7 mg/dL (8.4-10.2); CREATININE, SERUM 1.2 mg/dL (0.57-1.11); POTASSIUM 4.6 mmol/L (3.5-5.1); TOTAL PROTEIN 7.8 g/dL (6.5-8.1)
[2024-09-16] MEDS: ONDANSETRON HCL INJ 2MG/ML 2ML 2 MG/ML VIAL IV STA (23:17)
[2024-09-16 23:19] LABS: CLARITY,URINE TURBID (CLEAR); COLOR,URINE YELLOW (YELLOW)
[2024-09-16 23:20] LABS: BILIRUBIN,URINE NEGATIVE (NEGATIVE); GLUCOSE, URINE NEGATIVE (NEGATIVE); KETONES,URINE NEGATIVE (NEGATIVE); LEUKOCYTE ESTERASE ,URINE LARGE (NEGATIVE); NITRITE,URINE NEGATIVE (NEGATIVE); PH,URINE 5.5 (5 - 7); PROTEIN,URINE DIPSTICK 2+ (NEGATIVE); URINE UROBILINOGEN 0.2 mg/dL (0.2 - 1)
[2024-09-16 23:21] LABS: BACTERIA,URINE MANY /HPF; EPITHELIAL CELLS,URINE FEW /LPF; WBC,URINE (MAN) >50 /HPF (0-5)
[2024-09-16 23:23] LABS: YEAST,URINE MODERATE
[2024-09-16] MEDS ORDERED: IOPAMIDOL 370 MG/ML 100 ML INFUS..BTL INJ ONE (23:54)
[2024-09-17] VITALS (13 sets, daily range): BP systolic 109–157; BP diastolic 58–74; PULSE 76–88; RESP 16–20; TEMP 97.8–99.6; O2SAT 96–100
[2024-09-17] MEDS: SODIUM CHLORIDE 0.9% 1000ML 1,000 ML IV ONE ×2 (00:18→01:57)
[2024-09-17] MEDS ORDERED: DEXTROSE 50% SYRINGE 50 ML IV PRN ×2 (00:45→10:15)
[2024-09-17] MEDS: MEROPENEM 1 GM in SODIUM CHLORIDE 0.9% 100 ML IV SCH (01:55)
[2024-09-17] MEDS ORDERED: ONDANSETRON HCL INJ 2MG/ML 2ML 2 MG/ML VIAL IV PRN (02:38)
[2024-09-17] MEDS: INSULIN REGULAR, HUMAN 100 UNIT/1 ML SQ SCH ×2 (07:30→11:30)
[2024-09-17] MEDS: REPAGLINIDE 1 MG TAB PO SCH (11:49)
[2024-09-17] MEDS: METFORMIN HCL 500 MG TAB PO SCH (18:04)
[2024-09-17] MEDS ORDERED: CLOTRIMAZOLE-BE15 GM TOP (20:17)
[2024-09-17] MEDS: ATORVASTATIN 40 MG TAB PO SCH (20:24)
[2024-09-18 03:46] VITALS: BP 104/58; PULSE 69; RESP 16; TEMP 98.2; O2SAT 99
[2024-09-18 06:30] LABS: BASOPHILS # (AUTO) 0.1 (0.0-0.1); BASOPHILS % 0.4 % (0.0-1.0); EOSINOPHILS # (AUTO) 0.1 (0.0-0.4); EOSINOPHILS % 0.4 % (0.0-6.0); HEMATOCRIT 29.7 % (34.2-44.1); HEMOGLOBIN 9.8 g/dL (12.0-16.0); LYMPHOCYTES # (AUTO) 1.2 (1.0-3.2); LYMPHOCYTES % 8.8 % (18.0-39.1); MEAN CORPUSCULAR HEMOGLOBIN 29.7 pg (28-32); MONOCYTES # (AUTO) 1.6 (0.2-0.8); MONOCYTES % 11.3 % (4.4-11.3); NEUTROPHILS # (AUTO) 10.8 (2.1-6.9); NEUTROPHILS % 78.7 % (38.7-80.0); PLATELET COUNT 237 x10e3/uL (140-360); RED CELL DISTRIBUTION WIDTH 15.2 % (11.7-14.4); WHITE BLOOD COUNT 13.71 x10e3/uL (4.8-10.8)
[2024-09-18 06:54] LABS: ALBUMIN 2.6 g/dL (3.5-5.0); ALBUMIN/GLOBULIN RATIO 0.7 (0.8-2.0); ANION GAP 13.4 mmol/L (8-16); BILIRUBIN,TOTAL 0.4 mg/dL (0.2-1.2); CALCIUM 9.2 mg/dL (8.4-10.2); CREATININE, SERUM 1.33 mg/dL (0.57-1.11); POTASSIUM 4.4 mmol/L (3.5-5.1); TOTAL PROTEIN 6.6 g/dL (6.5-8.1)
[2024-09-18 09:00] VITALS: BP 104/58; PULSE 69; RESP 16; TEMP 98.2; O2SAT 99
[2024-09-18] MEDS: ASPIRIN 81 MG CHEW TAB PO SCH (09:37)
[2024-09-18] MEDS: SITAGLIPTIN 100 MG TAB PO SCH (09:37)
[2024-09-18] MEDS: METOPROLOL TARTRATE 50 MG TAB PO SCH (09:37)
[2024-09-18 09:51] VITALS: BP 126/63; PULSE 77; RESP 17; TEMP 98.3; O2SAT 94
[2024-09-18 15:17] VITALS: BP 136/66; PULSE 76; RESP 17; TEMP 98.9; O2SAT 98
[2024-09-18 16:00] VITALS: BP 132/77; PULSE 86; RESP 21; TEMP 98; O2SAT 100
[2024-09-18 20:00] VITALS: BP 156/77; PULSE 91; RESP 18; TEMP 99.1; O2SAT 100
[2024-09-19] VITALS (8 sets, daily range): BP systolic 100–159; BP diastolic 61–82; PULSE 73–92; RESP 17–20; TEMP 97.5–98.6; O2SAT 97–100
[2024-09-19 07:55] LABS: BASOPHILS % 0.3 % (0.0-1.0); EOSINOPHILS # (AUTO) 0.2 (0.0-0.4); EOSINOPHILS % 1.1 % (0.0-6.0); HEMOGLOBIN 10.3 g/dL (12.0-16.0); LYMPHOCYTES # (AUTO) 1.4 (1.0-3.2); LYMPHOCYTES % 9.5 % (18.0-39.1); MEAN CORPUSCULAR HEMOGLOBIN 29.3 pg (28-32); MEAN CORPUSCULAR HGB CONC 32.2 g/dL (31-35); MEAN CORPUSCULAR VOLUME 90.9 fL (81-99); MONOCYTES # (AUTO) 1.4 (0.2-0.8); NEUTROPHILS % 79.6 % (38.7-80.0); PLATELET COUNT 256 x10e3/uL (140-360); RED BLOOD COUNT 3.52 x10e6/uL (3.6-5.1); RED CELL DISTRIBUTION WIDTH 15.1 % (11.7-14.4); RETICULOCYTE % 1.8 % (0.8-2.2); WHITE BLOOD COUNT 15.04 x10e3/uL (4.8-10.8)
[2024-09-19 08:20] LABS: ALBUMIN 2.5 g/dL (3.5-5.0); ALBUMIN/GLOBULIN RATIO 0.6 (0.8-2.0); ANION GAP 14.6 mmol/L (8-16); BILIRUBIN,TOTAL 0.4 mg/dL (0.2-1.2); CALCIUM 9.5 mg/dL (8.4-10.2); CHOL/HDL RATIO 3.2 (3.0-3.6); CREATININE, SERUM 1.16 mg/dL (0.57-1.11); POTASSIUM 4.6 mmol/L (3.5-5.1); TOTAL PROTEIN 6.8 g/dL (6.5-8.1)
[2024-09-19] MEDS: ENOXAPARIN SOD INJ 40 MG/0.4 ML SYR SC SCH (16:07)
[2024-09-20] VITALS (9 sets, daily range): BP systolic 113–138; BP diastolic 65–73; PULSE 69–88; RESP 16–20; TEMP 97.7–98.3; O2SAT 98–100
[2024-09-20 05:33] LABS: BASOPHILS % 0.4 % (0.0-1.0); EOSINOPHILS # (AUTO) 0.3 (0.0-0.4); EOSINOPHILS % 2.6 % (0.0-6.0); HEMATOCRIT 30.1 % (34.2-44.1); HEMOGLOBIN 9.9 g/dL (12.0-16.0); LYMPHOCYTES # (AUTO) 1.2 (1.0-3.2); LYMPHOCYTES % 10.7 % (18.0-39.1); MEAN CORPUSCULAR HEMOGLOBIN 29.3 pg (28-32); MEAN CORPUSCULAR HGB CONC 32.9 g/dL (31-35); MEAN CORPUSCULAR VOLUME 89.1 fL (81-99); MONOCYTES # (AUTO) 1.2 (0.2-0.8); MONOCYTES % 10.7 % (4.4-11.3); NEUTROPHILS # (AUTO) 8.5 (2.1-6.9); NEUTROPHILS % 75.2 % (38.7-80.0); PLATELET COUNT 274 x10e3/uL (140-360); RED BLOOD COUNT 3.38 x10e6/uL (3.6-5.1); RED CELL DISTRIBUTION WIDTH 14.7 % (11.7-14.4); WHITE BLOOD COUNT 11.25 x10e3/uL (4.8-10.8)
[2024-09-20 06:08] LABS: ALBUMIN 2.6 g/dL (3.5-5.0); ALBUMIN/GLOBULIN RATIO 0.6 (0.8-2.0); ANION GAP 13.5 mmol/L (8-16); BILIRUBIN,TOTAL 0.4 mg/dL (0.2-1.2); CALCIUM 9.3 mg/dL (8.4-10.2); CREATININE, SERUM 1.23 mg/dL (0.57-1.11); POTASSIUM 4.5 mmol/L (3.5-5.1); TOTAL PROTEIN 6.9 g/dL (6.5-8.1)
[2024-09-20] MEDS: FLUCONAZOLE 200 MG/100 ML 100 ML IV SCH (16:32)
[2024-09-21] VITALS (8 sets, daily range): BP systolic 115–148; BP diastolic 55–98; PULSE 68–85; RESP 18–20; TEMP 97.2–98; O2SAT 98–100
[2024-09-21] MEDS: LACTATED RINGER'S 1,000 ML INJ SCH (15:25)
[2024-09-21] MEDS ORDERED: SENNA-S TABLET PO PRN (20:30)
[2024-09-21] MEDS ORDERED: BISACODYL 10 MG SUPP PR PRN (20:30)
[2024-09-21] MEDS: DOCUSATE SODIUM 100 MG CAP PO SCH (20:45)
[2024-09-22] VITALS (8 sets, daily range): BP systolic 99–155; BP diastolic 53–74; PULSE 71–94; RESP 18–20; TEMP 97.7–100.6; O2SAT 96–100
[2024-09-22 06:06] LABS: BASOPHILS # (AUTO) 0.1 (0.0-0.1); BASOPHILS % 0.3 % (0.0-1.0); EOSINOPHILS # (AUTO) 0.1 (0.0-0.4); EOSINOPHILS % 0.4 % (0.0-6.0); HEMATOCRIT 30.5 % (34.2-44.1); HEMOGLOBIN 10.1 g/dL (12.0-16.0); LYMPHOCYTES # (AUTO) 1.1 (1.0-3.2); LYMPHOCYTES % 5.6 % (18.0-39.1); MEAN CORPUSCULAR HEMOGLOBIN 29.6 pg (28-32); MEAN CORPUSCULAR HGB CONC 33.1 g/dL (31-35); MEAN CORPUSCULAR VOLUME 89.4 fL (81-99); MONOCYTES # (AUTO) 1.4 (0.2-0.8); MONOCYTES % 6.8 % (4.4-11.3); NEUTROPHILS # (AUTO) 17.4 (2.1-6.9); NEUTROPHILS % 86.2 % (38.7-80.0); PLATELET COUNT 275 x10e3/uL (140-360); RED BLOOD COUNT 3.41 x10e6/uL (3.6-5.1); RED CELL DISTRIBUTION WIDTH 14.6 % (11.7-14.4); WHITE BLOOD COUNT 20.16 x10e3/uL (4.8-10.8)
[2024-09-22 06:35] LABS: ANION GAP 16.2 mmol/L (8-16); CALCIUM 9.1 mg/dL (8.4-10.2); CREATININE, SERUM 1.13 mg/dL (0.57-1.11); POTASSIUM 4.2 mmol/L (3.5-5.1)
[2024-09-22] MEDS: POLYETHYLENE GLYCOL 3350 17 GM PACK PO SCH (08:52)
[2024-09-22] MEDS: ACETAMINOPHEN 325 MG TAB PO PRN (09:43)
[2024-09-22 14:19] LABS: BASOPHILS # (AUTO) 0.1 (0.0-0.1); BASOPHILS % 0.3 % (0.0-1.0); EOSINOPHILS # (AUTO) 0.1 (0.0-0.4); EOSINOPHILS % 0.5 % (0.0-6.0); HEMATOCRIT 27.1 % (34.2-44.1); HEMOGLOBIN 8.9 g/dL (12.0-16.0); LYMPHOCYTES # (AUTO) 1.4 (1.0-3.2); LYMPHOCYTES % 7.8 % (18.0-39.1); MEAN CORPUSCULAR HEMOGLOBIN 29.4 pg (28-32); MEAN CORPUSCULAR HGB CONC 32.8 g/dL (31-35); MEAN CORPUSCULAR VOLUME 89.4 fL (81-99); MONOCYTES # (AUTO) 1.4 (0.2-0.8); MONOCYTES % 7.9 % (4.4-11.3); NEUTROPHILS # (AUTO) 14.8 (2.1-6.9); NEUTROPHILS % 82.9 % (38.7-80.0); PLATELET COUNT 273 x10e3/uL (140-360); RED BLOOD COUNT 3.03 x10e6/uL (3.6-5.1); RED CELL DISTRIBUTION WIDTH 14.7 % (11.7-14.4); WHITE BLOOD COUNT 17.89 x10e3/uL (4.8-10.8)
[2024-09-22] MEDS: INSULIN REGULAR, HUMAN 100 UNIT/1 ML SQ SCH (16:54)
[2024-09-23 00:20] VITALS: BP 124/59; PULSE 76; RESP 20; TEMP 98.3; O2SAT 100
[2024-09-23 04:00] VITALS: BP 131/59; PULSE 68; RESP 18; TEMP 98.7; O2SAT 99
[2024-09-23 05:59] LABS: BASOPHILS % 0.2 % (0.0-1.0); EOSINOPHILS # (AUTO) 0.4 (0.0-0.4); EOSINOPHILS % 2.9 % (0.0-6.0); HEMATOCRIT 28.6 % (34.2-44.1); HEMOGLOBIN 9.3 g/dL (12.0-16.0); LYMPHOCYTES # (AUTO) 1.5 (1.0-3.2); LYMPHOCYTES % 12.2 % (18.0-39.1); MEAN CORPUSCULAR HEMOGLOBIN 28.9 pg (28-32); MEAN CORPUSCULAR HGB CONC 32.5 g/dL (31-35); MEAN CORPUSCULAR VOLUME 88.8 fL (81-99); MONOCYTES # (AUTO) 1.2 (0.2-0.8); MONOCYTES % 9.4 % (4.4-11.3); NEUTROPHILS # (AUTO) 9.4 (2.1-6.9); NEUTROPHILS % 74.7 % (38.7-80.0); PLATELET COUNT 259 x10e3/uL (140-360); RED BLOOD COUNT 3.22 x10e6/uL (3.6-5.1); RED CELL DISTRIBUTION WIDTH 14.7 % (11.7-14.4); WHITE BLOOD COUNT 12.51 x10e3/uL (4.8-10.8)
[2024-09-23 06:25] LABS: ANION GAP 14.3 mmol/L (8-16); CALCIUM 9.2 mg/dL (8.4-10.2); CREATININE, SERUM 1.21 mg/dL (0.57-1.11); POTASSIUM 4.3 mmol/L (3.5-5.1)
[2024-09-23 08:52] VITALS: BP 136/75; PULSE 78; RESP 20; TEMP 98.5; O2SAT 100
[2024-09-23 10:05] VITALS: BP 136/75; PULSE 78; RESP 20; TEMP 98.5; O2SAT 100
[2024-09-23] MEDS ORDERED: Docusate Sodium PO (12:26)
[2024-09-23] MEDS ORDERED: DULCOLAX SUPP10 MG PO (12:26)
[2024-09-23] MEDS ORDERED: MIRALAX17 GM PO (12:26)
[2024-09-23] MEDS ORDERED: PROTONIX IV40 MG PO (12:26)
[2024-09-23] MEDS ORDERED: CIPRO500 MG PO (12:29)
[2024-09-23] MEDS ORDERED: FLUCONAZOLE100 MG PO (12:29)
[2024-09-23 13:04] VITALS: BP 128/70; PULSE 72; RESP 20; TEMP 98.3; O2SAT 100
== END 2024-09-23 13:43 | disposition home or self-care (01) | DRG 690 ==
LOC: ER 22:23 → ERHOLD 09-17 00:46 → MED/SURG2 09-17 01:32
PROVIDERS: ADMIT Internal Medicine; ATTEND Internal Medicine
DX: N13.6 Pyonephrosis (principal); E87.20 Acidosis, unspecified; B37.49 Other urogenital candidiasis; E87.1 Hypo-osmolality and hyponatremia; C67.9 Malignant neoplasm of bladder, unspecified; D63.1 Anemia in chronic kidney disease; N17.9 Acute kidney failure, unspecified; N18.9 Chronic kidney disease, unspecified; E11.22 Type 2 diabetes mellitus with diabetic chronic kidney disease; E78.5 Hyperlipidemia, unspecified; E11.649 Type 2 diabetes mellitus with hypoglycemia without coma; I12.9 Hypertensive chronic kidney disease with stage 1 through stage 4 chronic kidney disease, or unspecified chronic kidney disease; I25.10 Atherosclerotic heart disease of native coronary artery without angina pectoris; R31.29 Other microscopic hematuria; L40.9 Psoriasis, unspecified; E66.9 Obesity, unspecified; Z68.31 Body mass index [BMI] 31.0-31.9, adult; Z79.02 Long term (current) use of antithrombotics/antiplatelets; Z79.82 Long term (current) use of aspirin; Z79.84 Long term (current) use of oral hypoglycemic drugs; Z87.440 Personal history of urinary (tract) infections; I25.2 Old myocardial infarction; Z95.1 Presence of aortocoronary bypass graft; Z90.49 Acquired absence of other specified parts of digestive tract; Z90.710 Acquired absence of both cervix and uterus
CPT/HCPCS: 36415; 71045; 74176; 74177; 80048; 80053; 80061; 81001; 82607; 82728; 82746; 82948; 83036; 83540; 84466; 85025; 85045; 87040; 87086; 94799; 99252; 99284; J0696; J1450; J1650; J2185; J2405; J2470; J7030; J7050; Q9967

== ENCOUNTER 2024-10-03 23:20 | Emergency (ER) | payer MEDICARE ==
[~2024-10-03] VITALS: Ht 149.9 cm; Wt 71.7 kg
[~2024-10-03 23:20] MED LIST changes: +CIPRO500 MG PO; +CLOTRIMAZOLE-BE15 GM TOP; +DULCOLAX SUPP10 MG PO; +Docusate Sodium PO; +FLUCONAZOLE100 MG PO; +MIRALAX17 GM PO; +PROTONIX IV40 MG PO
[2024-10-04 00:48] VITALS: PULSE 100; RESP 20; TEMP 98.5
[2024-10-04 02:58] LABS: BILIRUBIN,URINE NEGATIVE (NEGATIVE); CLARITY,URINE CLOUDY (CLEAR); COLOR,URINE YELLOW (YELLOW); GLUCOSE, URINE NEGATIVE (NEGATIVE); KETONES,URINE NEGATIVE (NEGATIVE); LEUKOCYTE ESTERASE ,URINE LARGE (NEGATIVE); NITRITE,URINE NEGATIVE (NEGATIVE); PH,URINE 5.5 (5 - 7); PROTEIN,URINE DIPSTICK 2+ (NEGATIVE); URINE UROBILINOGEN 0.2 mg/dL (0.2 - 1)
[2024-10-04 03:09] LABS: AMORPHOUS SEDIMENT,URINE MANY; BACTERIA,URINE MANY /HPF; EPITHELIAL CELLS,URINE FEW /LPF; RBC,URINE >50 /HPF (0-5); WBC,URINE (MAN) >50 /HPF (0-5)
[2024-10-04 03:58] VITALS: BP 153/82; PULSE 89; RESP 17; TEMP 99; O2SAT 100
[2024-10-04] MEDS ORDERED: ONDANSETRON HCL 4 MG ORAL DISINTEGRATING TAB ONE (04:14)
[2024-10-04] MEDS ORDERED: ONDANSETRON ODT4 MG SL (04:19)
[2024-10-04] MEDS: ONDANSETRON HCL 4 MG ORAL DISINTEGRATING TAB PO ONE (04:20)
== END 2024-10-04 04:00 | disposition home or self-care (01) ==
LOC: ER 10-04 02:34
DX: K59.00 Constipation, unspecified (principal); B37.49 Other urogenital candidiasis; I10 Essential (primary) hypertension; E11.9 Type 2 diabetes mellitus without complications; E78.5 Hyperlipidemia, unspecified; I25.10 Atherosclerotic heart disease of native coronary artery without angina pectoris; L40.9 Psoriasis, unspecified; Z85.51 Personal history of malignant neoplasm of bladder; Z95.1 Presence of aortocoronary bypass graft
CPT/HCPCS: 74018; 81001; 87086; 99283; Q0162

== ENCOUNTER 2024-10-28 11:03 | Inpatient (IN) | payer MEDICARE ==
[2024-10-28] VITALS (12 sets, daily range): BP systolic 87–118; BP diastolic 46–77; PULSE 67–84; RESP 13–18; TEMP 97.8–97.9; O2SAT 100
[~2024-10-28] VITALS: Ht 149.9 cm; Wt 76.2 kg
[2024-10-28 11:49] LABS: BASOPHILS % 0.2 % (0.0-1.0); EOSINOPHILS % 0.1 % (0.0-6.0); HEMATOCRIT 23.7 % (34.2-44.1); HEMOGLOBIN 7.8 g/dL (12.0-16.0); LYMPHOCYTES # (AUTO) 0.2 (1.0-3.2); LYMPHOCYTES % 0.9 % (18.0-39.1); MEAN CORPUSCULAR HEMOGLOBIN 29.2 pg (28-32); MEAN CORPUSCULAR HGB CONC 32.9 g/dL (31-35); MEAN CORPUSCULAR VOLUME 88.8 fL (81-99); MONOCYTES # (AUTO) 0.2 (0.2-0.8); NEUTROPHILS # (AUTO) 19.2 (2.1-6.9); NEUTROPHILS % 96.7 % (38.7-80.0); PLATELET COUNT 300 x10e3/uL (140-360); RED BLOOD COUNT 2.67 x10e6/uL (3.6-5.1); RED CELL DISTRIBUTION WIDTH 15.1 % (11.7-14.4); WHITE BLOOD COUNT 19.85 x10e3/uL (4.8-10.8)
[2024-10-28] MEDS: SODIUM CHLORIDE 0.9% 1000ML 1,000 ML IV ONE ×2 (11:51→14:15)
[2024-10-28] MEDS: ACETAMINOPHEN 325 MG TAB PO ONE (11:52)
[2024-10-28 12:02] LABS: INR 1.29; PROTHROMBIN TIME 16.8 seconds (11.9-14.5)
[2024-10-28 12:03] LABS: PARTIAL THROMBOPLASTIN TIME 28.6 seconds (23.8-35.5)
[2024-10-28 12:12] LABS: ALBUMIN 2.1 g/dL (3.5-5.0); ALBUMIN/GLOBULIN RATIO 0.5 (0.8-2.0); ANION GAP 15.6 mmol/L (8-16); BILIRUBIN,TOTAL 0.5 mg/dL (0.2-1.2); CALCIUM 7.7 mg/dL (8.4-10.2); CREATININE, SERUM 1.14 mg/dL (0.57-1.11); POTASSIUM 3.6 mmol/L (3.5-5.1)
[2024-10-28 12:51] LABS: CLARITY,URINE CLOUDY (CLEAR); COLOR,URINE YELLOW (YELLOW); LEUKOCYTE ESTERASE ,URINE LARGE (NEGATIVE); NITRITE,URINE NEGATIVE (NEGATIVE); PH,URINE 5.5 (5 - 7)
[2024-10-28 12:52] LABS: BILIRUBIN,URINE NEGATIVE (NEGATIVE); GLUCOSE, URINE NEGATIVE (NEGATIVE); KETONES,URINE NEGATIVE (NEGATIVE); PROTEIN,URINE DIPSTICK 2+ (NEGATIVE); URINE UROBILINOGEN 0.2 mg/dL (0.2 - 1)
[2024-10-28 13:06] LABS: BACTERIA,URINE MODERATE /HPF; EPITHELIAL CELLS,URINE FEW /LPF; WBC,URINE (MAN) >50 /HPF (0-5)
[2024-10-28 13:07] LABS: YEAST,URINE RARE
[2024-10-28] MEDS ORDERED: VANCOMYCIN 1.25GM/250 ML (PEG) 250 ML IV ONE (14:28)
[2024-10-28] MEDS: Vancomycin IV 1.25 GM in SODIUM CHLORIDE 0.9% 250ML 250 ML IV SCH (14:30)
[2024-10-28 14:55] LABS: BAND NEUTROPHILS % (MANUAL) 15 %; LYMPHOCYTES % (MANUAL) 2 % (19-48); MONOCYTES % (MANUAL) 1 % (3.4-9.0); NEUTROPHILS % (MANUAL) 82 % (40-74)
[2024-10-28 14:56] LABS: PLATELET ESTIMATE ADEQUATE; PLATELET MORPHOLOGY COMMENT NORMAL; POIKILOCYTOSIS SLIGHT; RBC MORPHOLOGY COMMENT NORMAL
[2024-10-28] MEDS ORDERED: IOPAMIDOL 370 MG/ML 100 ML INFUS..BTL INJ ONE (15:41)
[2024-10-28] MEDS: NOREPINEPHRINE 8 MG/D5W 250 ML 250 ML IV SCH (16:45)
[2024-10-28] MEDS: MEROPENEM 1 GM in SODIUM CHLORIDE 0.9% 100 ML IV SCH (16:47)
[2024-10-28] MEDS ORDERED: DIPHENHYDRAMINE HCL 25 MG CAP PO PRN (17:00)
[2024-10-28] MEDS ORDERED: BENZONATATE 100 MG CAP PO PRN (17:00)
[2024-10-28] MEDS ORDERED: DEXTROSE 50% SYRINGE 50 ML IV PRN (17:00)
[2024-10-28] MEDS ORDERED: POTASSIUM CHLORIDE 20 MEQ TAB CR PO PRN (17:00)
[2024-10-28] MEDS ORDERED: DOCUSATE SODIUM 100 MG CAP PO PRN (17:00)
[2024-10-28] MEDS ORDERED: HYDRALAZINE HCL 20 MG/ML VIAL IV PRN (17:00)
[2024-10-28] MEDS ORDERED: LIDOCAINE 4% PATCH TP PRN (17:00)
[2024-10-28] MEDS ORDERED: ACETAMINOPHEN 325 MG TAB PO PRN (17:00)
[2024-10-28] MEDS ORDERED: SIMETHICONE 80 MG CHEW PO PRN (17:00)
[2024-10-28] MEDS ORDERED: ALBUTEROL/IPRATROPIUM 3 ML NEB NEB PRN (17:00)
[2024-10-28] MEDS: MUPIROCIN 2% OINT 22 GM TUBE TOP SCH (18:02)
[2024-10-28] MEDS: SODIUM BICARBONATE 8.4% VIAL 50 ML in SODIUM CHLORIDE 0.45% 1,000 ML IV SCH (18:03)
[2024-10-28] MEDS: INSULIN REGULAR, HUMAN 100 UNIT/1 ML SQ SCH (21:00)
[2024-10-28] MEDS ORDERED: MELATONIN 5 MG TABLET PO PRN (21:00)
[2024-10-28 21:53] LABS: ANION GAP 12.3 mmol/L (8-16); CALCIUM 7.4 mg/dL (8.4-10.2); CREATININE, SERUM 1.13 mg/dL (0.57-1.11); POTASSIUM 3.3 mmol/L (3.5-5.1)
[2024-10-28] MEDS: ATORVASTATIN 10 MG TAB PO SCH (23:08)
[2024-10-29] VITALS (26 sets, daily range): BP systolic 91–131; BP diastolic 42–92; PULSE 69–102; RESP 13–22; TEMP 98.4–103.2; O2SAT 100
[2024-10-29] MEDS: ENOXAPARIN SOD INJ 40 MG/0.4 ML SYR SC SCH (00:04)
[2024-10-29] MEDS: MIDODRINE HCL 5 MG TABLET PO ONE (00:34)
[2024-10-29] MEDS: SODIUM BICARBONATE 650 MG TAB PO SCH (00:36)
[2024-10-29 06:22] LABS: BASOPHILS # (AUTO) 0.1 (0.0-0.1); BASOPHILS % 0.2 % (0.0-1.0); EOSINOPHILS # (AUTO) 0.3 (0.0-0.4); EOSINOPHILS % 1.3 % (0.0-6.0); HEMATOCRIT 22.5 % (34.2-44.1); MEAN CORPUSCULAR HEMOGLOBIN 28.7 pg (28-32); MEAN CORPUSCULAR VOLUME 89.6 fL (81-99); MONOCYTES # (AUTO) 0.8 (0.2-0.8); MONOCYTES % 4.1 % (4.4-11.3); NEUTROPHILS # (AUTO) 18.3 (2.1-6.9); NEUTROPHILS % 88.3 % (38.7-80.0); PLATELET COUNT 301 x10e3/uL (140-360); RED BLOOD COUNT 2.51 x10e6/uL (3.6-5.1); RED CELL DISTRIBUTION WIDTH 15.3 % (11.7-14.4)
[2024-10-29 06:31] LABS: HEMOGLOBIN 7.2 g/dL (12.0-16.0)
[2024-10-29 06:46] LABS: ALBUMIN 1.8 g/dL (3.5-5.0); ALBUMIN/GLOBULIN RATIO 0.6 (0.8-2.0); ANION GAP 10.7 mmol/L (8-16); BILIRUBIN,TOTAL 0.3 mg/dL (0.2-1.2); CREATININE, SERUM 0.82 mg/dL (0.57-1.11); TOTAL PROTEIN 4.9 g/dL (6.5-8.1)
[2024-10-29 06:53] LABS: CALCIUM 6.3 mg/dL (8.4-10.2); POTASSIUM 2.7 mmol/L (3.5-5.1)
[2024-10-29] MEDS ORDERED: PANTOPRAZOLE SOD 40 MG TABEC PO SCH (07:30)
[2024-10-29] MEDS: POTASSIUM CHLORIDE 20MEQ/100ML 100 ML IV SCH (07:32)
[2024-10-29 09:04] LABS: BAND NEUTROPHILS % (MANUAL) 1 %; MONOCYTES % (MANUAL) 6 % (3.4-9.0); NEUTROPHILS % (MANUAL) 93 % (40-74); PLATELET ESTIMATE ADEQUATE; PLATELET MORPHOLOGY COMMENT NORMAL
[2024-10-29] MEDS: ACETAMINOPHEN 325 MG TAB PO PRN (11:25)
[2024-10-29] MEDS ORDERED: Vancomycin IV 1 GM VIAL ONE (14:33)
[2024-10-29] MEDS: POTASSIUM CHLORIDE 20 MEQ TAB CR PO ONE (14:37)
[2024-10-29] MEDS: CALCIUM CARBONATE 500 MG CHEWABLE TABS PO SCH (14:38)
[2024-10-29] MEDS: VANCOMYCIN HCL 1.25 GM in SODIUM CHLORIDE 0.9% 250ML 250 ML IV SCH (15:24)
[2024-10-30] VITALS (49 sets, daily range): BP systolic 88–128; BP diastolic 42–86; PULSE 80–106; RESP 14–34; TEMP 99–100.5; O2SAT 99–100
[2024-10-30 06:05] LABS: BASOPHILS % 0.3 % (0.0-1.0); EOSINOPHILS # (AUTO) 0.3 (0.0-0.4); EOSINOPHILS % 2.5 % (0.0-6.0); HEMATOCRIT 23.2 % (34.2-44.1); HEMOGLOBIN 7.5 g/dL (12.0-16.0); LYMPHOCYTES # (AUTO) 0.6 (1.0-3.2); MEAN CORPUSCULAR HEMOGLOBIN 28.5 pg (28-32); MEAN CORPUSCULAR HGB CONC 32.3 g/dL (31-35); MEAN CORPUSCULAR VOLUME 88.2 fL (81-99); MONOCYTES % 8.3 % (4.4-11.3); NEUTROPHILS # (AUTO) 10.2 (2.1-6.9); NEUTROPHILS % 83.2 % (38.7-80.0); PLATELET COUNT 279 x10e3/uL (140-360); RED BLOOD COUNT 2.63 x10e6/uL (3.6-5.1); RED CELL DISTRIBUTION WIDTH 15.4 % (11.7-14.4); WHITE BLOOD COUNT 12.19 x10e3/uL (4.8-10.8)
[2024-10-30 06:40] LABS: ALBUMIN 1.8 g/dL (3.5-5.0); ALBUMIN/GLOBULIN RATIO 0.5 (0.8-2.0); ANION GAP 11.1 mmol/L (8-16); BILIRUBIN,TOTAL 0.3 mg/dL (0.2-1.2); CALCIUM 7.8 mg/dL (8.4-10.2); CREATININE, SERUM 0.96 mg/dL (0.57-1.11); POTASSIUM 4.1 mmol/L (3.5-5.1); TOTAL PROTEIN 5.5 g/dL (6.5-8.1)
[2024-10-30] MEDS: DEXTROSE 50% SYRINGE 50 ML IV PRN (07:16)
[2024-10-30] MEDS: ONDANSETRON HCL INJ 2MG/ML 2ML 2 MG/ML VIAL IV PRN (10:38)
[2024-10-31] VITALS (7 sets, daily range): BP systolic 105–135; BP diastolic 66–83; PULSE 79–99; RESP 14–24; TEMP 97.8–99.5; O2SAT 99–100
[2024-10-31 06:42] LABS: BASOPHILS % 0.3 % (0.0-1.0); EOSINOPHILS # (AUTO) 0.2 (0.0-0.4); HEMOGLOBIN 7.3 g/dL (12.0-16.0); LYMPHOCYTES # (AUTO) 0.7 (1.0-3.2); LYMPHOCYTES % 4.1 % (18.0-39.1); MEAN CORPUSCULAR HEMOGLOBIN 28.3 pg (28-32); MEAN CORPUSCULAR HGB CONC 32.2 g/dL (31-35); MONOCYTES # (AUTO) 1.1 (0.2-0.8); MONOCYTES % 7.2 % (4.4-11.3); NEUTROPHILS # (AUTO) 13.7 (2.1-6.9); NEUTROPHILS % 86.7 % (38.7-80.0); PLATELET COUNT 261 x10e3/uL (140-360); RED BLOOD COUNT 2.58 x10e6/uL (3.6-5.1); RED CELL DISTRIBUTION WIDTH 15.3 % (11.7-14.4); WHITE BLOOD COUNT 15.75 x10e3/uL (4.8-10.8)
[2024-10-31 06:55] LABS: HEMATOCRIT 22.7 % (34.2-44.1)
[2024-10-31 07:05] LABS: ALBUMIN 1.7 g/dL (3.5-5.0); ALBUMIN/GLOBULIN RATIO 0.4 (0.8-2.0); ANION GAP 13.1 mmol/L (8-16); BILIRUBIN,TOTAL 0.4 mg/dL (0.2-1.2); CALCIUM 7.8 mg/dL (8.4-10.2); CREATININE, SERUM 0.92 mg/dL (0.57-1.11); POTASSIUM 4.1 mmol/L (3.5-5.1); TOTAL PROTEIN 5.6 g/dL (6.5-8.1)
[2024-10-31] MEDS ORDERED: SODIUM CHLORIDE 0.9% 100 ML ONE (07:57)
[2024-10-31] MEDS: CEFTRIAXONE 2 GM in SODIUM CHLORIDE 0.9% 100 ML IV SCH (08:01)
[2024-11-01] VITALS (13 sets, daily range): BP systolic 94–130; BP diastolic 49–81; PULSE 87–124; RESP 19–24; TEMP 98.8–99.7; O2SAT 75–100
[2024-11-02] VITALS (11 sets, daily range): BP systolic 105–124; BP diastolic 49–66; PULSE 86–114; RESP 17–20; TEMP 98.7–99.8; O2SAT 92–100
[2024-11-02 05:41] LABS: BASOPHILS % 0.2 % (0.0-1.0); EOSINOPHILS # (AUTO) 0.1 (0.0-0.4); EOSINOPHILS % 0.7 % (0.0-6.0); LYMPHOCYTES # (AUTO) 0.8 (1.0-3.2); LYMPHOCYTES % 5.6 % (18.0-39.1); MEAN CORPUSCULAR HEMOGLOBIN 28.5 pg (28-32); MEAN CORPUSCULAR HGB CONC 32.9 g/dL (31-35); MEAN CORPUSCULAR VOLUME 86.7 fL (81-99); MONOCYTES # (AUTO) 1.6 (0.2-0.8); MONOCYTES % 10.9 % (4.4-11.3); NEUTROPHILS # (AUTO) 11.9 (2.1-6.9); NEUTROPHILS % 81.8 % (38.7-80.0); PLATELET COUNT 276 x10e3/uL (140-360); RED BLOOD COUNT 2.49 x10e6/uL (3.6-5.1); RED CELL DISTRIBUTION WIDTH 15.3 % (11.7-14.4)
[2024-11-02 05:42] LABS: HEMATOCRIT 21.6 % (34.2-44.1)
[2024-11-02 05:43] LABS: HEMOGLOBIN 7.1 g/dL (12.0-16.0)
[2024-11-02 06:27] LABS: ANION GAP 12.9 mmol/L (8-16); CALCIUM 8.2 mg/dL (8.4-10.2); CREATININE, SERUM 1.04 mg/dL (0.57-1.11); POTASSIUM 3.9 mmol/L (3.5-5.1)
[2024-11-02] MEDS: SODIUM BICARBONATE 650 MG TAB PO SCH (17:37)
[2024-11-02] MEDS: SODIUM CHLORIDE 0.9% 1000ML 1,000 ML IV SCH (17:37)
[2024-11-03] VITALS (7 sets, daily range): BP systolic 101–138; BP diastolic 50–63; PULSE 93–107; RESP 16–19; TEMP 98.3–99.5; O2SAT 94–100
[2024-11-03 05:52] LABS: BASOPHILS % 0.3 % (0.0-1.0); EOSINOPHILS # (AUTO) 0.2 (0.0-0.4); EOSINOPHILS % 1.2 % (0.0-6.0); HEMATOCRIT 21.1 % (34.2-44.1); LYMPHOCYTES # (AUTO) 0.9 (1.0-3.2); LYMPHOCYTES % 5.8 % (18.0-39.1); MEAN CORPUSCULAR HEMOGLOBIN 28.4 pg (28-32); MEAN CORPUSCULAR HGB CONC 31.8 g/dL (31-35); MEAN CORPUSCULAR VOLUME 89.4 fL (81-99); MONOCYTES # (AUTO) 1.5 (0.2-0.8); MONOCYTES % 9.9 % (4.4-11.3); NEUTROPHILS # (AUTO) 12.5 (2.1-6.9); NEUTROPHILS % 81.8 % (38.7-80.0); PLATELET COUNT 311 x10e3/uL (140-360); RED BLOOD COUNT 2.36 x10e6/uL (3.6-5.1); RED CELL DISTRIBUTION WIDTH 14.9 % (11.7-14.4); WHITE BLOOD COUNT 15.22 x10e3/uL (4.8-10.8)
[2024-11-03 05:59] LABS: HEMOGLOBIN 6.7 g/dL (12.0-16.0)
[2024-11-03 06:19] LABS: ANION GAP 11.9 mmol/L (8-16); CALCIUM 8.2 mg/dL (8.4-10.2); POTASSIUM 3.9 mmol/L (3.5-5.1)
[2024-11-03 13:13] LABS: BASOPHILS # (AUTO) 0.1 (0.0-0.1); BASOPHILS % 0.3 % (0.0-1.0); EOSINOPHILS # (AUTO) 0.1 (0.0-0.4); EOSINOPHILS % 0.9 % (0.0-6.0); LYMPHOCYTES # (AUTO) 0.6 (1.0-3.2); LYMPHOCYTES % 3.9 % (18.0-39.1); MEAN CORPUSCULAR HEMOGLOBIN 28.6 pg (28-32); MEAN CORPUSCULAR HGB CONC 32.7 g/dL (31-35); MEAN CORPUSCULAR VOLUME 87.3 fL (81-99); MONOCYTES # (AUTO) 1.2 (0.2-0.8); MONOCYTES % 7.9 % (4.4-11.3); NEUTROPHILS # (AUTO) 12.9 (2.1-6.9); NEUTROPHILS % 86.1 % (38.7-80.0); PLATELET COUNT 291 x10e3/uL (140-360); RED BLOOD COUNT 2.45 x10e6/uL (3.6-5.1); RED CELL DISTRIBUTION WIDTH 15.1 % (11.7-14.4); WHITE BLOOD COUNT 14.97 x10e3/uL (4.8-10.8)
[2024-11-03 13:31] LABS: HEMATOCRIT 21.4 % (34.2-44.1)
[2024-11-03] MEDS ORDERED: SODIUM CHLORIDE 0.9% 250ML 250 ML IV ONE (15:15)
[2024-11-03] MEDS: SODIUM CHLORIDE 1 GM TAB PO ONE (16:04)
[2024-11-03] MEDS: TRIMETHOPRIM/SULFAMETHOXAZOLE 160-800 MG TAB PO SCH (18:43)
[2024-11-03 22:34] LABS: ANION GAP 13.7 mmol/L (8-16); CREATININE, SERUM 1.02 mg/dL (0.57-1.11); POTASSIUM 3.7 mmol/L (3.5-5.1)
[2024-11-03 22:43] LABS: BASOPHILS # (AUTO) 0.1 (0.0-0.1); BASOPHILS % 0.4 % (0.0-1.0); EOSINOPHILS # (AUTO) 0.2 (0.0-0.4); EOSINOPHILS % 1.1 % (0.0-6.0); HEMATOCRIT 25.2 % (34.2-44.1); LYMPHOCYTES # (AUTO) 0.8 (1.0-3.2); LYMPHOCYTES % 5.1 % (18.0-39.1); MEAN CORPUSCULAR HEMOGLOBIN 28.7 pg (28-32); MEAN CORPUSCULAR HGB CONC 31.7 g/dL (31-35); MEAN CORPUSCULAR VOLUME 90.3 fL (81-99); MONOCYTES # (AUTO) 0.8 (0.2-0.8); MONOCYTES % 5.4 % (4.4-11.3); NEUTROPHILS # (AUTO) 12.9 (2.1-6.9); NEUTROPHILS % 86.9 % (38.7-80.0); PLATELET COUNT 322 x10e3/uL (140-360); RED BLOOD COUNT 2.79 x10e6/uL (3.6-5.1); RED CELL DISTRIBUTION WIDTH 15.3 % (11.7-14.4); WHITE BLOOD COUNT 14.78 x10e3/uL (4.8-10.8)
== END 2024-11-03 22:54 | disposition home health service (06) | DRG 871 ==
LOC: ER 11:08 → ERHOLD 14:19 → ICU 20:06 → MED/SURG2 11-01 15:58
PROVIDERS: ADMIT Internal Medicine; ATTEND Internal Medicine
PROC: 02HV33Z Insertion of Infusion Device into Superior Vena Cava, Percutaneous Approach (ICD-10-PCS; principal; 2024-10-28)
PROC: B548ZZA Ultrasonography of Superior Vena Cava, Guidance (ICD-10-PCS; 2024-10-28)
PROC: 0T9B70Z Drainage of Bladder with Drainage Device, Via Natural or Artificial Opening (ICD-10-PCS; 2024-10-28)
PROC: 3E04329 Introduction of Other Anti-infective into Central Vein, Percutaneous Approach (ICD-10-PCS; 2024-10-29)
PROC: 30233N1 Transfusion of Nonautologous Red Blood Cells into Peripheral Vein, Percutaneous Approach (ICD-10-PCS; 2024-11-03)
DX: A41.51 Sepsis due to Escherichia coli [E. coli] (principal); R65.21 Severe sepsis with septic shock; Z16.12 Extended spectrum beta lactamase (ESBL) resistance; D84.821 Immunodeficiency due to drugs; E87.20 Acidosis, unspecified; N13.6 Pyonephrosis; N17.9 Acute kidney failure, unspecified; D68.9 Coagulation defect, unspecified; A41.1 Sepsis due to other specified staphylococcus; I95.9 Hypotension, unspecified; R00.0 Tachycardia, unspecified; R31.29 Other microscopic hematuria; E86.0 Dehydration; E87.6 Hypokalemia; I12.9 Hypertensive chronic kidney disease with stage 1 through stage 4 chronic kidney disease, or unspecified chronic kidney disease; N18.9 Chronic kidney disease, unspecified; L40.9 Psoriasis, unspecified; Z79.620 Long term (current) use of immunosuppressive biologic; E11.22 Type 2 diabetes mellitus with diabetic chronic kidney disease; I25.10 Atherosclerotic heart disease of native coronary artery without angina pectoris; Z95.1 Presence of aortocoronary bypass graft; I70.1 Atherosclerosis of renal artery; K74.60 Unspecified cirrhosis of liver; R62.7 Adult failure to thrive; Z68.33 Body mass index [BMI] 33.0-33.9, adult; R80.9 Proteinuria, unspecified; D64.9 Anemia, unspecified; E87.8 Other disorders of electrolyte and fluid balance, not elsewhere classified; Z85.51 Personal history of malignant neoplasm of bladder; Z79.899 Other long term (current) drug therapy; Z79.02 Long term (current) use of antithrombotics/antiplatelets; Z79.82 Long term (current) use of aspirin
CPT/HCPCS: 36415; 36569; 51700; 71045; 74177; 80048; 80053; 81001; 82948; 83605; 85025; 85610; 85730; 86850; 86900; 86920; 87040; 87071; 87086; 87186; 87205; 93005; 94799; 96372; 99252; 99284; J0696; J1650; J2185; J2405; J2470; J2543; J3480; J7030; J7050; J7799; P9016; Q9967

== ENCOUNTER 2024-11-12 17:18 | Emergency (ER) | payer MEDICARE ==
[~2024-11-12] VITALS: Ht 149.9 cm; Wt 76.2 kg
[2024-11-12 18:00] VITALS: PULSE 80; RESP 18; TEMP 97
[2024-11-12] MEDS: ONDANSETRON HCL 4 MG ORAL DISINTEGRATING TAB PO ONE ×2 (20:53)
[2024-11-12 21:20] VITALS: BP 148/72; O2SAT 100
== END 2024-11-12 21:15 | disposition home or self-care (01) ==
LOC: ER 19:55
DX: Z46.6 Encounter for fitting and adjustment of urinary device (principal); I10 Essential (primary) hypertension; E11.9 Type 2 diabetes mellitus without complications; E78.5 Hyperlipidemia, unspecified; I25.10 Atherosclerotic heart disease of native coronary artery without angina pectoris; L40.9 Psoriasis, unspecified; Z85.51 Personal history of malignant neoplasm of bladder; I25.2 Old myocardial infarction
CPT/HCPCS: 51702; 99283; Q0162; 51700